=== PATIENT | male | born 1955 | race Caucasian/White ===

== ENCOUNTER → 2016-04-26 | Outpatient (CLI) | payer MEDICARE, MEDICAID ==
[2016-04-26 09:12] LABS: ALANINE AMINOTRANSFERASE 82 U/L (21-72); ALBUMIN 4.5 g/dL (3.5-5.0); ALKALINE PHOSPHATASE 65 U/L (38-126); ANION GAP 11 (5-19); ASPARTATE AMINO TRANSFERASE 68 U/L (17-59); BILIRUBIN,TOTAL 0.6 mg/dL (0.2-1.3); BLOOD UREA NITROGEN 21 mg/dL (7-20); CALCIUM 9.4 mg/dL (8.4-10.2); CARBON DIOXIDE 28 mmol/L (22-30); CHLORIDE 102 mmol/L (98-107); CREATININE RESULT 1.11 mg/dL (0.52-1.25); Direct HDL 54 mg/dL (>40); GLUCOSE 99 mg/dL (75-110); POTASSIUM 4.6 mmol/L (3.6-5.0); SODIUM 141.2 mmol/L (137-145); TOTAL PROTEIN 6.8 g/dL (6.3-8.2); TRIGLYCERIDES 73 mg/dL (<150)
[2016-04-26 09:23] LABS: DIRECT LDL 66 mg/dL (<100)
== END ==
LOC: OD 07:55
PROVIDERS: ATTEND Specialist
DX: E78.4 Other hyperlipidemia (principal); I35.8 Other nonrheumatic aortic valve disorders; I10 Essential (primary) hypertension; I34.0 Nonrheumatic mitral (valve) insufficiency; R00.0 Tachycardia, unspecified; R09.89 Other specified symptoms and signs involving the circulatory and respiratory systems; F20.89 Other schizophrenia; Z79.899 Other long term (current) drug therapy
CPT/HCPCS: 36415; 80053; 80061

== ENCOUNTER → 2017-01-30 | Outpatient (CLI) | payer MEDICARE, MEDICAID ==
[2017-01-30 10:19] LABS: ALANINE AMINOTRANSFERASE 65 U/L (21-72); ALBUMIN 4.4 g/dL (3.5-5.0); ALKALINE PHOSPHATASE 72 U/L (38-126); ANION GAP 14 (5-19); ASPARTATE AMINO TRANSFERASE 41 U/L (17-59); BILIRUBIN,DIRECT 0.3 mg/dL (0.0-0.4); BILIRUBIN,TOTAL 0.6 mg/dL (0.2-1.3); BLOOD UREA NITROGEN 19 mg/dL (7-20); CALCIUM 9.5 mg/dL (8.4-10.2); CARBON DIOXIDE 27 mmol/L (22-30); CHLORIDE 103 mmol/L (98-107); CHOLESTEROL 229.29 mg/dL (0-200); CREATININE RESULT 1.17 mg/dL (0.52-1.25); Direct HDL 45 mg/dL (>40); GLUCOSE 88 mg/dL (75-110); POTASSIUM 4.5 mmol/L (3.6-5.0); SODIUM 143.9 mmol/L (137-145); TOTAL PROTEIN 6.6 g/dL (6.3-8.2); TRIGLYCERIDES 165 mg/dL (<150)
[2017-01-30 10:30] LABS: DIRECT LDL 157 mg/dL (<100)
== END ==
LOC: OD 08:45
PROVIDERS: ATTEND Internal Medicine
DX: E78.4 Other hyperlipidemia (principal); I10 Essential (primary) hypertension; I34.0 Nonrheumatic mitral (valve) insufficiency; R00.0 Tachycardia, unspecified; J35.8 Other chronic diseases of tonsils and adenoids; R09.89 Other specified symptoms and signs involving the circulatory and respiratory systems
CPT/HCPCS: 36415; 80053; 80061

== ENCOUNTER 2017-03-28 11:11 | Inpatient (IN) | payer MEDICARE, MEDICAID ==
[2017-03-28] MEDS ORDERED: IBUPROFEN 600 MG TABLET PO ONE (11:20)
[2017-03-28] MEDS ORDERED: ONDANSETRON HCL INJ/PF 4 MG/2 ML SDV IV ONE (11:30)
--- NOTE | 2017-03-28 11:32 | ER Document Report ---
ED Flu Like - General Chief Complaint: Fever Stated Complaint: FEVER Time Seen by Provider: 03/28/17 11:19 Notes: The patient is a 61-year-old male, past medical history hypertension, chronic gastritis, schizophrenia (lives at [facility]), presents with 2 weeks of myalgias, fevers, dry cough and 2 days of nausea. He denies shortness of breath, chest pain, vomiting, abdominal pain, hematemesis, diarrhea, constipation, urinary symptoms, neck stiffness, headache or hemoptysis. TRAVEL OUTSIDE OF THE [place] IN LAST 30 DAYS: No - Related Data Allergies/Adverse Reactions: bupropion HCl [From Wellbutrin] Allergy (Verified 03/28/17 11:39) Past Medical History - General Information source: Patient, Emergency Med Personnel - Social History Smoking Status: Unknown if Ever Smoked Family History: Reviewed & Not Pertinent - Past Medical History Cardiac Medical History: Reports: Hx Hypercholesterolemia, Hx Hypertension Denies: Hx Coronary Artery Disease, Hx Heart Attack Pulmonary Medical History: Denies: Hx Asthma, Hx Bronchitis, Hx COPD, Hx Pneumonia Neurological Medical History: Denies: Hx Cerebrovascular Accident, Hx Seizures Renal/ Medical History: Reports: Hx Kidney Stones GI Medical History: Reports: Hx Gastroesophageal Reflux Disease Musculoskeltal Medical History: Denies Hx Arthritis Psychiatric Medical History: Reports: Hx Bipolar Disorder, Hx Depression, Hx Schizophrenia Past Surgical History: Reports: Hx Cholecystectomy, Hx Kidney (Renal Surgery) - for stones. Denies: Hx Pacemaker - Immunizations Hx Diphtheria, Pertussis, Tetanus Vaccination: Yes Hx Pneumococcal Vaccination: 03/18/00 Review of Systems - Review of Systems Notes: REVIEW OF SYSTEMS: CONSTITUTIONAL: +fevers, +chills EENT: -eye pain, -difficulty swallowing, -nasal congestion CARDIOVASCULAR: -chest pain, -syncope. RESPIRATORY: +cough, -SOB GASTROINTESTINAL: -abdominal pain, +nausea, -vomiting, -diarrhea GENITOURINARY: -dysuria, -hematuria MUSCULOSKELETAL: -back pain, -neck pain SKIN: -rash or skin lesions. HEMATOLOGIC: -easy bruising or bleeding. LYMPHATIC: -swollen, enlarged glands. NEUROLOGICAL: -altered mental status or loss of consciousness, -headache, - neurologic symptoms PSYCHIATRIC: -anxiety, -depression. ALL OTHER SYSTEMS REVIEWED AND NEGATIVE. Physical Exam - Vital signs Vitals: Resp Pulse Ox 30 H 94 03/28/17 11:30 03/28/17 11:30 - Notes Notes: PHYSICAL EXAMINATION: GENERAL: Well-appearing, well-nourished and in no acute distress. HEAD: Atraumatic, normocephalic. EYES: Pupils equal round and reactive to light, extraocular movements intact, sclera anicteric, conjunctiva are normal. ENT: nares patent, oropharynx clear without exudates. Moist mucous membranes. NECK: Normal range of motion, supple without lymphadenopathy LUNGS: Mild tachypnea. No respiratory distress. Speaking in full sentences. Crackles in RLL. HEART: Tachycardia, regular rhythm. ABDOMEN: Soft, nontender, normoactive bowel sounds. No guarding, no rebound. No masses appreciated. EXTREMITIES: Normal range of motion, no pitting or edema. No cyanosis. NEUROLOGICAL: Cranial nerves grossly intact. Normal speech, normal gait. Normal sensory and motor exams. PSYCH: Normal mood, normal affect. SKIN: Warm, Dry, normal turgor, no rashes or lesions noted. Course - Re-evaluation Re-evalutation: 61-year-old male seen immediately on arrival with her, tachycardia and leukocytosis. His lactate is 4.1. He has a productive cough and crackles left lower lung cruz. Radiology read the CXR as no acute processes, but there does appear to be an infiltrate in his left lower lobe. Clinically, he has a pneumonia and broad-spectrum antibiotics started. Patient was given 30 cc/kg IV fluids, but his blood pressure continued to drop. Patient was verbally consented for a central line and a right IJ triple-lumen catheter was placed under sterile guidance. Levophed was started to help keep his map above 65. Patient's flu is negative and CT abdomen pelvis do not show any acute findings. He is also in acute renal failure, which is most likely related to his septic shock and hypoperfusion. Will continue to monitor his kidney function. Patient 's primary care physician is Dr. Drake and Dr. Wadsworth is admitting his patient's today. 03/28/17 14:[address] Wadsworth and will admit patient as inpatient to ICU for further evaluation and treatment of his septic shock. - Vital Signs Vital signs: Temp Pulse Resp BP Pulse Ox 99 F 22 H 88/47 L 94 03/28/17 11:42 03/28/17 14:01 03/28/17 14:00 03/28/17 14:01 - Laboratory Result Diagrams: 03/28/17 11:30 03/28/17 11:30 Laboratory results interpreted by me: 03/28/17 03/28/17 03/28/17 11:26 11:30 11:30 WBC 28.9 H RBC 4.27 L Hgb 13.2 L Seg Neuts % (Manual) 89 H Band Neutrophils % 10 H Lymphocytes % (Manual) 1 L Monocytes % (Manual) 0 L Abs Neuts (Manual) 28.6 H Abs Lymphs (Manual) 0.3 L Abs Monocytes (Manual) 0.0 L VBG pH Sodium 135.6 L Chloride 97 L Carbon Dioxide 21 L BUN 38 H Creatinine 2.40 H Est GFR ( Amer) 34 L Est GFR (Non-Af Amer) 28 L Glucose 166 H POC Glucose 192 H Lactic Acid 03/28/17 03/28/17 11:30 11:30 WBC RBC Hgb Seg Neuts % (Manual) Band Neutrophils % Lymphocytes % (Manual) Monocytes % (Manual) Abs Neuts (Manual) Abs Lymphs (Manual) Abs Monocytes (Manual) VBG pH 7.46 H Sodium Chloride Carbon Dioxide BUN Creatinine Est GFR ( Amer) Est GFR (Non-Af Amer) Glucose POC Glucose Lactic Acid 4.1 H - Diagnostic Test Radiology reviewed: Image reviewed, Reports reviewed Radiology results interpreted by me: CXR: NAD CT A/P: NAD - EKG Interpretation by Me EKG shows normal: Sinus rhythm, [place], Intervals, QRS Complexes, ST-T Waves Rate: Tachycardia Procedures - Central Line Right Internal jugular Time completed: 14:04 Consent obtained: Yes Central line pre-insertion: Sterile PPE donned, Chloraprep applied, Sterile drapes applied Central line size (Fr.): 16 Central line lumen type: Triple Anesthetic type: 1% Lidocaine mL's of anesthesia: 5 Ultrasound guided: Yes CM at insertion site: 16 Line secured with sutures: Yes Central line post-insertion: Blood return from lumens, Biopatch applied, Sutured , Sterile dressing applied, Position confirmed w/ CXR Number of attempts: 1 Complications: No Critical Care Note - Critical Care Note Total time excluding time spent on procedures (mins): 45 Discharge - Discharge Clinical Impression: Septic shock, CHRISTINE (acute kidney injury) Pneumonia Qualifiers: Pneumonia type: due to unspecified organism Laterality: left Lung location: lower lobe of lung Qualified Code(s): J18.1 - Lobar pneumonia, unspecified organism Condition: Serious Disposition: ADMITTED INPATIENT Admitting Provider: [facility] Admitted: ICU Referrals: WILBUR DRAKE MD [Primary Care Provider] - Follow up as needed
[2017-03-28] MEDS ORDERED: IPRATROPIUM/ALBUTEROL 0.5-2.5 MG/3 ML AMPUL NEB ONE (11:42)
[2017-03-28] MEDS: NORMAL SALINE 1000 ML 1,000 ML IV PRN ×5 (11:51→19:40)
[2017-03-28 11:55] LABS: HEMATOCRIT 39.3 % (37.9-51.0); HEMOGLOBIN 13.2 g/dL (13.5-17.0); MEAN CORPUSCULAR HEMOGLOBIN 30.8 pg (27.0-33.4); MEAN CORPUSCULAR HGB CONC 33.6 g/dL (32.0-36.0); MEAN CORPUSCULAR VOLUME 92 fl (80-97); PLATELET COUNT 182 10^3/uL (150-450); RED BLOOD COUNT 4.27 10^6/uL (4.35-5.55); RED CELL DISTRIBUTION WIDTH 13.8 % (11.5-14.0); WHITE BLOOD COUNT 28.9 10^3/uL (4.0-10.5)
[2017-03-28 11:56] LABS: VENOUS BLOOD BASE EXCESS 1.4 mmol/L; VENOUS BLOOD PCO2 36.4 mmHg (35-63); VENOUS BLOOD PH 7.46 (7.30-7.42)
[2017-03-28 12:09] LABS: ALANINE AMINOTRANSFERASE 52 U/L (21-72); ALBUMIN 3.7 g/dL (3.5-5.0); ALKALINE PHOSPHATASE 63 U/L (38-126); ANION GAP 18 (5-19); ASPARTATE AMINO TRANSFERASE 57 U/L (17-59); BILIRUBIN,DIRECT 0.3 mg/dL (0.0-0.4); BILIRUBIN,TOTAL 0.6 mg/dL (0.2-1.3); BLOOD UREA NITROGEN 38 mg/dL (7-20); CARBON DIOXIDE 21 mmol/L (22-30); CHLORIDE 97 mmol/L (98-107); GLUCOSE 166 mg/dL (75-110); POTASSIUM 4.1 mmol/L (3.6-5.0); SODIUM 135.6 mmol/L (137-145); TOTAL PROTEIN 6.5 g/dL (6.3-8.2)
[2017-03-28] MEDS ORDERED: VANCOMYCIN HCL INJ 1000 MG VIAL IV ONE (12:11)
[2017-03-28] MEDS ORDERED: PIPERACILLIN/TAZOBACTAM 3.375 GM VIAL IV ONE (12:11)
--- NOTE | 2017-03-28 12:11 | RADIOLOGY REPORT (SQ) ---
EXAM DESCRIPTION: CHEST SINGLE VIEW COMPLETED DATE/TIME: 03/28/2017 12:01 pm REASON FOR STUDY: fever, cough COMPARISON: June 2015 EXAM PARAMETERS: NUMBER OF VIEWS: One view. TECHNIQUE: Single frontal radiographic view of the chest acquired. RADIATION DOSE: NA LIMITATIONS: None. FINDINGS: LUNGS AND PLEURA: No opacities, masses or pneumothorax. No pleural effusion. MEDIASTINUM AND HILAR STRUCTURES: No masses. Contour normal. HEART AND VASCULAR STRUCTURES: Heart normal in size. Normal vasculature. BONES: No acute findings. HARDWARE: None in the chest. OTHER: No other significant finding. IMPRESSION: NO ACUTE RADIOGRAPHIC FINDING IN THE CHEST. TECHNICAL DOCUMENTATION: JOB ID: [id number] [employer]- All Rights Reserved
[2017-03-28 12:15] LABS: ABSOLUTE LYMPHOCYTES# (MANUAL) 0.3 10^3/uL (0.5-4.7); ABSOLUTE NEUTROPHILS# (MANUAL) 28.6 10^3/uL (1.7-8.2); BAND NEUTROPHILS % (MANUAL) 10 % (3-5); BASOPHILS % (MANUAL) 0 % (0-2); EOSINOPHILS % (MANUAL) 0 % (0-6); LYMPHOCYTES % (MANUAL) 1 % (13-45); MONOCYTES % (MANUAL) 0 % (3-13); PLATELET COMMENT ADEQUATE; SEGMENTED NEUTROPHILS % (MAN) 89 % (42-78); TOTAL CELLS COUNTED 100; TOXIC GRANULATION 1+; TOXIC VACUOLATION PRESENT
[2017-03-28 12:16] LABS: RBC MORPHOLOGY COMMENT NORMO-CYTIC/CHROMIC
[2017-03-28] MEDS ORDERED: DEXTROSE 5%-WATER 250 ML with NOREPINEPHRINE BITARTRATE 4 MG IV PRN ×2 (13:13)
[2017-03-28 13:33] LABS: A TYPE INFLUENZA AG NEGATIVE (NEGATIVE); B INFLUENZA AG NEGATIVE (NEGATIVE)
--- NOTE | 2017-03-28 13:42 | RADIOLOGY REPORT (SQ) ---
EXAM DESCRIPTION: CT ABD/PELVIS NO ORAL OR IV COMPLETED DATE/TIME: 03/28/2017 1:24 pm REASON FOR STUDY: severe sepsis, N/V, abdominal pain COMPARISON: March 2014 TECHNIQUE: CT scan of the abdomen and pelvis performed without intravenous or oral contrast. Images reviewed with lung, soft tissue, and bone windows. Reconstructed coronal and sagittal MPR images revi ewed. All images stored on PACS. All CT scanners at this facility use dose modulation, iterative reconstruction, and/or weight based d osing when appropriate to reduce radiation dose to as low as reasonably achievable (ALARA). [facility]: Dose Right [facility]: CareDose [facility]: Dose Right [facility]: Teradose 4D [facility]: Smart [employer] RADIATION DOSE: CT Rad equipment meets quality standard of care and radiation dose reduction techniq ues were employed. CTDIvol: 19.3 mGy. DLP: 1168 mGy-cm.mGy. LIMITATIONS: None. FINDINGS: LOWER CHEST: No significant findings. No nodules or infiltrates. NON-CONTRASTED LIVER, SPLEEN, ADRENALS: Evaluation limited by lack of IV contrast. No identified sign ificant masses. Scattered splenic calcifications are again identified PANCREAS: No masses. No peripancreatic inflammatory changes. GALLBLADDER: Status post cholecystectomy RIGHT KIDNEY AND URETER: No suspicious masses. Assessment limited by lack of IV contrast. No signif icant calcifications. No hydronephrosis or hydroureter. LEFT KIDNEY AND URETER: No suspicious masses. Assessment limited by lack of IV contrast. No signifi cant calcifications. No hydronephrosis or hydroureter. AORTA AND RETROPERITONEUM: No aneurysm. No retroperitoneal masses or adenopathy. BOWEL AND PERITONEAL CAVITY: No obvious masses or inflammatory changes. No free fluid. APPENDIX: Normal. PELVIS, BLADDER, AND ABDOMINAL WALL:No abnormal masses. No free fluid. There is some prominence of t he prostate gland with prostatic calcifications and a prostatic impression on the bladder base. BONES: No significant findings. OTHER: No other significant finding. IMPRESSION: NO SIGNIFICANT OR ACUTE PROCESS IN THE ABDOMEN OR PELVIS. COMMENT: Quality ID # [id number]: Final reports with documentation of one or more dose reduction techniques (e.g., Automated exposure control, adjustment of the mA and/or kV according to patient size, use of iterative reconstruction technique) TECHNICAL DOCUMENTATION: JOB ID: [id number]- All Rights Reserved
[2017-03-28] MEDS ORDERED: NOREPINEPHRINE BITARTRATE INJ/PF 4 MG/4 ML SDV IV ONE ×2 (14:18→19:31)
[2017-03-28] MEDS ORDERED: NORMAL SALINE 1000 ML 1,000 ML IV PRN (14:50)
--- NOTE | 2017-03-28 14:55 | RADIOLOGY REPORT (SQ) ---
EXAM DESCRIPTION: CHEST SINGLE VIEW COMPLETED DATE/TIME: 03/28/2017 2:26 pm REASON FOR STUDY: central line placement COMPARISON: AP chest 06/26/2017, 07/04/2015, 01/02/2015 EXAM PARAMETERS: NUMBER OF VIEWS: One view. TECHNIQUE: Single frontal radiographic view of the chest acquired. RADIATION DOSE: NA LIMITATIONS: Portable chest, lordotic positioning, EKG leads over the chest FINDINGS: LUNGS AND PLEURA: No opacities, masses or pneumothorax. No pleural effusion. MEDIASTINUM AND HILAR STRUCTURES: No masses. Contour normal. HEART AND VASCULAR STRUCTURES: Cardiac silhouette size accentuated by lordotic positioning BONES: No acute findings. HARDWARE: Right jugular central line tip superior vena cava. OTHER: No other significant finding. IMPRESSION: Right jugular central line tip superior vena cava. No pneumothorax TECHNICAL DOCUMENTATION: JOB ID: [id number] [email or web address]- All Rights Reserved
--- NOTE | 2017-03-28 15:13 | ER Document Report ---
Sepsis - Sepsis Documentation Sepsis Patient: Yes - Vital Signs Vitals: Temp Pulse Resp BP Pulse Ox 99 F 17 94/56 L 95 03/28/17 11:42 03/28/17 14:55 03/28/17 14:55 03/28/17 14:55 - Cardiovascular Peripheral Pulse Strength: Normal Capillary refill: < 3 seconds Rhythm: Regular Heart Sounds: Normal auscultation - Respiratory Breath Sounds: Crackle - Left Lower Lobe Respiratory Status: No respiratory distress - Skin Skin Color: Normal
[2017-03-28 16:04] LABS: LIPASE 47.5 U/L (23-300); MAGNESIUM 1.7 mg/dL (1.6-2.3); PHOSPHORUS 4.2 mg/dL (2.5-4.5)
[2017-03-28 16:13] LABS: INTERNATIONAL RATION (INR) 1.33; PROTHROMBIN TIME 17.3 SEC (11.4-15.4)
[2017-03-28 16:14] LABS: PARTIAL THROMBOPLASTIN TIME 41.2 SEC (23.5-35.8)
[2017-03-28 16:23] LABS: FREE T4 (FREE THYROXINE) 1.73 ng/dL (0.78-2.19)
[2017-03-28 16:36] LABS: THYROID STIMULATING HORMONE 0.21 uIU/mL (0.47-4.68)
[2017-03-28 16:53] LABS: CREATINE KINASE MB 20.3 ng/mL (<4.55)
[2017-03-28 17:02] LABS: TROPONIN I 0.098 ng/mL
[2017-03-28] MEDS: PIPERACILLIN SODIUM/TAZOBACTAM 3.375 GM in NORMAL SALINE 100 ML IV SCH (18:14)
[2017-03-28 18:31] LABS: APPEARANCE,URINE CLOUDY; BILIRUBIN,URINE NEGATIVE (NEGATIVE); COLOR,URINE AMBER; GLUCOSE, URINE NEGATIVE (NEGATIVE); KETONES,URINE NEGATIVE (NEGATIVE); LEUKOCYTE ESTERASE,URINE NEGATIVE (NEGATIVE); NITRITE,URINE NEGATIVE (NEGATIVE); PROTEIN,URINE 100 mg/dL (NEGATIVE); URINE SPECIFIC GRAVITY 1.018
--- NOTE | 2017-03-28 18:40 | EKG REPORT ---
SEVERITY:- ABNORMAL ECG - SINUS TACHYCARDIA CONSIDER RVH W/ SECONDARY REPOL ABNORMALITY REPOL ABNRM SUGGESTS ISCHEMIA, DIFFUSE LEADS : Confirmed by: Umang Fu MD 28-Mar-2017 18:40:25
[2017-03-28 19:02] LABS: URINE AMPHETAMINES SCREEN NEGATIVE; URINE BARBITURATES SCREEN NEGATIVE; URINE BENZODIAZEPINES SCREEN NEGATIVE; URINE COCAINE SCREEN NEGATIVE; URINE MARIJUANA (THC) SCREEN NEGATIVE; URINE METHADONE SCREEN NEGATIVE; URINE PHENCYCLIDINE SCREEN NEGATIVE
[2017-03-28] MEDS: DEXTROSE 5%-WATER 250 ML with NOREPINEPHRINE BITARTRATE 4 MG IV PRN ×2 (19:35)
[2017-03-28 20:05] LABS: ARTERIAL BLOOD BASE EXCESS -3.5 mmol/L; ARTERIAL BLOOD FIO2 2; ARTERIAL BLOOD H2CO3 0.95 mmol/L (1.05-1.35); ARTERIAL BLOOD O2 SATURATION 95.7 % (94-98); ARTERIAL BLOOD PCO2 31.6 mmHg (35-45); ARTERIAL BLOOD PH 7.42 (7.35-7.45); ARTERIAL BLOOD PO2 76.5 mmHg (80-100)
[2017-03-28] MEDS ORDERED: VANCOMYCIN HCL 0 MG in DEXTROSE 5%-WATER 250 ML IV NR (21:30)
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
[2017-03-28] MEDS: ACETAMINOPHEN 325 MG TABLET PO PRN (21:51)
[2017-03-28 22:25] LABS: CREATINE KINASE MB 28.6 ng/mL (<4.55); TROPONIN I 0.077 ng/mL
[2017-03-28] MEDS: HEPARIN SOD (PORCINE) 5,000 UNIT/ML 1 ML SYRINGE SUBCUT SCH (22:43)
[2017-03-29] MEDS: PIPERACILLIN SODIUM/TAZOBACTAM 3.375 GM in NORMAL SALINE 100 ML IV SCH ×5 (01:01→23:41)
[2017-03-29] MEDS: DEXTROSE 5%-WATER 250 ML with NOREPINEPHRINE BITARTRATE 4 MG IV PRN ×4 (01:03→05:49)
[2017-03-29] MEDS: NORMAL SALINE 1000 ML 1,000 ML IV PRN ×2 (01:19→23:29)
[2017-03-29] MEDS: GUAIFENESIN SYRP 200 MG/10 ML UDC PO PRN ×3 (01:53→18:34)
[2017-03-29 03:34] LABS: HEMATOCRIT 37.2 % (37.9-51.0); HEMOGLOBIN 12.4 g/dL (13.5-17.0); MEAN CORPUSCULAR HEMOGLOBIN 30.6 pg (27.0-33.4); MEAN CORPUSCULAR HGB CONC 33.3 g/dL (32.0-36.0); MEAN CORPUSCULAR VOLUME 92 fl (80-97); PLATELET COUNT 137 10^3/uL (150-450); RED BLOOD COUNT 4.04 10^6/uL (4.35-5.55); RED CELL DISTRIBUTION WIDTH 14.1 % (11.5-14.0); WHITE BLOOD COUNT 27.3 10^3/uL (4.0-10.5)
[2017-03-29 03:52] LABS: ALANINE AMINOTRANSFERASE 69 U/L (21-72); ALBUMIN 3.4 g/dL (3.5-5.0); ALKALINE PHOSPHATASE 59 U/L (38-126); ANION GAP 10 (5-19); ASPARTATE AMINO TRANSFERASE 125 U/L (17-59); BILIRUBIN,DIRECT 0.4 mg/dL (0.0-0.4); BILIRUBIN,TOTAL 0.6 mg/dL (0.2-1.3); BLOOD UREA NITROGEN 39 mg/dL (7-20); CALCIUM 8.3 mg/dL (8.4-10.2); CARBON DIOXIDE 23 mmol/L (22-30); CHLORIDE 104 mmol/L (98-107); CHOLESTEROL 129.53 mg/dL (0-200); GLUCOSE 150 mg/dL (75-110); POTASSIUM 4.1 mmol/L (3.6-5.0); SODIUM 137.4 mmol/L (137-145); TOTAL PROTEIN 6.6 g/dL (6.3-8.2); TRIGLYCERIDES 133 mg/dL (<150)
[2017-03-29 03:53] LABS: ABSOLUTE LYMPHOCYTES# (MANUAL) 1.9 10^3/uL (0.5-4.7); ABSOLUTE MONOCYTES # (MANUAL) 0.5 10^3/uL (0.1-1.4); ABSOLUTE NEUTROPHILS# (MANUAL) 24.8 10^3/uL (1.7-8.2); BAND NEUTROPHILS % (MANUAL) 8 % (3-5); BASOPHILS % (MANUAL) 0 % (0-2); EOSINOPHILS % (MANUAL) 0 % (0-6); LYMPHOCYTES % (MANUAL) 7 % (13-45); MONOCYTES % (MANUAL) 2 % (3-13); SEGMENTED NEUTROPHILS % (MAN) 83 % (42-78); TOTAL CELLS COUNTED 100
[2017-03-29 03:54] LABS: PLATELET COMMENT DECREASED; RBC MORPHOLOGY COMMENT NORMO-CYTIC/CHROMIC; TOXIC GRANULATION 1+; TOXIC VACUOLATION PRESENT
[2017-03-29 04:04] LABS: DIRECT LDL 46 mg/dL (<100); TROPONIN I 0.081 ng/mL
[2017-03-29 04:07] LABS: CREATINE KINASE 2832 U/L (55-170)
[2017-03-29] MEDS: LEVOTHYROXINE SODIUM 0.05 MG TABLET PO SCH (05:28)
[2017-03-29] MEDS: HEPARIN SOD (PORCINE) 5,000 UNIT/ML 1 ML SYRINGE SUBCUT SCH ×3 (05:33→22:10)
[2017-03-29] MEDS: ACETAMINOPHEN 325 MG TABLET PO PRN ×3 (05:57→18:34)
[2017-03-29] MEDS ORDERED: SALIVA SUBSTITUTE COMBO NO 9 PO PRN (07:42)
--- NOTE | 2017-03-29 08:11 | XCELERA REPORT ---
[address] [address] Lower Extremity Venous Evaluation Name: ANNETTE AGUILERA Age: 61 yrs Gender: Male : 1955 Patient Status: Inpatient Patient Location: [place] [id number]^A Study Date: 03/28/2017 06:47 PM Procedure: Color flow and duplex imaging bilaterally of the veins of the lower extremities as well as the Common Femoral veins. Reason For Study: rt leg swelling Ordering Physician: PLACIDO GTZ Performed By: Nubia Hitchcock Right Sided Venous Evaluation Normal vessel filling wall to wall, compression and augmentation as well as Colour flow down to the infrageniculate veins. Left Sided Venous Evaluation The left common femoral vein is fully compressible. Spontaneous and phasic flow is present in the left common femoral vein. Interpretation Summary No duplex evidence of DVT or obstruction in the right lower extremity nor in the left Common Femoral vein. : PLACIDO GTZ > Scar Raymond
[2017-03-29] MEDS: LORAZEPAM 1 MG TABLET PO SCH ×2 (12:21→18:13)
[2017-03-29] MEDS ORDERED: (PENDING PHARMACY ID) (Bupropion Hcl [Wellbutrin Sr 150 Mg Tablet] 150 MG) PO SCH (13:00)
[2017-03-29] MEDS ORDERED: PALIPERIDONE 1.5 MG PO SCH (13:00)
[2017-03-29] MEDS: VANCOMYCIN HCL 1,500 MG in DEXTROSE 5%-WATER 250 ML IV SCH (13:02)
--- NOTE | 2017-03-29 13:04 | ER Document Report ---
Doctor's Note Notes: 03/29/17 13:02 Patient is tachypnea, short of breath, using accessory muscles of respiration, has rales in his lungs, has erythema of the right leg with lymphangitic streaking up to the level of his groin but it does not connect to his genitals. There is blistering on the inside of his right ankle. Chest x-ray at the bedside ordered by Dr. Wadsworth shows what appears to be flash pulmonary edema and this is consistent with his clinical exam, patient was hypoxic and had to be started on oxygen. I discussed this patient with Dr. Wadsworth as nursing was very concerned about this patient and he is still in the emergency department awaiting a bed upstairs, Dr. Wadsworth asks for Lasix, declines to start a nitro drip and agrees with starting BiPAP.
--- NOTE | 2017-03-29 13:20 | RADIOLOGY REPORT (SQ) ---
EXAM DESCRIPTION: CHEST SINGLE VIEW COMPLETED DATE/TIME: 03/29/2017 1:02 pm REASON FOR STUDY: shortness of breath COMPARISON: Chest films 01/02/2015, 07/04/2015, 03/28/2017 EXAM PARAMETERS: NUMBER OF VIEWS: One view. TECHNIQUE: Single frontal radiographic view of the chest acquired. RADIATION DOSE: NA LIMITATIONS: None. FINDINGS: LUNGS AND PLEURA: Low lung volumes. Mass no gross acute infiltrates. No pleural effusion or pneumothorax. MEDIASTINUM AND HILAR STRUCTURES: No masses. Contour normal. HEART AND VASCULAR STRUCTURES: Cardiac silhouette size accentuated by portable technique and low lung volumes. BONES: No acute findings. HARDWARE: Right jugular central line tip superior vena cava OTHER: No other significant finding. IMPRESSION: No acute infiltrates. Expiratory film TECHNICAL DOCUMENTATION: JOB ID: [id number] [employer]- All Rights Reserved
[2017-03-29] MEDS ORDERED: FUROSEMIDE INJ/PF 40 MG/4 ML SDV IV ONE (13:30)
[2017-03-29] MEDS: BUPROPION HCL 100 MG TABLET PO SCH ×2 (15:22→18:13)
--- NOTE | 2017-03-29 22:21 | PDOC PROGRESS REPORT ---
Subjective Progress Note for:: 03/29/17 Subjective:: Patient was admitted yesterday when he presented with septic shock due to severe cellulitis of the right lower extremities associated with rhabdomyolysis. He was vigorously hydrated with fluid and also treated with vasopressor IV norepinephrine. He developed volume overload today with increased blood pressure associated with respiratory distress, was temporarily supported with BiPAP. I saw him in the emergency room where is located the blood pressure is normalized, the IV fluids infusion rate to be decreased to 70 cc/h from 200 cc/h Reason For Visit: SEPSIS,ACUTE KIDNEY INJURY,HYPOTENSION Physical Exam Vital Signs: Temp Pulse Resp BP Pulse Ox 100.7 F H 22 H 113/72 97 03/29/17 18:24 03/29/17 21:30 03/29/17 21:30 03/29/17 21:30 Intake & Output 03/28/17 03/29/17 03/30/17 06:59 06:59 06:59 Output Total 1350 1700 Balance -1350 -1700 Weight 111.13 kg Head exam: PRESENT: atraumatic, normocephalic Eye exam: PRESENT: conjunctiva pink, EOMI, PERRLA Ear exam: PRESENT: normal external ear exam Mouth exam: PRESENT: moist, tongue midline Neck exam: PRESENT: full ROM Respiratory exam: PRESENT: clear to auscultation damion Cardiovascular exam: PRESENT: RRR, +S1, +S2 Vascular exam: PRESENT: normal capillary refill GI/Abdominal exam: PRESENT: normal bowel sounds, soft Rectal exam: PRESENT: deferred Neurological exam: PRESENT: alert. ABSENT: motor sensory deficit Psychiatric exam: PRESENT: appropriate affect, normal mood Skin exam: PRESENT: dry, intact, warm. ABSENT: cyanosis, rash Results Laboratory Results: 03/29/17 03:24 03/29/17 03:24 03/29/17 03/29/17 03:24 03:24 WBC 27.3 H RBC 4.04 L Hgb 12.4 L Hct 37.2 L MCV 92 MCH 30.6 MCHC 33.3 RDW 14.1 H Plt Count 137 L Seg Neutrophils % Not Reportable Lymphocytes % Not Reportable Monocytes % Not Reportable Eosinophils % Not Reportable Basophils % Not Reportable Absolute Neutrophils Not Reportable Absolute Lymphocytes Not Reportable Absolute Monocytes Not Reportable Absolute Eosinophils Not Reportable Absolute Basophils Not Reportable Sodium 137.4 Potassium 4.1 Chloride 104 Carbon Dioxide 23 Anion Gap 10 BUN 39 H Creatinine 2.02 H Est GFR ( Amer) 41 L Est GFR (Non-Af Amer) 34 L Glucose 150 H Calcium 8.3 L Total Bilirubin 0.6 AST 125 H ALT 69 Alkaline Phosphatase 59 Total Protein 6.6 Albumin 3.4 L Triglycerides 133 Cholesterol 129.53 LDL Cholesterol Direct 46 VLDL Cholesterol 27.0 HDL Cholesterol 21 L 03/28/17 03/28/17 03/28/17 15:23 15:23 15:23 Creatine Kinase 1178 H CK-MB (CK-2) 20.30 H Troponin I 0.098 NT-Pro-B Natriuret Pep 1360 H 03/28/17 03/28/17 03/29/17 21:10 21:10 03:24 Creatine Kinase 2052 H CK-MB (CK-2) 28.60 H 25.00 H Troponin I 0.077 0.081 NT-Pro-B Natriuret Pep 03/29/17 03:24 Creatine Kinase 2832 H CK-MB (CK-2) Troponin I NT-Pro-B Natriuret Pep Impressions: Abdomen/Pelvis CT 03/28/17 12:13 IMPRESSION: NO SIGNIFICANT OR ACUTE PROCESS IN THE ABDOMEN OR PELVIS. Chest X-Ray 03/29/17 00:00 IMPRESSION: No acute infiltrates. Expiratory film Assessment & Plan - Diagnosis (1) Septic shock Is this a current diagnosis for this admission?: Yes (2) Cellulitis of right leg Is this a current diagnosis for this admission?: Yes (3) Rhabdomyolysis Qualifiers: Rhabdomyolysis type: traumatic Is this a current diagnosis for this admission?: Yes (4) CHRISTINE (acute kidney injury) Is this a current diagnosis for this admission?: Yes - Plan Summary Plan Summary: Reduce IV infusion rate to 70 cc/h, continue IV antibiotic, DC BiPAP machine
[2017-03-30] MEDS: ACETAMINOPHEN 325 MG TABLET PO PRN ×4 (00:58→21:02)
[2017-03-30 05:20] LABS: HEMATOCRIT 30.6 % (37.9-51.0); HEMOGLOBIN 10.4 g/dL (13.5-17.0); MEAN CORPUSCULAR HEMOGLOBIN 30.8 pg (27.0-33.4); MEAN CORPUSCULAR HGB CONC 33.9 g/dL (32.0-36.0); MEAN CORPUSCULAR VOLUME 91 fl (80-97); PLATELET COUNT 123 10^3/uL (150-450); RED BLOOD COUNT 3.36 10^6/uL (4.35-5.55); RED CELL DISTRIBUTION WIDTH 14.2 % (11.5-14.0); WHITE BLOOD COUNT 18.3 10^3/uL (4.0-10.5)
[2017-03-30 05:49] LABS: ALANINE AMINOTRANSFERASE 78 U/L (21-72); ALBUMIN 2.7 g/dL (3.5-5.0); ALKALINE PHOSPHATASE 56 U/L (38-126); ANION GAP 10 (5-19); ASPARTATE AMINO TRANSFERASE 134 U/L (17-59); BILIRUBIN,DIRECT 0.3 mg/dL (0.0-0.4); BILIRUBIN,TOTAL 0.6 mg/dL (0.2-1.3); BLOOD UREA NITROGEN 31 mg/dL (7-20); CALCIUM 8.5 mg/dL (8.4-10.2); CARBON DIOXIDE 27 mmol/L (22-30); CHLORIDE 102 mmol/L (98-107); GLUCOSE 106 mg/dL (75-110); POTASSIUM 3.8 mmol/L (3.6-5.0); SODIUM 139.2 mmol/L (137-145); TOTAL PROTEIN 5.4 g/dL (6.3-8.2)
[2017-03-30 05:50] LABS: ABSOLUTE LYMPHOCYTES# (MANUAL) 1.5 10^3/uL (0.5-4.7); ABSOLUTE MONOCYTES # (MANUAL) 0.5 10^3/uL (0.1-1.4); ABSOLUTE NEUTROPHILS# (MANUAL) 16.3 10^3/uL (1.7-8.2); BAND NEUTROPHILS % (MANUAL) 3 % (3-5); BASOPHILS % (MANUAL) 0 % (0-2); EOSINOPHILS % (MANUAL) 0 % (0-6); LYMPHOCYTES % (MANUAL) 7 % (13-45); MONOCYTES % (MANUAL) 3 % (3-13); SEGMENTED NEUTROPHILS % (MAN) 86 % (42-78); TOTAL CELLS COUNTED 100
[2017-03-30 05:52] LABS: PLATELET COMMENT DECREASED; RBC MORPHOLOGY COMMENT NORMO-CYTIC/CHROMIC
[2017-03-30 05:53] LABS: PLATELET GIANT PRESENT; PLATELET LARGE PRESENT
[2017-03-30] MEDS: HEPARIN SOD (PORCINE) 5,000 UNIT/ML 1 ML SYRINGE SUBCUT SCH ×3 (06:24→21:00)
[2017-03-30] MEDS: LEVOTHYROXINE SODIUM 0.05 MG TABLET PO SCH (06:36)
[2017-03-30] MEDS: PIPERACILLIN SODIUM/TAZOBACTAM 3.375 GM in NORMAL SALINE 100 ML IV SCH ×4 (06:36→23:43)
[2017-03-30] MEDS: TAMSULOSIN HCL 0.4 MG CAP.SR.24H PO SCH (08:41)
[2017-03-30] MEDS: BUPROPION HCL 100 MG TABLET PO SCH ×3 (11:48→19:51)
[2017-03-30] MEDS: LORAZEPAM 1 MG TABLET PO SCH ×2 (11:49→16:56)
[2017-03-30] MEDS: VANCOMYCIN HCL 1,500 MG in DEXTROSE 5%-WATER 250 ML IV SCH (11:50)
--- NOTE | 2017-03-30 13:40 | PDOC PROGRESS REPORT ---
Subjective Progress Note for:: 03/30/17 Subjective:: Patient was seen by the bedside, he was admitted to be septic shock associated with severe cellulitis of the right leg. She also had acute kidney injury, the kidney function is improving with hydration, there are areas of blisters on the right leg Reason For Visit: SEPSIS,ACUTE KIDNEY INJURY,HYPOTENSION Physical Exam Vital Signs: Temp Pulse Resp BP Pulse Ox 98.3 F 103 H 22 H 127/67 H 96 03/30/17 12:54 03/30/17 12:54 03/30/17 12:54 03/30/17 12:54 03/30/17 12:54 Intake & Output 03/29/17 03/30/17 03/31/17 06:59 06:59 06:59 Intake Total 712 Output Total 1350 1700 Balance -1350 -988 Weight 111.13 kg 111.9 kg General appearance: PRESENT: mild distress Eye exam: PRESENT: PERRLA Ear exam: PRESENT: normal external ear exam Mouth exam: PRESENT: moist, tongue midline Neck exam: PRESENT: full ROM Respiratory exam: PRESENT: clear to auscultation damion Cardiovascular exam: PRESENT: RRR, +S1, +S2 Vascular exam: PRESENT: normal capillary refill GI/Abdominal exam: PRESENT: normal bowel sounds, rigid, soft Rectal exam: PRESENT: deferred Extremities exam: PRESENT: other - There is extensive erythema affecting the right leg areas of blisters in the right ankle Neurological exam: PRESENT: alert Psychiatric exam: PRESENT: appropriate affect, normal mood Skin exam: PRESENT: dry, intact, warm Results Laboratory Results: 03/30/17 04:45 03/30/17 04:45 03/30/17 03/30/17 04:45 04:45 WBC 18.3 H RBC 3.36 L Hgb 10.4 L Hct 30.6 L MCV 91 MCH 30.8 MCHC 33.9 RDW 14.2 H Plt Count 123 L Seg Neutrophils % Not Reportable Lymphocytes % Not Reportable Monocytes % Not Reportable Eosinophils % Not Reportable Basophils % Not Reportable Absolute Neutrophils Not Reportable Absolute Lymphocytes Not Reportable Absolute Monocytes Not Reportable Absolute Eosinophils Not Reportable Absolute Basophils Not Reportable Sodium 139.2 Potassium 3.8 Chloride 102 Carbon Dioxide 27 Anion Gap 10 BUN 31 H Creatinine 1.50 H Est GFR ( Amer) 58 L Est GFR (Non-Af Amer) 48 L Glucose 106 Calcium 8.5 Total Bilirubin 0.6 AST 134 H ALT 78 H Alkaline Phosphatase 56 Total Protein 5.4 L Albumin 2.7 L 03/28/17 18:10 Clean Catch Midstream Urine Culture - Final NO GROWTH 2 DAYS 03/28/17 03/28/17 03/28/17 15:23 15:23 15:23 Creatine Kinase 1178 H CK-MB (CK-2) 20.30 H Troponin I 0.098 NT-Pro-B Natriuret Pep 1360 H 03/28/17 03/28/17 03/29/17 21:10 21:10 03:24 Creatine Kinase 2052 H CK-MB (CK-2) 28.60 H 25.00 H Troponin I 0.077 0.081 NT-Pro-B Natriuret Pep 03/29/17 03:24 Creatine Kinase 2832 H CK-MB (CK-2) Troponin I NT-Pro-B Natriuret Pep Impressions: Abdomen/Pelvis CT 03/28/17 12:13 IMPRESSION: NO SIGNIFICANT OR ACUTE PROCESS IN THE ABDOMEN OR PELVIS. Chest X-Ray 03/29/17 00:00 IMPRESSION: No acute infiltrates. Expiratory film Assessment & Plan - Diagnosis (1) Septic shock Is this a current diagnosis for this admission?: Yes (2) Cellulitis of right leg Is this a current diagnosis for this admission?: Yes (3) Rhabdomyolysis Qualifiers: Rhabdomyolysis type: traumatic Is this a current diagnosis for this admission?: Yes (4) CHRISTINE (acute kidney injury) Is this a current diagnosis for this admission?: Yes - Plan Summary Plan Summary: He will continue intravenous vancomycin, Zosyn, IV fluid
[2017-03-30] MEDS: NORMAL SALINE 1000 ML 1,000 ML IV PRN (17:00)
[2017-03-31] MEDS: HEPARIN SOD (PORCINE) 5,000 UNIT/ML 1 ML SYRINGE SUBCUT SCH ×3 (06:37→21:51)
[2017-03-31] MEDS: LEVOTHYROXINE SODIUM 0.05 MG TABLET PO SCH (06:42)
[2017-03-31] MEDS: PIPERACILLIN SODIUM/TAZOBACTAM 3.375 GM in NORMAL SALINE 100 ML IV SCH ×4 (06:42→23:34)
[2017-03-31] MEDS: GUAIFENESIN SYRP 200 MG/10 ML UDC PO PRN ×4 (06:42→23:14)
[2017-03-31 06:59] LABS: HEMATOCRIT 29.9 % (37.9-51.0); HEMOGLOBIN 10.2 g/dL (13.5-17.0); MEAN CORPUSCULAR HGB CONC 33.9 g/dL (32.0-36.0); MEAN CORPUSCULAR VOLUME 91 fl (80-97); PLATELET COUNT 118 10^3/uL (150-450); RED BLOOD COUNT 3.28 10^6/uL (4.35-5.55); RED CELL DISTRIBUTION WIDTH 14.3 % (11.5-14.0); WHITE BLOOD COUNT 12.6 10^3/uL (4.0-10.5)
[2017-03-31 07:51] LABS: ABSOLUTE LYMPHOCYTES# (MANUAL) 1.1 10^3/uL (0.5-4.7); ABSOLUTE MONOCYTES # (MANUAL) 0.5 10^3/uL (0.1-1.4); BAND NEUTROPHILS % (MANUAL) 2 % (3-5); BASOPHILS % (MANUAL) 0 % (0-2); EOSINOPHILS % (MANUAL) 0 % (0-6); LYMPHOCYTES % (MANUAL) 9 % (13-45); MONOCYTES % (MANUAL) 4 % (3-13); SEGMENTED NEUTROPHILS % (MAN) 85 % (42-78); TOTAL CELLS COUNTED 100
[2017-03-31 07:52] LABS: PLATELET COMMENT DECREASED; RBC MORPHOLOGY COMMENT NORMO-CYTIC/CHROMIC
[2017-03-31] MEDS: ACETAMINOPHEN 325 MG TABLET PO PRN ×3 (08:06→20:14)
[2017-03-31 09:18] LABS: ALANINE AMINOTRANSFERASE 120 U/L (21-72); ALBUMIN 2.6 g/dL (3.5-5.0); ALKALINE PHOSPHATASE 79 U/L (38-126); ASPARTATE AMINO TRANSFERASE 168 U/L (17-59); BILIRUBIN,DIRECT 0.5 mg/dL (0.0-0.4); BILIRUBIN,TOTAL 0.8 mg/dL (0.2-1.3); TOTAL PROTEIN 5.4 g/dL (6.3-8.2)
[2017-03-31] MEDS: BUPROPION HCL 100 MG TABLET PO SCH ×3 (09:22→17:11)
[2017-03-31] MEDS: TAMSULOSIN HCL 0.4 MG CAP.SR.24H PO SCH (09:22)
[2017-03-31] MEDS: NORMAL SALINE 1000 ML 1,000 ML IV PRN (09:23)
[2017-03-31] MEDS: VANCOMYCIN HCL 1,500 MG in DEXTROSE 5%-WATER 250 ML IV SCH ×2 (12:08→21:54)
[2017-03-31] MEDS: LORAZEPAM 1 MG TABLET PO SCH ×2 (12:08→17:11)
[2017-03-31 12:34] LABS: VANCOMYCIN,TROUGH < 5.0 ug/mL (5.0-20.0)
[2017-03-31 16:15] LABS: HEMATOCRIT 30.7 % (37.9-51.0); HEMOGLOBIN 10.4 g/dL (13.5-17.0); MEAN CORPUSCULAR HEMOGLOBIN 30.7 pg (27.0-33.4); MEAN CORPUSCULAR HGB CONC 33.8 g/dL (32.0-36.0); MEAN CORPUSCULAR VOLUME 91 fl (80-97); PLATELET COUNT 118 10^3/uL (150-450); RED BLOOD COUNT 3.38 10^6/uL (4.35-5.55); RED CELL DISTRIBUTION WIDTH 14.2 % (11.5-14.0); WHITE BLOOD COUNT 12.8 10^3/uL (4.0-10.5)
[2017-03-31 16:25] LABS: ALANINE AMINOTRANSFERASE 135 U/L (21-72); ALBUMIN 2.8 g/dL (3.5-5.0); ALKALINE PHOSPHATASE 96 U/L (38-126); ANION GAP 10 (5-19); ASPARTATE AMINO TRANSFERASE 180 U/L (17-59); BILIRUBIN,DIRECT 0.4 mg/dL (0.0-0.4); BILIRUBIN,TOTAL 0.7 mg/dL (0.2-1.3); BLOOD UREA NITROGEN 28 mg/dL (7-20); CALCIUM 8.5 mg/dL (8.4-10.2); CARBON DIOXIDE 25 mmol/L (22-30); CHLORIDE 104 mmol/L (98-107); GLUCOSE 123 mg/dL (75-110); POTASSIUM 3.8 mmol/L (3.6-5.0); SODIUM 138.9 mmol/L (137-145); TOTAL PROTEIN 5.8 g/dL (6.3-8.2)
[2017-03-31 16:33] LABS: ABSOLUTE LYMPHOCYTES# (MANUAL) 0.8 10^3/uL (0.5-4.7); ABSOLUTE MONOCYTES # (MANUAL) 0.3 10^3/uL (0.1-1.4); ABSOLUTE NEUTROPHILS# (MANUAL) 11.8 10^3/uL (1.7-8.2); BAND NEUTROPHILS % (MANUAL) 1 % (3-5); BASOPHILS % (MANUAL) 0 % (0-2); EOSINOPHILS % (MANUAL) 0 % (0-6); LYMPHOCYTES % (MANUAL) 6 % (13-45); MONOCYTES % (MANUAL) 2 % (3-13); SEGMENTED NEUTROPHILS % (MAN) 91 % (42-78); TOTAL CELLS COUNTED 100
[2017-03-31 16:34] LABS: PLATELET COMMENT DECREASED; RBC MORPHOLOGY COMMENT NORMO-CYTIC/CHROMIC
--- NOTE | 2017-03-31 17:26 | PDOC PROGRESS REPORT ---
Subjective Progress Note for:: 03/31/17 Subjective:: Patient was seen by the bedside the cellulitis is improving Reason For Visit: SEPSIS,ACUTE KIDNEY INJURY,HYPOTENSION Physical Exam Vital Signs: Temp Pulse Resp BP Pulse Ox 98.2 F 99 20 165/86 H 93 03/31/17 15:23 03/31/17 15:23 03/31/17 15:23 03/31/17 15:23 03/31/17 15:23 Intake & Output 03/30/17 03/31/17 04/01/17 06:59 06:59 06:59 Intake Total 712 2911 1220 Output Total 1700 700 Balance -988 2211 1220 Weight 111.9 kg 112 kg General appearance: PRESENT: no acute distress Eye exam: PRESENT: PERRLA Respiratory exam: PRESENT: clear to auscultation damion Cardiovascular exam: PRESENT: +S1, +S2 GI/Abdominal exam: PRESENT: soft Extremities exam: PRESENT: other - erythema of the right lower extremity Neurological exam: PRESENT: alert Results Laboratory Results: 03/31/17 15:35 03/31/17 15:35 03/31/17 03/31/17 03/31/17 05:50 05:50 08:05 WBC 12.6 H RBC 3.28 L Hgb 10.2 L Hct 29.9 L MCV 91 MCH 31.0 MCHC 33.9 RDW 14.3 H Plt Count 118 L Seg Neutrophils % Not Reportable Lymphocytes % Not Reportable Monocytes % Not Reportable Eosinophils % Not Reportable Basophils % Not Reportable Absolute Neutrophils Not Reportable Absolute Lymphocytes Not Reportable Absolute Monocytes Not Reportable Absolute Eosinophils Not Reportable Absolute Basophils Not Reportable Sodium Potassium Chloride Carbon Dioxide Anion Gap BUN Creatinine Est GFR ( Amer) Est GFR (Non-Af Amer) Glucose Calcium Total Bilirubin Cancelled 0.8 AST Cancelled 168 H ALT Cancelled 120 H Alkaline Phosphatase Cancelled 79 Total Protein Cancelled 5.4 L Albumin Cancelled 2.6 L 03/31/17 03/31/17 03/31/17 11:40 15:35 15:35 WBC 12.8 H RBC 3.38 L Hgb 10.4 L Hct 30.7 L MCV 91 MCH 30.7 MCHC 33.8 RDW 14.2 H Plt Count 118 L Seg Neutrophils % Not Reportable Lymphocytes % Not Reportable Monocytes % Not Reportable Eosinophils % Not Reportable Basophils % Not Reportable Absolute Neutrophils Not Reportable Absolute Lymphocytes Not Reportable Absolute Monocytes Not Reportable Absolute Eosinophils Not Reportable Absolute Basophils Not Reportable Sodium 138.9 Potassium 3.8 Chloride 104 Carbon Dioxide 25 Anion Gap 10 BUN 28 H Creatinine 1.08 1.08 Est GFR ( Amer) > 60 > 60 Est GFR (Non-Af Amer) > 60 > 60 Glucose 123 H Calcium 8.5 Total Bilirubin 0.7 AST 180 H ALT 135 H Alkaline Phosphatase 96 Total Protein 5.8 L Albumin 2.8 L 03/28/17 03/28/17 03/28/17 15:23 15:23 15:23 Creatine Kinase 1178 H CK-MB (CK-2) 20.30 H Troponin I 0.098 NT-Pro-B Natriuret Pep 1360 H 03/28/17 03/28/17 03/29/17 21:10 21:10 03:24 Creatine Kinase 2052 H CK-MB (CK-2) 28.60 H 25.00 H Troponin I 0.077 0.081 NT-Pro-B Natriuret Pep 03/29/17 03:24 Creatine Kinase 2832 H CK-MB (CK-2) Troponin I NT-Pro-B Natriuret Pep Impressions: Abdomen/Pelvis CT 03/28/17 12:13 IMPRESSION: NO SIGNIFICANT OR ACUTE PROCESS IN THE ABDOMEN OR PELVIS. Chest X-Ray 03/29/17 00:00 IMPRESSION: No acute infiltrates. Expiratory film Assessment & Plan - Diagnosis (1) Septic shock Is this a current diagnosis for this admission?: Yes (2) Cellulitis of right leg Is this a current diagnosis for this admission?: Yes (3) Rhabdomyolysis Qualifiers: Rhabdomyolysis type: traumatic Is this a current diagnosis for this admission?: Yes (4) CHRISTINE (acute kidney injury) Is this a current diagnosis for this admission?: Yes
[2017-03-31] MEDS ORDERED: NORMAL SALINE 1000 ML 1,000 ML IV PRN (17:27)
[2017-04-01] MEDS: GUAIFENESIN SYRP 200 MG/10 ML UDC PO PRN (03:26)
[2017-04-01] MEDS: ACETAMINOPHEN 325 MG TABLET PO PRN ×2 (03:26→16:19)
[2017-04-01 04:40] LABS: ALANINE AMINOTRANSFERASE 152 U/L (21-72); ALBUMIN 2.6 g/dL (3.5-5.0); ALKALINE PHOSPHATASE 101 U/L (38-126); ANION GAP 11 (5-19); ASPARTATE AMINO TRANSFERASE 208 U/L (17-59); BILIRUBIN,DIRECT 0.7 mg/dL (0.0-0.4); BILIRUBIN,TOTAL 1.1 mg/dL (0.2-1.3); BLOOD UREA NITROGEN 27 mg/dL (7-20); CALCIUM 8.4 mg/dL (8.4-10.2); CARBON DIOXIDE 26 mmol/L (22-30); CHLORIDE 105 mmol/L (98-107); GLUCOSE 101 mg/dL (75-110); POTASSIUM 3.9 mmol/L (3.6-5.0); SODIUM 141.9 mmol/L (137-145); TOTAL PROTEIN 5.7 g/dL (6.3-8.2)
[2017-04-01] MEDS: HEPARIN SOD (PORCINE) 5,000 UNIT/ML 1 ML SYRINGE SUBCUT SCH ×3 (05:32→21:26)
[2017-04-01] MEDS: PIPERACILLIN SODIUM/TAZOBACTAM 3.375 GM in NORMAL SALINE 100 ML IV SCH ×4 (05:36→23:12)
[2017-04-01] MEDS: LEVOTHYROXINE SODIUM 0.05 MG TABLET PO SCH (05:36)
[2017-04-01 06:29] LABS: HEMATOCRIT 30.3 % (37.9-51.0); HEMOGLOBIN 10.2 g/dL (13.5-17.0); MEAN CORPUSCULAR HEMOGLOBIN 30.9 pg (27.0-33.4); MEAN CORPUSCULAR HGB CONC 33.6 g/dL (32.0-36.0); MEAN CORPUSCULAR VOLUME 92 fl (80-97); PLATELET COUNT 120 10^3/uL (150-450); RED CELL DISTRIBUTION WIDTH 14.3 % (11.5-14.0); WHITE BLOOD COUNT 11.6 10^3/uL (4.0-10.5)
[2017-04-01 07:04] LABS: ABSOLUTE LYMPHOCYTES# (MANUAL) 0.9 10^3/uL (0.5-4.7); ABSOLUTE MONOCYTES # (MANUAL) 0.5 10^3/uL (0.1-1.4); ABSOLUTE NEUTROPHILS# (MANUAL) 9.7 10^3/uL (1.7-8.2); BASOPHILS % (MANUAL) 0 % (0-2); EOSINOPHILS % (MANUAL) 4 % (0-6); LYMPHOCYTES % (MANUAL) 8 % (13-45); MONOCYTES % (MANUAL) 4 % (3-13); SEGMENTED NEUTROPHILS % (MAN) 84 % (42-78); TOTAL CELLS COUNTED 100
[2017-04-01 07:05] LABS: PLATELET COMMENT DECREASED; RBC MORPHOLOGY COMMENT NORMO-CYTIC/CHROMIC
[2017-04-01 08:31] LABS: ARTERIAL BLOOD BASE EXCESS 2.4 mmol/L; ARTERIAL BLOOD O2 SATURATION 90.1 % (94-98); ARTERIAL BLOOD PCO2 36.7 mmHg (35-45); ARTERIAL BLOOD PH 7.47 (7.35-7.45); ARTERIAL BLOOD TOTAL CO2 27.2 mmol/L (23-27)
[2017-04-01 08:32] LABS: ARTERIAL BLOOD FIO2 2.5 L
--- NOTE | 2017-04-01 10:45 | RADIOLOGY REPORT (SQ) ---
EXAM DESCRIPTION: CTA CHEST COMPLETED DATE/TIME: 04/01/2017 10:34 am REASON FOR STUDY: hypoxemia COMPARISON: None. TECHNIQUE: CT scan of the chest performed using helical scanning technique with dynamic intravenous contrast injection. Images reviewed with lung, soft tissue and bone windows. Reconstructed coronal and sagittal MPR images reviewed. Additional 3 dimensional post-processing performed to develop Maximal Intensity Projection images (DE P). All images stored on PACS. All CT scanners at this facility use dose modulation, iterative reconstruction, and/or weight based d osing when appropriate to reduce radiation dose to as low as reasonably achievable (ALARA). [facility]: Dose Right [facility]: CareDose [facility]: Dose Right [facility]: Teradose 4D [facility]: Workana CONTRAST TYPE AND DOSE: contrast/concentration: Isovue 370.00 mg/ml; Total Contrast Delivered: 77.0 ml; Total Saline Delivered: 82.8 ml Contrast bolus optimized for the pulmonary arteries. Not diagnostic for the aorta. RENAL FUNCTION: GFR > 60. RADIATION DOSE: CT Rad equipment meets quality standard of care and radiation dose reduction techniq ues were employed. CTDIvol: 15.5 - 23.0 mGy. DLP: 573 mGy-cm. . LIMITATIONS: None. FINDINGS: LUNGS AND PLEURA: Diffuse multifocal ground-glass and nodular airspace disease with small to moderate bilateral pleural effusions. No pneumothorax. AORTA AND GREAT VESSELS: No aneurysm. Contrast bolus not optimized for the aorta. HEART: No pericardial effusion. No significant coronary artery calcifications. PULMONARY ARTERIES: No emboli visualized in the main pulmonary arteries or the segmental branches. HILAR AND MEDIASTINAL STRUCTURES: No identified masses or abnormal nodes. HARDWARE: None in the chest. UPPER ABDOMEN: No significant findings. Limited exam. THYROID AND OTHER SOFT TISSUES: No masses. No adenopathy. BONES: No acute or significant finding. 3D MIPS: Confirm above findings. OTHER: No other significant finding. IMPRESSION: NO PULMONARY EMBOLI. MULTIFOCAL AIRSPACE DISEASE WITH SMALL TO MODERATE BILATERAL PLEURAL EFFUSIONS. FAVOR PULMONARY MATTIE A HOWEVER MULTIFOCAL PNEUMONIA AND ARDS COULD HAVE A SIMILAR APPEARANCE. COMMENT: Quality ID # [id number]: Final reports with documentation of one or more dose reduction techniques (e.g., Automated exposure control, adjustment of the mA and/or kV according to patient size, use of iterative reconstruction technique) TECHNICAL DOCUMENTATION: JOB ID: [id number]- All Rights Reserved
[2017-04-01] MEDS: TAMSULOSIN HCL 0.4 MG CAP.SR.24H PO SCH (12:12)
[2017-04-01] MEDS: LORAZEPAM 1 MG TABLET PO SCH ×2 (12:12→16:20)
[2017-04-01] MEDS: VANCOMYCIN HCL 1,500 MG in DEXTROSE 5%-WATER 250 ML IV SCH ×2 (12:12→22:15)
[2017-04-01] MEDS ORDERED: FUROSEMIDE INJ/PF 40 MG/4 ML SDV IV ONE (12:30)
--- NOTE | 2017-04-01 13:57 | Physician Advisory Note ---
Physician Advisor ProgressNote .: Pursuant to the plan for [facility], I have reviewed the medical record for this patient. Physician Advisor Statement: Please document, if you agree: 1A. "rhabdomyolysis was not traumatic - that is information automatically populated incorrectly by the system" - or - B. state what kind of trauma caused the rhabdo (The progress notes state "traumatic type" under rhabdo dx, even tho' the problem list dx input screen does not state that at all.... - this is likely to require query if not clarified. We will be contacting IT about this.) 2. "Ac Respiratory Failure with labored breathing initially, hypoxemia, ..." 3. "septic shock due to " [coders aren't allowed to "assume" it is from cellulitis...] Thanks! CK (BCE note being done by VB today.)
[2017-04-01] MEDS: BUPROPION HCL 100 MG TABLET PO SCH ×2 (15:01→21:26)
[2017-04-01] MEDS: NORMAL SALINE 250 ML with FUROSEMIDE 250 MG IV PRN ×2 (16:24)
--- NOTE | 2017-04-01 16:41 | EKG REPORT ---
SEVERITY:- ABNORMAL ECG - ATRIAL FIBRILLATION, V-RATE 79-149 CONSIDER RVH W/ SECONDARY REPOL ABNORMALITY BORDERLINE INFERIOR Q WAVES REPOL ABNRM SUGGESTS ISCHEMIA, LATERAL LEADS : Confirmed by: Briseida Camp 01-Apr-2017 16:41:24
[2017-04-01] MEDS ORDERED: DILTIAZEM HCL/D5W 125 MG/125 ML RTUINJ IV PRN (18:09)
--- NOTE | 2017-04-01 21:12 | PDOC PROGRESS REPORT ---
Subjective Progress Note for:: 04/01/17 Subjective:: Patient developed acute shortness of breath, ABG on FiO2 2 L, pH 7.47, PCO2 54 PCO2 36. CTA chest was done, negative for pulmonary embolism but showed multifocal airspace disease with moderate pleural effusion suspicious for pulmonary edema, he also developed paroxysmal atrial fibrillation with rapid irregular response. Reason For Visit: SEPSIS,ACUTE KIDNEY INJURY,HYPOTENSION Physical Exam Vital Signs: Temp Pulse Resp BP Pulse Ox 99.8 F 101 H 28 H 109/57 L 97 04/01/17 15:34 04/01/17 19:00 04/01/17 12:16 04/01/17 18:51 04/01/17 15:34 Intake & Output 03/31/17 04/01/17 04/02/17 06:59 06:59 06:59 Intake Total 2911 3761 1124 Output Total 200 982 0805 Balance 2211 6391 -1651 Weight 112 kg 121.1 kg General appearance: PRESENT: severe distress Respiratory exam: PRESENT: rales Cardiovascular exam: PRESENT: +S1, +S2 GI/Abdominal exam: PRESENT: soft Neurological exam: PRESENT: alert Results Laboratory Results: 04/01/17 05:57 04/01/17 04:00 04/01/17 04/01/17 04/01/17 04:00 04:00 05:57 WBC Cancelled 11.6 H RBC Cancelled 3.30 L Hgb Cancelled 10.2 L Hct Cancelled 30.3 L MCV Cancelled 92 MCH Cancelled 30.9 MCHC Cancelled 33.6 RDW Cancelled 14.3 H Plt Count Cancelled 120 L Seg Neutrophils % Cancelled Not Reportable Lymphocytes % Cancelled Not Reportable Monocytes % Cancelled Not Reportable Eosinophils % Cancelled Not Reportable Basophils % Cancelled Not Reportable Absolute Neutrophils Cancelled Not Reportable Absolute Lymphocytes Cancelled Not Reportable Absolute Monocytes Cancelled Not Reportable Absolute Eosinophils Cancelled Not Reportable Absolute Basophils Cancelled Not Reportable Carbonic Acid HCO3/H2CO3 Ratio ABG pH ABG pCO2 ABG pO2 ABG HCO3 ABG O2 Saturation ABG Base Excess FiO2 Sodium 141.9 Potassium 3.9 Chloride 105 Carbon Dioxide 26 Anion Gap 11 BUN 27 H Creatinine 0.97 Est GFR ( Amer) > 60 Est GFR (Non-Af Amer) > 60 Glucose 101 Calcium 8.4 Total Bilirubin 1.1 AST 208 H ALT 152 H Alkaline Phosphatase 101 Total Protein 5.7 L Albumin 2.6 L 04/01/17 08:20 WBC RBC Hgb Hct MCV MCH MCHC RDW Plt Count Seg Neutrophils % Lymphocytes % Monocytes % Eosinophils % Basophils % Absolute Neutrophils Absolute Lymphocytes Absolute Monocytes Absolute Eosinophils Absolute Basophils Carbonic Acid 1.10 HCO3/H2CO3 Ratio 23:1 ABG pH 7.47 H ABG pCO2 36.7 ABG pO2 54.0 L ABG HCO3 26.0 ABG O2 Saturation 90.1 L ABG Base Excess 2.4 FiO2 2.5 L Sodium Potassium Chloride Carbon Dioxide Anion Gap BUN Creatinine Est GFR ( Amer) Est GFR (Non-Af Amer) Glucose Calcium Total Bilirubin AST ALT Alkaline Phosphatase Total Protein Albumin 03/28/17 03/28/17 03/28/17 15:23 15:23 15:23 Creatine Kinase 1178 H CK-MB (CK-2) 20.30 H Troponin I 0.098 NT-Pro-B Natriuret Pep 1360 H 03/28/17 03/28/17 03/29/17 21:10 21:10 03:24 Creatine Kinase 2052 H CK-MB (CK-2) 28.60 H 25.00 H Troponin I 0.077 0.081 NT-Pro-B Natriuret Pep 03/29/17 03:24 Creatine Kinase 2832 H CK-MB (CK-2) Troponin I NT-Pro-B Natriuret Pep Impressions: Abdomen/Pelvis CT 03/28/17 12:13 IMPRESSION: NO SIGNIFICANT OR ACUTE PROCESS IN THE ABDOMEN OR PELVIS. Chest X-Ray 03/29/17 00:00 IMPRESSION: No acute infiltrates. Expiratory film Chest/Abdomen CTA 04/01/17 00:00 IMPRESSION: NO PULMONARY EMBOLI. MULTIFOCAL AIRSPACE DISEASE WITH SMALL TO MODERATE BILATERAL PLEURAL EFFUSIONS. FAVOR PULMONARY EDEMA HOWEVER MULTIFOCAL PNEUMONIA AND ARDS COULD HAVE A SIMILAR APPEARANCE. Assessment & Plan - Diagnosis (1) Septic shock Is this a current diagnosis for this admission?: Yes (2) Cellulitis of right leg Is this a current diagnosis for this admission?: Yes (3) Rhabdomyolysis Qualifiers: Rhabdomyolysis type: traumatic Is this a current diagnosis for this admission?: Yes (4) CHRISTINE (acute kidney injury) Is this a current diagnosis for this admission?: Yes (5) Paroxysmal atrial fibrillation with rapid ventricular response Is this a current diagnosis for this admission?: Yes Plan: Start Cardizem infusion for rate control, 2D echo ordered (6) Pulmonary edema Qualifiers: Chronicity: acute Qualified Code(s): J81.0 - Acute pulmonary edema Is this a current diagnosis for this admission?: Yes Plan: Start Lasix drip, 2D echo ordered (7) Acute hypoxemic respiratory failure Is this a current diagnosis for this admission?: Yes Plan: Patient started on noninvasive positive pressure ventilation with BiPAP
[2017-04-01 22:28] LABS: VANCOMYCIN,TROUGH 10.2 ug/mL (5.0-20.0)
[2017-04-02] MEDS: GUAIFENESIN SYRP 200 MG/10 ML UDC PO PRN (03:32)
[2017-04-02] MEDS: LEVOTHYROXINE SODIUM 0.05 MG TABLET PO SCH (05:14)
[2017-04-02] MEDS: BUPROPION HCL 100 MG TABLET PO SCH ×3 (05:14→21:44)
[2017-04-02] MEDS: PIPERACILLIN SODIUM/TAZOBACTAM 3.375 GM in NORMAL SALINE 100 ML IV SCH ×4 (05:14→23:07)
[2017-04-02] MEDS: HEPARIN SOD (PORCINE) 5,000 UNIT/ML 1 ML SYRINGE SUBCUT SCH ×3 (05:14→21:44)
[2017-04-02 09:34] LABS: ABSOLUTE EOSINOPHILS # (AUTO) 0.3 10^3/uL (0.0-0.6); ABSOLUTE MONOCYTES (AUTO) 0.6 10^3/uL (0.1-1.4); ABSOLUTE NEUT (AUTO) 10.4 10^3/uL (1.7-8.2); BASOPHILS % (AUTO) 0.1 % (0-2); EOSINOPHILS % (AUTO) 2.4 % (0-6); HEMATOCRIT 34.2 % (37.9-51.0); HEMOGLOBIN 11.6 g/dL (13.5-17.0); LYMPHOCYTES % (AUTO) 8.5 % (13-45); MEAN CORPUSCULAR HEMOGLOBIN 30.7 pg (27.0-33.4); MEAN CORPUSCULAR VOLUME 90 fl (80-97); MONOCYTES % (AUTO) 4.8 % (3-13); PLATELET COUNT 234 10^3/uL (150-450); RED BLOOD COUNT 3.78 10^6/uL (4.35-5.55); RED CELL DISTRIBUTION WIDTH 13.6 % (11.5-14.0); SEGMENTED NEUTROPHILS % (AUTO) 84.2 % (42-78); TOTAL CELLS COUNTED % (AUTO) 100 %; WHITE BLOOD COUNT 12.3 10^3/uL (4.0-10.5)
--- NOTE | 2017-04-02 09:43 | EKG REPORT ---
SEVERITY:- NORMAL ECG - SINUS RHYTHM LVH with secondary ST-T WAVE CHANGES : Confirmed by: Briseida Camp 02-Apr-2017 09:42:51
[2017-04-02 09:51] LABS: ALANINE AMINOTRANSFERASE 165 U/L (21-72); ALBUMIN 3.1 g/dL (3.5-5.0); ALKALINE PHOSPHATASE 116 U/L (38-126); ANION GAP 11 (5-19); ASPARTATE AMINO TRANSFERASE 170 U/L (17-59); BILIRUBIN,DIRECT 0.4 mg/dL (0.0-0.4); BLOOD UREA NITROGEN 30 mg/dL (7-20); CALCIUM 8.8 mg/dL (8.4-10.2); CARBON DIOXIDE 37 mmol/L (22-30); CHLORIDE 94 mmol/L (98-107); GLUCOSE 98 mg/dL (75-110); POTASSIUM 3.6 mmol/L (3.6-5.0); SODIUM 141.6 mmol/L (137-145); TOTAL PROTEIN 6.6 g/dL (6.3-8.2)
[2017-04-02] MEDS: TAMSULOSIN HCL 0.4 MG CAP.SR.24H PO SCH (10:08)
[2017-04-02] MEDS: ACETAMINOPHEN 325 MG TABLET PO PRN ×2 (10:08→15:29)
[2017-04-02] MEDS: VANCOMYCIN HCL 2,000 MG in DEXTROSE 5%-WATER 500 ML IV SCH ×2 (10:08→21:44)
[2017-04-02] MEDS: LORAZEPAM 1 MG TABLET PO SCH ×2 (12:55→18:34)
[2017-04-02] MEDS: NORMAL SALINE 250 ML with FUROSEMIDE 250 MG IV PRN ×2 (16:37)
--- NOTE | 2017-04-02 22:12 | PDOC PROGRESS REPORT ---
Subjective Progress Note for:: 04/02/17 Subjective:: Patient had pulmonary edema yesterday, a 2D echo was ordered, yet to be done, Patient is diuresing very well Reason For Visit: SEPSIS,ACUTE KIDNEY INJURY,HYPOTENSION Physical Exam Vital Signs: Temp Pulse Resp BP Pulse Ox 97.5 F 88 20 125/54 L 97 04/02/17 19:20 04/02/17 19:20 04/02/17 19:20 04/02/17 19:20 04/02/17 19:20 Intake & Output 04/01/17 04/02/17 04/03/17 06:59 06:59 06:59 Intake Total 3761 5327 1417 Output Total 400 5975 2100 Balance 6473 -578 -404 Weight 121.1 kg 115.9 kg Head exam: PRESENT: atraumatic, normocephalic Eye exam: PRESENT: conjunctiva pink, EOMI, PERRLA Ear exam: PRESENT: normal external ear exam Mouth exam: PRESENT: moist, tongue midline Neck exam: PRESENT: full ROM Respiratory exam: PRESENT: rales Cardiovascular exam: PRESENT: RRR, +S1, +S2 Vascular exam: PRESENT: normal capillary refill GI/Abdominal exam: PRESENT: normal bowel sounds, soft Extremities exam: PRESENT: other - Cellulitis right leg Neurological exam: PRESENT: alert. ABSENT: motor sensory deficit Psychiatric exam: ABSENT: homicidal ideation, suicidal ideation Skin exam: PRESENT: dry, intact, warm Results Laboratory Results: 04/02/17 09:15 04/02/17 09:15 04/01/17 04/02/17 04/02/17 21:50 09:15 09:15 WBC 12.3 H RBC 3.78 L Hgb 11.6 L Hct 34.2 L MCV 90 MCH 30.7 MCHC 34.0 RDW 13.6 Plt Count 234 Seg Neutrophils % 84.2 H Lymphocytes % 8.5 L Monocytes % 4.8 Eosinophils % 2.4 Basophils % 0.1 Absolute Neutrophils 10.4 H Absolute Lymphocytes 1.0 Absolute Monocytes 0.6 Absolute Eosinophils 0.3 Absolute Basophils 0.0 Sodium 141.6 Potassium 3.6 Chloride 94 L Carbon Dioxide 37 H Anion Gap 11 BUN 30 H Creatinine 1.10 1.22 Est GFR ( Amer) > 60 > 60 Est GFR (Non-Af Amer) > 60 > 60 Glucose 98 Calcium 8.8 Total Bilirubin 1.0 AST 170 H ALT 165 H Alkaline Phosphatase 116 Total Protein 6.6 Albumin 3.1 L 03/28/17 15:23 Blood Blood Culture - Final NO GROWTH IN 5 DAYS 03/28/17 03/28/17 03/28/17 15:23 15:23 15:23 Creatine Kinase 1178 H CK-MB (CK-2) 20.30 H Troponin I 0.098 NT-Pro-B Natriuret Pep 1360 H 03/28/17 03/28/17 03/29/17 21:10 21:10 03:24 Creatine Kinase 2052 H CK-MB (CK-2) 28.60 H 25.00 H Troponin I 0.077 0.081 NT-Pro-B Natriuret Pep 03/29/17 03:24 Creatine Kinase 2832 H CK-MB (CK-2) Troponin I NT-Pro-B Natriuret Pep Impressions: Abdomen/Pelvis CT 03/28/17 12:13 IMPRESSION: NO SIGNIFICANT OR ACUTE PROCESS IN THE ABDOMEN OR PELVIS. Chest X-Ray 03/29/17 00:00 IMPRESSION: No acute infiltrates. Expiratory film Chest/Abdomen CTA 04/01/17 00:00 IMPRESSION: NO PULMONARY EMBOLI. MULTIFOCAL AIRSPACE DISEASE WITH SMALL TO MODERATE BILATERAL PLEURAL EFFUSIONS. FAVOR PULMONARY EDEMA HOWEVER MULTIFOCAL PNEUMONIA AND ARDS COULD HAVE A SIMILAR APPEARANCE. Assessment & Plan - Diagnosis (1) Septic shock Is this a current diagnosis for this admission?: Yes (2) Cellulitis of right leg Is this a current diagnosis for this admission?: Yes (3) Rhabdomyolysis Qualifiers: Rhabdomyolysis type: traumatic Is this a current diagnosis for this admission?: Yes (4) CHRISTINE (acute kidney injury) Is this a current diagnosis for this admission?: Yes (5) Paroxysmal atrial fibrillation with rapid ventricular response Is this a current diagnosis for this admission?: Yes (6) Pulmonary edema Qualifiers: Chronicity: acute Qualified Code(s): J81.0 - Acute pulmonary edema Is this a current diagnosis for this admission?: Yes (7) Acute hypoxemic respiratory failure Is this a current diagnosis for this admission?: Yes
[2017-04-03] MEDS: HEPARIN SOD (PORCINE) 5,000 UNIT/ML 1 ML SYRINGE SUBCUT SCH ×3 (05:16→21:32)
[2017-04-03] MEDS: BUPROPION HCL 100 MG TABLET PO SCH ×3 (05:17→21:29)
[2017-04-03] MEDS: LEVOTHYROXINE SODIUM 0.05 MG TABLET PO SCH (05:17)
[2017-04-03] MEDS: PIPERACILLIN SODIUM/TAZOBACTAM 3.375 GM in NORMAL SALINE 100 ML IV SCH ×3 (05:20→17:39)
[2017-04-03 07:42] LABS: HEPATITIS A AB IGM Negative (Negative); HEPATITIS B CORE AB IGM Negative (Negative); HEPATITS B SURFACE ANTIGEN Negative (Negative)
[2017-04-03 08:42] LABS: HEPATITIS C VIRUS ANTIBODY <0.1 s/co ratio (0.0-0.9)
[2017-04-03] MEDS: TAMSULOSIN HCL 0.4 MG CAP.SR.24H PO SCH (08:45)
[2017-04-03] MEDS: VANCOMYCIN HCL 2,000 MG in DEXTROSE 5%-WATER 500 ML IV SCH ×2 (09:36→21:56)
[2017-04-03] MEDS: ACETAMINOPHEN 325 MG TABLET PO PRN ×2 (10:39→17:48)
[2017-04-03] MEDS: LORAZEPAM 1 MG TABLET PO SCH ×2 (12:57→16:11)
[2017-04-03] MEDS: NORMAL SALINE 250 ML with FUROSEMIDE 250 MG IV PRN ×2 (16:10)
[2017-04-03] MEDS ORDERED: NORMAL SALINE 250 ML with FUROSEMIDE 250 MG IV PRN ×2 (16:11)
--- NOTE | 2017-04-03 16:17 | PDOC PROGRESS REPORT ---
Subjective Progress Note for:: 04/03/17 Subjective:: Patient was seen by the bedside, 2D echo was done, it showed preserved ejection fraction of left ventricle, grade 1 diastolic dysfunction of left ventricle, the edema is most likely from hypoalbuminemia. He has grossly abnormal liver function test, on direct questioning he denied any chronic alcohol abuse, the hepatitis panel was negative for hepatitis Reason For Visit: SEPSIS,ACUTE KIDNEY INJURY,HYPOTENSION Physical Exam Vital Signs: Temp Pulse Resp BP Pulse Ox 97.5 F 78 18 139/74 H 95 04/03/17 12:12 04/03/17 14:00 04/03/17 12:12 04/03/17 12:12 04/03/17 12:12 Intake & Output 04/02/17 04/03/17 04/04/17 06:59 06:59 06:59 Intake Total 5327 2384 Output Total 5916 5225 Balance -229 -9221 Weight 115.9 kg 112.3 kg General appearance: PRESENT: no acute distress Eye exam: PRESENT: PERRLA Respiratory exam: PRESENT: clear to auscultation damion Cardiovascular exam: PRESENT: +S1, +S2 GI/Abdominal exam: PRESENT: soft Extremities exam: PRESENT: pedal edema, other Neurological exam: PRESENT: alert Skin exam: PRESENT: erythema Results Laboratory Results: 04/02/17 09:15 04/02/17 09:15 03/28/17 15:23 Blood Blood Culture - Final NO GROWTH IN 5 DAYS 03/28/17 03/28/17 03/28/17 15:23 15:23 15:23 Creatine Kinase 1178 H CK-MB (CK-2) 20.30 H Troponin I 0.098 NT-Pro-B Natriuret Pep 1360 H 03/28/17 03/28/17 03/29/17 21:10 21:10 03:24 Creatine Kinase 2052 H CK-MB (CK-2) 28.60 H 25.00 H Troponin I 0.077 0.081 NT-Pro-B Natriuret Pep 03/29/17 03:24 Creatine Kinase 2832 H CK-MB (CK-2) Troponin I NT-Pro-B Natriuret Pep Impressions: Abdomen/Pelvis CT 03/28/17 12:13 IMPRESSION: NO SIGNIFICANT OR ACUTE PROCESS IN THE ABDOMEN OR PELVIS. Chest X-Ray 03/29/17 00:00 IMPRESSION: No acute infiltrates. Expiratory film Chest/Abdomen CTA 04/01/17 00:00 IMPRESSION: NO PULMONARY EMBOLI. MULTIFOCAL AIRSPACE DISEASE WITH SMALL TO MODERATE BILATERAL PLEURAL EFFUSIONS. FAVOR PULMONARY EDEMA HOWEVER MULTIFOCAL PNEUMONIA AND ARDS COULD HAVE A SIMILAR APPEARANCE. Assessment & Plan - Diagnosis (1) Septic shock Is this a current diagnosis for this admission?: Yes (2) Cellulitis of right leg Is this a current diagnosis for this admission?: Yes (3) Rhabdomyolysis Qualifiers: Rhabdomyolysis type: traumatic Is this a current diagnosis for this admission?: Yes (4) CHRISTINE (acute kidney injury) Is this a current diagnosis for this admission?: Yes (5) Paroxysmal atrial fibrillation with rapid ventricular response Is this a current diagnosis for this admission?: Yes (6) Pulmonary edema Qualifiers: Chronicity: acute Qualified Code(s): J81.0 - Acute pulmonary edema Is this a current diagnosis for this admission?: Yes (7) Acute hypoxemic respiratory failure Is this a current diagnosis for this admission?: Yes (8) Hypoalbuminemia Is this a current diagnosis for this admission?: Yes (9) Abnormal liver function Is this a current diagnosis for this admission?: Yes - Plan Summary Plan Summary: Reduce furosemide infusion rate
[2017-04-03 16:49] LABS: ALANINE AMINOTRANSFERASE 167 U/L (21-72); ALBUMIN 3.4 g/dL (3.5-5.0); ALKALINE PHOSPHATASE 118 U/L (38-126); ANION GAP 9 (5-19); ASPARTATE AMINO TRANSFERASE 138 U/L (17-59); BILIRUBIN,DIRECT 0.4 mg/dL (0.0-0.4); BILIRUBIN,TOTAL 0.8 mg/dL (0.2-1.3); BLOOD UREA NITROGEN 38 mg/dL (7-20); CARBON DIOXIDE 38 mmol/L (22-30); CHLORIDE 92 mmol/L (98-107); GLUCOSE 97 mg/dL (75-110); POTASSIUM 3.8 mmol/L (3.6-5.0); SODIUM 138.8 mmol/L (137-145); TOTAL PROTEIN 7.6 g/dL (6.3-8.2)
[2017-04-03 18:02] LABS: ABSOLUTE BASOPHILS # (AUTO) 0.1 10^3/uL (0.0-0.2); ABSOLUTE EOSINOPHILS # (AUTO) 0.4 10^3/uL (0.0-0.6); ABSOLUTE LYMPHOCYTES (AUTO) 1.3 10^3/uL (0.5-4.7); ABSOLUTE MONOCYTES (AUTO) 0.4 10^3/uL (0.1-1.4); ABSOLUTE NEUT (AUTO) 9.7 10^3/uL (1.7-8.2); BASOPHILS % (AUTO) 0.7 % (0-2); EOSINOPHILS % (AUTO) 3.6 % (0-6); LYMPHOCYTES % (AUTO) 10.5 % (13-45); MEAN CORPUSCULAR HEMOGLOBIN 30.9 pg (27.0-33.4); MEAN CORPUSCULAR HGB CONC 34.1 g/dL (32.0-36.0); MEAN CORPUSCULAR VOLUME 91 fl (80-97); MONOCYTES % (AUTO) 3.6 % (3-13); PLATELET COUNT 309 10^3/uL (150-450); RED CELL DISTRIBUTION WIDTH 14.1 % (11.5-14.0); SEGMENTED NEUTROPHILS % (AUTO) 81.6 % (42-78); TOTAL CELLS COUNTED % (AUTO) 100 %; WHITE BLOOD COUNT 11.9 10^3/uL (4.0-10.5)
[2017-04-03 18:14] LABS: INTERNATIONAL RATION (INR) 1.01; PARTIAL THROMBOPLASTIN TIME 31.4 SEC (23.5-35.8)
--- NOTE | 2017-04-03 22:23 | RADIOLOGY REPORT (SQ) ---
EXAM DESCRIPTION: U/S ABDOMEN LIMITED W/O DOP COMPLETED DATE/TIME: 04/03/2017 10:05 pm REASON FOR STUDY: liver ,abnormal liver function COMPARISON: CT from 03/28/2017. TECHNIQUE: Dynamic and static grayscale images acquired of the liver and recorded on PACS. Raina romo selected color Doppler and spectral images recorded. Selected velocities recorded. LIMITATIONS: None. FINDINGS: LIVER: Echogenic appearance, likely fatty liver measures just at 18 cm. LIVER VASCULATURE: Normal portal flow. Patent hepatic veins. GALLBLADDER: Surgically absent. ULTRASOUND-DETECTED MONTALVO'S SIGN: Negative. INTRAHEPATIC DUCTS AND COMMON DUCT: No dilated intrahepatic ducts. CBD diameter normal. ASCITES: Trace periportal fluid may be present. OTHER: No other significant finding. IMPRESSION: 1. Fatty liver. Trace ascites suspected. 2. Status post cholecystectomy. TECHNICAL DOCUMENTATION: JOB ID: [id number] [employer]- All Rights Reserved
[2017-04-03 22:41] LABS: VANCOMYCIN,TROUGH 21.2 ug/mL (5.0-20.0)
--- NOTE | 2017-04-03 23:56 | XCELERA REPORT ---
[address] [address] Transthoracic Echocardiogram Report Name: ANNETTE AGUILERA Age: 61 yrs Gender: Male : 1955 Patient Status: Inpatient Patient Location: [address] [place] [address] Study Date: 04/03/2017 10:02 AM Height: 72 in Weight: 266 lb BSA: 2.4 m2 Procedure: A complete two-dimensional transthoracic echocardiogram was performed (2D, M-mode, spectral and color flow Doppler). The study was technically difficult with many images being suboptimal in quality. Reason For Study: afib Ordering Physician: PLACIDO GTZ Performed By: Alice Lundberg Interpretation Summary The study was technically difficult with many images being suboptimal in quality. The left ventricular ejection fraction is preserved. Consider additional methods to assess LVEF such as MUGA scan, CTA heart, cardiac MRI, MAYKEL, etc. if clinically indicated. There is borderline concentric left ventricular hypertrophy. The left ventricle is grossly normal size. Regional wall motion abnormalities cannot be excluded due to limited visualization. Not all wall segments were well visualized. The right ventricle is mildly dilated. The right ventricle appears to be hypertrophied The right ventricular systolic function is normal. The right atrium is mildly dilated. The left atrium is mildly dilated. There is no mitral valve stenosis. There is a trace to mild amount of mitral regurgitation There is no aortic valve stenosis No aortic regurgitation is present. There is a mild amount of tricuspid regurgitation There is moderate to severe pulmonary hypertension by echo Right ventricular systolic pressure is estimated to be elevated at 50- 60mmHg. The aortic root is not well visualized. The inferior vena cava was not well visualized There is no pericardial effusion. MMode/2D Measurements & Calculations RVDd: 4.4 cm LVIDd: 5.0 cm FS: 44.1 % Ao root diam: 3.0 cm IVSd: 1.00 cm LVIDs: 2.8 cm EDV(Teich): 117.2 ml LVPWd: 1.0 cm ESV(Teich): 29.2 ml Ao root area: 7.0 cm2 EF(Teich): 75.1 % LA dimension: 4.1 cm Doppler Measurements & Calculations MV E max danny: MV P1/2t max danny: Ao V2 max: LV V1 max P.3 cm/sec 91.9 cm/sec 228.0 cm/sec 14.9 mmHg MV A max danny: MV P1/2t: 89.5 msec Ao max PG: LV V1 max: 101.8 cm/sec 20.8 mmHg 192.8 cm/sec MV E/A: 0.90 MVA(P1/2t): 2.5 cm2 MV dec slope: 301.0 cm/sec2 MV dec time: 0.30 sec PA V2 max: TR max danny: 114.5 cm/sec 340.7 cm/sec PA max P.2 mmHgTR max P.4 mmHg Left Ventricle The left ventricle is grossly normal size. There is borderline concentric left ventricular hypertrophy. The left ventricular ejection fraction is preserved. Consider additional methods to assess LVEF such as MUGA scan, CTA heart, cardiac MRI, MAYKEL, etc. if clinically indicated. Doppler measurements suggest pseudonormalized left ventricular relaxation, which is associated with grade II/IV or mild to moderate diastolic dysfunction. Regional wall motion abnormalities cannot be excluded due to limited visualization. Not all wall segments were well visualized. Right Ventricle The right ventricle is mildly dilated. The right ventricle appears to be hypertrophied. The right ventricular systolic function is normal. Atria The right atrium is mildly dilated. The left atrium is mildly dilated. Interarterial septum not well visualized and not well dopplered. Cannot comment on ASD/PFO presence. Mitral Valve The mitral valve leaflets are sclerotic, but show no functional abnormalities. There is no mitral valve stenosis. There is a trace to mild amount of mitral regurgitation. Aortic Valve The aortic valve is not well visualized secondary to technical limitations. There is no aortic valve stenosis. No aortic regurgitation is present. Tricuspid Valve The tricuspid valve is not well visualized, but is grossly normal. There is no tricuspid stenosis. There is a mild amount of tricuspid regurgitation. There is moderate to severe pulmonary hypertension by echo. Right ventricular systolic pressure is estimated to be elevated at 50-60mmHg. Pulmonic Valve The pulmonic valve is not well visualized. Great Vessels The aortic root is not well visualized. The inferior vena cava was not well visualized. Effusions There is no pericardial effusion. : PLACIDO GTZ > Briseida Camp
[2017-04-04] MEDS: PIPERACILLIN SODIUM/TAZOBACTAM 3.375 GM in NORMAL SALINE 100 ML IV SCH ×3 (00:41→12:00)
[2017-04-04] MEDS: ACETAMINOPHEN 325 MG TABLET PO PRN ×3 (04:21→21:04)
[2017-04-04] MEDS: HEPARIN SOD (PORCINE) 5,000 UNIT/ML 1 ML SYRINGE SUBCUT SCH ×3 (05:34→21:50)
[2017-04-04] MEDS: LEVOTHYROXINE SODIUM 0.05 MG TABLET PO SCH (05:34)
[2017-04-04] MEDS: BUPROPION HCL 100 MG TABLET PO SCH ×3 (05:40→21:07)
[2017-04-04] MEDS: TAMSULOSIN HCL 0.4 MG CAP.SR.24H PO SCH (08:12)
[2017-04-04] MEDS: VANCOMYCIN HCL 1,250 MG in DEXTROSE 5%-WATER 250 ML IV SCH ×2 (09:41→21:51)
[2017-04-04] MEDS: LORAZEPAM 1 MG TABLET PO SCH ×2 (12:00→16:07)
[2017-04-04] MEDS: DIPHENHYDRAMINE HCL 25 MG CAPSULE PO PRN ×2 (14:57→21:08)
--- NOTE | 2017-04-04 20:45 | PDOC PROGRESS REPORT ---
Subjective Progress Note for:: 04/04/17 Subjective:: He was seen by the bedside, the liver ultrasound suggests fatty liver, he probably have Trimble, he may need a liver biopsy to confirm this diagnosis but it is reasonable to assume it especially in the setting of elevated liver enzymes, hyperalbuminemia with anasarca. He did respond to furosemide infusion, the cellulitis is improving Reason For Visit: SEPSIS,ACUTE KIDNEY INJURY,HYPOTENSION Physical Exam Vital Signs: Temp Pulse Resp BP Pulse Ox 97.9 F 87 18 132/51 H 94 04/04/17 16:52 04/04/17 16:52 04/04/17 16:52 04/04/17 16:52 04/04/17 16:52 Intake & Output 04/03/17 04/04/17 04/05/17 06:59 06:59 06:59 Intake Total 2384 2829 1884 Output Total 5218 4000 1525 Balance -4103 -8102 359 Weight 112.3 kg 108.9 kg General appearance: PRESENT: no acute distress Eye exam: PRESENT: PERRLA Respiratory exam: PRESENT: clear to auscultation damion Cardiovascular exam: PRESENT: +S1, +S2 GI/Abdominal exam: PRESENT: soft Neurological exam: PRESENT: alert, CN II-XII grossly intact Skin exam: PRESENT: erythema Results Laboratory Results: 04/03/17 17:30 04/03/17 21:55 04/03/17 21:55 Creatinine 1.54 H Est GFR ( Amer) 56 L Est GFR (Non-Af Amer) 46 L 03/28/17 03/28/17 03/28/17 15:23 15:23 15:23 Creatine Kinase 1178 H CK-MB (CK-2) 20.30 H Troponin I 0.098 NT-Pro-B Natriuret Pep 1360 H 03/28/17 03/28/17 03/29/17 21:10 21:10 03:24 Creatine Kinase 2052 H CK-MB (CK-2) 28.60 H 25.00 H Troponin I 0.077 0.081 NT-Pro-B Natriuret Pep 03/29/17 03:24 Creatine Kinase 2832 H CK-MB (CK-2) Troponin I NT-Pro-B Natriuret Pep Impressions: Abdomen/Pelvis CT 03/28/17 12:13 IMPRESSION: NO SIGNIFICANT OR ACUTE PROCESS IN THE ABDOMEN OR PELVIS. Chest X-Ray 03/29/17 00:00 IMPRESSION: No acute infiltrates. Expiratory film Chest/Abdomen CTA 04/01/17 00:00 IMPRESSION: NO PULMONARY EMBOLI. MULTIFOCAL AIRSPACE DISEASE WITH SMALL TO MODERATE BILATERAL PLEURAL EFFUSIONS. FAVOR PULMONARY EDEMA HOWEVER MULTIFOCAL PNEUMONIA AND ARDS COULD HAVE A SIMILAR APPEARANCE. Abdomen Ultrasound 04/03/17 00:00 IMPRESSION: 1. Fatty liver. Trace ascites suspected. 2. Status post cholecystectomy. Assessment & Plan - Diagnosis (1) Septic shock Is this a current diagnosis for this admission?: Yes (2) Cellulitis of right leg Is this a current diagnosis for this admission?: Yes (3) Rhabdomyolysis Qualifiers: Rhabdomyolysis type: traumatic Is this a current diagnosis for this admission?: Yes (4) CHRISTINE (acute kidney injury) Is this a current diagnosis for this admission?: Yes (5) Paroxysmal atrial fibrillation with rapid ventricular response Is this a current diagnosis for this admission?: Yes (6) Pulmonary edema Qualifiers: Chronicity: acute Qualified Code(s): J81.0 - Acute pulmonary edema Is this a current diagnosis for this admission?: Yes (7) Acute hypoxemic respiratory failure Is this a current diagnosis for this admission?: Yes (8) Hypoalbuminemia Is this a current diagnosis for this admission?: Yes (9) Abnormal liver function Is this a current diagnosis for this admission?: Yes
[2017-04-05] MEDS: DIPHENHYDRAMINE HCL 25 MG CAPSULE PO PRN ×3 (06:16→19:23)
[2017-04-05] MEDS: BUPROPION HCL 100 MG TABLET PO SCH ×3 (06:17→22:25)
[2017-04-05] MEDS: ACETAMINOPHEN 325 MG TABLET PO PRN ×3 (06:17→19:22)
[2017-04-05] MEDS: LEVOTHYROXINE SODIUM 0.05 MG TABLET PO SCH (06:17)
[2017-04-05] MEDS: HEPARIN SOD (PORCINE) 5,000 UNIT/ML 1 ML SYRINGE SUBCUT SCH ×3 (06:17→22:25)
[2017-04-05] MEDS: TAMSULOSIN HCL 0.4 MG CAP.SR.24H PO SCH (08:46)
[2017-04-05] MEDS: VANCOMYCIN HCL 1,250 MG in DEXTROSE 5%-WATER 250 ML IV SCH (09:46)
--- NOTE | 2017-04-05 20:32 | PDOC PROGRESS REPORT ---
Subjective Progress Note for:: 04/05/17 Subjective:: Patient was seen by the bedside, he developed severe drug rash affecting predominantly possible most likely from cefepime, Reason For Visit: SEPSIS,ACUTE KIDNEY INJURY,HYPOTENSION Physical Exam Vital Signs: Temp Pulse Resp BP Pulse Ox 99.1 F 88 18 166/65 H 97 04/05/17 18:48 04/05/17 18:48 04/05/17 18:48 04/05/17 18:48 04/05/17 18:48 Intake & Output 04/04/17 04/05/17 04/06/17 06:59 06:59 06:59 Intake Total 2829 2188 1446 Output Total 4000 1975 925 Balance -1171 213 521 Weight 108.9 kg 110.8 kg General appearance: PRESENT: no acute distress Eye exam: PRESENT: PERRLA Respiratory exam: PRESENT: clear to auscultation damion Cardiovascular exam: PRESENT: +S1, +S2 GI/Abdominal exam: PRESENT: soft Neurological exam: PRESENT: alert Skin exam: PRESENT: erythema - Severe eczema consistent with drug reaction Results Laboratory Results: 04/03/17 17:30 04/03/17 21:55 03/28/17 03/28/17 03/28/17 15:23 15:23 15:23 Creatine Kinase 1178 H CK-MB (CK-2) 20.30 H Troponin I 0.098 NT-Pro-B Natriuret Pep 1360 H 03/28/17 03/28/17 03/29/17 21:10 21:10 03:24 Creatine Kinase 2052 H CK-MB (CK-2) 28.60 H 25.00 H Troponin I 0.077 0.081 NT-Pro-B Natriuret Pep 03/29/17 03:24 Creatine Kinase 2832 H CK-MB (CK-2) Troponin I NT-Pro-B Natriuret Pep Impressions: Abdomen/Pelvis CT 03/28/17 12:13 IMPRESSION: NO SIGNIFICANT OR ACUTE PROCESS IN THE ABDOMEN OR PELVIS. Chest X-Ray 03/29/17 00:00 IMPRESSION: No acute infiltrates. Expiratory film Chest/Abdomen CTA 04/01/17 00:00 IMPRESSION: NO PULMONARY EMBOLI. MULTIFOCAL AIRSPACE DISEASE WITH SMALL TO MODERATE BILATERAL PLEURAL EFFUSIONS. FAVOR PULMONARY EDEMA HOWEVER MULTIFOCAL PNEUMONIA AND ARDS COULD HAVE A SIMILAR APPEARANCE. Abdomen Ultrasound 04/03/17 00:00 IMPRESSION: 1. Fatty liver. Trace ascites suspected. 2. Status post cholecystectomy. Assessment & Plan - Diagnosis (1) Septic shock Is this a current diagnosis for this admission?: Yes (2) Cellulitis of right leg Is this a current diagnosis for this admission?: Yes (3) Rhabdomyolysis Qualifiers: Rhabdomyolysis type: traumatic Is this a current diagnosis for this admission?: Yes (4) CHRISTINE (acute kidney injury) Is this a current diagnosis for this admission?: Yes (5) Paroxysmal atrial fibrillation with rapid ventricular response Is this a current diagnosis for this admission?: Yes (6) Pulmonary edema Qualifiers: Chronicity: acute Qualified Code(s): J81.0 - Acute pulmonary edema Is this a current diagnosis for this admission?: Yes (7) Acute hypoxemic respiratory failure Is this a current diagnosis for this admission?: Yes (8) Hypoalbuminemia Is this a current diagnosis for this admission?: Yes (9) Abnormal liver function Is this a current diagnosis for this admission?: Yes - Plan Summary Plan Summary: He has drug reaction rash, we will discontinue cefepime, discontinue Lasix infusion, sonogram of the liver suggest fatty liver, may need liver biopsy
[2017-04-05] MEDS ORDERED: CLINDAMYCIN 600 MG/D5W RTU 600 MG/50 ML RTUPB IV SCH (20:45)
[2017-04-05] MEDS: CLINDAMYCIN HCL 150 MG CAPSULE PO SCH (22:24)
[2017-04-06] MEDS: ONDANSETRON HCL INJ/PF 4 MG/2 ML SDV IV PRN ×2 (00:59→10:18)
[2017-04-06] MEDS: DIPHENHYDRAMINE HCL 25 MG CAPSULE PO PRN ×3 (02:18→20:57)
[2017-04-06] MEDS: ACETAMINOPHEN 325 MG TABLET PO PRN ×4 (02:18→20:56)
[2017-04-06] MEDS: BUPROPION HCL 100 MG TABLET PO SCH ×3 (05:12→20:56)
[2017-04-06] MEDS: LEVOTHYROXINE SODIUM 0.05 MG TABLET PO SCH (05:12)
[2017-04-06] MEDS: CLINDAMYCIN HCL 150 MG CAPSULE PO SCH ×3 (05:12→20:56)
[2017-04-06] MEDS: HEPARIN SOD (PORCINE) 5,000 UNIT/ML 1 ML SYRINGE SUBCUT SCH ×3 (05:13→20:57)
[2017-04-06] MEDS: TAMSULOSIN HCL 0.4 MG CAP.SR.24H PO SCH (10:16)
--- NOTE | 2017-04-06 16:03 | PDOC PROGRESS REPORT ---
Subjective Progress Note for:: 04/06/17 Subjective:: Patient denied any chest pain or difficulty with breathing. No fever or chills. No abdominal pain, nausea or vomiting. Tolerating oral feeding. Right leg lesion improving. Reason For Visit: SEPSIS,ACUTE KIDNEY INJURY,HYPOTENSION Physical Exam Vital Signs: Temp Pulse Resp BP Pulse Ox 98.2 F 91 20 174/67 H 94 04/06/17 12:00 04/06/17 12:00 04/06/17 12:00 04/06/17 12:00 04/06/17 12:00 Intake & Output 04/05/17 04/06/17 04/07/17 06:59 06:59 06:59 Intake Total 2188 1766 590 Output Total 1975 1325 350 Balance 213 441 240 Weight 110.8 kg 107.9 kg 107.9 kg General appearance: PRESENT: no acute distress, obese Head exam: PRESENT: atraumatic Mouth exam: PRESENT: moist Respiratory exam: PRESENT: clear to auscultation damion Cardiovascular exam: PRESENT: RRR. ABSENT: diastolic murmur, rubs, systolic murmur Vascular exam: PRESENT: normal capillary refill. ABSENT: pallor GI/Abdominal exam: PRESENT: normal bowel sounds, soft. ABSENT: distended, guarding, mass, organolmegaly, rebound, tenderness Extremities exam: ABSENT: pedal edema Musculoskeletal exam: PRESENT: other - extensive erythema and exfoliation of skin involving right leg Neurological exam: PRESENT: alert, awake, oriented to person, oriented to place , oriented to time, oriented to situation, CN II-XII grossly intact. ABSENT: motor sensory deficit Psychiatric exam: PRESENT: appropriate affect, normal mood. ABSENT: homicidal ideation, suicidal ideation Skin exam: PRESENT: erythema, rash - involving right leg with denuded areas, warm Results Laboratory Results: 04/03/17 17:30 04/06/17 05:50 04/06/17 05:50 Creatinine 1.15 Est GFR ( Amer) > 60 Est GFR (Non-Af Amer) > 60 03/28/17 03/28/17 03/28/17 15:23 15:23 15:23 Creatine Kinase 1178 H CK-MB (CK-2) 20.30 H Troponin I 0.098 NT-Pro-B Natriuret Pep 1360 H 03/28/17 03/28/17 03/29/17 21:10 21:10 03:24 Creatine Kinase 2052 H CK-MB (CK-2) 28.60 H 25.00 H Troponin I 0.077 0.081 NT-Pro-B Natriuret Pep 03/29/17 03:24 Creatine Kinase 2832 H CK-MB (CK-2) Troponin I NT-Pro-B Natriuret Pep Impressions: Abdomen/Pelvis CT 03/28/17 12:13 IMPRESSION: NO SIGNIFICANT OR ACUTE PROCESS IN THE ABDOMEN OR PELVIS. Chest X-Ray 03/29/17 00:00 IMPRESSION: No acute infiltrates. Expiratory film Chest/Abdomen CTA 04/01/17 00:00 IMPRESSION: NO PULMONARY EMBOLI. MULTIFOCAL AIRSPACE DISEASE WITH SMALL TO MODERATE BILATERAL PLEURAL EFFUSIONS. FAVOR PULMONARY EDEMA HOWEVER MULTIFOCAL PNEUMONIA AND ARDS COULD HAVE A SIMILAR APPEARANCE. Abdomen Ultrasound 04/03/17 00:00 IMPRESSION: 1. Fatty liver. Trace ascites suspected. 2. Status post cholecystectomy. Assessment & Plan - Diagnosis (1) Cellulitis of right leg Is this a current diagnosis for this admission?: Yes Plan: See covering attending physician orders. Start application of Silvadene cream topically to right leg lesion. (2) Septic shock Is this a current diagnosis for this admission?: Yes Plan: Improved. Continue IV fluid support and antibiotic coverage. (3) CHRISTINE (acute kidney injury) Is this a current diagnosis for this admission?: Yes Plan: Improved. (4) Rhabdomyolysis Qualifiers: Rhabdomyolysis type: traumatic Is this a current diagnosis for this admission?: Yes Plan: See covering attending physician orders. - Time Time Spent with patient: 25-34 minutes Medications reviewed and adjusted accordingly: Yes Anticipated discharge: Home with Homehealth Within: Other - Inpatient Certification Based on my medical assessment, after consideration of the patient's comorbidities, presenting symptoms, or acuity I expect that the services needed warrant INPATIENT care.: Yes I certify that my determination is in accordance with my understanding of Medicare's requirements for reasonable and necessary INPATIENT services [42 CFR 412.3e].: Yes Medical Necessity: Need Close Monitoring Due to Risk of Patient Decompensation, Need For IV Fluids, Need For Continuous Telemetry Monitoring, Need for IV Antibiotics, Risk of Complication if Not Cared For in Hospital Post Hospital Care: D/C Editorial Project Manager Documentation - Plan Summary Plan Summary: See covering attending physician orders.
[2017-04-06] MEDS ORDERED: SILVER SULFADIAZINE 1% CREAM 50 GM TP SCH (18:00)
[2017-04-07] MEDS: DIPHENHYDRAMINE HCL 25 MG CAPSULE PO PRN ×3 (03:11→19:46)
[2017-04-07] MEDS: ACETAMINOPHEN 325 MG TABLET PO PRN ×4 (03:12→21:55)
[2017-04-07] MEDS: HEPARIN SOD (PORCINE) 5,000 UNIT/ML 1 ML SYRINGE SUBCUT SCH ×3 (05:12→21:54)
[2017-04-07] MEDS: LEVOTHYROXINE SODIUM 0.05 MG TABLET PO SCH (05:12)
[2017-04-07] MEDS: CLINDAMYCIN HCL 150 MG CAPSULE PO SCH ×3 (05:12→21:54)
[2017-04-07] MEDS: BUPROPION HCL 100 MG TABLET PO SCH ×3 (05:12→21:54)
[2017-04-07] MEDS: SILVER SULFADIAZINE 1% CREAM 50 GM TP SCH ×2 (05:13→18:00)
[2017-04-07] MEDS: ONDANSETRON HCL INJ/PF 4 MG/2 ML SDV IV PRN ×2 (08:00→16:42)
[2017-04-07] MEDS: TAMSULOSIN HCL 0.4 MG CAP.SR.24H PO SCH (08:02)
--- NOTE | 2017-04-07 13:09 | PDOC PROGRESS REPORT ---
Subjective Progress Note for:: 04/07/17 Subjective:: No chest pain or difficulty with breathing. No fever or chills. No abdominal pain, nausea or vomiting. Patient reported constipation and requesting for Dulcolax suppository. Tolerating oral feeding. Right leg lesion improving. Reason For Visit: SEPSIS,ACUTE KIDNEY INJURY,HYPOTENSION Physical Exam Vital Signs: Temp Pulse Resp BP Pulse Ox 98.1 F 93 20 164/60 H 97 04/07/17 11:17 04/07/17 11:17 04/07/17 11:17 04/07/17 11:17 04/07/17 11:17 Intake & Output 04/06/17 04/07/17 04/08/17 06:59 06:59 06:59 Intake Total 1766 1797 812 Output Total 1325 1225 300 Balance 441 572 512 Weight 107.9 kg 110 kg Physical Exam: General appearance: PRESENT: no acute distress, obese Head exam: PRESENT: atraumatic Mouth exam: PRESENT: moist Respiratory exam: PRESENT: clear to auscultation damion Cardiovascular exam: PRESENT: RRR. ABSENT: diastolic murmur, rubs, systolic murmur Vascular exam: PRESENT: normal capillary refill. ABSENT: pallor GI/Abdominal exam: PRESENT: normal bowel sounds, soft. ABSENT: distended, guarding, mass, organomegaly, rebound, tenderness Extremities exam: ABSENT: pedal edema Musculoskeletal exam: PRESENT: other - extensive erythema and exfoliation of skin involving right leg Neurological exam: PRESENT: alert, awake, oriented to person, oriented to place , oriented to time, oriented to situation, CN II-XII grossly intact. ABSENT: motor sensory deficit Psychiatric exam: PRESENT: appropriate affect, normal mood. ABSENT: homicidal ideation, suicidal ideation Skin exam: PRESENT: erythema, rash - involving right leg with denuded areas, warm Results Laboratory Results: 04/03/17 17:30 04/06/17 05:50 03/28/17 03/28/17 03/28/17 15:23 15:23 15:23 Creatine Kinase 1178 H CK-MB (CK-2) 20.30 H Troponin I 0.098 NT-Pro-B Natriuret Pep 1360 H 03/28/17 03/28/17 03/29/17 21:10 21:10 03:24 Creatine Kinase 2052 H CK-MB (CK-2) 28.60 H 25.00 H Troponin I 0.077 0.081 NT-Pro-B Natriuret Pep 03/29/17 03:24 Creatine Kinase 2832 H CK-MB (CK-2) Troponin I NT-Pro-B Natriuret Pep Impressions: Abdomen/Pelvis CT 03/28/17 12:13 IMPRESSION: NO SIGNIFICANT OR ACUTE PROCESS IN THE ABDOMEN OR PELVIS. Chest X-Ray 03/29/17 00:00 IMPRESSION: No acute infiltrates. Expiratory film Chest/Abdomen CTA 04/01/17 00:00 IMPRESSION: NO PULMONARY EMBOLI. MULTIFOCAL AIRSPACE DISEASE WITH SMALL TO MODERATE BILATERAL PLEURAL EFFUSIONS. FAVOR PULMONARY EDEMA HOWEVER MULTIFOCAL PNEUMONIA AND ARDS COULD HAVE A SIMILAR APPEARANCE. Abdomen Ultrasound 04/03/17 00:00 IMPRESSION: 1. Fatty liver. Trace ascites suspected. 2. Status post cholecystectomy. Assessment & Plan - Diagnosis (1) Cellulitis of right leg Is this a current diagnosis for this admission?: Yes (2) Septic shock Is this a current diagnosis for this admission?: Yes (3) CHRISTINE (acute kidney injury) Is this a current diagnosis for this admission?: Yes (4) Rhabdomyolysis Qualifiers: Rhabdomyolysis type: traumatic Is this a current diagnosis for this admission?: Yes (5) Constipation Qualifiers: Constipation type: unspecified constipation type Qualified Code(s): K59.00 - Constipation, unspecified Is this a current diagnosis for this admission?: Yes Plan: See attending physician orders. - Time Time Spent with patient: 25-34 minutes Medications reviewed and adjusted accordingly: Yes Anticipated discharge: Other Within: Other - Inpatient Certification Based on my medical assessment, after consideration of the patient's comorbidities, presenting symptoms, or acuity I expect that the services needed warrant INPATIENT care.: Yes I certify that my determination is in accordance with my understanding of Medicare's requirements for reasonable and necessary INPATIENT services [42 CFR 412.3e].: Yes Medical Necessity: Need Close Monitoring Due to Risk of Patient Decompensation, Need For IV Fluids, Need for IV Antibiotics, Risk of Complication if Not Cared For in Hospital Post Hospital Care: D/C Panel Fitter Documentation - Plan Summary Plan Summary: See covering attending physician orders.
[2017-04-07] MEDS ORDERED: LACTULOSE SYRUP 20 GM/30 ML UDCUP PO ONE (13:30)
[2017-04-08] MEDS: ACETAMINOPHEN 325 MG TABLET PO PRN ×3 (03:09→19:55)
[2017-04-08] MEDS: HEPARIN SOD (PORCINE) 5,000 UNIT/ML 1 ML SYRINGE SUBCUT SCH ×3 (05:22→22:02)
[2017-04-08] MEDS: LEVOTHYROXINE SODIUM 0.05 MG TABLET PO SCH (05:22)
[2017-04-08] MEDS: CLINDAMYCIN HCL 150 MG CAPSULE PO SCH ×3 (05:22→22:01)
[2017-04-08] MEDS: SILVER SULFADIAZINE 1% CREAM 50 GM TP SCH ×2 (05:22→17:26)
[2017-04-08] MEDS: BUPROPION HCL 100 MG TABLET PO SCH ×3 (05:22→22:01)
[2017-04-08] MEDS: DIPHENHYDRAMINE HCL 25 MG CAPSULE PO PRN ×2 (05:40→19:54)
[2017-04-08] MEDS: ONDANSETRON HCL INJ/PF 4 MG/2 ML SDV IV PRN (08:19)
[2017-04-08] MEDS: TAMSULOSIN HCL 0.4 MG CAP.SR.24H PO SCH (08:19)
[2017-04-08 14:35] LABS: ABSOLUTE EOSINOPHILS # (AUTO) 0.5 10^3/uL (0.0-0.6); ABSOLUTE LYMPHOCYTES (AUTO) 1.1 10^3/uL (0.5-4.7); ABSOLUTE MONOCYTES (AUTO) 0.4 10^3/uL (0.1-1.4); ABSOLUTE NEUT (AUTO) 5.3 10^3/uL (1.7-8.2); BASOPHILS % (AUTO) 0.4 % (0-2); EOSINOPHILS % (AUTO) 6.8 % (0-6); HEMATOCRIT 34.8 % (37.9-51.0); HEMOGLOBIN 11.6 g/dL (13.5-17.0); LYMPHOCYTES % (AUTO) 15.5 % (13-45); MEAN CORPUSCULAR HEMOGLOBIN 30.3 pg (27.0-33.4); MEAN CORPUSCULAR HGB CONC 33.3 g/dL (32.0-36.0); MEAN CORPUSCULAR VOLUME 91 fl (80-97); MONOCYTES % (AUTO) 5.6 % (3-13); PLATELET COUNT 376 10^3/uL (150-450); RED BLOOD COUNT 3.83 10^6/uL (4.35-5.55); RED CELL DISTRIBUTION WIDTH 13.7 % (11.5-14.0); SEGMENTED NEUTROPHILS % (AUTO) 71.7 % (42-78); TOTAL CELLS COUNTED % (AUTO) 100 %; WHITE BLOOD COUNT 7.3 10^3/uL (4.0-10.5)
[2017-04-08 14:57] LABS: ALANINE AMINOTRANSFERASE 87 U/L (21-72); ALBUMIN 3.3 g/dL (3.5-5.0); ALKALINE PHOSPHATASE 85 U/L (38-126); ANION GAP 7 (5-19); ASPARTATE AMINO TRANSFERASE 44 U/L (17-59); BILIRUBIN,DIRECT 0.2 mg/dL (0.0-0.4); BILIRUBIN,TOTAL 0.5 mg/dL (0.2-1.3); BLOOD UREA NITROGEN 21 mg/dL (7-20); CALCIUM 9.1 mg/dL (8.4-10.2); CARBON DIOXIDE 27 mmol/L (22-30); CHLORIDE 102 mmol/L (98-107); GLUCOSE 120 mg/dL (75-110); POTASSIUM 4.5 mmol/L (3.6-5.0); SODIUM 136.2 mmol/L (137-145); TOTAL PROTEIN 7.7 g/dL (6.3-8.2)
[2017-04-09] MEDS: DIPHENHYDRAMINE HCL 25 MG CAPSULE PO PRN ×2 (02:02→21:32)
[2017-04-09] MEDS: LEVOTHYROXINE SODIUM 0.05 MG TABLET PO SCH (05:07)
[2017-04-09] MEDS: CLINDAMYCIN HCL 150 MG CAPSULE PO SCH ×3 (05:07→21:32)
[2017-04-09] MEDS: BUPROPION HCL 100 MG TABLET PO SCH ×3 (05:08→21:32)
[2017-04-09] MEDS: HEPARIN SOD (PORCINE) 5,000 UNIT/ML 1 ML SYRINGE SUBCUT SCH ×3 (05:08→21:32)
[2017-04-09] MEDS: ACETAMINOPHEN 325 MG TABLET PO PRN ×2 (05:08→20:03)
[2017-04-09] MEDS: SILVER SULFADIAZINE 1% CREAM 50 GM TP SCH ×2 (05:14→17:50)
[2017-04-09] MEDS: TAMSULOSIN HCL 0.4 MG CAP.SR.24H PO SCH (10:10)
--- NOTE | 2017-04-09 17:45 | PDOC PROGRESS REPORT ---
Subjective Progress Note for:: 04/08/17 Subjective:: Patient was seen by the bedside, he has no new complaints Reason For Visit: SEPSIS,ACUTE KIDNEY INJURY,HYPOTENSION Physical Exam Vital Signs: Temp Pulse Resp BP Pulse Ox 98.1 F 92 16 159/54 H 95 04/09/17 15:16 04/09/17 15:16 04/09/17 15:16 04/09/17 15:16 04/09/17 15:16 Intake & Output 04/08/17 04/09/17 04/10/17 06:59 06:59 06:59 Intake Total 2264 883 Output Total 875 1275 Balance 1389 -392 Weight 112.1 kg 108.7 kg Head exam: PRESENT: atraumatic, normocephalic Eye exam: PRESENT: PERRLA. ABSENT: scleral icterus Neck exam: PRESENT: full ROM Respiratory exam: PRESENT: clear to auscultation damion Cardiovascular exam: PRESENT: +S1, +S2 Pulses: PRESENT: normal dorsalis pedis pul, +2 pedal pulses bilateral Vascular exam: PRESENT: normal capillary refill GI/Abdominal exam: PRESENT: normal bowel sounds, soft Rectal exam: PRESENT: deferred Neurological exam: PRESENT: alert Skin exam: PRESENT: dry, intact, warm Results Laboratory Results: 04/08/17 14:02 04/08/17 14:02 03/28/17 03/28/17 03/28/17 15:23 15:23 15:23 Creatine Kinase 1178 H CK-MB (CK-2) 20.30 H Troponin I 0.098 NT-Pro-B Natriuret Pep 1360 H 03/28/17 03/28/17 03/29/17 21:10 21:10 03:24 Creatine Kinase 2052 H CK-MB (CK-2) 28.60 H 25.00 H Troponin I 0.077 0.081 NT-Pro-B Natriuret Pep 03/29/17 03:24 Creatine Kinase 2832 H CK-MB (CK-2) Troponin I NT-Pro-B Natriuret Pep Impressions: Abdomen/Pelvis CT 03/28/17 12:13 IMPRESSION: NO SIGNIFICANT OR ACUTE PROCESS IN THE ABDOMEN OR PELVIS. Chest X-Ray 03/29/17 00:00 IMPRESSION: No acute infiltrates. Expiratory film Chest/Abdomen CTA 04/01/17 00:00 IMPRESSION: NO PULMONARY EMBOLI. MULTIFOCAL AIRSPACE DISEASE WITH SMALL TO MODERATE BILATERAL PLEURAL EFFUSIONS. FAVOR PULMONARY EDEMA HOWEVER MULTIFOCAL PNEUMONIA AND ARDS COULD HAVE A SIMILAR APPEARANCE. Abdomen Ultrasound 04/03/17 00:00 IMPRESSION: 1. Fatty liver. Trace ascites suspected. 2. Status post cholecystectomy. Assessment & Plan - Diagnosis (1) Septic shock Is this a current diagnosis for this admission?: Yes (2) Cellulitis of right leg Is this a current diagnosis for this admission?: Yes (3) Rhabdomyolysis Qualifiers: Rhabdomyolysis type: traumatic Is this a current diagnosis for this admission?: Yes (4) CHRISTINE (acute kidney injury) Is this a current diagnosis for this admission?: Yes (5) Paroxysmal atrial fibrillation with rapid ventricular response Is this a current diagnosis for this admission?: Yes (6) Pulmonary edema Qualifiers: Chronicity: acute Qualified Code(s): J81.0 - Acute pulmonary edema Is this a current diagnosis for this admission?: Yes (7) Acute hypoxemic respiratory failure Is this a current diagnosis for this admission?: Yes (8) Hypoalbuminemia Is this a current diagnosis for this admission?: Yes (9) Abnormal liver function Is this a current diagnosis for this admission?: Yes
--- NOTE | 2017-04-09 20:25 | PDOC PROGRESS REPORT ---
Subjective Progress Note for:: 04/09/17 Subjective:: There is no new complaints today Reason For Visit: SEPSIS,ACUTE KIDNEY INJURY,HYPOTENSION Physical Exam Vital Signs: Temp Pulse Resp BP Pulse Ox 98.1 F 92 16 159/54 H 95 04/09/17 15:16 04/09/17 19:15 04/09/17 15:16 04/09/17 15:16 04/09/17 15:16 Intake & Output 04/08/17 04/09/17 04/10/17 06:59 06:59 06:59 Intake Total 2264 883 300 Output Total 875 1275 750 Balance 1813 -317 -092 Weight 112.1 kg 108.7 kg General appearance: PRESENT: no acute distress Eye exam: PRESENT: PERRLA Respiratory exam: PRESENT: clear to auscultation damion Cardiovascular exam: PRESENT: +S1, +S2 Neurological exam: PRESENT: alert Results Laboratory Results: 04/08/17 14:02 04/08/17 14:02 03/28/17 03/28/17 03/28/17 15:23 15:23 15:23 Creatine Kinase 1178 H CK-MB (CK-2) 20.30 H Troponin I 0.098 NT-Pro-B Natriuret Pep 1360 H 03/28/17 03/28/17 03/29/17 21:10 21:10 03:24 Creatine Kinase 2052 H CK-MB (CK-2) 28.60 H 25.00 H Troponin I 0.077 0.081 NT-Pro-B Natriuret Pep 03/29/17 03:24 Creatine Kinase 2832 H CK-MB (CK-2) Troponin I NT-Pro-B Natriuret Pep Impressions: Abdomen/Pelvis CT 03/28/17 12:13 IMPRESSION: NO SIGNIFICANT OR ACUTE PROCESS IN THE ABDOMEN OR PELVIS. Chest X-Ray 03/29/17 00:00 IMPRESSION: No acute infiltrates. Expiratory film Chest/Abdomen CTA 04/01/17 00:00 IMPRESSION: NO PULMONARY EMBOLI. MULTIFOCAL AIRSPACE DISEASE WITH SMALL TO MODERATE BILATERAL PLEURAL EFFUSIONS. FAVOR PULMONARY EDEMA HOWEVER MULTIFOCAL PNEUMONIA AND ARDS COULD HAVE A SIMILAR APPEARANCE. Abdomen Ultrasound 04/03/17 00:00 IMPRESSION: 1. Fatty liver. Trace ascites suspected. 2. Status post cholecystectomy. Assessment & Plan - Diagnosis (1) Septic shock Is this a current diagnosis for this admission?: Yes (2) Cellulitis of right leg Is this a current diagnosis for this admission?: Yes (3) Rhabdomyolysis Qualifiers: Rhabdomyolysis type: traumatic Is this a current diagnosis for this admission?: Yes (4) CHRISTINE (acute kidney injury) Is this a current diagnosis for this admission?: Yes (5) Paroxysmal atrial fibrillation with rapid ventricular response Is this a current diagnosis for this admission?: Yes (6) Pulmonary edema Qualifiers: Chronicity: acute Qualified Code(s): J81.0 - Acute pulmonary edema Is this a current diagnosis for this admission?: Yes (7) Acute hypoxemic respiratory failure Is this a current diagnosis for this admission?: Yes (8) Hypoalbuminemia Is this a current diagnosis for this admission?: Yes (9) Abnormal liver function Is this a current diagnosis for this admission?: Yes
[2017-04-10] MEDS: CLINDAMYCIN HCL 150 MG CAPSULE PO SCH ×3 (05:48→21:20)
[2017-04-10] MEDS: LEVOTHYROXINE SODIUM 0.05 MG TABLET PO SCH (05:48)
[2017-04-10] MEDS: ACETAMINOPHEN 325 MG TABLET PO PRN ×3 (05:48→21:21)
[2017-04-10] MEDS: BUPROPION HCL 100 MG TABLET PO SCH ×3 (05:48→21:20)
[2017-04-10] MEDS: HEPARIN SOD (PORCINE) 5,000 UNIT/ML 1 ML SYRINGE SUBCUT SCH ×3 (05:54→21:22)
[2017-04-10] MEDS: SILVER SULFADIAZINE 1% CREAM 50 GM TP SCH (06:15)
[2017-04-10] MEDS: ONDANSETRON HCL INJ/PF 4 MG/2 ML SDV IV PRN (08:56)
[2017-04-10] MEDS: TAMSULOSIN HCL 0.4 MG CAP.SR.24H PO SCH (08:56)
--- NOTE | 2017-04-10 10:33 | PDOC PROGRESS REPORT ---
Subjective Progress Note for:: 04/10/17 Subjective:: Patient was admitted for the right leg cellulitis with the septic shockCurrently doing well Patient's denied any chest pain denied any shortness of the breath Patient's denied any leg pain Reason For Visit: SEPSIS,ACUTE KIDNEY INJURY,HYPOTENSION Physical Exam Vital Signs: Temp Pulse Resp BP Pulse Ox 97.5 F 73 17 142/47 H 96 04/10/17 03:27 04/10/17 07:00 04/10/17 03:27 04/10/17 03:27 04/10/17 03:27 Intake & Output 04/09/17 04/10/17 04/11/17 06:59 06:59 06:59 Intake Total 883 600 Output Total 1275 1050 Balance -392 -450 Weight 108.7 kg 108.8 kg General appearance: PRESENT: no acute distress, well-developed, well-nourished Head exam: PRESENT: atraumatic, normocephalic Eye exam: PRESENT: conjunctiva pink, EOMI, PERRLA. ABSENT: scleral icterus Ear exam: PRESENT: normal external ear exam Mouth exam: PRESENT: moist, tongue midline Neck exam: PRESENT: full ROM. ABSENT: carotid bruit, JVD, lymphadenopathy, thyromegaly Respiratory exam: PRESENT: clear to auscultation damion Cardiovascular exam: PRESENT: RRR. ABSENT: diastolic murmur, rubs, systolic murmur Pulses: PRESENT: normal dorsalis pedis pul, +2 pedal pulses bilateral Vascular exam: PRESENT: normal capillary refill GI/Abdominal exam: PRESENT: normal bowel sounds, soft. ABSENT: distended, guarding, mass, organolmegaly, rebound, tenderness Rectal exam: PRESENT: deferred Additional comments: In the right legSome redness in the looks like a first degree schafer Neurological exam: PRESENT: alert, awake, oriented to person, oriented to place , oriented to time, oriented to situation, CN II-XII grossly intact. ABSENT: motor sensory deficit Psychiatric exam: PRESENT: appropriate affect, normal mood. ABSENT: homicidal ideation, suicidal ideation Skin exam: PRESENT: dry, intact, warm. ABSENT: cyanosis, rash Results Laboratory Results: 04/08/17 14:02 04/08/17 14:02 03/28/17 03/28/17 03/28/17 15:23 15:23 15:23 Creatine Kinase 1178 H CK-MB (CK-2) 20.30 H Troponin I 0.098 NT-Pro-B Natriuret Pep 1360 H 03/28/17 03/28/17 03/29/17 21:10 21:10 03:24 Creatine Kinase 2052 H CK-MB (CK-2) 28.60 H 25.00 H Troponin I 0.077 0.081 NT-Pro-B Natriuret Pep 03/29/17 03:24 Creatine Kinase 2832 H CK-MB (CK-2) Troponin I NT-Pro-B Natriuret Pep Impressions: Abdomen/Pelvis CT 03/28/17 12:13 IMPRESSION: NO SIGNIFICANT OR ACUTE PROCESS IN THE ABDOMEN OR PELVIS. Chest X-Ray 03/29/17 00:00 IMPRESSION: No acute infiltrates. Expiratory film Chest/Abdomen CTA 04/01/17 00:00 IMPRESSION: NO PULMONARY EMBOLI. MULTIFOCAL AIRSPACE DISEASE WITH SMALL TO MODERATE BILATERAL PLEURAL EFFUSIONS. FAVOR PULMONARY EDEMA HOWEVER MULTIFOCAL PNEUMONIA AND ARDS COULD HAVE A SIMILAR APPEARANCE. Abdomen Ultrasound 04/03/17 00:00 IMPRESSION: 1. Fatty liver. Trace ascites suspected. 2. Status post cholecystectomy. Assessment & Plan - Diagnosis (1) CHRISTINE (acute kidney injury) Is this a current diagnosis for this admission?: Yes Plan: Currently all resolved (2) Cellulitis of right leg Is this a current diagnosis for this admission?: Yes Plan: Continues to p.o. clindamycin's we will ask the general surgery for further evaluation about any dressing change (3) Paroxysmal atrial fibrillation with rapid ventricular response Is this a current diagnosis for this admission?: Yes Plan: Currently all stable (4) Septic shock Is this a current diagnosis for this admission?: Yes Plan: Currently all resolved - Time Time Spent with patient: 15-24 minutes Medications reviewed and adjusted accordingly: Yes Anticipated discharge: SNF Within: within 24 hours, Other - Inpatient Certification Medical Necessity: Need Close Monitoring Due to Risk of Patient Decompensation Post Hospital Care: D/C Photo [employer] Technician Documentation - Plan Summary Plan Summary: Consider general surgery before the discharge the patient
[2017-04-10] MEDS: DIPHENHYDRAMINE HCL 25 MG CAPSULE PO PRN ×2 (16:19→23:26)
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
[2017-04-10] MEDS ORDERED: LEVOFLOXACIN 500 MG/D5W RTU 500 MG/100 ML RTUPB IV SCH (18:00)
[2017-04-10] MEDS: NEOMY/BACITRAC ZN/POLY OINT 15 GM TP SCH (18:20)
[2017-04-11] MEDS: BUPROPION HCL 100 MG TABLET PO SCH (05:19)
[2017-04-11] MEDS: CLINDAMYCIN HCL 150 MG CAPSULE PO SCH (05:19)
[2017-04-11] MEDS: LEVOTHYROXINE SODIUM 0.05 MG TABLET PO SCH (05:19)
[2017-04-11] MEDS: HEPARIN SOD (PORCINE) 5,000 UNIT/ML 1 ML SYRINGE SUBCUT SCH (05:21)
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
[2017-04-11] MEDS: TAMSULOSIN HCL 0.4 MG CAP.SR.24H PO SCH (08:43)
--- NOTE | 2017-04-11 09:48 | RADIOLOGY REPORT (SQ) ---
EXAM DESCRIPTION: CHEST PA/LAT COMPLETED DATE/TIME: 04/11/2017 7:59 am REASON FOR STUDY: Pneumonia COMPARISON: 03/29/2017. EXAM PARAMETERS: NUMBER OF VIEWS: two views TECHNIQUE: Digital Frontal and Lateral radiographic views of the chest acquired. RADIATION DOSE: NA LIMITATIONS: none FINDINGS: LUNGS AND PLEURA: Improved aeration. No focal infiltrates, masses or pneumothorax. No ple ural effusion. MEDIASTINUM AND HILAR STRUCTURES: No masses or contour abnormalities. HEART AND VASCULAR STRUCTURES: Heart normal size. No evidence for failure. BONES: No acute findings. HARDWARE: Tip of the central line at the level of the upper superior vena cava. OTHER: No other significant finding. IMPRESSION: 1. IMPROVED AERATION. NO FOCAL INFILTRATES. 2. CENTRAL LINE APPEARS TO HAVE BEEN WITHDRAWN BY A FEW CM BUT REMAINS AT THE LEVEL OF THE SUPERIOR V MAURO CAVA. TECHNICAL DOCUMENTATION: JOB ID: [id number] [employer]- All Rights Reserved
[2017-04-11] MEDS: NEOMY/BACITRAC ZN/POLY OINT 15 GM TP SCH (10:21)
[2017-04-11 12:29] VITALS: BP 115/66
== END 2017-04-11 12:29 | DRG 871 ==
LOC: ER 11:11 → EH 14:34 → 3S 03-29 22:37
PROVIDERS: ADMIT Internal Medicine; ATTEND Family Medicine
PROC: 02HV33Z Insertion of Infusion Device into Superior Vena Cava, Percutaneous Approach (ICD-10-PCS; principal; 2017-03-28)
DX: A41.9 Sepsis, unspecified organism (principal); R65.21 Severe sepsis with septic shock; J18.9 Pneumonia, unspecified organism; J96.01 Acute respiratory failure with hypoxia; J81.0 Acute pulmonary edema; N17.9 Acute kidney failure, unspecified; L03.115 Cellulitis of right lower limb; M62.82 Rhabdomyolysis; I48.0 Paroxysmal atrial fibrillation; E78.00 Pure hypercholesterolemia, unspecified; I10 Essential (primary) hypertension; F31.9 Bipolar disorder, unspecified; F20.9 Schizophrenia, unspecified; K21.9 Gastro-esophageal reflux disease without esophagitis; E88.09 Other disorders of plasma-protein metabolism, not elsewhere classified; K59.00 Constipation, unspecified; L25.8 Unspecified contact dermatitis due to other agents; T36.1X5A Adverse effect of cephalosporins and other beta-lactam antibiotics, initial encounter; Y92.230 Patient room in hospital as the place of occurrence of the external cause; Z79.899 Other long term (current) drug therapy
CPT/HCPCS: 36415; 36600; 71045; 71046; 71275; 74176; 76705; 80048; 80053; 80061; 80074; 80076; 80202; 80307; 81001; 82140; 82150; 82550; 82553; 82565; 82803; 82962; 83036; 83605; 83690; 83735; 83874; 83880; 84100; 84439; 84443; 84484; 85025; 85610; 85730; 86701; 87040; 87086; 87804; 93005; 93010; 93306; 93971; 94640; 94660; 96361; 96365; 96375; 99291; C1751; G8978-GP; G8979-GP; J1642; J1644; J1940; J1956; J2405; J2543; J3370; J3490; J7030; J7050; J7060; J7620

== ENCOUNTER 2017-04-15 13:35 | Emergency (ER) | payer MEDICARE, MEDICAID ==
--- NOTE | 2017-04-15 14:40 | ER Document Report ---
ED Medical Screen (RME) - General Chief Complaint: Leg Pain Stated Complaint: RIGHT LEG PAIN Time Seen by Provider: 04/15/17 14:34 Mode of Arrival: Wheelchair Information source: Patient TRAVEL OUTSIDE OF THE [place] IN LAST 30 DAYS: No - HPI Patient complains to provider of: R leg pain Onset: Other - pt with c/o "cellulitis" of his R leg states the person has markedly increased in the past day. Leg getting more red and swollen - Related Data Allergies/Adverse Reactions: fluoxetine [From Prozac] Allergy (Verified 04/15/17 13:39) piperacillin Adverse Reaction (Verified 04/15/17 13:39) Past Medical History - Social History Chew tobacco use (# tins/day): No Frequency of alcohol use: Occasional Drug Abuse: None - Past Medical History Cardiac Medical History: Reports: Hx Hypercholesterolemia, Hx Hypertension Denies: Hx Coronary Artery Disease, Hx Heart Attack Pulmonary Medical History: Denies: Hx Asthma, Hx Bronchitis, Hx COPD, Hx Pneumonia Neurological Medical History: Denies: Hx Cerebrovascular Accident, Hx Seizures Renal/ Medical History: Reports: Hx Kidney Stones. Denies: Hx Peritoneal Dialysis GI Medical History: Reports: Hx Gastroesophageal Reflux Disease Musculoskeltal Medical History: Denies Hx Arthritis Psychiatric Medical History: Reports: Hx Bipolar Disorder, Hx Depression - WITH ANXIETY, Hx Schizoaffective Disorder, Hx Schizophrenia Past Surgical History: Reports: Hx Cholecystectomy, Hx Kidney (Renal Surgery) - for stones. Denies: Hx Pacemaker - Immunizations Hx Diphtheria, Pertussis, Tetanus Vaccination: Yes History of Influenza Vaccine for 12/2016 - 05/2017 Season: Yes Influenza Administration Date for 12/2016 - 05/2017 Season: 12/16/16 Physical Exam - Vital signs Vitals: Temp Pulse Resp BP Pulse Ox 98.3 F 108 H 18 118/68 94 04/15/17 13:50 04/15/17 13:50 04/15/17 13:50 04/15/17 13:50 04/15/17 13:50 Course - Vital Signs Vital signs: Temp Pulse Resp BP Pulse Ox 98.3 F 108 H 18 118/68 94 04/15/17 13:50 04/15/17 13:50 04/15/17 14:25 04/15/17 13:50 04/15/17 13:50
[2017-04-15 15:34] LABS: ABSOLUTE BASOPHILS # (AUTO) 0.1 10^3/uL (0.0-0.2); ABSOLUTE EOSINOPHILS # (AUTO) 0.5 10^3/uL (0.0-0.6); ABSOLUTE LYMPHOCYTES (AUTO) 1.2 10^3/uL (0.5-4.7); ABSOLUTE MONOCYTES (AUTO) 0.4 10^3/uL (0.1-1.4); ABSOLUTE NEUT (AUTO) 4.1 10^3/uL (1.7-8.2); BASOPHILS % (AUTO) 1.1 % (0-2); EOSINOPHILS % (AUTO) 8.5 % (0-6); HEMATOCRIT 34.1 % (37.9-51.0); HEMOGLOBIN 11.5 g/dL (13.5-17.0); LYMPHOCYTES % (AUTO) 18.2 % (13-45); MEAN CORPUSCULAR HEMOGLOBIN 31.2 pg (27.0-33.4); MEAN CORPUSCULAR HGB CONC 33.7 g/dL (32.0-36.0); MEAN CORPUSCULAR VOLUME 92 fl (80-97); PLATELET COUNT 307 10^3/uL (150-450); RED BLOOD COUNT 3.69 10^6/uL (4.35-5.55); RED CELL DISTRIBUTION WIDTH 14.8 % (11.5-14.0); SEGMENTED NEUTROPHILS % (AUTO) 65.2 % (42-78); TOTAL CELLS COUNTED % (AUTO) 100 %; WHITE BLOOD COUNT 6.4 10^3/uL (4.0-10.5)
[2017-04-15 15:51] LABS: ALANINE AMINOTRANSFERASE 51 U/L (21-72); ALBUMIN 3.8 g/dL (3.5-5.0); ALKALINE PHOSPHATASE 87 U/L (38-126); ANION GAP 11 (5-19); ASPARTATE AMINO TRANSFERASE 31 U/L (17-59); BILIRUBIN,DIRECT 0.3 mg/dL (0.0-0.4); BILIRUBIN,TOTAL 0.3 mg/dL (0.2-1.3); BLOOD UREA NITROGEN 19 mg/dL (7-20); CALCIUM 9.4 mg/dL (8.4-10.2); CARBON DIOXIDE 27 mmol/L (22-30); CHLORIDE 105 mmol/L (98-107); GLUCOSE 107 mg/dL (75-110); POTASSIUM 4.9 mmol/L (3.6-5.0); SODIUM 143.1 mmol/L (137-145)
--- NOTE | 2017-04-15 16:05 | ER Document Report ---
ED Extremity Problem, Lower - General Mode of Arrival: Wheelchair Information source: Patient TRAVEL OUTSIDE OF THE [place] IN LAST 30 DAYS: No <JEAN-PIERRE NAYAK - Last Filed: 04/15/17 16:25> <EMILY AGUILAR - Last Filed: 04/17/17 23:05> - General Chief Complaint: Leg Pain Stated Complaint: RIGHT LEG PAIN Time Seen by Provider: 04/15/17 14:34 Notes: Patient is a 61-year-old male with history of Schizophrenia and cellulitis reports to the emergency department from [facility] complaining of right lower leg pain onset today. Patient states that around lunch this afternoon the pain in is right lower leg became unbearable. Patient is also concerned of the swelling and redness of his right leg. Patient denies any fevers. Patient was recently discharged from hospital on 04/11/2027 after being treated for septic shock, cellulitis of right lower leg, pneumonia and rhabdomyolysis. (JEAN-PIERRE NAYAK) - Related Data Allergies/Adverse Reactions: fluoxetine [From Prozac] Allergy (Verified 04/15/17 13:39) piperacillin Adverse Reaction (Verified 04/15/17 13:39) Past Medical History - General Information source: Patient - Social History Smoking Status: Never Smoker Chew tobacco use (# tins/day): No Frequency of alcohol use: Occasional Drug Abuse: None Family History: Reviewed & Not Pertinent Patient has suicidal ideation: No Patient has homicidal ideation: No - Past Medical History Cardiac Medical History: Reports: Hx Hypercholesterolemia, Hx Hypertension Renal/ Medical History: Reports: Hx Kidney Stones GI Medical History: Reports: Hx Gastroesophageal Reflux Disease Psychiatric Medical History: Reports: Hx Bipolar Disorder, Hx Depression - WITH ANXIETY, Hx Schizoaffective Disorder, Hx Schizophrenia Past Surgical History: Reports: Hx Cholecystectomy, Hx Kidney (Renal Surgery) - for stones - Immunizations Hx Diphtheria, Pertussis, Tetanus Vaccination: Yes Hx Pneumococcal Vaccination: 03/18/00 <JEAN-PIERRE NAYAK - Last Filed: 04/15/17 16:25> Review of Systems - Review of Systems Constitutional: No symptoms reported EENT: No symptoms reported Cardiovascular: No symptoms reported Respiratory: No symptoms reported Gastrointestinal: No symptoms reported Genitourinary: No symptoms reported Male Genitourinary: No symptoms reported Musculoskeletal: See HPI Skin: No symptoms reported Hematologic/Lymphatic: No symptoms reported Neurological/Psychological: No symptoms reported -: Yes All other systems reviewed and negative <JEAN-PIERRE NAYAK - Last Filed: 04/15/17 16:25> Physical Exam <JEAN-PIERRE NAYAK - Last Filed: 04/15/17 16:25> <EMILY AGUILAR - Last Filed: 04/17/17 23:05> - Vital signs Vitals: Temp Pulse Resp BP Pulse Ox 98.3 F 108 H 18 118/68 94 04/15/17 13:50 04/15/17 13:50 04/15/17 13:50 04/15/17 13:50 04/15/17 13:50 - Notes Notes: GENERAL: Alert, interacts well. No acute distress. HEAD: Normocephalic, atraumatic. EYES: Pupils equal, round, and reactive to light. Extraocular movements intact. ENT: Oral mucosa moist, tongue midline. NECK: Full range of motion. Supple. Trachea midline. LUNGS: Clear to auscultation bilaterally, no wheezes, rales, or rhonchi. No respiratory distress. HEART: Regular rate and rhythm. No murmurs, gallops, or rubs. ABDOMEN: Soft, non-tender. Non-distended. Bowel sounds present in all 4 quadrants. EXTREMITIES: Moves all 4 extremities spontaneously. 2+ pitting edema and stasis dermatitis on the right lower extremity up to the knee, exfoliation of skin that appears chronic, erythematous with warmth on the medial aspect. NEUROLOGICAL: Alert and oriented x3. Normal speech. PSYCH: Normal affect, normal mood. (NAELJEAN-PIERRE) Course - Laboratory Result Diagrams: 04/15/17 15:15 04/15/17 15:15 <JEAN-PIERRE NAYAK - Last Filed: 04/15/17 16:25> - Laboratory Result Diagrams: 04/15/17 15:15 04/15/17 15:15 <EMILY AGUILAR - Last Filed: 04/17/17 23:05> - Re-evaluation Re-evalutation: 04/15/17 16:09 Patient sent from assisted living for concern of right lower extremity pain. Patient was recently discharged on 11 April for sepsis pneumonia and right lower extremity cellulitis. He was discharged on oral Levaquin and clindamycin per discharge summary notes. It was recommended that a chest x-ray and basic CBC and CMP be repeated in 3 days after discharge. We will repeat these labs and imaging as well as adjunct with bilateral lower extremity duplex per triage order. 04/15/17 16:23 Discussed case with healthcare worker at [facility]. Per the conversation she states that he has been taking the clindamycin and Levaquin that was prescribed to him prior to discharge. They state that he requested to go to the emergency department due to his leg pain. He has not been running any recent fevers or illnesses. I discussed workup is in progress and if no acute findings that he will be discharged back. I did discuss that the wound will need to be closely monitored and if erythema is spreading or not improving in the next 2-3 days he will need to be sent back to the emergency department for further evaluation and consideration of further IV antibiotics. Healthcare worker stated she would discuss with her production shift supervisor to ensure that proper wound follow-up is performed. Awaiting DVT study at this time and CPK. 04/15/17 17:00 Patient's labs within normal limits are not significant trending within his baseline. Chest x-ray shows no acute changes from discharge no evidence of DVT or SVT on Doppler and creatinine kinase his come back down to normal level. Already discussed with nursing staff if patient were to be discharged back that he would need to continue his antibiotics and close wound check and if not improving within the next 2-3 days to be sent back for reevaluation. We will send instructions to have inpatient physician at [facility] prescribed pain medications and recommended elevation of the leg when lying down. (EMILY AGUILAR) - Vital Signs Vital signs: Temp Pulse Resp BP Pulse Ox 98.2 F 84 18 148/62 H 95 04/15/17 18:00 04/15/17 18:00 04/15/17 17:17 04/15/17 18:00 04/15/17 18:00 - Laboratory Laboratory results interpreted by de: 04/15/17 04/15/17 15:15 15:15 RBC 3.69 L Hgb 11.5 L Hct 34.1 L RDW 14.8 H Eosinophils % 8.5 H Creatinine 1.30 H Est GFR (Non-Af Amer) 56 L Discharge <JEAN-PIERRE NAYAK - Last Filed: 04/15/17 16:25> <EMILY AGUILAR - Last Filed: 04/17/17 23:05> - Discharge Clinical Impression: Leg pain, right Cellulitis, leg Qualifiers: Laterality: right Qualified Code(s): L03.115 - Cellulitis of right lower limb Condition: Good Disposition: HOME-ASSISTED LIVING Additional Instructions: For long-term facility: Please continue antibiotics as prescribed from hospital and patient was discharged. Please keep patient slightly elevated at all times when he is lying down. Please discuss patient's leg pain with on-site physician and need for stronger pain management. Patient found to have normal white blood cell count normal creatinine kinase chest x-ray was within normal limits and all labs essentially were within normal limits are trending within patient's baseline. If right lower leg cellulitis is not improving within the next 2-3 days patient needs to be reevaluated by medical provider. Referrals: WILBUR DRAKE MD [Primary Care Provider] - Follow up as needed Scribe Attestation: 04/17/17 23:05 I personally performed the services described documentation, reviewed and edited the documentation which was dictated to describe my presence, and it accurately records my words and actions. (EMILY AGUILAR) Scribe Documentation - Scribe Written by Scribe:: Luis Angel Gonzales, 04/15/2017 16:17 acting as scribe for :: Balta <JEAN-PIERRE NAYAK - Last Filed: 04/15/17 16:25>
[2017-04-15] MEDS ORDERED: NORMAL SALINE 1000 ML 500 ML IV ONE (16:07)
[2017-04-15] MEDS ORDERED: FENTANYL CITRATE INJ/PF 100 MCG/2 ML AMPUL IV ONE (16:08)
--- NOTE | 2017-04-15 16:22 | RADIOLOGY REPORT (SQ) ---
EXAM DESCRIPTION: VENOUS UNILATERAL LOWER COMPLETED DATE/TIME: 04/15/2017 4:15 pm REASON FOR STUDY: r leg pain COMPARISON: None. TECHNIQUE: Dynamic and static crabtree scale and color images acquired of the right leg venous system. S elected spectral images acquired with additional compression and augmentation maneuvers. The contrala teral common femoral vein and saphenofemoral junction were also imaged. Images stored on PACS. LIMITATIONS: None. FINDINGS: COMMON FEMORAL: Normal phasicity, compression and augmentation. No visualized echogenic ma terial on crabtree scale. No defects on color images. FEMORAL: Normal compression and augmentation. No visualized echogenic material on crabtree scale. No defe cts on color images. POPLITEAL: Normal compression, augmentation. No visualized echogenic material on crabtree scale. No defec ts on color images. CALF VESSELS: Normal compression, augmentation. No visualized echogenic material on crabtree scale. No de fects on color images. GSV and SSV: Normal compression, augmentation. No visualized echogenic material on crabtree scale. No def ects on color images. ANY DEEP VENOUS INSUFFICIENCY: Not evaluated. ANY EVIDENCE OF POPLITEAL CYST: No. OTHER: No other significant finding. CONTRALATERAL COMMON FEMORAL VEIN AND SAPHENOFEMORAL JUNCTION: Normal phasicity, compression and augmentation. No visualized echogenic material on crabtree scale. No de fects on color images. IMPRESSION: NO EVIDENCE DVT OR SVT IN THE RIGHT LEG. TECHNICAL DOCUMENTATION: JOB ID: [id number] [employer]- All Rights Reserved
--- NOTE | 2017-04-15 16:24 | RADIOLOGY REPORT (SQ) ---
EXAM DESCRIPTION: CHEST PA/LAT COMPLETED DATE/TIME: 04/15/2017 4:17 pm REASON FOR STUDY: repeat, hx of PNA COMPARISON: 07/04/2015 EXAM PARAMETERS: NUMBER OF VIEWS: two views TECHNIQUE: Digital Frontal and Lateral radiographic views of the chest acquired. RADIATION DOSE: NA LIMITATIONS: none FINDINGS: LUNGS AND PLEURA: No opacities, masses or pneumothorax. No pleural effusion. MEDIASTINUM AND HILAR STRUCTURES: No masses or contour abnormalities. HEART AND VASCULAR STRUCTURES: Heart normal size. No evidence for failure. BONES: No acute findings. HARDWARE: None in the chest. OTHER: No other significant finding. IMPRESSION: NO SIGNIFICANT RADIOGRAPHIC FINDING IN THE CHEST. TECHNICAL DOCUMENTATION: JOB ID: [id number] [employer]- All Rights Reserved
[2017-04-15] MEDS ORDERED: OXYCODONE-ACETAMINOPHEN 5-325 MG TABLET PO ONE (17:18)
[2017-04-15 17:59] VITALS: BP 148/62
== END 2017-04-15 18:06 | disposition home health service (06) ==
LOC: ER 13:35
DX: L03.115 Cellulitis of right lower limb (principal); M79.604 Pain in right leg; F20.9 Schizophrenia, unspecified; M79.89 Other specified soft tissue disorders
CPT/HCPCS: 99284; 36415; 82553; 82550; 85025; 80053; 93971; 71046; A9270

== ENCOUNTER 2017-05-18 16:00 | Emergency (ER) | payer MEDICARE, MEDICAID ==
--- NOTE | 2017-05-18 16:27 | ER Document Report ---
ED Medical Screen (RME) - General TRAVEL OUTSIDE OF THE [place] IN LAST 30 DAYS: No <ISADORA JORGE - Last Filed: 05/18/17 16:26> - General Information source: Patient - HPI Patient complains to provider of: nausea Onset: Other - chronic-had meds for it already Quality of pain: No pain Associated Symptoms: denies: Vomiting Exacerbated by: Denies Relieved by: Denies Similar symptoms previously: Yes Recently seen / treated by doctor: Yes <JORDAN WHITAKER - Last Filed: 05/18/17 18:06> - General Chief Complaint: Nausea Stated Complaint: NAUSEA Time Seen by Provider: 05/18/17 16:25 Notes: Patient says he has been nauseated all week. Not vomiting. Thinks it is due to the cellulitis in his leg. He was diagnosed with cellulitis 2 months ago and was in the hospital here on IV antibiotics for a couple of weeks. He has been out since sometime around the late part of March. He still has some redness of his leg, although he says is getting better. He just was prescribed compression hose which he just started wearing a couple of days ago. No fevers. No history of diabetes. Has hypertension, cholesterol, and anxiety. Resident of a [facility]. (ISADORA JORGE) - Related Data Allergies/Adverse Reactions: fluoxetine [From Prozac] Allergy (Verified 04/15/17 13:39) piperacillin Adverse Reaction (Verified 04/15/17 13:39) Past Medical History - Past Medical History Cardiac Medical History: Reports: Hx Hypercholesterolemia, Hx Hypertension Denies: Hx Coronary Artery Disease, Hx Heart Attack Pulmonary Medical History: Denies: Hx Asthma, Hx Bronchitis, Hx COPD, Hx Pneumonia Neurological Medical History: Denies: Hx Cerebrovascular Accident, Hx Seizures Renal/ Medical History: Reports: Hx Kidney Stones. Denies: Hx Peritoneal Dialysis GI Medical History: Reports: Hx Gastroesophageal Reflux Disease Musculoskeltal Medical History: Denies Hx Arthritis Psychiatric Medical History: Reports: Hx Bipolar Disorder, Hx Depression - WITH ANXIETY, Hx Schizoaffective Disorder, Hx Schizophrenia Past Surgical History: Reports: Hx Cholecystectomy, Hx Kidney (Renal Surgery) - for stones. Denies: Hx Pacemaker - Immunizations Hx Diphtheria, Pertussis, Tetanus Vaccination: Yes History of Influenza Vaccine for 12/2016 - 05/2017 Season: Yes Influenza Administration Date for 12/2016 - 05/2017 Season: 12/16/16 <ISADORA JORGE - Last Filed: 05/18/17 16:26> - Vital signs Vitals: Temp Pulse Resp BP Pulse Ox 98.0 F 98 20 159/77 H 96 05/18/17 16:12 05/18/17 16:12 05/18/17 16:12 05/18/17 16:12 05/18/17 16:12 Course - Laboratory Result Diagrams: 05/18/17 16:36 05/18/17 16:36 <JORDAN WHITAKER E - Last Filed: 05/18/17 18:06> - Vital Signs Vital signs: Temp Pulse Resp BP Pulse Ox 98.0 F 98 20 159/77 H 96 05/18/17 16:12 05/18/17 16:12 05/18/17 16:12 05/18/17 16:12 05/18/17 16:12 - Laboratory Laboratory results interpreted by me: 05/18/17 05/18/17 05/18/17 16:36 16:36 16:36 RBC 4.28 L Hgb 13.2 L RDW 14.7 H Eosinophils % 7.2 H Total Protein 8.3 H Urine Urobilinogen 2.0 H Urine Ascorbic Acid 40 H Doctor's Discharge <ISADORA JORGE - Last Filed: 05/18/17 16:26> <JORDAN WHITAKER E - Last Filed: 05/18/17 18:06> - Discharge Clinical Impression: Nausea Disposition: HOME, SELF-CARE Instructions: Nausea or Vomiting, Nonspecific ([facility]) Additional Instructions: Follow up with your physician tomorrow for further care or return to the ED IMMEDIATELY if symptoms worsen or new concerns occur. If you cannot afford to follow up with your primary care physician a list of low cost clinics have been provided at the end of your discharge papers as well. Referrals: WILBUR DRAKE MD [Primary Care Provider] - Follow up in 3-5 days (Follow-up as scheduled on this coming Saturday)
[2017-05-18 17:01] LABS: ABSOLUTE BASOPHILS # (AUTO) 0.1 10^3/uL (0.0-0.2); ABSOLUTE EOSINOPHILS # (AUTO) 0.4 10^3/uL (0.0-0.6); ABSOLUTE LYMPHOCYTES (AUTO) 1.5 10^3/uL (0.5-4.7); ABSOLUTE MONOCYTES (AUTO) 0.5 10^3/uL (0.1-1.4); ABSOLUTE NEUT (AUTO) 3.5 10^3/uL (1.7-8.2); BASOPHILS % (AUTO) 0.8 % (0-2); EOSINOPHILS % (AUTO) 7.2 % (0-6); HEMATOCRIT 38.9 % (37.9-51.0); HEMOGLOBIN 13.2 g/dL (13.5-17.0); LYMPHOCYTES % (AUTO) 25.3 % (13-45); MEAN CORPUSCULAR HEMOGLOBIN 30.9 pg (27.0-33.4); MEAN CORPUSCULAR VOLUME 91 fl (80-97); MONOCYTES % (AUTO) 8.2 % (3-13); PLATELET COUNT 194 10^3/uL (150-450); RED BLOOD COUNT 4.28 10^6/uL (4.35-5.55); RED CELL DISTRIBUTION WIDTH 14.7 % (11.5-14.0); SEGMENTED NEUTROPHILS % (AUTO) 58.5 % (42-78); TOTAL CELLS COUNTED % (AUTO) 100 %
[2017-05-18 17:13] LABS: APPEARANCE,URINE CLEAR; BILIRUBIN,URINE NEGATIVE (NEGATIVE); COLOR,URINE YELLOW; GLUCOSE, URINE NEGATIVE (NEGATIVE); KETONES,URINE NEGATIVE (NEGATIVE); LEUKOCYTE ESTERASE,URINE NEGATIVE (NEGATIVE); NITRITE,URINE NEGATIVE (NEGATIVE); PROTEIN,URINE NEGATIVE (NEGATIVE); URINE SPECIFIC GRAVITY 1.019
[2017-05-18 17:17] LABS: ALANINE AMINOTRANSFERASE 40 U/L (21-72); ALBUMIN 4.5 g/dL (3.5-5.0); ALKALINE PHOSPHATASE 72 U/L (38-126); ANION GAP 7 (5-19); ASPARTATE AMINO TRANSFERASE 29 U/L (17-59); BILIRUBIN,DIRECT 0.4 mg/dL (0.0-0.4); BILIRUBIN,TOTAL 0.4 mg/dL (0.2-1.3); BLOOD UREA NITROGEN 18 mg/dL (7-20); CALCIUM 9.7 mg/dL (8.4-10.2); CARBON DIOXIDE 25 mmol/L (22-30); CHLORIDE 105 mmol/L (98-107); GLUCOSE 99 mg/dL (75-110); POTASSIUM 4.2 mmol/L (3.6-5.0); SODIUM 137.1 mmol/L (137-145); TOTAL PROTEIN 8.3 g/dL (6.3-8.2)
--- NOTE | 2017-05-18 18:08 | ER Document Report ---
ED General - General Chief Complaint: Nausea Stated Complaint: NAUSEA Time Seen by Provider: 05/18/17 16:25 TRAVEL OUTSIDE OF THE [place] IN LAST 30 DAYS: No - HPI Patient complains to provider of: nausea Onset: Other - chronic-has medications for ir already Quality of pain: No pain Exacerbated by: Denies Relieved by: Denies Similar symptoms previously: Yes Recently seen / treated by doctor: Yes - Related Data Allergies/Adverse Reactions: fluoxetine [From Prozac] Allergy (Verified 04/15/17 13:39) piperacillin Adverse Reaction (Verified 04/15/17 13:39) Past Medical History - General Information source: Patient, [facility] Records - Social History Smoking Status: Never Smoker Drug Abuse: None Lives with: Family Family History: Reviewed & Not Pertinent Patient has suicidal ideation: No Patient has homicidal ideation: No - Past Medical History Cardiac Medical History: Reports: Hx Hypercholesterolemia, Hx Hypertension Denies: Hx Coronary Artery Disease, Hx Heart Attack Pulmonary Medical History: Denies: Hx Asthma, Hx Bronchitis, Hx COPD, Hx Pneumonia Neurological Medical History: Denies: Hx Cerebrovascular Accident, Hx Seizures Renal/ Medical History: Reports: Hx Kidney Stones. Denies: Hx Peritoneal Dialysis GI Medical History: Reports: Hx Gastroesophageal Reflux Disease Musculoskeltal Medical History: Denies Hx Arthritis Skin Medical History: Reports Hx Cellulitis Psychiatric Medical History: Reports: Hx Bipolar Disorder, Hx Depression - WITH ANXIETY, Hx Schizoaffective Disorder, Hx Schizophrenia Past Surgical History: Reports: Hx Cholecystectomy, Hx Kidney (Renal Surgery) - for stones. Denies: Hx Pacemaker - Immunizations Hx Diphtheria, Pertussis, Tetanus Vaccination: Yes Hx Pneumococcal Vaccination: 03/18/00 Physical Exam - Vital signs Vitals: Temp Pulse Resp BP Pulse Ox 98.0 F 98 20 159/77 H 96 05/18/17 16:12 05/18/17 16:12 05/18/17 16:12 05/18/17 16:12 05/18/17 16:12 - Notes Notes: PHYSICAL EXAMINATION: GENERAL: Well-appearing, well-nourished and in no acute distress. HEAD: Atraumatic, normocephalic. EYES: Pupils equal round and reactive to light, extraocular movements intact, sclera anicteric, conjunctiva are normal. ENT: Nares patent, oropharynx clear without exudates. Moist mucous membranes. NECK: Normal range of motion, supple without lymphadenopathy LUNGS: Breath sounds clear to auscultation bilaterally and equal. No wheezes rales or rhonchi. HEART: Regular rate and rhythm without murmurs ABDOMEN: Soft, nontender, nondistended abdomen. No guarding, no rebound. No masses appreciated. Musculoskeletal: Normal range of motion, no pitting or edema. No cyanosis. NEUROLOGICAL: Cranial nerves grossly intact. Normal speech, normal gait. Normal sensory, motor exams PSYCH: Normal mood, normal affect. SKIN: Warm, Dry, normal turgor, no rashes. Patient does have a compression stocking on his right lower extremity. I did remove it. Patient does have skin changes consistent with an old healed infection.There is no signs of cellulitis. Course - Re-evaluation Re-evalutation: 05/18/17 18:08 negative venous doppler 03/2017 - Vital Signs Vital signs: Temp Pulse Resp BP Pulse Ox 98.0 F 98 20 159/77 H 96 05/18/17 16:12 05/18/17 16:12 05/18/17 16:12 05/18/17 16:12 05/18/17 16:12 - Laboratory Result Diagrams: 05/18/17 16:36 05/18/17 16:36 Laboratory results interpreted by me: 05/18/17 05/18/17 05/18/17 16:36 16:36 16:36 RBC 4.28 L Hgb 13.2 L RDW 14.7 H Eosinophils % 7.2 H Total Protein 8.3 H Urine Urobilinogen 2.0 H Urine Ascorbic Acid 40 H Discharge - Discharge Clinical Impression: Nausea Disposition: HOME, SELF-CARE Instructions: Nausea or Vomiting, Nonspecific ([facility]) Additional Instructions: Follow up with your physician tomorrow for further care or return to the ED IMMEDIATELY if symptoms worsen or new concerns occur. If you cannot afford to follow up with your primary care physician a list of low cost clinics have been provided at the end of your discharge papers as well. Referrals: WILBUR DRAKE MD [Primary Care Provider] - Follow up in 3-5 days (Follow-up as scheduled on this saturday)
[2017-05-18] MEDS ORDERED: ONDANSETRON 4 MG TAB.RAPDIS PO ONE (18:45)
[2017-05-18 18:50] VITALS: BP 137/87
== END 2017-05-18 18:50 | disposition home or self-care (01) ==
LOC: ER 16:00
DX: R11.0 Nausea (principal); I10 Essential (primary) hypertension; R23.9 Unspecified skin changes; Z88.8 Allergy status to other drugs, medicaments and biological substances
CPT/HCPCS: 99283; 36415; 85025; 80053; 81001; A9270; S0119

== ENCOUNTER 2017-08-07 14:26 | Emergency (ER) | payer MEDICARE, MEDICAID ==
--- NOTE | 2017-08-07 16:29 | ER Document Report ---
ED General - General Chief Complaint: Congestion Stated Complaint: COUGH,CONGESTION Time Seen by Provider: 08/07/17 16:13 Mode of Arrival: Ambulatory TRAVEL OUTSIDE OF THE [place] IN LAST 30 DAYS: No - HPI Notes: 62-year-old male presents emergency department for evaluation of cough and congestion times a week and a half. Patient reports that he was seen by his primary care provider and was discharged home with antibiotic. Patient reports that he still continues to cough after finishing course of antibiotics. He denies productive cough and hemoptysis. He denies any calf pain or tenderness. He also denies any fever, rash, chest pain, shortness of breath, wheezing, abdominal pain, nausea, vomiting, diarrhea, or dysuria. - Related Data Allergies/Adverse Reactions: fluoxetine [From Prozac] Allergy (Verified 08/07/17 14:28) piperacillin Adverse Reaction (Verified 08/07/17 14:28) Past Medical History - Social History Smoking Status: Never Smoker Family History: Reviewed & Not Pertinent Patient has suicidal ideation: No Patient has homicidal ideation: No - Past Medical History Cardiac Medical History: Reports: Hx Hypercholesterolemia, Hx Hypertension Denies: Hx Coronary Artery Disease, Hx Heart Attack Pulmonary Medical History: Denies: Hx Asthma, Hx Bronchitis, Hx COPD, Hx Pneumonia Neurological Medical History: Denies: Hx Cerebrovascular Accident, Hx Seizures Renal/ Medical History: Reports: Hx Kidney Stones. Denies: Hx Peritoneal Dialysis GI Medical History: Reports: Hx Gastroesophageal Reflux Disease Musculoskeltal Medical History: Denies Hx Arthritis Skin Medical History: Reports Hx Cellulitis Psychiatric Medical History: Reports: Hx Bipolar Disorder, Hx Depression - WITH ANXIETY, Hx Schizoaffective Disorder, Hx Schizophrenia Past Surgical History: Reports: Hx Cholecystectomy, Hx Kidney (Renal Surgery) - for stones. Denies: Hx Pacemaker - Immunizations Hx Diphtheria, Pertussis, Tetanus Vaccination: Yes Hx Pneumococcal Vaccination: 03/18/00 Review of Systems - Review of Systems -: Yes All other systems reviewed and negative Physical Exam - Vital signs Vitals: Temp Pulse Resp BP Pulse Ox 98.8 F 99 22 H 147/74 H 94 08/07/17 14:40 08/07/17 14:40 08/07/17 14:40 08/07/17 14:40 08/07/17 14:40 - Notes Notes: PHYSICAL EXAMINATION: GENERAL: Well-appearing, well-nourished and in no acute distress. HEAD: Atraumatic, normocephalic. EYES: Pupils equal round and reactive to light, extraocular movements intact, sclera anicteric, conjunctiva are normal. ENT: Nares patent, oropharynx clear without exudates. Moist mucous membranes. NECK: Normal range of motion, supple without lymphadenopathy LUNGS: Breath sounds clear to auscultation bilaterally and equal. No wheezes rales or rhonchi. HEART: Regular rate and rhythm without murmurs ABDOMEN: Soft, nontender, nondistended abdomen. No guarding, no rebound. No masses appreciated. Musculoskeletal: Normal range of motion, no pitting or edema. No calf tenderness or unilateral leg swelling. No cyanosis. NEUROLOGICAL: Normal gait, balance, speech, and facial symmetry. PSYCH: Normal mood, normal affect. SKIN: Warm, Dry, normal turgor, no rashes or lesions noted. Course - Re-evaluation Re-evalutation: 08/07/17 16:39 Consistent with upper respiratory infection. No evidence of pneumonia, CHF, PE , or life-threatening illness. Physical exam was unremarkable. Lung sounds are clear bilaterally with no wheezes, rhonchi, or rales. The likelihood of other entities in the differential is insufficient to justify any further testing for them. I discussed care plan at length with patient. Any and all questions were answered. Discharged home with prednisone and albuterol inhaler. Advised patient to follow-up with his primary care provider and take medications as instructed. I also advised him to return immediately to the emergency department for any new, worsening, or concerning symptoms as discussed. - Vital Signs Vital signs: Temp Pulse Resp BP Pulse Ox 98.8 F 99 22 H 147/74 H 94 08/07/17 14:40 08/07/17 14:40 08/07/17 14:40 08/07/17 14:40 08/07/17 14:40 Discharge - Discharge Clinical Impression: Upper respiratory infection Qualifiers: URI type: unspecified viral URI Qualified Code(s): J06.9 - Acute upper respiratory infection, unspecified Condition: Good Instructions: Upper Respiratory Illness ([facility]) Additional Instructions: Please follow-up with your primary care provider and take medications as instructed. Return immediately to the emergency department for any new, worsening, or concerning symptoms as discussed. Prescriptions: Albuterol Sulfate [Proair HFA] 1 - 2 puff IH Q4 PRN #1 inhaler PRN Reason: Prednisone 60 mg PO DAILY #15 tablet Forms: Return to Work Referrals: WILBUR DRAKE MD [Primary Care Provider] - Follow up as needed
[2017-08-07 16:49] VITALS: BP 152/63
== END 2017-08-07 16:45 | disposition home or self-care (01) ==
LOC: ER 14:26
DX: J06.9 Acute upper respiratory infection, unspecified (principal); R05 Cough; R09.81 Nasal congestion; I10 Essential (primary) hypertension
CPT/HCPCS: 99283

== ENCOUNTER 2017-09-13 16:18 | Emergency (ER) | payer MEDICARE, MEDICAID ==
--- NOTE | 2017-09-13 16:40 | ER Document Report ---
ED Medical Screen (RME) - General Chief Complaint: Leg Pain Stated Complaint: LEG PAIN Time Seen by Provider: 09/13/17 16:36 Notes: RAPID MEDICAL EVALUATION DISCLOSURE I have seen this patient as part of a Rapid Medical Evaluation and, if applicable, placed any initially appropriate orders. The patient will be seen and fully evaluated, including a full history and physical exam, by a provider ( in Main ED or Fast Track) when a room becomes available. 62-year-old male here with complaints of right leg pain ongoing for the past 1 week. 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 He has the pain even at rest but it does become somewhat worse with exertion. Has not tried anything for the symptoms. No prior history of DVT. Denies chest pain shortness of breath. EXAM Mild erythema of the right leg Minimal swelling of the right leg TRAVEL OUTSIDE OF THE [place] IN LAST 30 DAYS: No - Related Data Allergies/Adverse Reactions: fluoxetine [From Prozac] Allergy (Verified 09/13/17 16:21) piperacillin Adverse Reaction (Verified 09/13/17 16:21) Past Medical History - Past Medical History Cardiac Medical History: Reports: Hx Hypercholesterolemia, Hx Hypertension Denies: Hx Coronary Artery Disease, Hx Heart Attack Pulmonary Medical History: Denies: Hx Asthma, Hx Bronchitis, Hx COPD, Hx Pneumonia Neurological Medical History: Denies: Hx Cerebrovascular Accident, Hx Seizures Renal/ Medical History: Reports: Hx Kidney Stones. Denies: Hx Peritoneal Dialysis GI Medical History: Reports: Hx Gastroesophageal Reflux Disease Musculoskeltal Medical History: Denies Hx Arthritis Skin Medical History: Reports Hx Cellulitis Psychiatric Medical History: Reports: Hx Bipolar Disorder, Hx Depression - WITH ANXIETY, Hx Schizoaffective Disorder, Hx Schizophrenia Past Surgical History: Reports: Hx Cholecystectomy, Hx Kidney (Renal Surgery) - for stones. Denies: Hx Pacemaker - Immunizations Hx Diphtheria, Pertussis, Tetanus Vaccination: Yes History of Influenza Vaccine for 12/2016 - 05/2017 Season: Yes Influenza Administration Date for 12/2016 - 05/2017 Season: 12/16/16 Physical Exam - Vital signs Vitals: Temp Pulse Resp BP Pulse Ox 97.9 F 89 18 203/75 H 98 09/13/17 16:25 09/13/17 16:25 09/13/17 16:25 09/13/17 16:25 09/13/17 16:25 Course - Vital Signs Vital signs: Temp Pulse Resp BP Pulse Ox 97.9 F 89 18 203/75 H 98 09/13/17 16:25 09/13/17 16:25 09/13/17 16:25 09/13/17 16:25 09/13/17 16:25 Doctor's Discharge - Discharge Referrals: WILBUR DRAKE MD [Primary Care Provider] - Follow up as needed
[2017-09-13 17:02] LABS: ABSOLUTE BASOPHILS # (AUTO) 0.1 10^3/uL (0.0-0.2); ABSOLUTE EOSINOPHILS # (AUTO) 0.4 10^3/uL (0.0-0.6); ABSOLUTE LYMPHOCYTES (AUTO) 1.7 10^3/uL (0.5-4.7); ABSOLUTE MONOCYTES (AUTO) 0.4 10^3/uL (0.1-1.4); ABSOLUTE NEUT (AUTO) 3.2 10^3/uL (1.7-8.2); EOSINOPHILS % (AUTO) 7.1 % (0-6); HEMATOCRIT 41.2 % (37.9-51.0); HEMOGLOBIN 14.2 g/dL (13.5-17.0); LYMPHOCYTES % (AUTO) 29.5 % (13-45); MEAN CORPUSCULAR HEMOGLOBIN 31.1 pg (27.0-33.4); MEAN CORPUSCULAR HGB CONC 34.6 g/dL (32.0-36.0); MEAN CORPUSCULAR VOLUME 90 fl (80-97); MONOCYTES % (AUTO) 6.5 % (3-13); PLATELET COUNT 174 10^3/uL (150-450); RED BLOOD COUNT 4.58 10^6/uL (4.35-5.55); RED CELL DISTRIBUTION WIDTH 14.4 % (11.5-14.0); SEGMENTED NEUTROPHILS % (AUTO) 55.9 % (42-78); TOTAL CELLS COUNTED % (AUTO) 100 %; WHITE BLOOD COUNT 5.7 10^3/uL (4.0-10.5)
[2017-09-13 17:22] LABS: ALANINE AMINOTRANSFERASE 46 U/L (21-72); ALBUMIN 4.8 g/dL (3.5-5.0); ALKALINE PHOSPHATASE 71 U/L (38-126); ANION GAP 13 (5-19); ASPARTATE AMINO TRANSFERASE 39 U/L (17-59); BILIRUBIN,DIRECT 0.3 mg/dL (0.0-0.4); BILIRUBIN,TOTAL 0.4 mg/dL (0.2-1.3); BLOOD UREA NITROGEN 22 mg/dL (7-20); CALCIUM 9.8 mg/dL (8.4-10.2); CARBON DIOXIDE 27 mmol/L (22-30); CHLORIDE 105 mmol/L (98-107); GLUCOSE 127 mg/dL (75-110); POTASSIUM 4.4 mmol/L (3.6-5.0); SODIUM 145.3 mmol/L (137-145); TOTAL PROTEIN 7.9 g/dL (6.3-8.2)
--- NOTE | 2017-09-13 17:38 | ER Document Report ---
ED Extremity Problem, Lower - General Chief Complaint: Leg Pain Stated Complaint: LEG PAIN Time Seen by Provider: 09/13/17 16:36 Mode of Arrival: Ambulatory Information source: Patient TRAVEL OUTSIDE OF THE [place] IN LAST 30 DAYS: No - HPI Patient complains to provider of: Pain, Swelling Notes: Patient is here with complaints of right leg swelling and pain. Patient states that he had cellulitis in this leg in the past. 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 On Saturday evening he woke up with a "charley horse "in his right leg. Since that time he has had continued pain in the right leg. States the pain is in his right upper leg and his lower leg. He also complains some mild swelling in this leg. He denies any traumatic injury. No fever. No numbness, tingling, weakness. He denies any history of DVT or PE. He denies known cancer. He denies any chest pain or shortness of breath. He denies any nausea , vomiting, diarrhea. He denies any other complaints at this time. Pain in his leg seems to be worse when he walks, is better with rest. Is been taking Tylenol for pain control. - Related Data Allergies/Adverse Reactions: fluoxetine [From Prozac] Allergy (Verified 09/13/17 16:21) piperacillin Adverse Reaction (Verified 09/13/17 16:21) Past Medical History - Social History Smoking Status: Unknown if Ever Smoked Family History: Reviewed & Not Pertinent Patient has suicidal ideation: No Patient has homicidal ideation: No - Past Medical History Cardiac Medical History: Reports: Hx Hypercholesterolemia, Hx Hypertension Denies: Hx Coronary Artery Disease, Hx Heart Attack Pulmonary Medical History: Denies: Hx Asthma, Hx Bronchitis, Hx COPD, Hx Pneumonia Neurological Medical History: Denies: Hx Cerebrovascular Accident, Hx Seizures Renal/ Medical History: Reports: Hx Kidney Stones. Denies: Hx Peritoneal Dialysis GI Medical History: Reports: Hx Gastroesophageal Reflux Disease Musculoskeltal Medical History: Denies Hx Arthritis Skin Medical History: Reports Hx Cellulitis Psychiatric Medical History: Reports: Hx Bipolar Disorder, Hx Depression - WITH ANXIETY, Hx Schizoaffective Disorder, Hx Schizophrenia Past Surgical History: Reports: Hx Cholecystectomy, Hx Kidney (Renal Surgery) - for stones, Hx Oral Surgery. Denies: Hx Pacemaker - Immunizations Hx Diphtheria, Pertussis, Tetanus Vaccination: Yes Hx Pneumococcal Vaccination: 03/18/00 Review of Systems - Review of Systems -: Yes All other systems reviewed and negative Physical Exam - Vital signs Vitals: Temp Pulse Resp BP Pulse Ox 97.9 F 89 18 203/75 H 98 09/13/17 16:25 09/13/17 16:25 09/13/17 16:25 09/13/17 16:25 09/13/17 16:25 - Notes Notes: GENERAL: alert, cooperative, nontoxic, no distress. HEAD: normocephalic, atraumatic EYES: conjunctiva pink without discharge, no external redness or swelling. EARS: no external swelling, no external redness NOSE: atraumatic, no external swelling MOUTH/THROAT: mucous membranes moist and pink NECK: soft, supple, full range of motion, no meningismus. CHEST: no distress, lungs clear and equal throughout. No wheezing, rales, rhonchi. CARDIAC: regular rate and rhythm, no murmur, normal capillary refill, normal pulses. BACK: full range of motion, no CVA tenderness. EXTREMITIES: full range of motion of all extremities. Mild swelling noted to the right lower extremity. There is discoloration in the skin, but no obvious redness or signs of cellulitis. No abscess. Normal pulse and sensation. Full range of motion of the right hip and knee. Mild tenderness to the right lateral leg. NEURO: alert and oriented 3, no focal deficits, full range of motion of all extremities. PYSCH: appropriate mood, affect. Patient is cooperative. SKIN: pink, warm, dry, no rash. Course - Re-evaluation Re-evalutation: 09/13/17 18:43 Patient is nontoxic-appearing with stable vitals. The patient is here with complaints of right leg pain. 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 He is noted to have some mild swelling to this area. No significant redness. He does have some skin discoloration from previous cellulitis. He is afebrile and his white count is normal. He has normal pulses and sensation distally. He is noted to have slight renal insufficiency, in reviewing his records, he has had this in the past. Venous Doppler of his right lower extremity is negative for DVT. Patient will be discharged home with a prescription for Ultram. He was instructed to take thousand milligrams of Tylenol every 6 hours as needed for pain. Follow-up with his doctor if he continues to have the pain in the next week, sooner for worsening pain, high fever, numbness, tingling, weakness, any further concerns. This point the pain is most likely related to muscular strain. There is no signs of compartment syndrome, DVT, cellulitis, joint infection. The patient is noted to have elevated blood pressure during today's emergency department visit. The patient was informed of this finding. The patient was instructed that this may be related to pre-hypertension and requires further evaluation with a primary care provider. The patient has no hypertensive symptoms at this time. The patient's emergency department workup and current diagnosis were explained to the patient and or family. Follow-up instructions were provided. Medications if prescribed were discussed. Instructions for when to return to the emergency department including specific worrisome symptoms were discussed with the patient and/or family. - Vital Signs Vital signs: Temp Pulse Resp BP Pulse Ox 97.9 F 89 18 203/75 H 98 09/13/17 16:25 09/13/17 16:25 09/13/17 16:25 09/13/17 16:25 09/13/17 16:25 - Laboratory Result Diagrams: 09/13/17 16:46 09/13/17 16:46 Laboratory results interpreted by me: 09/13/17 09/13/17 16:46 16:46 RDW 14.4 H Eosinophils % 7.1 H Sodium 145.3 H BUN 22 H Creatinine 1.32 H Est GFR (Non-Af Amer) 55 L Glucose 127 H - Diagnostic Test Radiology reviewed: Image reviewed, Reports reviewed - Venous Doppler of the right leg negative Discharge - Discharge Clinical Impression: Renal insufficiency, Right leg pain Condition: Stable Disposition: HOME, SELF-CARE Instructions: Leg Cramps ([facility]), Leg Pain Nonspecific ([facility]) Additional Instructions: Take medications as prescribed. You can take 1000 mg of Tylenol every 6 hours as needed for pain. Apply ice to sore areas. Follow-up with your doctor if not better in the next 5-7 days, follow-up sooner for worsening pain, fever, increased swelling, numbness, tingling, weakness, redness, chest pain or shortness of breath, or for any further concerns. Your blood pressure was elevated during today's visit. Have this rechecked with your doctor. Prescriptions: Tramadol HCl [Ultram 50 mg Tablet] 50 mg PO Q6HP PRN #12 tablet PRN Reason: Forms: Elevated Blood Pressure, Smoking Cessation Education Referrals: WILBUR DRAKE MD [Primary Care Provider] - Follow up as needed
--- NOTE | 2017-09-13 18:23 | RADIOLOGY REPORT (SQ) ---
EXAM DESCRIPTION: VENOUS UNILATERAL LOWER COMPLETED DATE/TIME: 09/13/2017 6:17 pm REASON FOR STUDY: RLE pain; eval dvt COMPARISON: 04/15/2017 TECHNIQUE: Dynamic and static crabtree scale and color images acquired of the right leg venous system. S elected spectral images acquired with additional compression and augmentation maneuvers. The contrala teral common femoral vein and saphenofemoral junction were also imaged. Images stored on PACS. LIMITATIONS: None. FINDINGS: COMMON FEMORAL: Normal phasicity, compression and augmentation. No visualized echogenic ma terial on crabtree scale. No defects on color images. FEMORAL: Normal compression and augmentation. No visualized echogenic material on crabtree scale. No defe cts on color images. POPLITEAL: Normal compression, augmentation. No visualized echogenic material on crabtree scale. No defec ts on color images. CALF VESSELS: Normal compression, augmentation. No visualized echogenic material on crabtree scale. No de fects on color images. GSV and SSV: Normal compression, augmentation. No visualized echogenic material on crabtree scale. No def ects on color images. ANY DEEP VENOUS INSUFFICIENCY: Not evaluated. ANY EVIDENCE OF POPLITEAL CYST: No. OTHER: No other significant finding. CONTRALATERAL COMMON FEMORAL VEIN AND SAPHENOFEMORAL JUNCTION: Normal phasicity, compression and augmentation. No visualized echogenic material on crabtree scale. No de fects on color images. IMPRESSION: NO EVIDENCE DVT OR SVT IN THE RIGHT LEG. TECHNICAL DOCUMENTATION: JOB ID: [id number] [employer]- All Rights Reserved Reading location - IP/workstation name: [email or web address]
[2017-09-13 18:50] VITALS: BP 189/82
== END 2017-09-13 18:51 | disposition home or self-care (01) ==
LOC: ER 16:18
DX: N28.9 Disorder of kidney and ureter, unspecified (principal); M79.604 Pain in right leg; E78.00 Pure hypercholesterolemia, unspecified; I10 Essential (primary) hypertension; Z90.49 Acquired absence of other specified parts of digestive tract; Z87.442 Personal history of urinary calculi
CPT/HCPCS: 36415; 80053; 85025; 93971; 99284

== ENCOUNTER 2017-09-28 17:27 | Emergency (ER) | payer MEDICARE, MEDICAID ==
[2017-09-28] MEDS ORDERED: ASPIRIN 81 MG TABLET, CHEWABLE PO ONE (17:42)
--- NOTE | 2017-09-28 17:48 | ER Document Report ---
ED Medical Screen (RME) - General Chief Complaint: Chest Pain Stated Complaint: CHEST PAIN Time Seen by Provider: 09/28/17 17:44 Notes: RAPID MEDICAL EVALUATION DISCLOSURE I have seen this patient as part of a Rapid Medical Evaluation and, if applicable, placed any initially appropriate orders. The patient will be seen and fully evaluated, including a full history and physical exam, by a provider ( in Main ED or Fast Track) when a room becomes available. 62-year-old male has a left-sided nonradiating intermittent chest pain and shortness of breath for the past 2 days. He has noticed that the pain is worse with walking but not anything else. He has not taken anything for the symptoms. He does not currently have any chest pain. He was sent over from the urgent care today to be evaluated. EXAM CTAB RRR No chest wall TTP TRAVEL OUTSIDE OF THE [place] IN LAST 30 DAYS: No - Related Data Allergies/Adverse Reactions: fluoxetine [From Prozac] Allergy (Verified 09/28/17 17:29) piperacillin Adverse Reaction (Verified 09/28/17 17:29) Past Medical History - Past Medical History Cardiac Medical History: Reports: Hx Hypercholesterolemia, Hx Hypertension Denies: Hx Coronary Artery Disease, Hx Heart Attack Pulmonary Medical History: Denies: Hx Asthma, Hx Bronchitis, Hx COPD, Hx Pneumonia Neurological Medical History: Denies: Hx Cerebrovascular Accident, Hx Seizures Renal/ Medical History: Reports: Hx Kidney Stones. Denies: Hx Peritoneal Dialysis GI Medical History: Reports: Hx Gastroesophageal Reflux Disease Musculoskeltal Medical History: Denies Hx Arthritis Skin Medical History: Reports Hx Cellulitis Psychiatric Medical History: Reports: Hx Bipolar Disorder, Hx Depression - WITH ANXIETY, Hx Schizoaffective Disorder, Hx Schizophrenia Past Surgical History: Reports: Hx Cholecystectomy, Hx Kidney (Renal Surgery) - for stones, Hx Oral Surgery. Denies: Hx Pacemaker - Immunizations Hx Diphtheria, Pertussis, Tetanus Vaccination: Yes History of Influenza Vaccine for 12/2016 - 05/2017 Season: Yes Influenza Administration Date for 12/2016 - 05/2017 Season: 12/16/16 Physical Exam - Vital signs Vitals: Temp Pulse Resp BP Pulse Ox 98.3 F 91 16 160/71 H 97 09/28/17 17:37 09/28/17 17:37 09/28/17 17:37 09/28/17 17:37 09/28/17 17:37 Course - Vital Signs Vital signs: Temp Pulse Resp BP Pulse Ox 98.3 F 91 16 160/71 H 97 09/28/17 17:37 09/28/17 17:37 09/28/17 17:37 09/28/17 17:37 09/28/17 17:37 Doctor's Discharge - Discharge Referrals: WILBUR DRAKE MD [Primary Care Provider] - Follow up as needed
[2017-09-28 18:09] LABS: ABSOLUTE EOSINOPHILS # (AUTO) 0.5 10^3/uL (0.0-0.6); ABSOLUTE LYMPHOCYTES (AUTO) 1.7 10^3/uL (0.5-4.7); ABSOLUTE MONOCYTES (AUTO) 0.5 10^3/uL (0.1-1.4); ABSOLUTE NEUT (AUTO) 4.6 10^3/uL (1.7-8.2); BASOPHILS % (AUTO) 0.7 % (0-2); EOSINOPHILS % (AUTO) 6.4 % (0-6); HEMATOCRIT 41.5 % (37.9-51.0); HEMOGLOBIN 14.3 g/dL (13.5-17.0); LYMPHOCYTES % (AUTO) 22.9 % (13-45); MEAN CORPUSCULAR HGB CONC 34.5 g/dL (32.0-36.0); MEAN CORPUSCULAR VOLUME 90 fl (80-97); MONOCYTES % (AUTO) 6.9 % (3-13); PLATELET COUNT 191 10^3/uL (150-450); RED BLOOD COUNT 4.63 10^6/uL (4.35-5.55); RED CELL DISTRIBUTION WIDTH 14.2 % (11.5-14.0); SEGMENTED NEUTROPHILS % (AUTO) 63.1 % (42-78); TOTAL CELLS COUNTED % (AUTO) 100 %; WHITE BLOOD COUNT 7.4 10^3/uL (4.0-10.5)
[2017-09-28 18:18] LABS: ALANINE AMINOTRANSFERASE 37 U/L (21-72); ALBUMIN 4.7 g/dL (3.5-5.0); ALKALINE PHOSPHATASE 71 U/L (38-126); ANION GAP 14 (5-19); ASPARTATE AMINO TRANSFERASE 33 U/L (17-59); BILIRUBIN,DIRECT 0.3 mg/dL (0.0-0.4); BILIRUBIN,TOTAL 0.6 mg/dL (0.2-1.3); BLOOD UREA NITROGEN 25 mg/dL (7-20); CARBON DIOXIDE 26 mmol/L (22-30); CHLORIDE 106 mmol/L (98-107); GLUCOSE 93 mg/dL (75-110); POTASSIUM 4.4 mmol/L (3.6-5.0); TOTAL PROTEIN 8.1 g/dL (6.3-8.2)
--- NOTE | 2017-09-28 18:27 | RADIOLOGY REPORT (SQ) ---
EXAM DESCRIPTION: CHEST 2 VIEWS COMPLETED DATE/TIME: 09/28/2017 6:14 pm REASON FOR STUDY: CP COMPARISON: None. EXAM PARAMETERS: NUMBER OF VIEWS: two views TECHNIQUE: Digital Frontal and Lateral radiographic views of the chest acquired. RADIATION DOSE: NA LIMITATIONS: none FINDINGS: LUNGS AND PLEURA: No opacities, masses or pneumothorax. No pleural effusion. MEDIASTINUM AND HILAR STRUCTURES: No masses or contour abnormalities. HEART AND VASCULAR STRUCTURES: Heart normal size. No evidence for failure. BONES: No acute findings. HARDWARE: None in the chest. OTHER: No other significant finding. IMPRESSION: NO ACUTE RADIOGRAPHIC FINDING IN THE CHEST. TECHNICAL DOCUMENTATION: JOB ID: [id number] [employer]- All Rights Reserved Reading location - IP/workstation name: [email or web address]
[2017-09-28 18:29] LABS: NT PRO BNP 168 pg/mL (5-900)
[2017-09-28 18:30] LABS: TROPONIN I < 0.012 ng/mL
--- NOTE | 2017-09-28 18:55 | ER Document Report ---
ED General - General Chief Complaint: Chest Pain Stated Complaint: CHEST PAIN Time Seen by Provider: 09/28/17 17:44 Notes: Patient is a 62-year-old male with a past medical history of schizophrenia, hypertension, no prior coronary artery disease who presents with chest pain that has been intermittent over the last 2-3 days. He describes it as an intermittent, stabbing pain in his chest. Denies associated shortness of breath , nausea, vomiting or pain in the jaws, arm or back. He denies a history of similar symptoms in the past. He denies any history of DVT or pulmonary embolus. Nothing improves or worsens his symptoms. He denies any pain currently. States last time he had pain was approximately 8 hours ago. Episodes last for several minutes and then spontaneously resolved. TRAVEL OUTSIDE OF THE [place] IN LAST 30 DAYS: No - Related Data Allergies/Adverse Reactions: fluoxetine [From Prozac] Allergy (Verified 09/28/17 17:48) piperacillin Adverse Reaction (Verified 09/28/17 17:48) Past Medical History - General Information source: Patient - Social History Smoking Status: Never Smoker Chew tobacco use (# tins/day): No Frequency of alcohol use: Occasional Drug Abuse: None Lives with: Family Family History: Reviewed & Not Pertinent Patient has suicidal ideation: No Patient has homicidal ideation: No - Past Medical History Cardiac Medical History: Reports: Hx Hypercholesterolemia, Hx Hypertension Denies: Hx Coronary Artery Disease, Hx Heart Attack Pulmonary Medical History: Denies: Hx Asthma, Hx Bronchitis, Hx COPD, Hx Pneumonia Neurological Medical History: Denies: Hx Cerebrovascular Accident, Hx Seizures Renal/ Medical History: Reports: Hx Kidney Stones. Denies: Hx Peritoneal Dialysis GI Medical History: Reports: Hx Gastroesophageal Reflux Disease Musculoskeletal Medical History: Denies Hx Arthritis Skin Medical History: Reports Hx Cellulitis Psychiatric Medical History: Reports: Hx Bipolar Disorder, Hx Depression - WITH ANXIETY, Hx Schizoaffective Disorder, Hx Schizophrenia Past Surgical History: Reports: Hx Cholecystectomy, Hx Kidney (Renal Surgery) - for stones, Hx Oral Surgery. Denies: Hx Pacemaker - Immunizations Hx Diphtheria, Pertussis, Tetanus Vaccination: Yes Hx Pneumococcal Vaccination: 03/18/00 Review of Systems - Review of Systems Notes: Constitutional: Negative for fever. HENT: Negative for sore throat. Eyes: Negative for visual changes. Cardiovascular: Positive for chest pain. Respiratory: Negative for shortness of breath. Gastrointestinal: Negative for abdominal pain, vomiting or diarrhea. Genitourinary: Negative for dysuria. Musculoskeletal: Negative for back pain. Skin: Negative for rash. Neurological: Negative for headaches, weakness or numbness. 10 point ROS negative except as marked above and in HPI. Physical Exam - Vital signs Vitals: Temp Pulse Resp BP Pulse Ox 98.3 F 91 16 160/71 H 97 09/28/17 17:37 09/28/17 17:37 09/28/17 17:37 09/28/17 17:37 09/28/17 17:37 Interpretation: Hypertensive Notes: PHYSICAL EXAMINATION: GENERAL: Well-appearing, well-nourished and in no acute distress. HEAD: Atraumatic, normocephalic. EYES: Pupils equal round and reactive to light, extraocular movements intact, sclera anicteric, conjunctiva are normal. ENT: nares patent, oropharynx clear without exudates. Moist mucous membranes. NECK: Normal range of motion, supple without lymphadenopathy LUNGS: Breath sounds clear to auscultation bilaterally and equal. No wheezes rales or rhonchi. HEART: Regular rate and rhythm without murmurs ABDOMEN: Soft, nontender, normoactive bowel sounds. No guarding, no rebound. No masses appreciated. EXTREMITIES: Normal range of motion, no pitting or edema. No cyanosis. NEUROLOGICAL: No focal neurological deficits. Moves all extremities spontaneously and on command. PSYCH: Anxious SKIN: Warm, Dry, normal turgor, no rashes or lesions noted. Course - Re-evaluation Re-evalutation: 09/28/17 18:48 Presentation of chest pain in an otherwise well appearing patient. Low clinical suspicion for ACS given clinical history, exam, EKG without ST elevations or depressions although does have T-wave inversions in lateral leads unchanged from a previous EKG in March 2017, and negative initial troponin. HEART score less than or equal to 3. PE also seems unlikely given clinical history, absence of tachycardia or dyspnea. Patient is PERC criteria negative. CXR without evidence of pneumothorax or pneumonia. No widened mediastinum. Aortic dissection also seems unlikely given history, symmetric pulses, CXR, and vitals. Will obtain a repeat delta troponin to make sure that this remains normal and if this is unremarkable patient would like to be discharged home. HEART Score: History0 ECG 1 Age1 Risk Factors1 Troponin0 Total: 3 Chest pain in a patient without evidence of cardiac or other serious etiology on workup today. I discussed with patient that, based on their age, risk factors and emergency department testing today, the likelihood that their symptoms are related to a heart attack is very low (estimated risk of heart attack or over the next 30 days of less than 1%). The patient demonstrates decision making capacity and has verbalized an understanding of these risks to me. Based on this, the patient has chosen to follow-up as an outpatient. Usual chest pain return precautions reviewed. The patient states understanding and agreement with this plan. - Vital Signs Vital signs: Temp Pulse Resp BP Pulse Ox 98.3 F 91 15 145/79 H 97 09/28/17 17:37 09/28/17 17:37 09/28/17 22:01 09/28/17 22:01 09/28/17 22:01 - Laboratory Result Diagrams: 09/28/17 17:52 09/28/17 17:52 Laboratory results interpreted by me: 09/28/17 09/28/17 17:52 17:52 RDW 14.2 H Eosinophils % 6.4 H Sodium 146.0 H BUN 25 H Creatinine 1.33 H Est GFR (Non-Af Amer) 55 L - Diagnostic Test Radiology reviewed: Image reviewed, Reports reviewed Radiology results interpreted by me: 09/28/17 18:51 Chest x-ray: No acute infiltrate or pneumothorax - EKG Interpretation by Me Additional EKG results interpreted by me: 09/28/17 18:55 Sinus rhythm. Rate 90. T-wave inversions in the lateral leads unchanged from a previous EKG. QTC is 421. Discharge - Discharge Clinical Impression: Chest pain Qualifiers: Chest pain type: unspecified Qualified Code(s): R07.9 - Chest pain, unspecified Condition: Good Disposition: HOME, SELF-CARE Additional Instructions: You were seen today for chest pain. The exact cause of your pain is unclear. However, based on your cardiac enzyme testing, chest x-ray, and EKG it does not appear that it is from an immediately life-threatening cause at this time. Although your testing here is normal is critical that you follow-up with your primary care physician for continued evaluation of this chest pain and possible stress testing. I recommended you see your physician within the next 24-48 hours to be evaluated for consideration of a stress test. Please return to emergency department immediately if you have worsening of your chest pain, shortness of breath, vomiting, become unable to exert yourself due to pain or difficulty breathing, you pass out, or have any pain that radiates into your arms, jaw, or back. Please also return if you have any additional symptoms that are concerning to you. Referrals: WILBUR DRAKE MD [Primary Care Provider] - Follow up as needed
--- NOTE | 2017-09-28 21:35 | EKG REPORT ---
SEVERITY:- ABNORMAL ECG - SINUS RHYTHM REPOL ABNRM SUGGESTS ISCHEMIA, DIFFUSE LEADS : Confirmed by: Bethany Mart MD 28-Sep-2017 21:34:42
[2017-09-28 22:16] VITALS: BP 145/79
== END 2017-09-28 22:18 | disposition home or self-care (01) ==
LOC: ER 17:27
DX: R07.9 Chest pain, unspecified (principal); I10 Essential (primary) hypertension; Z88.8 Allergy status to other drugs, medicaments and biological substances
CPT/HCPCS: 93005; 99285; 36415; 85025; 80053; 84484; 83880; 71046; 93010; A9270

== ENCOUNTER → 2017-10-31 | Outpatient (CLI) | payer MEDICARE, MEDICAID ==
[2017-10-31 10:38] LABS: ABSOLUTE BASOPHILS # (AUTO) 0.1 10^3/uL (0.0-0.2); ABSOLUTE EOSINOPHILS # (AUTO) 0.4 10^3/uL (0.0-0.6); ABSOLUTE LYMPHOCYTES (AUTO) 1.2 10^3/uL (0.5-4.7); ABSOLUTE MONOCYTES (AUTO) 0.3 10^3/uL (0.1-1.4); ABSOLUTE NEUT (AUTO) 3.4 10^3/uL (1.7-8.2); EOSINOPHILS % (AUTO) 6.7 % (0-6); HEMATOCRIT 41.6 % (37.9-51.0); HEMOGLOBIN 14.5 g/dL (13.5-17.0); LYMPHOCYTES % (AUTO) 22.7 % (13-45); MEAN CORPUSCULAR HEMOGLOBIN 31.2 pg (27.0-33.4); MEAN CORPUSCULAR HGB CONC 34.9 g/dL (32.0-36.0); MEAN CORPUSCULAR VOLUME 89 fl (80-97); MONOCYTES % (AUTO) 6.4 % (3-13); PLATELET COUNT 181 10^3/uL (150-450); RED BLOOD COUNT 4.65 10^6/uL (4.35-5.55); RED CELL DISTRIBUTION WIDTH 14.7 % (11.5-14.0); SEGMENTED NEUTROPHILS % (AUTO) 63.2 % (42-78); TOTAL CELLS COUNTED % (AUTO) 100 %; WHITE BLOOD COUNT 5.4 10^3/uL (4.0-10.5)
== END ==
LOC: OD 09:05
DX: F20.9 Schizophrenia, unspecified (principal)
CPT/HCPCS: 36415; 85025

== ENCOUNTER 2018-04-24 17:23 | Emergency (ER) | payer MEDICARE, MEDICAID ==
--- NOTE | 2018-04-24 18:16 | RADIOLOGY REPORT (SQ) ---
EXAM DESCRIPTION: WRIST RIGHT 3 VIEWS COMPLETED DATE/TIME: 04/24/2018 6:01 pm REASON FOR STUDY: injury COMPARISON: None. NUMBER OF VIEWS: Three views. TECHNIQUE: AP, lateral, and oblique radiographic images acquired of the right wrist. LIMITATIONS: None. FINDINGS: MINERALIZATION: Normal. BONES: No acute fracture or dislocation. No worrisome bone lesions. Normal alignment. SOFT TISSUES: No soft tissue swelling. No foreign body. OTHER: No other significant finding. IMPRESSION: NEGATIVE STUDY OF THE RIGHT WRIST. NO RADIOGRAPHIC EVIDENCE OF ACUTE INJURY. TECHNICAL DOCUMENTATION: JOB ID: [id number] [employer] All Rights Reserved Reading location - IP/workstation name: [email or web address]
[2018-04-24 21:37] VITALS: BP 171/93
--- NOTE | 2018-04-24 22:27 | ER Document Report ---
HPI - HPI Patient complains to provider of: fall on R wrist swelling Time Seen by Provider: 04/24/18 22:02 Pain Level: 2 Context: 62-year-old male who is a resident of [facility] presents after sitting on a chair in the chair giving out and him falling on his right wrist. He is complaining of swelling and pain on the right lateral aspect of the wrist. Patient denies loss of consciousness or hitting his head. Patient has no other complaints. - MUSCULOSKELETAL Musculoskeletal: REPORTS: Extremity pain - right wrist Past Medical History - Social History Smoking Status: Unknown if Ever Smoked Family History: Reviewed & Not Pertinent Patient has suicidal ideation: No Patient has homicidal ideation: No - Past Medical History Cardiac Medical History: Reports: Hx Hypercholesterolemia, Hx Hypertension Denies: Hx Coronary Artery Disease, Hx Heart Attack Pulmonary Medical History: Denies: Hx Asthma, Hx Bronchitis, Hx COPD, Hx Pneumonia Neurological Medical History: Denies: Hx Cerebrovascular Accident, Hx Seizures Renal/ Medical History: Reports: Hx Kidney Stones. Denies: Hx Peritoneal Dialysis GI Medical History: Reports: Hx Gastroesophageal Reflux Disease Musculoskeletal Medical History: Denies Hx Arthritis Skin Medical History: Reports Hx Cellulitis Psychiatric Medical History: Reports: Hx Bipolar Disorder, Hx Depression - WITH ANXIETY, Hx Schizoaffective Disorder, Hx Schizophrenia Past Surgical History: Reports: Hx Cholecystectomy, Hx Kidney (Renal Surgery) - for stones, Hx Oral Surgery. Denies: Hx Pacemaker - Immunizations Hx Diphtheria, Pertussis, Tetanus Vaccination: Yes Hx Pneumococcal Vaccination: 03/18/00 Vertical Provider Document - CONSTITUTIONAL Notes: PHYSICAL EXAMINATION: Reviewed vital signs and charting by RN GENERAL: Alert, interacts well. No acute distress. HEAD: Normocephalic, atraumatic. EYES: Pupils equal. Extraocular movements intact. LUNGS: Clear to auscultation bilaterally, no wheezes, rales, or rhonchi. No respiratory distress. HEART: Regular rate and rhythm. No murmur ABDOMEN: soft, non-tender. Non-distended. Bowel sounds present in all 4 quadrants. EXTREMITIES: Moves all 4 extremities spontaneously. Edema right dorsal aspect of wrist just proximal to snuffbox, no snuffbox tenderness, No cyanosis. NEUROLOGICAL: Alert. Normal speech. PSYCH: Normal affect, normal mood. SKIN: Warm, dry, normal turgor. No rashes or lesions noted. - INFECTION CONTROL TRAVEL OUTSIDE OF THE [place] IN LAST 30 DAYS: No Course - Re-evaluation Re-evalutation: 04/24/18 22:25 Well-appearing 62-year-old male resident of [facility] presents after a fall. There is some soft tissue swelling of his right wrist. X-ray was negative for fracture dislocation. Plan is to give him an Erasto wrap, Motrin 600 mg p.o. 1 time and he is safe and stable for discharge. I told patient to follow-up with his primary care doc and I will give him a referral for orthopedics if needed. - Vital Signs Vital signs: Temp Pulse Resp BP Pulse Ox 97.7 F 75 19 171/93 H 97 04/24/18 21:35 04/24/18 21:35 04/24/18 21:35 04/24/18 21:35 04/24/18 21:35 Discharge - Discharge Clinical Impression: Right wrist injury Qualifiers: Encounter type: initial encounter Qualified Code(s): S69.91XA - Unspecified injury of right wrist, hand and finger(s), initial encounter Condition: Good Disposition: HOME-ASSISTED LIVING Additional Instructions: You are seen in the emergency department this evening for a fall and a wrist injury. Fortunately, there was no fracture or dislocation and it was soft tiss ue swelling. You can put ice on it, keep an Erasto wrap on it, and you keep it elevated. You can take Motrin 600 mg every 6 hours for pain. Please return to the emergency department if your fingers or thumb starts to turn blue, you cannot feel your fingers, or you have any other concerns. Referrals: YOLA KHAN FNP [NO LOCAL MD] - Follow up as needed
[2018-04-24] MEDS ORDERED: IBUPROFEN 600 MG TABLET PO ONE (22:28)
== END 2018-04-25 01:07 | disposition home health service (06) ==
LOC: ER 17:23
DX: S69.91XA Unspecified injury of right wrist, hand and finger(s), initial encounter (principal); M25.431 Effusion, right wrist; W20.8XXA Other cause of strike by thrown, projected or falling object, initial encounter; Y92.129 Unspecified place in nursing home as the place of occurrence of the external cause; E78.00 Pure hypercholesterolemia, unspecified; I10 Essential (primary) hypertension; Z87.442 Personal history of urinary calculi; Z90.49 Acquired absence of other specified parts of digestive tract
CPT/HCPCS: 99283; 73110; A9270

== ENCOUNTER → 2018-10-31 | Outpatient (CLI) | payer MEDICARE, MEDICAID ==
[2018-10-31 12:38] LABS: HEMATOCRIT 39.1 % (37.9-51.0); HEMOGLOBIN 13.5 g/dL (13.5-17.0); MEAN CORPUSCULAR HEMOGLOBIN 30.9 pg (27.0-33.4); MEAN CORPUSCULAR HGB CONC 34.6 g/dL (32.0-36.0); MEAN CORPUSCULAR VOLUME 89 fl (80-97); PLATELET COUNT 154 10^3/uL (150-450); RED BLOOD COUNT 4.38 10^6/uL (4.35-5.55); RED CELL DISTRIBUTION WIDTH 14.4 % (11.5-14.0); WHITE BLOOD COUNT 5.2 10^3/uL (4.0-10.5)
== END ==
LOC: OD 11:47
DX: F20.9 Schizophrenia, unspecified (principal); Z79.899 Other long term (current) drug therapy
CPT/HCPCS: 36415; 85027

== ENCOUNTER 2019-02-21 17:43 | Emergency (ER) | payer MEDICARE, MEDICAID ==
[2019-02-21 18:17] LABS: ABSOLUTE BASOPHILS # (AUTO) 0.1 10^3/uL (0.0-0.2); ABSOLUTE EOSINOPHILS # (AUTO) 0.6 10^3/uL (0.0-0.6); ABSOLUTE LYMPHOCYTES (AUTO) 1.6 10^3/uL (0.5-4.7); ABSOLUTE MONOCYTES (AUTO) 0.5 10^3/uL (0.1-1.4); ABSOLUTE NEUT (AUTO) 3.9 10^3/uL (1.7-8.2); BASOPHILS % (AUTO) 0.8 % (0-2); EOSINOPHILS % (AUTO) 9.3 % (0-6); HEMATOCRIT 41.7 % (37.9-51.0); HEMOGLOBIN 14.3 g/dL (13.5-17.0); LYMPHOCYTES % (AUTO) 23.7 % (13-45); MEAN CORPUSCULAR HEMOGLOBIN 31.4 pg (27.0-33.4); MEAN CORPUSCULAR HGB CONC 34.3 g/dL (32.0-36.0); MEAN CORPUSCULAR VOLUME 92 fl (80-97); MONOCYTES % (AUTO) 7.2 % (3-13); PLATELET COUNT 183 10^3/uL (150-450); RED BLOOD COUNT 4.55 10^6/uL (4.35-5.55); RED CELL DISTRIBUTION WIDTH 13.7 % (11.5-14.0); TOTAL CELLS COUNTED % (AUTO) 100 %; WHITE BLOOD COUNT 6.6 10^3/uL (4.0-10.5)
[2019-02-21 18:38] LABS: ALBUMIN 4.8 g/dL (3.5-5.0); ALKALINE PHOSPHATASE 76 U/L (38-126); ANION GAP 12 (5-19); ASPARTATE AMINO TRANSFERASE 47 U/L (17-59); BILIRUBIN,DIRECT 0.2 mg/dL (0.0-0.4); BILIRUBIN,TOTAL 0.5 mg/dL (0.2-1.3); BLOOD UREA NITROGEN 24 mg/dL (7-20); CALCIUM 9.6 mg/dL (8.4-10.2); CARBON DIOXIDE 25 mmol/L (22-30); CHLORIDE 105 mmol/L (98-107); CREATINE KINASE 749 U/L (55-170); GLUCOSE 106 mg/dL (75-110); POTASSIUM 4.3 mmol/L (3.6-5.0); TOTAL PROTEIN 7.8 g/dL (6.3-8.2)
--- NOTE | 2019-02-21 18:45 | ER Document Report ---
ED General - General Chief Complaint: Chest Pain Stated Complaint: CHEST PAIN Time Seen by Provider: 02/21/19 18:24 Primary Care Provider: WILBUR DRAKE MD [Primary Care Provider] - Follow up as needed TRAVEL OUTSIDE OF THE [place] IN LAST 30 DAYS: No - HPI Notes: The patient is a 63-year-old male presenting for evaluation of chest pain. This man is schizophrenic. 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 After drinking this he developed a sharp pain in the center of his chest. He called EMS and they gave him one aspirin tablet and a spray of sublingual nitroglycerin. His chest pain was resolved on arrival here. Patient has no known history of coronary disease. He does have a history of hypertension. Patient denies hyperlipidemia. Denies diabetes. No family history of coronary disease. Denies any use of cocaine. Non-smoker. Duration less than 15 minutes. Quality Sharp. Location left parasternal. Radiation none. Precipitating factors none. Relieving factors as noted above. Severity 3/10. None currently. HEART Score: HISTORY 0 ECG 1 AGE 2 RISK FACTORS 1 TROPONIN 0 TOTAL: 3 If HEART score is = 3 AND both tronponin measurments are normal, the 30 day risk of a major adverse cardiac event (all-cause mortality, myocardia infarction or need for coronary revscularization) is < 1% (Sensitivity 100%, NPV 100%). - Related Data Allergies/Adverse Reactions: bupropion [From Wellbutrin] Allergy (Verified 02/21/19 18:02) fluoxetine [From Prozac] Allergy (Verified 02/21/19 18:02) Past Medical History - General Information source: Patient, Emergency Med Personnel - Social History Smoking Status: Never Smoker Chew tobacco use (# tins/day): No Frequency of alcohol use: None Drug Abuse: None Family History: Reviewed & Not Pertinent Patient has suicidal ideation: No Patient has homicidal ideation: No - Past Medical History Cardiac Medical History: Reports: Hx Hypercholesterolemia, Hx Hypertension Denies: Hx Coronary Artery Disease, Hx Heart Attack Pulmonary Medical History: Denies: Hx Asthma, Hx Bronchitis, Hx COPD, Hx Pneumonia Neurological Medical History: Denies: Hx Cerebrovascular Accident, Hx Seizures Renal/ Medical History: Reports: Hx Kidney Stones. Denies: Hx Peritoneal Dialysis GI Medical History: Reports: Hx Gastroesophageal Reflux Disease Musculoskeletal Medical History: Denies Hx Arthritis Skin Medical History: Reports Hx Cellulitis Psychiatric Medical History: Reports: Hx Bipolar Disorder, Hx Depression - WITH ANXIETY, Hx Schizoaffective Disorder, Hx Schizophrenia Past Surgical History: Reports: Hx Cholecystectomy, Hx Kidney (Renal Surgery) - for stones, Hx Oral Surgery. Denies: Hx Pacemaker - Immunizations Hx Diphtheria, Pertussis, Tetanus Vaccination: Yes Hx Pneumococcal Vaccination: 03/18/00 Review of Systems - Review of Systems Notes: Constitutional: Negative for fever. HENT: Negative for sore throat. Eyes: Negative for visual changes. Cardiovascular: As per HPI. Respiratory: Negative for shortness of breath. Gastrointestinal: Negative for abdominal pain, vomiting or diarrhea. Genitourinary: Negative for dysuria. Musculoskeletal: Negative for back pain. Skin: Negative for rash. Neurological: Negative for headaches, weakness or numbness. 10 point ROS negative except as marked above and in HPI. Physical Exam - Vital signs Vitals: BP 144/80 H 02/21/19 17:44 - Notes Notes: GENERAL: Well-developed well-nourished appearing in no acute distress. Patient has a halting speech pattern which he says is baseline. SKIN: Good turgor no rashes. HEAD: Normocephalic atraumatic. EYES: PERRLA. Conjunctivae and sclerae clear. EARS: CANALS AND TMS CLEAR. NOSE: CLEAR. MOUTH: Moist mucosa. Good dentition. No stridor or edema. No drooling. NECK: Supple. No masses or thyromegaly. No adenopathy. Carotids 2+ without bruits. No JVD. BACK: Symmetrical without tenderness. CHEST: Respirations unlabored. Breath sounds clear and symmetrical. HEART: Regular rhythm. No murmur gallop or rub. ABDOMEN: Mild obesity. Soft nontender without masses, organomegaly or rebound. Bowel sounds normally active. No bruits. GENITALIA: Deferred. EXTREMITIES: No edema. No calf tenderness. Cap refill less than 1.5 seconds. Dorsalis pedis and posterior tibial pulses 3+ and symmetrical. NEUROLOGICAL: GCS 15. Alert and oriented x3. Normal gait. Fluent speech. Cranial nerves II through XII intact. Sensorimotor and cerebellar normal. Normal tone. Baseline halting speech pattern. Course - Re-evaluation Re-evalutation: 02/21/19 23:50 Troponins x2 are negative. CK-MB is elevated but is less than 3% of total. EKG shows changes of LVH with no acute ST changes noted compared with prior tracing. Chest x-ray is normal. Patient has had no recurrence of discomfort since arrival here. 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 He is to return here for any new or worsening symptoms. - Vital Signs Vital signs: Temp Pulse Resp BP Pulse Ox 98 F 72 16 119/51 L 96 02/21/19 17:53 02/21/19 17:53 02/21/19 22:01 02/21/19 22:00 02/21/19 22:01 - Laboratory Result Diagrams: 02/21/19 17:31 02/21/19 17:31 Laboratory results interpreted by me: 02/21/19 02/21/19 02/21/19 17:31 17:31 17:31 Eos % (Auto) 9.3 H BUN 24 H Creatinine 1.30 H Est GFR (MDRD) Non-Af 56 L Creatine Kinase 749 H CK-MB (CK-2) 15.80 H 02/21/19 20:30 Eos % (Auto) BUN Creatinine Est GFR (MDRD) Non-Af Creatine Kinase CK-MB (CK-2) 12.70 H - EKG Interpretation by Me Additional EKG results interpreted by me: 02/21/19 18:46 Normal sinus rhythm. Rate 79. LVH with secondary repolarization normal axis. Overall appearance of the tracing is unchanged from prior study of September 28, 2017. Discharge - Discharge Clinical Impression: Chest pain Qualifiers: Chest pain type: unspecified Qualified Code(s): R07.9 - Chest pain, unspecified Condition: Stable Disposition: HOME, SELF-CARE Referrals: WILBUR DRAKE MD [Primary Care Provider] - Follow up as needed SOPHIA ORTEGA MD [ACTIVE STAFF] - Follow up as needed
[2019-02-21 18:53] LABS: TROPONIN I < 0.012 ng/mL
--- NOTE | 2019-02-21 19:46 | RADIOLOGY REPORT (SQ) ---
EXAM DESCRIPTION: CHEST SINGLE VIEW COMPLETED DATE/TIME: 02/21/2019 7:26 pm REASON FOR STUDY: chest pain COMPARISON: 09/28/2017 TECHNIQUE: Single frontal radiographic view of the chest acquired. NUMBER OF VIEWS: One view. LIMITATIONS: None. FINDINGS: LUNGS AND PLEURA: No pneumothorax. No consolidation or pleural effusion. MEDIASTINUM AND HILAR STRUCTURES: Stable. HEART AND VASCULAR STRUCTURES: Stable. BONES: No acute findings. HARDWARE: None in the chest. OTHER: No other significant finding. IMPRESSION: NO ACUTE FINDINGS. TECHNICAL DOCUMENTATION: JOB ID: [id number] 2010 [employer]- All Rights Reserved Reading location - IP/workstation name: [email or web address]
--- NOTE | 2019-02-21 20:01 | EKG REPORT ---
SEVERITY:- ABNORMAL ECG - SINUS RHYTHM CONSIDER RIGHT VENTRICULAR HYPERTROPHY LVH WITH SECONDARY REPOLARIZATION ABNORMALITY : Confirmed by: Bethany Mart MD 21-Feb-2019 20:00:59
[2019-02-21 21:24] LABS: TROPONIN I < 0.012 ng/mL
[2019-02-22 00:46] VITALS: BP 141/72
== END 2019-02-22 00:45 | disposition home or self-care (01) ==
LOC: ER 17:43
DX: R07.9 Chest pain, unspecified (principal); I10 Essential (primary) hypertension
CPT/HCPCS: 36415; 71045; 80053; 82550; 82553; 84484; 85025; 93005; 93010; 99285

== ENCOUNTER → 2019-03-02 | Outpatient (CLI) | payer MEDICARE, MEDICAID ==
[2019-03-02 10:40] LABS: ABSOLUTE EOSINOPHILS # (AUTO) 0.5 10^3/uL (0.0-0.6); ABSOLUTE LYMPHOCYTES (AUTO) 1.2 10^3/uL (0.5-4.7); ABSOLUTE MONOCYTES (AUTO) 0.4 10^3/uL (0.1-1.4); ABSOLUTE NEUT (AUTO) 2.9 10^3/uL (1.7-8.2); BASOPHILS % (AUTO) 0.7 % (0-2); EOSINOPHILS % (AUTO) 10.6 % (0-6); HEMATOCRIT 39.7 % (37.9-51.0); HEMOGLOBIN 13.7 g/dL (13.5-17.0); MEAN CORPUSCULAR HEMOGLOBIN 31.3 pg (27.0-33.4); MEAN CORPUSCULAR HGB CONC 34.5 g/dL (32.0-36.0); MEAN CORPUSCULAR VOLUME 91 fl (80-97); MONOCYTES % (AUTO) 8.6 % (3-13); PLATELET COUNT 153 10^3/uL (150-450); RED BLOOD COUNT 4.37 10^6/uL (4.35-5.55); RED CELL DISTRIBUTION WIDTH 13.7 % (11.5-14.0); SEGMENTED NEUTROPHILS % (AUTO) 56.1 % (42-78); TOTAL CELLS COUNTED % (AUTO) 100 %; WHITE BLOOD COUNT 5.1 10^3/uL (4.0-10.5)
[2019-03-02 11:08] LABS: ALBUMIN 4.3 g/dL (3.5-5.0); ALKALINE PHOSPHATASE 71 U/L (38-126); ANION GAP 12 (5-19); ASPARTATE AMINO TRANSFERASE 45 U/L (17-59); BILIRUBIN,DIRECT 0.3 mg/dL (0.0-0.4); BILIRUBIN,TOTAL 0.5 mg/dL (0.2-1.3); BLOOD UREA NITROGEN 22 mg/dL (7-20); CALCIUM 9.4 mg/dL (8.4-10.2); CARBON DIOXIDE 27 mmol/L (22-30); CHLORIDE 103 mmol/L (98-107); CREATINE KINASE 712 U/L (55-170); GLUCOSE 89 mg/dL (75-110)
== END ==
LOC: OD 09:34
PROVIDERS: ATTEND Physician Assistant
DX: R07.9 Chest pain, unspecified (principal)
CPT/HCPCS: 36415; 80053; 82550; 82553; 84484; 85025

== ENCOUNTER 2019-04-21 14:28 | Emergency (ER) | payer MEDICARE, MEDICAID ==
--- NOTE | 2019-04-21 15:00 | ER Document Report ---
ED Medical Screen (RME) - General Chief Complaint: Leg Swelling Stated Complaint: LEG SWELLING Time Seen by Provider: 04/21/19 14:55 Primary Care Provider: ILENE BIRD PA-C [Primary Care Provider] - Follow up as needed Mode of Arrival: Ambulatory Information source: Patient Notes: 63-year-old male presented to ED for complaint of welling to the right lower le g. States he rode his bike here from [place] he does not have pain in the leg at this time he states he did have cellulitis in February but he also went to [place] on 8-hour trip a week ago today he came back. He is alert oriented respirations regular nonlabored speaking in full sentences. He states he does have a history of high blood pressure and cholesterol he was in the hospital for a week for cellulitis at the end of last year. There is no open sores at this time no draining a week wound at this time. He did state that he has had some seeping of fluid through his leg. He states he lives at [facility] and he told the nurse last night but they were going to try to get him an appointment with the doctor today but they were not able to get him an appointment so he will do his bike over here. I have greeted and performed a rapid initial assessment of this patient. A comprehensive ED assessment and evaluation of the patient, analysis of test results and completion of medical decision making process will be conducted by an additional ED providers. TRAVEL OUTSIDE OF THE [place] IN LAST 30 DAYS: No - Related Data Allergies/Adverse Reactions: bupropion [From Wellbutrin] Allergy (Verified 04/21/19 14:55) fluoxetine [From Prozac] Allergy (Verified 04/21/19 14:55) Past Medical History - Past Medical History Cardiac Medical History: Reports: Hx Hypercholesterolemia, Hx Hypertension Denies: Hx Coronary Artery Disease, Hx Heart Attack Pulmonary Medical History: Denies: Hx Asthma, Hx Bronchitis, Hx COPD, Hx Pneumonia Neurological Medical History: Denies: Hx Cerebrovascular Accident, Hx Seizures Renal/ Medical History: Reports: Hx Kidney Stones. Denies: Hx Peritoneal Dialysis GI Medical History: Reports: Hx Gastroesophageal Reflux Disease Musculoskeltal Medical History: Denies Hx Arthritis Skin Medical History: Reports Hx Cellulitis Psychiatric Medical History: Reports: Hx Bipolar Disorder, Hx Depression - WITH ANXIETY, Hx Schizoaffective Disorder, Hx Schizophrenia Past Surgical History: Reports: Hx Cholecystectomy, Hx Kidney (Renal Surgery) - for stones, Hx Oral Surgery. Denies: Hx Pacemaker - Immunizations Hx Diphtheria, Pertussis, Tetanus Vaccination: Yes Physical Exam - Vital signs Vitals: Temp Pulse Resp BP Pulse Ox 98.0 F 88 20 158/68 H 96 04/21/19 14:52 04/21/19 14:52 04/21/19 14:52 04/21/19 14:52 04/21/19 14:52 Course - Vital Signs Vital signs: Temp Pulse Resp BP Pulse Ox 98.0 F 88 20 158/68 H 96 04/21/19 14:52 04/21/19 14:52 04/21/19 14:52 04/21/19 14:52 04/21/19 14:52 Doctor's Discharge - Discharge Referrals: ILENE BIRD PA-C [Primary Care Provider] - Follow up as needed
[2019-04-21 17:00] LABS: ABSOLUTE EOSINOPHILS # (AUTO) 0.6 10^3/uL (0.0-0.6); ABSOLUTE LYMPHOCYTES (AUTO) 1.4 10^3/uL (0.5-4.7); ABSOLUTE MONOCYTES (AUTO) 0.5 10^3/uL (0.1-1.4); ABSOLUTE NEUT (AUTO) 4.4 10^3/uL (1.7-8.2); BASOPHILS % (AUTO) 0.7 % (0-2); EOSINOPHILS % (AUTO) 8.5 % (0-6); HEMATOCRIT 39.5 % (37.9-51.0); HEMOGLOBIN 13.5 g/dL (13.5-17.0); MEAN CORPUSCULAR HEMOGLOBIN 31.2 pg (27.0-33.4); MEAN CORPUSCULAR HGB CONC 34.1 g/dL (32.0-36.0); MEAN CORPUSCULAR VOLUME 92 fl (80-97); MONOCYTES % (AUTO) 7.8 % (3-13); PLATELET COUNT 160 10^3/uL (150-450); RED BLOOD COUNT 4.31 10^6/uL (4.35-5.55); RED CELL DISTRIBUTION WIDTH 13.6 % (11.5-14.0); TOTAL CELLS COUNTED % (AUTO) 100 %; WHITE BLOOD COUNT 6.9 10^3/uL (4.0-10.5)
[2019-04-21 17:30] LABS: ALBUMIN 4.1 g/dL (3.5-5.0); ALKALINE PHOSPHATASE 68 U/L (38-126); ANION GAP 10 (5-19); ASPARTATE AMINO TRANSFERASE 44 U/L (17-59); BILIRUBIN,DIRECT 0.3 mg/dL (0.0-0.4); BILIRUBIN,TOTAL 0.4 mg/dL (0.2-1.3); BLOOD UREA NITROGEN 19 mg/dL (7-20); CARBON DIOXIDE 27 mmol/L (22-30); CHLORIDE 103 mmol/L (98-107); GLUCOSE 89 mg/dL (75-110); POTASSIUM 4.8 mmol/L (3.6-5.0); TOTAL PROTEIN 6.7 g/dL (6.3-8.2)
[2019-04-21] MEDS ORDERED: CEFTRIAXONE INJ 1000 MG VIAL IM ONE (20:57)
[2019-04-21] MEDS ORDERED: SULFAMETHOXAZOLE/TRIMETHOPRIM 800-160 MG TABLET PO ONE (20:57)
[2019-04-21] MEDS ORDERED: LIDOCAINE 1% INJ-PF (10 MG/ML) 30 ML SDV INJ ONE (20:57)
--- NOTE | 2019-04-21 20:57 | ER Document Report ---
ED Extremity Problem, Lower - General Chief Complaint: Leg Swelling Stated Complaint: LEG SWELLING Time Seen by Provider: 04/21/19 14:55 Primary Care Provider: ILENE BIRD PA-C [Primary Care Provider] - Follow up as needed Mode of Arrival: Ambulatory Notes: Patient is a 63-year-old male that comes emergency department for chief complaint of swelling, redness, and pain to the right lower leg. He states this became noticeable over the past several days. He denies fever/chills, nause a/vomiting, he denies any other complaints. Patient states he has had cellulitis in the same leg in the past, he denies history of blood clot in the past. He did however have an 8-hour trip to [place] about a week ago in addition to this. Patient denies diabetes, he has a past medical history of hyp ertension, hyperlipidemia, bipolar/depression reportedly. He states that he lives at assisted living but they could not get him into see his primary care provider today so he came here instead. TRAVEL OUTSIDE OF THE [place] IN LAST 30 DAYS: No - Related Data Allergies/Adverse Reactions: bupropion [From Wellbutrin] Allergy (Verified 04/21/19 14:55) fluoxetine [From Prozac] Allergy (Verified 04/21/19 14:55) Past Medical History - General Information source: Patient - Social History Smoking Status: Former Smoker Family History: Reviewed & Not Pertinent Patient has suicidal ideation: No Patient has homicidal ideation: No - Past Medical History Cardiac Medical History: Reports: Hx Hypercholesterolemia, Hx Hypertension Denies: Hx Coronary Artery Disease, Hx Heart Attack Pulmonary Medical History: Denies: Hx Asthma, Hx Bronchitis, Hx COPD, Hx Pneumonia Neurological Medical History: Denies: Hx Cerebrovascular Accident, Hx Seizures Renal/ Medical History: Reports: Hx Kidney Stones. Denies: Hx Peritoneal Dialysis GI Medical History: Reports: Hx Gastroesophageal Reflux Disease Musculoskeletal Medical History: Denies Hx Arthritis Skin Medical History: Reports Hx Cellulitis Psychiatric Medical History: Reports: Hx Bipolar Disorder, Hx Depression - WITH ANXIETY, Hx Schizoaffective Disorder, Hx Schizophrenia Past Surgical History: Reports: Hx Cholecystectomy, Hx Kidney (Renal Surgery) - for stones, Hx Oral Surgery. Denies: Hx Pacemaker - Immunizations Hx Diphtheria, Pertussis, Tetanus Vaccination: Yes Hx Pneumococcal Vaccination: 03/18/00 Review of Systems - Review of Systems Constitutional: No symptoms reported EENT: No symptoms reported Cardiovascular: No symptoms reported Respiratory: No symptoms reported Gastrointestinal: No symptoms reported Genitourinary: No symptoms reported Male Genitourinary: No symptoms reported Musculoskeletal: See HPI Skin: See HPI Hematologic/Lymphatic: See HPI Neurological/Psychological: No symptoms reported Physical Exam - Vital signs Vitals: Temp Pulse Resp BP Pulse Ox 98.0 F 88 20 158/68 H 96 04/21/19 14:52 04/21/19 14:52 04/21/19 14:52 04/21/19 14:52 04/21/19 14:52 - Notes Notes: GENERAL: Alert, interacts well. No acute distress. HEAD: Normocephalic, atraumatic. EYES: Pupils equal, round, and reactive to light. Extraocular movements intact. ENT: Oral mucosa moist, tongue midline. Oropharynx unremarkable. Airway patent. LUNGS: Clear to auscultation bilaterally, no wheezes, rales, or rhonchi. No respiratory distress. HEART: Regular rate and rhythm. No murmur ABDOMEN: Soft, non-tender. Non-distended. EXTREMITIES: There is edema and lower extremity swelling especially of the mid and distal right distal tibial area. There is a 3 cm area that is vertical and linear which appears to be a excoriation/scratch, and the bottom of this has a small area of weeping clear fluid. Slightly above this and extensively below this down to the ankle there is erythema and warmth consistent with cellulitis. There is no purulent drainage, induration, fluctuance. The foot exam, knee exam, remaining leg exam is normal. Normal cap refill and sensation, normal distal pulses. BACK: no cervical, thoracic, lumbar midline tenderness. No saddle anesthesia, normal distal neurovascular exam. NEUROLOGICAL: Alert and oriented x3. Normal speech. Cranial nerves II through XII grossly intact. PSYCH: Calm, cooperative, makes good eye contact, responds appropriately SKIN: Warm, dry, normal turgor. No rashes or lesions noted. Course - Re-evaluation Re-evalutation: Doppler report preliminary results are negative for DVT. Patient has not had a fever, tachycardic, hypotension, he is alert and well-appearing on exam. He does have an excoriated area with some minimal clear fluid drainage but no purulent drainage, surrounding this he does have apparent cellulitis. This is over the distal tibial area only, does not extend to the foot or significantly above the excoriated area and there is no streaking noted. Patient is not a diabetic, he has no leukocytosis. We will attempt outpatient therapy first at this time. He does have a history of cellulitis. Giving Rocephin and Bactrim now, placed on Bactrim and Keflex, discussed wound care, elevation, monitoring, close follow-up, and strict return precautions in detail. Patient states understanding and agreement with plan. - Vital Signs Vital signs: Temp Pulse Resp BP Pulse Ox 98.0 F 88 20 158/68 H 96 04/21/19 14:52 04/21/19 14:52 04/21/19 14:52 04/21/19 14:52 04/21/19 14:52 - Laboratory Result Diagrams: 04/21/19 16:20 04/21/19 16:20 Laboratory results interpreted by me: 04/21/19 04/21/19 16:20 16:20 RBC 4.31 L Eos % (Auto) 8.5 H NT-Pro-B Natriuret Pep 343 H Discharge - Discharge Clinical Impression: Cellulitis of right leg Condition: Stable Disposition: HOME, SELF-CARE Additional Instructions: Your lab work-up is reassuring, your ultrasound of the leg does not show a blood clot in your leg. Your exam indicates cellulitis, skin infection. Take the antibiotics as prescribed. Keep a clean antibiotic dressing over the scratched/weeping area, keep area clean with soap and water. Elevate your legs as much as possible especially for the next several days. Follow closely with your primary care provider within the next 2 to 3 days. Come back if you are worse including spreading redness, discolored drainage, fever, vomiting, or any other concerning or worsening symptoms. Prescriptions: Sulfamethoxazole/Trimethoprim [Bactrim Ds Tablet] 1 each PO BID #14 tablet Cephalexin Monohydrate [Keflex 500 mg Capsule] 500 mg PO QID #28 capsule Referrals: WILBUR DRAKE MD [ACTIVE STAFF] - 04/23/19
[2019-04-22 05:15] VITALS: BP 160/69
--- NOTE | 2019-04-22 08:23 | XCELERA REPORT ---
[address] [place] [facility] [address] Lower Extremity Venous Evaluation Procedure: Color flow and duplex imaging of the veins of the right lower extremity as well as the left Common Femoral vein. Right Sided Venous Evaluation Normal vessel filling wall to wall, compression and augmentation as well as Colour flow down to the infrageniculate veins. Left Sided Venous Evaluation The left common femoral vein is fully compressible. Spontaneous and phasic flow is present in the left common femoral vein. Interpretation Summary No duplex evidence of DVT or obstruction in the right lower extremity nor in the left Common Femoral vein. Name: ANNETTE AGUILERA Age: 63 yrs Gender: Male : 1955 Patient Status: Preadmit Patient Location: ER Study Date: 04/21/2019 04:41 PM Reason For Study: Right lower leg swelling Ordering Physician: LUL PRITCHARD Performed By: Mansi Mccall : LUL PRITCHARD > Scar Ryamond
== END 2019-04-22 01:45 | disposition home or self-care (01) ==
LOC: ER 14:28
DX: L03.115 Cellulitis of right lower limb (principal); M79.661 Pain in right lower leg; I10 Essential (primary) hypertension; Z88.8 Allergy status to other drugs, medicaments and biological substances; Z87.891 Personal history of nicotine dependence
CPT/HCPCS: 99283; 96372; 36415; 85025; 80053; 83880; 93971 ×2; J3490; J0696; A9270

== ENCOUNTER → 2019-11-05 | Outpatient (CLI) | payer MEDICARE, MEDICAID ==
--- NOTE | 2019-11-05 09:56 | RADIOLOGY REPORT (SQ) ---
EXAM DESCRIPTION: FOOT RIGHT COMPLETE IMAGES COMPLETED DATE/TIME: 11/05/2019 8:40 am REASON FOR STUDY: L97.512 NON-PRS CHRONIC ULCER OTH PRT RIGHT FOOT W FAT LAYER EXPOSED L97.512 NON- PRS CHRONIC ULCER OTH PRT RIGHT FOOT W FAT LAYER COMPARISON: None. NUMBER OF VIEWS: Three views. TECHNIQUE: AP, lateral and oblique radiographic images acquired of the right foot. LIMITATIONS: Flexion deformities of the tendons and bandaging material overlying the 2nd through 4th digits, partially obscuring underlying osseous detail. FINDINGS: MINERALIZATION: Normal. BONES: Flexion deformities are seen of the toes, limiting evaluation of the phalanges. No acute frac ture or dislocation. No worrisome bone lesions. Incidental note is made of calcaneal enthesopathy a nd diffuse degenerative changes. JOINTS: No effusions. SOFT TISSUES: No soft tissue swelling. No foreign body. OTHER: No other significant finding. IMPRESSION: Limited exam. Bandaging material overlies the 2nd through 4th toes ; no discrete radiog raphic findings of osteomyelitis. No subcutaneous gas is demonstrated. TECHNICAL DOCUMENTATION: JOB ID: [id number] 2010 [employer]- All Rights Reserved Reading location - IP/workstation name: [email or web address]
--- NOTE | 2019-11-05 12:45 | RADIOLOGY REPORT (SQ) ---
EXAM DESCRIPTION: [employer]TD; ARTERIAL LOWER EXTREM BILAT IMAGES COMPLETED DATE/TIME: 11/05/2019 9:51 am REASON FOR STUDY: RT FOOT ULCER L97.512 NON-PRS CHRONIC ULCER OTH PRT RIGHT FOOT W FAT LAYER COMPARISON: None. TECHNIQUE: Dynamic and static crabtree scale and color images acquired of the lower extremity arteries. Additional selected spectral images recorded. ABIs recorded. LIMITATIONS: None. FINDINGS: RIGHT LEG: ABIS: Normal, over 1.0. INFLOW ARTERIES: Normal, no obstruction evident. FEMORAL ARTERIES:Multiphasic waveforms. The proximal profunda demonstrates elevated velocities measur ing up to 159 centimeters/second a. the proximal superficial femoral artery likewise demonstrates ashli vated velocities measured at to 130 centimeters/second. No focal stenosis is demonstrated. POPLITEAL ARTERY:Multiphasic waveforms. Normal, no velocity elevation to suggest focal stenosis. Norm al color Doppler evaluation. No aneurysm. PATENT TIBIOPERONEAL TRUNK AND 3 VESSEL RUNOFF: The posterior tibial and anterior tibial arteries are normal. The peroneal artery is not imaged. Multiphasic waveforms are seen within the dorsalis pedi s. TBI: Not performed. OTHER: No other significant finding. LEFT LEG: ABIS: Normal, over 1.0. INFLOW ARTERIES: Normal, no obstruction evident. FEMORAL ARTERIES:Multiphasic waveforms. Mildly elevated velocities are seen within the proximal profu nda, measuring up to 126 centimeters/second. No focal stenosis is demonstrated. POPLITEAL ARTERY:Multiphasic waveforms. Normal, no velocity elevation to suggest focal stenosis. Norm al color Doppler evaluation. No aneurysm. PATENT TIBIOPERONEAL TRUNK AND 3 VESSEL RUNOFF: The posterior tibial and anterior to we arteries are normal. The peroneal artery is not imaged. Multi phasic waveforms are seen within the dorsalis pedi s. TBI: Not performed. OTHER: No other significant finding. IMPRESSION: Mildly elevated velocities without focal stenosis. Multiphasic waveforms are seen throu ghout. The peroneal arteries are not imaged. COMMENT: [facility] NORMAL: Greater than 1.0 MINIMAL DISEASE: 0.9 to 1.0 CLAUDICATION: 0.5 to 0.9 SEVERE ARTERIAL DISEASE: Less than 0.5 [facility] NORMAL: Greater than 1.0 (1.2 If Heavy Calcifications) NORMAL TO MILD ISCHEMIA: 0.8 to 1.0 MODERATE ISCHEMIA: 0.4 to 0.8 SEVERE ISCHEMIA: Less than 0.4 TECHNICAL DOCUMENTATION: JOB ID: [id number] 2010 [employer]- All Rights Reserved Reading location - IP/workstation name: [email or web address]
--- NOTE | 2019-11-05 12:45 | RADIOLOGY REPORT (SQ) ---
EXAM DESCRIPTION: PHYSIO ARTERIAL LTD; ARTERIAL LOWER EXTREM BILAT IMAGES COMPLETED DATE/TIME: 11/05/2019 9:51 am REASON FOR STUDY: RT FOOT ULCER L97.512 NON-PRS CHRONIC ULCER OTH PRT RIGHT FOOT W FAT LAYER COMPARISON: None. TECHNIQUE: Dynamic and static crabtree scale and color images acquired of the lower extremity arteries. Additional selected spectral images recorded. ABIs recorded. LIMITATIONS: None. FINDINGS: RIGHT LEG: ABIS: Normal, over 1.0. INFLOW ARTERIES: Normal, no obstruction evident. FEMORAL ARTERIES:Multiphasic waveforms. The proximal profunda demonstrates elevated velocities measur ing up to 159 centimeters/second a. the proximal superficial femoral artery likewise demonstrates ashli vated velocities measured at to 130 centimeters/second. No focal stenosis is demonstrated. POPLITEAL ARTERY:Multiphasic waveforms. Normal, no velocity elevation to suggest focal stenosis. Norm al color Doppler evaluation. No aneurysm. PATENT TIBIOPERONEAL TRUNK AND 3 VESSEL RUNOFF: The posterior tibial and anterior tibial arteries are normal. The peroneal artery is not imaged. Multiphasic waveforms are seen within the dorsalis pedi s. TBI: Not performed. OTHER: No other significant finding. LEFT LEG: ABIS: Normal, over 1.0. INFLOW ARTERIES: Normal, no obstruction evident. FEMORAL ARTERIES:Multiphasic waveforms. Mildly elevated velocities are seen within the proximal profu nda, measuring up to 126 centimeters/second. No focal stenosis is demonstrated. POPLITEAL ARTERY:Multiphasic waveforms. Normal, no velocity elevation to suggest focal stenosis. Norm al color Doppler evaluation. No aneurysm. PATENT TIBIOPERONEAL TRUNK AND 3 VESSEL RUNOFF: The posterior tibial and anterior to we arteries are normal. The peroneal artery is not imaged. Multi phasic waveforms are seen within the dorsalis pedi s. TBI: Not performed. OTHER: No other significant finding. IMPRESSION: Mildly elevated velocities without focal stenosis. Multiphasic waveforms are seen throu ghout. The peroneal arteries are not imaged. COMMENT: [facility] NORMAL: Greater than 1.0 MINIMAL DISEASE: 0.9 to 1.0 CLAUDICATION: 0.5 to 0.9 SEVERE ARTERIAL DISEASE: Less than 0.5 [facility] NORMAL: Greater than 1.0 (1.2 If Heavy Calcifications) NORMAL TO MILD ISCHEMIA: 0.8 to 1.0 MODERATE ISCHEMIA: 0.4 to 0.8 SEVERE ISCHEMIA: Less than 0.4 TECHNICAL DOCUMENTATION: JOB ID: [id number] 2010 [employer]- All Rights Reserved Reading location - IP/workstation name: [email or web address]
== END ==
LOC: SP 08:19
PROVIDERS: ATTEND Preventive Medicine Undersea and Hyperbaric Medicine
DX: L97.512 Non-pressure chronic ulcer of other part of right foot with fat layer exposed (principal)
CPT/HCPCS: 93922; 93925

== ENCOUNTER 2020-01-13 07:28 | Inpatient (IN) | payer MEDICARE, MEDICAID ==
[2020-01-13] MEDS ORDERED: VANCOMYCIN HCL INJ 1000 MG VIAL IV ONE (07:37)
[2020-01-13] MEDS ORDERED: NORMAL SALINE 1000 ML 1,000 ML IV ONE ×2 (07:37→08:30)
--- NOTE | 2020-01-13 07:39 | ER Document Report ---
ED General - General Chief Complaint: Fever Stated Complaint: FEVER/WEAKNESS Time Seen by Provider: 01/13/20 07:33 Notes: 64-year-old male schizophrenia mental health issues resident of [facility] presents with fever flulike illness chills right leg redness and swelling and nausea. Gradual onset last night and this morning. Febrile this morning at 6 AM got Tylenol and then EMS temperature was normal. History of cellulitis on the right leg. Denies body aches but has a mild headache. No evidence of positive Covid. TRAVEL OUTSIDE OF THE [place] IN LAST 30 DAYS: No - Related Data Allergies/Adverse Reactions: bupropion [From Wellbutrin] Allergy (Verified 01/13/20 09:27) fluoxetine [From Prozac] Allergy (Verified 01/13/20 09:27) Past Medical History - Social History Smoking Status: Former Smoker Family History: Reviewed & Not Pertinent - Past Medical History Cardiac Medical History: Reports: Hx Hypercholesterolemia, Hx Hypertension Denies: Hx Coronary Artery Disease, Hx Heart Attack Pulmonary Medical History: Denies: Hx Asthma, Hx Bronchitis, Hx COPD, Hx Pneumonia Neurological Medical History: Denies: Hx Cerebrovascular Accident, Hx Seizures Renal/ Medical History: Reports: Hx Kidney Stones. Denies: Hx Peritoneal Dialysis GI Medical History: Reports: Hx Gastroesophageal Reflux Disease Musculoskeletal Medical History: Denies Hx Arthritis Skin Medical History: Reports Hx Cellulitis Psychiatric Medical History: Reports: Hx Bipolar Disorder, Hx Depression - WITH ANXIETY, Hx Schizoaffective Disorder, Hx Schizophrenia Past Surgical History: Reports: Hx Cholecystectomy, Hx Kidney (Renal Surgery) - for stones, Hx Oral Surgery. Denies: Hx Pacemaker - Immunizations Hx Diphtheria, Pertussis, Tetanus Vaccination: Yes Hx Pneumococcal Vaccination: 03/18/00 Review of Systems - Review of Systems Notes: REVIEW OF SYSTEMS GEN: Fever and chills s ENT: Denies sore throat, nasal discharge, ear pain EYES: Denies blurry vision, eye pain, discharge CV: Denies chest pain, palpitations, edema RESP: Denies cough, shortness of breath, wheezing GI: No belly pain positive nausea tosin MSK: Achy, right leg pain SKIN: Denies rash, skin lesions LYMPH: Denies swollen glands/lymph nodes NEURO: Denies headache, focal weakness or numbness, dizziness PSYCH: Denies depression, suicidal or homicidal ideation PHYSICAL EXAMINATION General: No acute distress, well-nourished Head: Atraumatic, normocephalic ENT: Mouth normal, oropharynx moist, no exudates or tonsillar enlargement Eyes: Conjunctiva normal, pupils equal, lids normal Neck: No JVD, supple, no guarding CVS: Normal rate, regular rhythm, no murmurs Resp: No resp distress, equal and normal breath sounds bilaterally GI: Nondistended, soft, no tenderness to palpation, no rebound or guarding Ext: No deformities, no edema, normal range of motion in upper and lower ext Back: No CVA or midline TTP Skin: Shiny erythematous edematous right lower extremity with blanching erythema and tenderness Lymphatic: No lymphadeopathy noted Neuro: Awake, alert. Face symmetric. GCS 15. Physical Exam - Vital signs Vitals: Temp Resp BP Pulse Ox 99.0 F 26 H 122/73 93 01/13/20 07:37 01/13/20 07:37 01/13/20 07:37 01/13/20 07:37 Course - Re-evaluation Re-evalutation: 01/13/20 07:38 Cellulitis plus sepsis, rule out Covid pneumonia UTI etc. Hemodynamically stable at this time 01/13/20 09:46 Patient's white count is not truly elevated but up from his baseline with a left shift without acute kidney injury or other lab abnormalities other than his elevated lactate. Given 2 L of fluid but will avoid 30/kg secondary to history of CHF 01/13/20 09:49 Given Vanco. Discussed for admission with hospitalist - Vital Signs Vital signs: Temp Pulse Resp BP Pulse Ox 99.0 F 25 H 127/66 H 98 01/13/20 08:09 01/13/20 09:01 01/13/20 09:01 01/13/20 09:01 - Laboratory Result Diagrams: 01/13/20 07:42 01/13/20 07:42 Laboratory results interpreted by me: 01/13/20 01/13/20 01/13/20 07:42 07:42 07:42 Plt Count 136 L Seg Neuts % (Manual) 81 H Band Neutrophils % 13 H Lymphocytes % (Manual) 2 L Abs Neuts (Manual) 8.7 H Abs Lymphs (Manual) 0.3 L VBG pH 7.44 H VBG pCO2 33.3 L Sodium 133.6 L BUN 26 H Creatinine 1.36 H Est GFR (MDRD) Non-Af 53 L Glucose 116 H Lactic Acid 01/13/20 07:42 Plt Count Seg Neuts % (Manual) Band Neutrophils % Lymphocytes % (Manual) Abs Neuts (Manual) Abs Lymphs (Manual) VBG pH VBG pCO2 Sodium BUN Creatinine Est GFR (MDRD) Non-Af Glucose Lactic Acid 3.0 H - EKG Interpretation by Ma EKG shows normal: Sinus rhythm Rate: Normal Rhythm: NSR - No ST or T wave changes Normal intervals Discharge - Discharge Clinical Impression: Cellulitis of right leg Condition: Fair Disposition: ADMITTED INPATIENT Admitting Provider: Fiorella (Hospitalist) Unit Admitted: Telemetry
[2020-01-13 08:09] LABS: VENOUS BLOOD BASE EXCESS -1.1 mmol/L; VENOUS BLOOD HCO3 22.2 mmol/L (20-32); VENOUS BLOOD PCO2 33.3 mmHg (35-63); VENOUS BLOOD PH 7.44 (7.30-7.42)
[2020-01-13 08:13] LABS: INTERNATIONAL RATION (INR) 1.19; PROTHROMBIN TIME 15.3 SEC (11.4-15.4)
[2020-01-13 08:16] LABS: HEMOGLOBIN 13.9 g/dL (13.5-17.0); MEAN CORPUSCULAR HEMOGLOBIN 31.4 pg (27.0-33.4); MEAN CORPUSCULAR HGB CONC 34.7 g/dL (32.0-36.0); MEAN CORPUSCULAR VOLUME 91 fl (80-97); PLATELET COUNT 136 10^3/uL (150-450); RED BLOOD COUNT 4.42 10^6/uL (4.35-5.55); WHITE BLOOD COUNT 9.3 10^3/uL (4.0-10.5)
[2020-01-13 08:23] LABS: ALBUMIN 3.8 g/dL (3.5-5.0); ALKALINE PHOSPHATASE 41 U/L (38-126); ANION GAP 13 (5-19); ASPARTATE AMINO TRANSFERASE 45 U/L (17-59); BILIRUBIN,DIRECT 0.2 mg/dL (0.0-0.4); BILIRUBIN,TOTAL 0.8 mg/dL (0.2-1.3); BLOOD UREA NITROGEN 26 mg/dL (7-20); CALCIUM 8.9 mg/dL (8.4-10.2); CARBON DIOXIDE 23 mmol/L (22-30); CHLORIDE 98 mmol/L (98-107); GLUCOSE 116 mg/dL (75-110); POTASSIUM 4.1 mmol/L (3.6-5.0); TOTAL PROTEIN 6.5 g/dL (6.3-8.2)
[2020-01-13 08:34] LABS: ABSOLUTE LYMPHOCYTES# (MANUAL) 0.3 10^3/uL (0.5-4.7); ABSOLUTE MONOCYTES # (MANUAL) 0.3 10^3/uL (0.1-1.4); BASOPHILS % (MANUAL) 0 % (0-2); EOSINOPHILS % (MANUAL) 0 % (0-6); LYMPHOCYTES % (MANUAL) 2 % (13-45); MONOCYTES % (MANUAL) 3 % (3-13); NUCLEATED RED BLOOD CELLS 1 /100 WBC (0); SEGMENTED NEUTROPHILS % (MAN) 81 % (42-78); TOTAL CELLS COUNTED 100
[2020-01-13 08:35] LABS: PLATELET COMMENT DECREASED
[2020-01-13 08:36] LABS: BAND NEUTROPHILS % (MANUAL) 13 % (3-5); RBC MORPHOLOGY COMMENT NORMO-CYTIC/CHROMIC
[2020-01-13] MEDS ORDERED: IPRATROPIUM/ALBUTEROL 0.5-2.5 MG/3 ML AMPUL NEB PRN (10:19)
[2020-01-13 10:20] LABS: PATH REVIEW PATHOLOGIST REVIEWED
[2020-01-13 10:36] LABS: APPEARANCE,URINE CLEAR; BILIRUBIN,URINE NEGATIVE (NEGATIVE); COLOR,URINE YELLOW; GLUCOSE, URINE NEGATIVE (NEGATIVE); KETONES,URINE NEGATIVE (NEGATIVE); LEUKOCYTE ESTERASE,URINE NEGATIVE (NEGATIVE); NITRITE,URINE NEGATIVE (NEGATIVE); PROTEIN,URINE 100 mg/dL (NEGATIVE); URINE SPECIFIC GRAVITY 1.027
[2020-01-13] MEDS: NORMAL SALINE 1000 ML 1,000 ML IV PRN (11:12)
--- NOTE | 2020-01-13 11:32 | RADIOLOGY REPORT (SQ) ---
EXAM DESCRIPTION: CHEST SINGLE VIEW IMAGES COMPLETED DATE/TIME: 01/13/2020 11:07 am REASON FOR STUDY: sepsis COMPARISON: 02/21/2019 EXAM PARAMETERS: NUMBER OF VIEWS: One view. TECHNIQUE: Single frontal radiographic view of the chest acquired. RADIATION DOSE: NA LIMITATIONS: None. FINDINGS: LUNGS AND PLEURA: Numerous nodular opacities in the left perihilar distribution and left b ase. This could represent infectious or inflammatory process. Neoplasm cannot be excluded. No defi nite effusions. MEDIASTINUM AND HILAR STRUCTURES: No masses. Contour normal. HEART AND VASCULAR STRUCTURES: Heart normal in size. Normal vasculature. BONES: No acute findings. HARDWARE: None in the chest. OTHER: No other significant finding. IMPRESSION: Ill-defined nodular opacities in the left perihilar distribution and left base this may represent infectious or inflammatory process. Pulmonary nodules cannot be excluded. Recommend CT of the chest for further evaluation. TECHNICAL DOCUMENTATION: JOB ID: [id number] 2010 [employer]- All Rights Reserved Reading location - IP/workstation name: [email or web address]
[2020-01-13] MEDS: ACETAMINOPHEN 325 MG TABLET PO PRN ×2 (11:58→17:33)
[2020-01-13] MEDS: ENOXAPARIN SODIUM INJ 40 MG/0.4 ML DISP.SYRIN SUBCUT SCH (11:58)
[2020-01-13] MEDS ORDERED: AMPICILLIN SODIUM/SULBACTAM NA 3 GM in NORMAL SALINE 100 ML IV SCH (12:00)
--- NOTE | 2020-01-13 12:44 | EKG REPORT ---
SEVERITY:- ABNORMAL ECG - SINUS RHYTHM RIGHT VENTRICULAR HYPERTROPHY REPOL ABNRM SUGGESTS ISCHEMIA, ANT-LAT LEADS : Confirmed by: Umang Fu MD 13-Jan-2020 12:44:07
[2020-01-13 12:55] LABS: ANION GAP 12 (5-19); BLOOD UREA NITROGEN 26 mg/dL (7-20); CARBON DIOXIDE 24 mmol/L (22-30); CHLORIDE 97 mmol/L (98-107); GLUCOSE 105 mg/dL (75-110)
[2020-01-13] MEDS ORDERED: VANCOMYCIN HCL 0 MG in DEXTROSE 5%-WATER 250 ML IV NR (13:00)
--- NOTE | 2020-01-13 13:14 | PDOC H&P ---
History of Present Illness Admission Date/PCP: 01/13/20 09:07 DIXIE MONTEZ DPM Patient complains of: Fever and chills in the right leg redness History of Present Illness: ANNETTE AGUILERA is a 64 year old male This 64-year-old male with the resident in the [facility] with the significant history of the hypertension hyperlipidemia morbid obesity bipolar di sorder and schizophrenia brought to the emergency department by EMS due to the fever chills and increasing the redness of the right lower extremity Patient have ongoing problem of the right lower extremity seen by the surgery currently also seeing the wound care center ultrasound MRI done in the past with a chronic lymphedema and chronic cellulitis In the emergency department patient's lactic acid was elevated and patient was significantly redness of the right lower extremity consistent with cellulitis Patient's denied any cough no congestions. Denied contact with any Covid restrictions no Covid patient in the [facility] In the emergency department patient's giving IV vancomycin Patient also follow outpatients wound care clinic with ongoing right lower extremities ulcer currently healed patient have a arterial Doppler done couple of months back was all stable Patient's denied any chest pain no short of breath Seen by Dr. Camp beginning of the year with echocardiogram and stress test was all normal In the emergency department. Patient diagnosed sepsis Past Medical History Cardiac Medical History: Reports: Hyperlipidema, Hypertension Denies: Coronary Artery Disease, Myocardial Infarction Pulmonary Medical History: Denies: Asthma, Bronchitis, Chronic Obstructive Pulmonary Disease (COPD), Pneumonia Neurological Medical History: Denies: Seizures GI Medical History: Reports: Gastroesophageal Reflux Disease Musculoskeltal Medical History: Denies: Arthritis Psychiatric Medical History: Reports: Bipolar Disorder, Depression - WITH ANXIETY, General Anxiety Disorder, Schizoaffective Disorder Hematology: Denies: Anemia Past Surgical History Past Surgical History: Reports: Cholecystectomy Denies: Pacemaker Social History Information Source: Patient Smoking Status: Former Smoker Frequency of Alcohol Use: None Hx Recreational Drug Use: No Hx Prescription Drug Abuse: No Family History Family History: Reviewed & Not Pertinent Parental Family History Reviewed: Yes Children Family History Reviewed: Yes Sibling(s) Family History Reviewed.: Yes Medication/Allergy Home Medications: Acetaminophen [Tylenol 325 mg Tablet] 650 mg PO Q4HP PRN 03/28/17 Bupropion HCl [Wellbutrin Sr 150 mg Tablet] 150 mg PO BID 03/28/17 Clotrimazole 1 applic TOP DAILY 03/28/17 Guaifenesin/D-Methorphan Hb [Robitussin Dm S-F Cough Syrup] 10 ml PO Q4HP PRN 03/28/17 Levothyroxine Sodium [Synthroid] 50 mcg PO QAM 03/28/17 Lorazepam [Ativan 1 mg Tablet] 1 mg PO BID@1200,1700 03/28/17 Multivitamin [Tab-A-Amalia] 1 tab PO DAILY 03/28/17 Grant-3/Dha/Epa/Fish Oil [Fish Oil 1,000 mg Softgel] 2 cap PO BID 03/28/17 Omeprazole 40 mg PO DAILY 03/28/17 Ondansetron HCl [Zofran 4 mg Tablet] 4 mg PO Q8HP PRN 03/28/17 Paliperidone [Invega] 1.5 mg PO QAM 03/28/17 Polyethylene Glycol 3350 [Miralax Powder 17 gm/Packet] 17 gm PO DAILYP PRN 03/28/17 Saliva Substitute Combo No.9 [Biotene] 15 ml PO 5XDP PRN 03/28/17 Tamsulosin HCl [Flomax 0.4 mg Cap.sr] 0.4 mg PO DAILY@0900 03/28/17 Clindamycin HCl [Cleocin 150 mg Capsule] 300 mg PO Q8 #30 capsule 04/11/17 Levofloxacin [Levaquin 500 mg Tablet] 500 mg PO DAILY #10 tablet 04/11/17 Neomy Sulf/Bacitrac Zn/Poly [Neosporin Ointment 15 gm] 1 applic TP TID 10 Days #30 tube 04/11/17 Albuterol Sulfate [Proair HFA] 1 - 2 puff IH Q4 PRN #1 inhaler 08/07/17 Prednisone 60 mg PO DAILY #15 tablet 08/07/17 Tramadol HCl [Ultram 50 mg Tablet] 50 mg PO Q6HP PRN #12 tablet 09/13/17 Cephalexin Monohydrate [Keflex 500 mg Capsule] 500 mg PO QID #28 capsule 04/21/19 Sulfamethoxazole/Trimethoprim [Bactrim Ds Tablet] 1 each PO BID #14 tablet 04/21/19 Sulfamethoxazole/Trimethoprim [Bactrim Ds Tablet] 2 each PO BID #28 tablet 01/13/20 Allergies/Adverse Reactions: bupropion [From Wellbutrin] Allergy (Verified 01/13/20 09:27) fluoxetine [From Prozac] Allergy (Verified 01/13/20 09:27) Review of Systems Constitutional: PRESENT: chills, fever(s). ABSENT: headache(s), weight gain, weight loss Eyes: ABSENT: visual disturbances Ears: ABSENT: hearing changes Cardiovascular: ABSENT: chest pain, dyspnea on exertion, edema, orthropnea, palpitations Respiratory: ABSENT: cough, hemoptysis Gastrointestinal: ABSENT: abdominal pain, constipation, diarrhea, hematemesis, hematochezia, nausea, vomiting Genitourinary: ABSENT: dysuria, hematuria Musculoskeletal: ABSENT: joint swelling Integumentary: ABSENT: rash, wounds Neurological: ABSENT: abnormal gait, abnormal speech, confusion, dizziness, focal weakness, syncope Psychiatric: ABSENT: anxiety, depression, homidical ideation, suicidal ideation Endocrine: ABSENT: cold intolerance, heat intolerance, menstrual abnormalities, polydipsia, polyuria Hematologic/Lymphatic: ABSENT: easy bleeding, easy bruising, lymphadenopathy Physical Exam Vital Signs: Temp Pulse Resp BP Pulse Ox 97.9 F 28 H 165/80 H 95 01/13/20 11:11 01/13/20 12:01 01/13/20 12:01 01/13/20 12:01 Intake & Output 01/12/20 01/13/20 01/14/20 06:59 06:59 06:59 Intake Total 1999 Balance 1999 Weight 90.718 kg General appearance: PRESENT: no acute distress, well-developed, well-nourished Head exam: PRESENT: atraumatic, normocephalic Eye exam: PRESENT: conjunctiva pink, EOMI, PERRLA. ABSENT: scleral icterus Ear exam: PRESENT: normal external ear exam Mouth exam: PRESENT: moist, tongue midline Neck exam: PRESENT: full ROM. ABSENT: carotid bruit, JVD, lymphadenopathy, thyromegaly Respiratory exam: PRESENT: clear to auscultation damion Cardiovascular exam: PRESENT: RRR. ABSENT: diastolic murmur, rubs, systolic murmur Vascular exam: PRESENT: normal capillary refill GI/Abdominal exam: PRESENT: normal bowel sounds, soft. ABSENT: distended, guarding, mass, organolmegaly, rebound, tenderness Rectal exam: PRESENT: deferred Extremities exam: PRESENT: pedal edema Additional comments: Right lower extremity warm to touch and redness Neurological exam: PRESENT: alert, awake, oriented to person, oriented to place, oriented to time, oriented to situation, CN II-XII grossly intact. ABSENT: motor sensory deficit Psychiatric exam: PRESENT: appropriate affect, normal mood. ABSENT: homicidal ideation, suicidal ideation Skin exam: PRESENT: dry, intact, warm. ABSENT: cyanosis, rash Results Laboratory Results: 01/13/20 07:42 01/13/20 12:20 01/13/20 01/13/20 01/13/20 07:42 07:42 07:42 WBC 9.3 RBC 4.42 Hgb 13.9 Hct 40.0 MCV 91 MCH 31.4 MCHC 34.7 RDW 14.0 Plt Count 136 L Seg Neutrophils % Not Reportable VBG pH 7.44 H VBG pCO2 33.3 L VBG HCO3 22.2 VBG Base Excess -1.1 Sodium 133.6 L Potassium 4.1 Chloride 98 Carbon Dioxide 23 Anion Gap 13 BUN 26 H Creatinine 1.36 H Est GFR ( Amer) > 60 Glucose 116 H Lactic Acid Calcium 8.9 Total Bilirubin 0.8 AST 45 Alkaline Phosphatase 41 Total Protein 6.5 Albumin 3.8 Urine Color Urine Appearance Urine pH Ur Specific [place] Urine Protein Urine Glucose (UA) Urine Ketones Urine Blood Urine Nitrite Ur Leukocyte Esterase Urine WBC (Auto) Urine RBC (Auto) 01/13/20 01/13/20 01/13/20 07:42 09:40 09:49 WBC RBC Hgb Hct MCV MCH MCHC RDW Plt Count Seg Neutrophils % VBG pH VBG pCO2 VBG HCO3 VBG Base Excess Sodium Potassium Chloride Carbon Dioxide Anion Gap BUN Creatinine Est GFR ( Amer) Glucose Lactic Acid 3.0 H 3.6 H Calcium Total Bilirubin AST Alkaline Phosphatase Total Protein Albumin Urine Color YELLOW Urine Appearance CLEAR Urine pH 6.0 Ur Specific [place] 1.027 Urine Protein 100 H Urine Glucose (UA) NEGATIVE Urine Ketones NEGATIVE Urine Blood NEGATIVE Urine Nitrite NEGATIVE Ur Leukocyte Esterase NEGATIVE Urine WBC (Auto) 1 Urine RBC (Auto) 0 01/13/20 12:20 WBC RBC Hgb Hct MCV MCH MCHC RDW Plt Count Seg Neutrophils % VBG pH VBG pCO2 VBG HCO3 VBG Base Excess Sodium 132.7 L Potassium 4.0 Chloride 97 L Carbon Dioxide 24 Anion Gap 12 BUN 26 H Creatinine 1.26 H Est GFR ( Amer) > 60 Glucose 105 Lactic Acid Calcium 8.0 L Total Bilirubin AST Alkaline Phosphatase Total Protein Albumin Urine Color Urine Appearance Urine pH Ur Specific [place] Urine Protein Urine Glucose (UA) Urine Ketones Urine Blood Urine Nitrite Ur Leukocyte Esterase Urine WBC (Auto) Urine RBC (Auto) Impressions: Chest X-Ray 01/13/20 00:00 IMPRESSION: Ill-defined nodular opacities in the left perihilar distribution and left base this may represent infectious or inflammatory process. Pulmonary nodules cannot be excluded. Recommend CT of the chest for further evaluation. Assessment & Plan - Diagnosis (1) Sepsis Qualifiers: Sepsis type: sepsis due to unspecified organism Is this a current diagnosis for this admission?: Yes Plan: We will start the patient on broad-spectrum antibiotic IV fluid Blood culture urine culture Most likely from cellulitis We will get the CT of the chest abdomen chest x-ray. (2) Cellulitis of right leg Is this a current diagnosis for this admission?: Yes Plan: Start on IV antibiotic We will get the venous ultrasound (3) Bipolar disorder Qualifiers: Active/Remission status: currently active Psychotic features: without psychotic features Is this a current diagnosis for this admission?: Yes Plan: Continues with Home medications (4) Hypertension Qualifiers: Hypertension type: essential hypertension Qualified Code(s): I10 - Essential (primary) hypertension Is this a current diagnosis for this admission?: Yes Plan: Continues to current medications (5) Schizophrenia Qualifiers: Schizophrenia type: unspecified Qualified Code(s): F20.9 - Schizophrenia, unspecified Is this a current diagnosis for this admission?: Yes Plan: Patient's follow outpatient psych - Time Time Spent: 50 to 70 Minutes Medications reviewed and adjusted accordingly: Yes Anticipated Discharge Disposition: Assisted Living with Home Health Services Anticipated Discharge Timeframe: within 72 hours - Inpatient Certification Based on my medical assessment, after consideration of the patient's comorbidities, presenting symptoms, or acuity I expect that the services needed warrant INPATIENT care.: Yes I certify that my determination is in accordance with my understanding of Medicare's requirements for reasonable and necessary INPATIENT services [42 CFR 412.3e].: Yes Medical Necessity: Significant Comorbidiites Make Outpatient Treatment Too Risky, Need Close Monitoring Due to Risk of Patient Decompensation, Need For IV Fluids, Need for IV Antibiotics 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
[2020-01-13] MEDS ORDERED: POLYETHYLENE GLYCOL 3350 POWDER 17 GM/1 PACKET PO PRN (13:42)
[2020-01-13] MEDS ORDERED: (PENDING PHARMACY ID) (Ondansetron Hcl [Zofran 4 Mg Tablet] 4 MG) PO PRN (13:42)
[2020-01-13] MEDS ORDERED: ALBUTEROL SULFATE HFA (90 MCG/PUFF) 8 GM MDI (1 MDI/ER DISP) IH PRN (13:42)
[2020-01-13] MEDS ORDERED: GUAIFENESIN/D-METHORPHAN (200-20 MG) SYRUP 10 ML PO PRN (13:42)
--- NOTE | 2020-01-13 13:51 | RADIOLOGY REPORT (SQ) ---
EXAM DESCRIPTION: CT CHEST WITHOUT IMAGES COMPLETED DATE/TIME: 01/13/2020 1:07 pm REASON FOR STUDY: pulmonary nodule COMPARISON: Chest x-ray dated earlier the same day, prior CT chest dated 04/01/2017 TECHNIQUE: CT scan performed of the chest without intravenous contrast. Images reviewed with lung, soft tissue and bone windows. Reconstructed coronal and sagittal MPR images reviewed. All images st ored on PACS. All CT scanners at this facility use dose modulation, iterative reconstruction, and/or weight based d osing when appropriate to reduce radiation dose to as low as reasonably achievable (ALARA). [facility]: Dose Right [facility]: CareDose [facility]: Dose Right [facility]: Teradose 4D [facility]: Tabl Media RADIATION DOSE: CT Rad equipment meets quality standard of care and radiation dose reduction techniq ues were employed. CTDIvol: 21.0 mGy. DLP: 759 mGy-cm. mGy. LIMITATIONS: Respiratory motion. FINDINGS: LUNGS AND PLEURA: There is a calcified granuloma in the left base accounting for conventio nal radiographic findings. Minimal pleural thickening and basilar atelectasis. No suspicious pulmon shannon nodules. No consolidation. HILAR AND MEDIASTINAL STRUCTURES: Calcified mediastinal and left hilar nodes. HEART AND VASCULAR STRUCTURES: No aneurysm. No pericardial effusion. UPPER ABDOMEN: No significant findings. Limited exam. THYROID AND OTHER SOFT TISSUES: No masses. No adenopathy. BONES: No significant finding. HARDWARE: None in the chest. OTHER: No other significant findings. IMPRESSION: Calcified granuloma in the left base. Minimal bibasilar pleural thickening and basilar atelectasis. No suspicious pulmonary nodules. Calcified mediastinal and left hilar nodes. TECHNICAL DOCUMENTATION: JOB ID: [id number] Quality ID # [id number]: Final reports with documentation of one or more dose reduction techniques (e.g., Au tomated exposure control, adjustment of the mA and/or kV according to patient size, use of iterative reconstruction technique) 2010 [employer] All Rights Reserved Reading location - IP/workstation name: [email or web address]
--- NOTE | 2020-01-13 14:55 | RADIOLOGY REPORT (SQ) ---
EXAM DESCRIPTION: VENOUS UNILATERAL LOWER IMAGES COMPLETED DATE/TIME: 01/13/2020 2:47 pm REASON FOR STUDY: rt leg pain/swelling COMPARISON: 04/21/2019 TECHNIQUE: Dynamic and static crabtree scale and color images acquired of the right leg venous system. S elected spectral images acquired with additional compression and augmentation maneuvers. The contrala teral common femoral vein and saphenofemoral junction were also imaged. Images stored on PACS. LIMITATIONS: None. FINDINGS: COMMON FEMORAL: Normal phasicity, compression and augmentation. No visualized echogenic ma terial on crabtree scale. No defects on color images. FEMORAL: Normal compression and augmentation. No visualized echogenic material on crabtree scale. No defe cts on color images. POPLITEAL: Normal compression, augmentation. No visualized echogenic material on crabtree scale. No defec ts on color images. CALF VESSELS: Normal compression, augmentation. No visualized echogenic material on crabtree scale. No de fects on color images. GSV and SSV: Normal compression, augmentation. No visualized echogenic material on crabtree scale. No def ects on color images. ANY DEEP VENOUS INSUFFICIENCY: Not evaluated. ANY EVIDENCE OF POPLITEAL CYST: No. OTHER: No other significant finding. CONTRALATERAL COMMON FEMORAL VEIN AND SAPHENOFEMORAL JUNCTION: Normal phasicity, compression and augmentation. No visualized echogenic material on crabtree scale. No de fects on color images. IMPRESSION: NO EVIDENCE DVT OR SVT IN THE RIGHT LEG. TECHNICAL DOCUMENTATION: JOB ID: [id number] 2010 [employer]- All Rights Reserved Reading location - IP/workstation name: [email or web address]
[2020-01-13] MEDS ORDERED: PALIPERIDONE 1.5 MG PO SCH (15:00)
[2020-01-13] MEDS ORDERED: (PENDING PHARMACY ID) (Bupropion Hcl [Wellbutrin Sr 150 Mg Tablet] 150 MG) PO SCH ×2 (15:00→18:00)
[2020-01-13] MEDS ORDERED: ALBUTEROL SULFATE HFA (90 MCG/PUFF) 8 GM MDI IH PRN (16:00)
[2020-01-13] MEDS: LACTOBACILLUS ACIDOPHILUS 250 MG TAB PO SCH (17:29)
[2020-01-13] MEDS: LORAZEPAM 1 MG TABLET PO SCH (17:29)
[2020-01-13] MEDS: ONDANSETRON 4 MG TAB.RAPDIS PO PRN (17:32)
[2020-01-13] MEDS: VANCOMYCIN HCL 1,000 MG in DEXTROSE 5%-WATER 250 ML IV SCH (21:01)
[2020-01-13] MEDS: BUPROPION HCL 100 MG TABLET PO SCH (21:15)
[2020-01-13] MEDS: GABAPENTIN 300 MG CAPSULE PO SCH (21:15)
[2020-01-13] MEDS: MELATONIN 5 MG TABLET PO SCH (21:15)
[2020-01-13] MEDS: LISINOPRIL 10 MG TABLET PO SCH (21:15)
[2020-01-13] MEDS: FAMOTIDINE 20 MG TABLET PO SCH (21:15)
[2020-01-13] MEDS ORDERED: CEFEPIME 2 GM/D5W RTU 2 GM/50 ML RTUPB IV SCH (22:00)
[2020-01-13] MEDS: CEFEPIME HCL 2 GM in DEXTROSE 5%-WATER 50 ML IV SCH (22:59)
[2020-01-14] MEDS: NORMAL SALINE 1000 ML 1,000 ML IV PRN (00:46)
[2020-01-14 05:20] LABS: HEMATOCRIT 38.5 % (37.9-51.0); HEMOGLOBIN 13.6 g/dL (13.5-17.0); MEAN CORPUSCULAR HEMOGLOBIN 31.8 pg (27.0-33.4); MEAN CORPUSCULAR HGB CONC 35.3 g/dL (32.0-36.0); MEAN CORPUSCULAR VOLUME 90 fl (80-97); PLATELET COUNT 100 10^3/uL (150-450); RED BLOOD COUNT 4.27 10^6/uL (4.35-5.55); RED CELL DISTRIBUTION WIDTH 14.5 % (11.5-14.0); WHITE BLOOD COUNT 12.2 10^3/uL (4.0-10.5)
[2020-01-14 05:57] LABS: ABSOLUTE LYMPHOCYTES# (MANUAL) 0.2 10^3/uL (0.5-4.7); ABSOLUTE MONOCYTES # (MANUAL) 0.1 10^3/uL (0.1-1.4); BAND NEUTROPHILS % (MANUAL) 10 % (3-5); BASOPHILS % (MANUAL) 0 % (0-2); EOSINOPHILS % (MANUAL) 0 % (0-6); LYMPHOCYTES % (MANUAL) 2 % (13-45); MONOCYTES % (MANUAL) 1 % (3-13); PLATELET COMMENT DECREASED; RBC MORPHOLOGY COMMENT NORMO-CYTIC/CHROMIC; SEGMENTED NEUTROPHILS % (MAN) 87 % (42-78); TOTAL CELLS COUNTED 100; TOXIC VACUOLATION PRESENT
[2020-01-14] MEDS: BUPROPION HCL 100 MG TABLET PO SCH ×3 (06:26→21:34)
[2020-01-14] MEDS: PANTOPRAZOLE SODIUM 40 MG TABLET.DR PO SCH (06:27)
[2020-01-14] MEDS ORDERED: LEVOTHYROXINE SODIUM 0.05 MG TABLET PO SCH (08:00)
[2020-01-14] MEDS ORDERED: PALIPERIDONE 1.5 MG PO SCH (08:00)
[2020-01-14] MEDS: DIVALPROEX SODIUM 125 MG CAP.SPRINK PO SCH (08:28)
[2020-01-14] MEDS: TAMSULOSIN HCL 0.4 MG CAP.SR.24H PO SCH (08:29)
[2020-01-14] MEDS: ONDANSETRON 4 MG TAB.RAPDIS PO PRN ×2 (08:29→17:15)
[2020-01-14] MEDS: ACETAMINOPHEN 325 MG TABLET PO PRN ×2 (08:30→17:15)
[2020-01-14] MEDS: VANCOMYCIN HCL 1,000 MG in DEXTROSE 5%-WATER 250 ML IV SCH ×2 (08:31→19:49)
--- NOTE | 2020-01-14 09:29 | PDOC PROGRESS REPORT ---
Subjective Progress Note for:: 01/14/20 Subjective:: Patient is currently doing fair except patients require some oxygen Patient's denied any chest pain Significant sleep apnea but not using the CPAP even the home Patient still have a quite a bit redness and swelling in the right lower extremity Patient's venous Doppler is negative Reason For Visit: CELLULITIS, FEVER Physical Exam Vital Signs: Temp Pulse Resp BP Pulse Ox 99.8 F 101 H 18 173/69 H 90 L 01/14/20 07:27 01/14/20 07:27 01/14/20 07:27 01/14/20 07:27 01/14/20 07:27 Intake & Output 01/13/20 01/14/20 01/15/20 06:59 06:59 06:59 Intake Total 4290 Output Total 301 Balance 3989 Weight 124.3 kg General appearance: PRESENT: no acute distress, well-developed, well-nourished Head exam: PRESENT: atraumatic, normocephalic Eye exam: PRESENT: conjunctiva pink, EOMI, PERRLA. ABSENT: scleral icterus Ear exam: PRESENT: normal external ear exam Mouth exam: PRESENT: moist, tongue midline Neck exam: PRESENT: full ROM. ABSENT: carotid bruit, JVD, lymphadenopathy, thyromegaly Respiratory exam: PRESENT: decreased breath sounds Cardiovascular exam: PRESENT: RRR. ABSENT: diastolic murmur, rubs, systolic murmur Vascular exam: PRESENT: normal capillary refill GI/Abdominal exam: PRESENT: normal bowel sounds, soft. ABSENT: distended, guarding, mass, organolmegaly, rebound, tenderness Rectal exam: PRESENT: deferred Additional comments: Right lower extremity significant redness and swelling is present Neurological exam: PRESENT: alert, awake, oriented to person, oriented to place, oriented to time, oriented to situation, CN II-XII grossly intact. ABSENT: motor sensory deficit Psychiatric exam: PRESENT: appropriate affect, normal mood. ABSENT: homicidal ideation, suicidal ideation Skin exam: PRESENT: dry, intact, warm. ABSENT: cyanosis, rash Results Laboratory Results: 01/14/20 04:58 01/13/20 12:20 01/13/20 01/13/20 01/13/20 09:40 09:49 12:20 WBC RBC Hgb Hct MCV MCH MCHC RDW Plt Count Seg Neutrophils % Sodium 132.7 L Potassium 4.0 Chloride 97 L Carbon Dioxide 24 Anion Gap 12 BUN 26 H Creatinine 1.26 H Est GFR ( Amer) > 60 Glucose 105 Lactic Acid 3.6 H Calcium 8.0 L TSH Urine Color YELLOW Urine Appearance CLEAR Urine pH 6.0 Ur Specific [place] 1.027 Urine Protein 100 H Urine Glucose (UA) NEGATIVE Urine Ketones NEGATIVE Urine Blood NEGATIVE Urine Nitrite NEGATIVE Ur Leukocyte Esterase NEGATIVE Urine WBC (Auto) 1 Urine RBC (Auto) 0 01/13/20 01/13/20 01/14/20 13:54 13:54 04:58 WBC 12.2 H RBC 4.27 L Hgb 13.6 Hct 38.5 MCV 90 MCH 31.8 MCHC 35.3 RDW 14.5 H Plt Count 100 L Seg Neutrophils % Not Reportable Sodium Potassium Chloride Carbon Dioxide Anion Gap BUN Creatinine Est GFR ( Amer) Glucose Lactic Acid 2.0 Calcium TSH 0.27 L Urine Color Urine Appearance Urine pH Ur Specific [place] Urine Protein Urine Glucose (UA) Urine Ketones Urine Blood Urine Nitrite Ur Leukocyte Esterase Urine WBC (Auto) Urine RBC (Auto) 01/13/20 07:42 Blood Blood Culture (PCR) - Final Streptococcus Species Impressions: Chest CT 01/13/20 00:00 IMPRESSION: Calcified granuloma in the left base. Minimal bibasilar pleural thickening and basilar atelectasis. No suspicious pulmonary nodules. Calcified mediastinal and left hilar nodes. Chest X-Ray 01/13/20 00:00 IMPRESSION: Ill-defined nodular opacities in the left perihilar distribution and left base this may represent infectious or inflammatory process. Pulmonary nodules cannot be excluded. Recommend CT of the chest for further evaluation. Venous Doppler Study 01/13/20 00:00 IMPRESSION: NO EVIDENCE DVT OR SVT IN THE RIGHT LEG. Assessment & Plan - Diagnosis (1) Sepsis Qualifiers: Sepsis type: sepsis due to unspecified organism Is this a current diagnosis for this admission?: Yes Plan: Continues the IV antibiotics will check the Chem-7 and lactic acid today (2) Cellulitis of right leg Is this a current diagnosis for this admission?: Yes Plan: Continues the IV antibiotic (3) Bipolar disorder Qualifiers: Active/Remission status: currently active Psychotic features: without psychotic features Is this a current diagnosis for this admission?: Yes (4) Hypertension Qualifiers: Hypertension type: essential hypertension Qualified Code(s): I10 - Essential (primary) hypertension Is this a current diagnosis for this admission?: Yes (5) Schizophrenia Qualifiers: Schizophrenia type: unspecified Qualified Code(s): F20.9 - Schizophrenia, unspecified Is this a current diagnosis for this admission?: Yes (6) Sleep apnea Qualifiers: Sleep apnea type: unspecified type Qualified Code(s): G47.30 - Sleep apnea, unspecified Is this a current diagnosis for this admission?: Yes Plan: Put the patient on a CPAP get the ABG (7) Diastolic heart failure Qualifiers: Heart failure chronicity: chronic Qualified Code(s): I50.32 - Chronic diastolic (congestive) heart failure Is this a current diagnosis for this admission?: Yes Plan: Patient seen by Dr. Camp as outpatient have echo and a stress test was done in March according to the record was all stable we consult Dr. Camp for patient still short of breath - Time Time Spent with patient: 25-34 minutes Level of Care: IMCU Medications reviewed and adjusted accordingly: Yes Anticipated discharge: Other Anticipated DC Timeframe: Other - Plan Summary Plan Summary: Patient's looks like more of a septic due to the cellulitis but will get the Covid test with some respiratory symptoms with ongoing pandemic given the CT of the chest was negative yesterday for any acute finding We will get the ABG Chem-7
[2020-01-14] MEDS ORDERED: FUROSEMIDE INJ/PF 20 MG/2 ML SDV IV ONE (10:00)
--- NOTE | 2020-01-14 10:01 | PDOC CONSULTATION ---
Consultation Consult Date: 01/14/20 Attending physician:: WILBUR DRAKE Provider Consulted: LAURA BRADLEY Consult reason:: Dyspnea History of Present Illness Admission Date/PCP: 01/13/20 09:07 DIXIE MONTEZ DPM Patient complains of: Right lower extremity swelling and dyspnea History of Present Illness: ANNETTE AGUILERA is a 64 year old male resident of the [facility] with the significant history of the hypertension, hyperlipidemia, morbid obesity bipolar disorder and schizophrenia brought to the emergency department by EMS due to the fever chills and increasing the redness of the right lower extremity Patient have ongoing problem of the right lower extremity seen by the surgery currently also seeing the wound care center ultrasound MRI done in the past with a chronic lymphedema and chronic cellulitis. In the emergency department patient's lactic acid was elevated and patient was significantly redness of the right lower extremity consistent with cellulitis Patient's denied any cough no congestions. Denied contact with any Covid restrictions no Covid patient in the light house In the emergency department patient's giving IV vancomycin Patient also follow outpatients wound care clinic with ongoing right lower extremities ulcer currently healed patient have a arterial Doppler done couple of months back was all stable Patient's denied any chest pain or short of breath, however was noted to be short of breath on minimal exertion and sometimes short of breath on rest. Past Medical History Cardiac Medical History: Reports: Hyperlipidema, Hypertension Denies: Coronary Artery Disease, Myocardial Infarction Pulmonary Medical History: Reports: Sleep Apnea Denies: Asthma, Bronchitis, Chronic Obstructive Pulmonary Disease (COPD), Pneumonia Neurological Medical History: Denies: Seizures GI Medical History: Reports: Gastroesophageal Reflux Disease Musculoskeltal Medical History: Denies: Arthritis Psychiatric Medical History: Reports: Bipolar Disorder, Depression, General Anxiety Disorder, Schizoaffective Disorder Hematology: Denies: Anemia Past Surgical History Past Surgical History: Reports: Cholecystectomy, Other - Wound care Denies: Pacemaker Social History Information Source: Patient Smoking Status: Never Smoker Electronic Cigarette use?: No Frequency of Alcohol Use: None Hx Recreational Drug Use: No Drugs: None Hx Prescription Drug Abuse: No Family History Family History: Reviewed & Not Pertinent Parental Family History Reviewed: Yes Children Family History Reviewed: Yes Sibling(s) Family History Reviewed.: Yes Medication/Allergy Home Medications: Acetaminophen [Tylenol 325 mg Tablet] 650 mg PO Q4HP PRN 03/28/17 Bupropion HCl [Wellbutrin Sr 150 mg Tablet] 150 mg PO BID 03/28/17 Guaifenesin/D-Methorphan Hb [Robitussin Dm S-F Cough Syrup] 10 ml PO Q4HP PRN 03/28/17 Levothyroxine Sodium [Synthroid] 50 mcg PO QAM 03/28/17 Lorazepam [Ativan 1 mg Tablet] 0.5 mg PO BID@1200,1700 03/28/17 Multivitamin [Tab-A-Amalia] 1 tab PO DAILY 03/28/17 Omeprazole 40 mg PO DAILY 03/28/17 Ondansetron HCl [Zofran 4 mg Tablet] 4 mg PO Q8HP PRN 03/28/17 Paliperidone [Invega] 1.5 mg PO QAM 03/28/17 Polyethylene Glycol 3350 [Miralax Powder 17 gm/Packet] 17 gm PO DAILYP PRN 03/28/17 Tamsulosin HCl [Flomax 0.4 mg Cap.sr] 0.4 mg PO DAILY@0900 03/28/17 Albuterol Sulfate [Proair HFA] 2 puff IH Q4HP PRN 01/13/20 Aspirin [Ecotrin 81 mg EC Tablet] 81 mg PO DAILY 01/13/20 Benazepril/Hydrochlorothiazide [Benazepril-Hctz 20-25 mg Tab] 1 tab PO DAILY 01/13/20 Divalproex Sodium [Depakote Sprinkle 125 Mg Capsule] 125 mg PO QAM 01/13/20 Gabapentin [Neurontin 300 mg Capsule] 300 mg PO Q12 01/13/20 Melatonin [Melatonin 5 mg Tablet] 5 mg PO QHS 01/13/20 Meloxicam [Mobic] 15 mg PO DAILY 01/13/20 Venlafaxine HCl ER [Effexor Xr 75 mg Cap.sr] 75 mg PO DAILY 01/13/20 Allergies/Adverse Reactions: bupropion [From Wellbutrin] Allergy (Verified 01/13/20 09:27) fluoxetine [From Prozac] Allergy (Verified 01/13/20 09:27) Review of Systems Constitutional: PRESENT: chills, fever(s). ABSENT: headache(s), weight gain, weight loss Eyes: ABSENT: visual disturbances Ears: ABSENT: hearing changes Cardiovascular: PRESENT: dyspnea on exertion, edema. ABSENT: chest pain, orth ropnea, palpitations Respiratory: ABSENT: cough, hemoptysis Gastrointestinal: ABSENT: abdominal pain, constipation, diarrhea, hematemesis, hematochezia, nausea, vomiting Genitourinary: ABSENT: dysuria, hematuria Musculoskeletal: ABSENT: joint swelling Integumentary: ABSENT: rash, wounds Neurological: ABSENT: abnormal gait, abnormal speech, confusion, dizziness, focal weakness, syncope Psychiatric: PRESENT: as per HPI, anxiety, depression, other - Schizoaffective disorder. ABSENT: homidical ideation, suicidal ideation Endocrine: PRESENT: other - Hypothyroidism. ABSENT: cold intolerance, heat intolerance, polydipsia, polyuria Hematologic/Lymphatic: ABSENT: easy bleeding, easy bruising Physical Exam Vital Signs: Temp Pulse Resp BP Pulse Ox 99.8 F 101 H 18 173/69 H 90 L 01/14/20 07:27 01/14/20 07:27 01/14/20 07:27 01/14/20 07:27 01/14/20 07:27 Intake & Output 01/13/20 01/14/20 01/15/20 06:59 06:59 06:59 Intake Total 4290 Output Total 301 Balance 3989 Weight 124.3 kg General appearance: PRESENT: no acute distress, well-developed, well-nourished Head exam: PRESENT: atraumatic, normocephalic Eye exam: PRESENT: conjunctiva pink, EOMI, PERRLA. ABSENT: scleral icterus Ear exam: PRESENT: normal external ear exam Mouth exam: PRESENT: moist, tongue midline Neck exam: PRESENT: JVD. ABSENT: carotid bruit, lymphadenopathy, thyromegaly Respiratory exam: PRESENT: clear to auscultation damion. ABSENT: rales, rhonchi, wheezes Cardiovascular exam: PRESENT: RRR, +S1, +S2, systolic murmur - 1/6 aortic and mitral area. ABSENT: diastolic murmur, gallop, rubs Pulses: PRESENT: normal dorsalis pedis pul Vascular exam: PRESENT: normal capillary refill GI/Abdominal exam: PRESENT: normal bowel sounds, soft. ABSENT: distended, guarding, mass, organolmegaly, rebound, tenderness Rectal exam: PRESENT: deferred Extremities exam: PRESENT: full ROM, +2 edema - Right lower extremity with findings of cellulitis. ABSENT: calf tenderness, clubbing, pedal edema Neurological exam: PRESENT: alert, awake, oriented to person, oriented to place, oriented to time, oriented to situation, CN II-XII grossly intact. ABSENT: motor sensory deficit Psychiatric exam: PRESENT: appropriate affect, normal mood. ABSENT: homicidal ideation, suicidal ideation Skin exam: PRESENT: dry, intact, warm. ABSENT: cyanosis, rash Results Laboratory Results: 01/14/20 04:58 01/13/20 12:20 01/13/20 01/13/20 01/13/20 09:40 09:49 12:20 WBC RBC Hgb Hct MCV MCH MCHC RDW Plt Count Seg Neutrophils % Sodium 132.7 L Potassium 4.0 Chloride 97 L Carbon Dioxide 24 Anion Gap 12 BUN 26 H Creatinine 1.26 H Est GFR ( Amer) > 60 Glucose 105 Lactic Acid 3.6 H Calcium 8.0 L TSH Urine Color YELLOW Urine Appearance CLEAR Urine pH 6.0 Ur Specific [place] 1.027 Urine Protein 100 H Urine Glucose (UA) NEGATIVE Urine Ketones NEGATIVE Urine Blood NEGATIVE Urine Nitrite NEGATIVE Ur Leukocyte Esterase NEGATIVE Urine WBC (Auto) 1 Urine RBC (Auto) 0 01/13/20 01/13/20 01/14/20 13:54 13:54 04:58 WBC 12.2 H RBC 4.27 L Hgb 13.6 Hct 38.5 MCV 90 MCH 31.8 MCHC 35.3 RDW 14.5 H Plt Count 100 L Seg Neutrophils % Not Reportable Sodium Potassium Chloride Carbon Dioxide Anion Gap BUN Creatinine Est GFR ( Amer) Glucose Lactic Acid 2.0 Calcium TSH 0.27 L Urine Color Urine Appearance Urine pH Ur Specific [place] Urine Protein Urine Glucose (UA) Urine Ketones Urine Blood Urine Nitrite Ur Leukocyte Esterase Urine WBC (Auto) Urine RBC (Auto) 01/13/20 07:42 Blood Blood Culture (PCR) - Final Streptococcus Species EKG Comments: Sinus rhythm, LVH with secondary ST-T wave changes Impressions: Chest CT 01/13/20 00:00 IMPRESSION: Calcified granuloma in the left base. Minimal bibasilar pleural thickening and basilar atelectasis. No suspicious pulmonary nodules. Calcified mediastinal and left hilar nodes. Chest X-Ray 01/13/20 00:00 IMPRESSION: Ill-defined nodular opacities in the left perihilar distribution and left base this may represent infectious or inflammatory process. Pulmonary nodules cannot be excluded. Recommend CT of the chest for further evaluation. Venous Doppler Study 01/13/20 00:00 IMPRESSION: NO EVIDENCE DVT OR SVT IN THE RIGHT LEG. Assessment & Plan - Diagnosis (1) Diastolic heart failure Qualifiers: Heart failure chronicity: acute on chronic Qualified Code(s): I50.33 - Acute on chronic diastolic (congestive) heart failure Is this a current diagnosis for this admission?: Yes (2) Cellulitis of right leg Is this a current diagnosis for this admission?: Yes (3) Sleep apnea Qualifiers: Sleep apnea type: unspecified type Qualified Code(s): G47.30 - Sleep apnea, unspecified Is this a current diagnosis for this admission?: Yes (4) Hypertension Qualifiers: Hypertension type: essential hypertension Qualified Code(s): I10 - Essential (primary) hypertension Is this a current diagnosis for this admission?: Yes (5) Schizophrenia Qualifiers: Schizophrenia type: unspecified Qualified Code(s): F20.9 - Schizophrenia, unspecified Is this a current diagnosis for this admission?: Yes - Notes Notes: Patient was admitted with fever and chills and is noted to have cellulitis of the right lower extremity. Patient is noted to have dyspnea. He has elevated JVP. Patient is noted to have CHF. Most likely related to acute on chronic diastolic dysfunction. However will obtain a 2D echo. Patient today received Lasix 20 mg IV. Will recommend Lasix 40 mg p.o. daily from tomorrow. Further plans after 2D echocardiogram. Patient has been recommended to start back on CPAP therapy. This can be addressed as an outpatient as well. Continue with salt and fluid restriction, good control of blood pressure etc.
[2020-01-14] MEDS: MULTIVITAMIN TABLET PO SCH (10:07)
[2020-01-14] MEDS: GABAPENTIN 300 MG CAPSULE PO SCH ×2 (10:07→21:32)
[2020-01-14] MEDS: DOCUSATE SODIUM 100 MG CAPSULE PO SCH (10:07)
[2020-01-14] MEDS: LISINOPRIL 10 MG TABLET PO SCH ×2 (10:08→21:34)
[2020-01-14] MEDS: ASPIRIN 81 MG TABLET, ENT COATED PO SCH (10:08)
[2020-01-14] MEDS: FAMOTIDINE 20 MG TABLET PO SCH ×2 (10:08→21:34)
[2020-01-14] MEDS: VENLAFAXINE HCL 75 MG CAP.SR.24H PO SCH (10:08)
[2020-01-14] MEDS: LACTOBACILLUS ACIDOPHILUS 250 MG TAB PO SCH ×2 (10:08→17:15)
[2020-01-14] MEDS: CEFEPIME HCL 2 GM in DEXTROSE 5%-WATER 50 ML IV SCH ×2 (10:09→21:39)
[2020-01-14] MEDS: ENOXAPARIN SODIUM INJ 40 MG/0.4 ML DISP.SYRIN SUBCUT SCH (10:12)
--- NOTE | 2020-01-14 10:20 | RADIOLOGY REPORT (SQ) ---
EXAM DESCRIPTION: CHEST SINGLE VIEW IMAGES COMPLETED DATE/TIME: 01/14/2020 10:04 am REASON FOR STUDY: sob COMPARISON: CT chest 01/13/2020 Chest films 01/13/2020, 02/21/2019 EXAM PARAMETERS: NUMBER OF VIEWS: One view. TECHNIQUE: Single frontal radiographic view of the chest acquired. RADIATION DOSE: NA LIMITATIONS: Low lung volumes FINDINGS: LUNGS AND PLEURA: Low lung volumes. Pulmonary vascular congestion with Vishnu lines are p resent worrisome for fluid overload. This could be accentuated by expiratory technique. No lobar consolidation. No gross pleural effusion or pneumothorax. MEDIASTINUM AND HILAR STRUCTURES: No masses. Contour normal. HEART AND VASCULAR STRUCTURES: Stable mild cardiomegaly BONES: No acute findings. HARDWARE: None in the chest. OTHER: No other significant finding. IMPRESSION: Low lung volumes, portable film. Visnhu lines are present, question mild interstitial e migue. TECHNICAL DOCUMENTATION: JOB ID: [id number] 2010 [employer]- All Rights Reserved Reading location - IP/workstation name: [email or web address]
[2020-01-14 10:43] LABS: ANION GAP 10 (5-19); BLOOD UREA NITROGEN 21 mg/dL (7-20); CALCIUM 7.8 mg/dL (8.4-10.2); CARBON DIOXIDE 21 mmol/L (22-30); CHLORIDE 96 mmol/L (98-107); GLUCOSE 177 mg/dL (75-110); POTASSIUM 3.8 mmol/L (3.6-5.0)
[2020-01-14 10:53] LABS: ARTERIAL BLOOD BASE EXCESS -3.5 mmol/L; ARTERIAL BLOOD H2CO3 1.01 mmol/L (1.05-1.35); ARTERIAL BLOOD HCO3 20.5 mmol/L (20-24); ARTERIAL BLOOD O2 SATURATION 77.9 % (94-98); ARTERIAL BLOOD PCO2 33.6 mmHg (35-45); ARTERIAL BLOOD PO2 41.6 mmHg (80-100); ARTERIAL BLOOD TOTAL CO2 21.6 mmol/L (23-27)
[2020-01-14 10:57] LABS: ARTERIAL BLOOD FIO2 1.5L
[2020-01-14] MEDS: LORAZEPAM 1 MG TABLET PO SCH ×2 (12:11→17:15)
--- NOTE | 2020-01-14 13:04 | PDOC CONSULTATION ---
Consultation Consult Date: 01/14/20 Attending physician:: ANTONIO RAMIREZ Provider Consulted: SHAY FUNEZ Consult reason:: Congestive heart failure/acute hypoxic respiratory failure/sepsis History of Present Illness Admission Date/PCP: 01/13/20 09:07 DIXIE MONTEZ DPM History of Present Illness: ANNETTE AGUILERA is a 64 year old male presenting with increasing leg pain noted to have a large cellulitis will subsequently admitted started on Vanco and cefepime as I was noted he had increased respiratory rate on subsequent blood gas as well as a pulse oximetry confirmed hypoxemia physical examination revealed JVD and crackles cardiology. He was subsequently given Lasix to improve somewhat smoking exposed to passive smoke as a child or adolescent he has no pets no recent travel he denies angina-like chest pain sleeps on 2 pillows no PND no nocturnal cough carries a diagnosis of obstructive sleep apnea and has some compliance with CPAP Past Medical History Cardiac Medical History: Reports: Congestive Heart Failure, Hyperlipidema, Hypertension Denies: Coronary Artery Disease, Myocardial Infarction Pulmonary Medical History: Reports: Sleep Apnea Denies: Asthma, Bronchitis, Chronic Obstructive Pulmonary Disease (COPD), Pneumonia Neurological Medical History: Denies: Seizures GI Medical History: Reports: Gastroesophageal Reflux Disease Denies: Crohn's Disease, Ulcerative Colitis Musculoskeltal Medical History: Denies: Arthritis Skin Medical History: Denies: Eczema Psychiatric Medical History: Reports: Bipolar Disorder, Depression, General Anxiety Disorder, Schizoaffective Disorder Traumatic Medical History: Denies: Pneumothorax Hematology: Denies: Anemia, Sickle Cell Disease Past Surgical History Past Surgical History: Reports: Cholecystectomy, Other - Wound care Denies: Pacemaker Social History Information Source: [facility] Records Lives with: [facility] Smoking Status: Never Smoker Frequency of Alcohol Use: None Hx Recreational Drug Use: No Drugs: None Hx Prescription Drug Abuse: No Do you have pets?: No Have you had any respiratory illnesses as a child?: No Have you been exposed to any sick contacts recently?: No Have you had any recent respiratory illnesses?: No Have you travelled outside of [place] in the past 12 months?: No Family History Family History: None, Hypertension Parental Family History Reviewed: Yes Children Family History Reviewed: Yes Sibling(s) Family History Reviewed.: Yes Medication/Allergy Home Medications: Acetaminophen [Tylenol 325 mg Tablet] 650 mg PO Q4HP PRN 03/28/17 Bupropion HCl [Wellbutrin Sr 150 mg Tablet] 150 mg PO BID 03/28/17 Guaifenesin/D-Methorphan Hb [Robitussin Dm S-F Cough Syrup] 10 ml PO Q4HP PRN 03/28/17 Levothyroxine Sodium [Synthroid] 50 mcg PO QAM 03/28/17 Lorazepam [Ativan 1 mg Tablet] 0.5 mg PO BID@1200,1700 03/28/17 Multivitamin [Tab-A-Amalia] 1 tab PO DAILY 03/28/17 Omeprazole 40 mg PO DAILY 03/28/17 Ondansetron HCl [Zofran 4 mg Tablet] 4 mg PO Q8HP PRN 03/28/17 Paliperidone [Invega] 1.5 mg PO QAM 03/28/17 Polyethylene Glycol 3350 [Miralax Powder 17 gm/Packet] 17 gm PO DAILYP PRN 03/28/17 Tamsulosin HCl [Flomax 0.4 mg Cap.sr] 0.4 mg PO DAILY@0900 03/28/17 Albuterol Sulfate [Proair HFA] 2 puff IH Q4HP PRN 01/13/20 Aspirin [Ecotrin 81 mg EC Tablet] 81 mg PO DAILY 01/13/20 Benazepril/Hydrochlorothiazide [Benazepril-Hctz 20-25 mg Tab] 1 tab PO DAILY 01/13/20 Divalproex Sodium [Depakote Sprinkle 125 Mg Capsule] 125 mg PO QAM 01/13/20 Gabapentin [Neurontin 300 mg Capsule] 300 mg PO Q12 01/13/20 Melatonin [Melatonin 5 mg Tablet] 5 mg PO QHS 01/13/20 Meloxicam [Mobic] 15 mg PO DAILY 01/13/20 Venlafaxine HCl ER [Effexor Xr 75 mg Cap.sr] 75 mg PO DAILY 01/13/20 Allergies/Adverse Reactions: bupropion [From Wellbutrin] Allergy (Verified 01/13/20 09:27) fluoxetine [From Prozac] Allergy (Verified 01/13/20 09:27) Review of Systems All systems: reviewed and no additional remarkable complaints except as stated Physical Exam Vital Signs: Temp Pulse Resp BP Pulse Ox 99.8 F 101 H 18 173/69 H 90 L 01/14/20 07:27 01/14/20 07:27 01/14/20 07:27 01/14/20 07:27 01/14/20 07:27 Intake & Output 01/13/20 01/14/20 01/15/20 06:59 06:59 06:59 Intake Total 4290 Output Total 301 Balance 3989 Weight 124.3 kg General appearance: PRESENT: no acute distress, disheveled, morbidly obese, well-developed, well-nourished Head exam: PRESENT: atraumatic, normocephalic Eye exam: PRESENT: conjunctiva pale, EOMI. ABSENT: nystagmus, periorbital swelling, scleral icterus Mouth exam: PRESENT: dry mucosa, neck supple, tongue midline Neck exam: PRESENT: JVD. ABSENT: meningismus, tracheal deviation, tracheostomy Respiratory exam: PRESENT: decreased breath sounds, prolonged expiratory phas, rales, rhonchi, symmetrical, unlabored. ABSENT: retraction, stridor, tachypnea Cardiovascular exam: PRESENT: RRR, +S1, +S2, tachycardia Pulses: PRESENT: normal radial pulses GI/Abdominal exam: PRESENT: soft. ABSENT: distended, guarding, mass, organolmegaly, tenderness Extremities exam: ABSENT: calf tenderness, clubbing, joint swelling Musculoskeletal exam: ABSENT: deformity, dislocation Neurological exam: PRESENT: altered Skin exam: PRESENT: dry, warm Results Laboratory Results: 01/14/20 04:58 01/13/20 01/13/20 01/13/20 12:20 13:54 13:54 WBC RBC Hgb Hct MCV MCH MCHC RDW Plt Count Seg Neutrophils % Sodium 132.7 L Potassium 4.0 Chloride 97 L Carbon Dioxide 24 Anion Gap 12 BUN 26 H Creatinine 1.26 H Est GFR ( Amer) > 60 Glucose 105 Lactic Acid 2.0 Calcium 8.0 L TSH 0.27 L 01/14/20 04:58 WBC 12.2 H RBC 4.27 L Hgb 13.6 Hct 38.5 MCV 90 MCH 31.8 MCHC 35.3 RDW 14.5 H Plt Count 100 L Seg Neutrophils % Not Reportable Sodium Potassium Chloride Carbon Dioxide Anion Gap BUN Creatinine Est GFR ( Amer) Glucose Lactic Acid Calcium TSH 01/13/20 07:42 Blood Blood Culture (PCR) - Final Streptococcus Species Impressions: Chest CT 01/13/20 00:00 IMPRESSION: Calcified granuloma in the left base. Minimal bibasilar pleural thickening and basilar atelectasis. No suspicious pulmonary nodules. Calcified mediastinal and left hilar nodes. Venous Doppler Study 01/13/20 00:00 IMPRESSION: NO EVIDENCE DVT OR SVT IN THE RIGHT LEG. Chest X-Ray 01/14/20 00:00 IMPRESSION: Low lung volumes, portable film. Vishnu lines are present, question mild interstitial edema. Assessment & Plan - Diagnosis (1) Cellulitis of right leg Is this a current diagnosis for this admission?: Yes Plan: Generic Name Dose Route Start Last Admin Trade Name Freq PRN Reason Stop Dose Admin Cefepime HCl 2 gm/ Dextrose 50 mls @ 100 mls/hr 01/13/20 22:00 01/14/20 10:09 IV 01/20/20 21:59 100 mls/hr Q12 ALONDRA WBC increasing agree with adding vanomycin pending cultures (2) Diastolic heart failure Qualifiers: Heart failure chronicity: acute on chronic Qualified Code(s): I50.33 - Acute on chronic diastolic (congestive) heart failure Is this a current diagnosis for this admission?: Yes Plan: diuresis and NIPPV (3) Sepsis Qualifiers: Sepsis type: sepsis due to unspecified organism Is this a current diagnosis for this admission?: Yes Plan: cellulitis (4) Sleep apnea Qualifiers: Sleep apnea type: unspecified type Qualified Code(s): G47.30 - Sleep apnea, unspecified Is this a current diagnosis for this admission?: Yes Plan: NIPPV (5) Acute hypoxemic respiratory failure Is this a current diagnosis for this admission?: Yes Plan: due to chf NIPPV (6) Bipolar disorder Qualifiers: Active/Remission status: currently active Psychotic features: without psychotic features Is this a current diagnosis for this admission?: Yes Plan: Generic Name Dose Route Start Last Admin Trade Name Freq PRN Reason Stop Dose Admin Patient Own Medication 1.5 mg 01/13/20 15:00 Paliperidone [Invega] PO 02/12/20 14:59 .QAM ALONDRA (7) Pulmonary edema Qualifiers: Chronicity: acute Qualified Code(s): J81.0 - Acute pulmonary edema Is this a current diagnosis for this admission?: Yes Plan: NIPPV and diuretic (8) Schizophrenia Qualifiers: Schizophrenia type: unspecified Qualified Code(s): F20.9 - Schizophrenia, unspecified Is this a current diagnosis for this admission?: Yes Plan: Generic Name Dose Route Start Last Admin Trade Name Freq PRN Reason Stop Dose Admin Venlafaxine HCl 75 mg 01/14/20 10:00 01/14/20 10:08 Effexor Xr 75 Mg Cap.Sr PO 02/13/20 09:59 75 mg DAILY ALONDRA Gabapentin 300 mg 01/13/20 22:00 01/14/20 10:07 Neurontin 300 Mg Capsule PO 02/12/20 21:59 300 mg Q12 ALONDRA (9) Obesity hypoventilation syndrome Is this a current diagnosis for this admission?: Yes Plan: Yet another for NIPPV - Time Time Spent with patient: 55 minutes
[2020-01-14] MEDS: MELATONIN 5 MG TABLET PO SCH (21:34)
[2020-01-15] MEDS: BUPROPION HCL 100 MG TABLET PO SCH ×3 (06:15→21:18)
[2020-01-15] MEDS: PANTOPRAZOLE SODIUM 40 MG TABLET.DR PO SCH (06:15)
[2020-01-15] MEDS: ACETAMINOPHEN 325 MG TABLET PO PRN ×2 (06:21→14:00)
[2020-01-15] MEDS ORDERED: PHARMACY COMMUNICATION ORDER MC ONE (07:30)
[2020-01-15 08:27] LABS: MEAN CORPUSCULAR HEMOGLOBIN 31.9 pg (27.0-33.4); MEAN CORPUSCULAR HGB CONC 35.5 g/dL (32.0-36.0); MEAN CORPUSCULAR VOLUME 90 fl (80-97); RED BLOOD COUNT 3.56 10^6/uL (4.35-5.55); RED CELL DISTRIBUTION WIDTH 14.5 % (11.5-14.0); WHITE BLOOD COUNT 7.7 10^3/uL (4.0-10.5)
[2020-01-15] MEDS: VANCOMYCIN HCL 1,000 MG in DEXTROSE 5%-WATER 250 ML IV SCH ×3 (08:28→21:27)
[2020-01-15] MEDS: DIVALPROEX SODIUM 125 MG CAP.SPRINK PO SCH (08:28)
[2020-01-15] MEDS: TAMSULOSIN HCL 0.4 MG CAP.SR.24H PO SCH (08:28)
[2020-01-15 08:39] LABS: ANION GAP 9 (5-19); BLOOD UREA NITROGEN 23 mg/dL (7-20); CARBON DIOXIDE 24 mmol/L (22-30); CHLORIDE 98 mmol/L (98-107); GLUCOSE 126 mg/dL (75-110); POTASSIUM 3.9 mmol/L (3.6-5.0)
[2020-01-15 08:44] LABS: VANCOMYCIN,TROUGH 5.6 ug/mL (5.0-20.0)
--- NOTE | 2020-01-15 09:53 | PDOC PROGRESS REPORT ---
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 daily Reason For Visit: CELLULITIS, FEVER Physical Exam Vital Signs: Temp Pulse Resp BP Pulse Ox 100.5 F H 98 21 H 120/57 L 99 01/15/20 04:00 01/15/20 04:00 01/15/20 04:25 01/15/20 04:00 01/15/20 04:25 Intake & Output 01/14/20 01/15/20 01/16/20 06:59 06:59 06:59 Intake Total 4290 1870 Output Total 301 300 Balance 3989 1570 Weight 124.3 kg 124.3 kg General appearance: PRESENT: no acute distress, well-developed, well-nourished Head exam: PRESENT: atraumatic, normocephalic Eye exam: PRESENT: conjunctiva pink, EOMI, PERRLA. ABSENT: scleral icterus Ear exam: PRESENT: normal external ear exam Mouth exam: PRESENT: moist, tongue midline Neck exam: PRESENT: full ROM. ABSENT: carotid bruit, JVD, lymphadenopathy, thyromegaly Respiratory exam: PRESENT: clear to auscultation damion Cardiovascular exam: PRESENT: RRR. ABSENT: diastolic murmur, rubs, systolic murmur Vascular exam: PRESENT: normal capillary refill GI/Abdominal exam: PRESENT: normal bowel sounds, soft. ABSENT: distended, guarding, mass, organolmegaly, rebound, tenderness Rectal exam: PRESENT: deferred Extremities exam: PRESENT: pedal edema Additional comments: Right leg redness is still present Neurological exam: PRESENT: alert, awake, oriented to person, oriented to place, oriented to time, oriented to situation, CN II-XII grossly intact. ABSENT: motor sensory deficit Psychiatric exam: PRESENT: appropriate affect, normal mood. ABSENT: homicidal ideation, suicidal ideation Skin exam: PRESENT: dry, intact, warm. ABSENT: cyanosis, rash Results Laboratory Results: 01/15/20 07:30 01/14/20 01/14/20 01/14/20 10:10 10:10 10:30 Seg Neutrophils % Carbonic Acid 1.01 L HCO3/H2CO3 Ratio 20:1 ABG pH 7.40 ABG pCO2 33.6 L ABG pO2 41.6 L ABG HCO3 20.5 ABG O2 Saturation 77.9 L ABG Base Excess -3.5 FiO2 1.5L Sodium 127.3 L Potassium 3.8 Chloride 96 L Carbon Dioxide 21 L Anion Gap 10 BUN 21 H Creatinine 1.11 Est GFR ( Amer) > 60 Glucose 177 H Serum Osmolality 274 L Lactic Acid Calcium 7.8 L 01/14/20 01/15/20 01/15/20 11:05 07:30 07:30 Seg Neutrophils % Not Reportable Carbonic Acid HCO3/H2CO3 Ratio ABG pH ABG pCO2 ABG pO2 ABG HCO3 ABG O2 Saturation ABG Base Excess FiO2 Sodium 131.2 L Potassium 3.9 Chloride 98 Carbon Dioxide 24 Anion Gap 9 BUN 23 H Creatinine 1.03 Est GFR ( Amer) > 60 Glucose 126 H Serum Osmolality Lactic Acid 2.8 H Calcium 8.0 L 01/13/20 07:42 Blood Blood Culture (PCR) - Final Streptococcus Species Impressions: Chest CT 01/13/20 00:00 IMPRESSION: Calcified granuloma in the left base. Minimal bibasilar pleural thickening and basilar atelectasis. No suspicious pulmonary nodules. Calcified mediastinal and left hilar nodes. Venous Doppler Study 01/13/20 00:00 IMPRESSION: NO EVIDENCE DVT OR SVT IN THE RIGHT LEG. Chest X-Ray 01/14/20 00:00 IMPRESSION: Low lung volumes, portable film. Vishnu lines are present, question mild interstitial edema. Assessment & Plan - Diagnosis (1) Sepsis Qualifiers: Sepsis type: sepsis due to unspecified organism Is this a current diagnosis for this admission?: Yes (2) Cellulitis of right leg Is this a current diagnosis for this admission?: Yes (3) Bipolar disorder Qualifiers: Active/Remission status: currently active Psychotic features: without psychotic features Is this a current diagnosis for this admission?: Yes (4) Hypertension Qualifiers: Hypertension type: essential hypertension Qualified Code(s): I10 - Essent ial (primary) hypertension Is this a current diagnosis for this admission?: Yes (5) Schizophrenia Qualifiers: Schizophrenia type: unspecified Qualified Code(s): F20.9 - Schizophrenia, unspecified Is this a current diagnosis for this admission?: Yes (6) Sleep apnea Qualifiers: Sleep apnea type: unspecified type Qualified Code(s): G47.30 - Sleep apnea, unspecified Is this a current diagnosis for this admission?: Yes (7) Diastolic heart failure Qualifiers: Heart failure chronicity: acute on chronic Qualified Code(s): I50.33 - Acute on chronic diastolic (congestive) heart failure Is this a current diagnosis for this admission?: Yes - Time Time Spent with patient: 15-24 minutes Level of Care: IMCU Medications reviewed and adjusted accordingly: Yes Anticipated discharge: Other Anticipated DC Timeframe: within 72 hours - Plan Summary Plan Summary: Continues the IV antibiotics continues to monitor the vancomycin trough level and Chem-7 patient is currently doing better we will asked the surgery to further evaluate about the ongoing chronic right lower extremity swelling patient seen by Dr. Julianne Raymond past several times Discussed with the Dr. Sandoval
[2020-01-15] MEDS: GABAPENTIN 300 MG CAPSULE PO SCH ×2 (10:02→21:18)
[2020-01-15] MEDS: LACTOBACILLUS ACIDOPHILUS 250 MG TAB PO SCH ×2 (10:02→17:48)
[2020-01-15] MEDS: ASPIRIN 81 MG TABLET, ENT COATED PO SCH (10:02)
[2020-01-15] MEDS: FAMOTIDINE 20 MG TABLET PO SCH ×2 (10:02→21:18)
[2020-01-15] MEDS: MULTIVITAMIN TABLET PO SCH (10:02)
[2020-01-15] MEDS: ENOXAPARIN SODIUM INJ 40 MG/0.4 ML DISP.SYRIN SUBCUT SCH (10:02)
[2020-01-15] MEDS: VENLAFAXINE HCL 75 MG CAP.SR.24H PO SCH (10:03)
[2020-01-15] MEDS: FUROSEMIDE 40 MG TABLET PO SCH (10:03)
[2020-01-15] MEDS: DOCUSATE SODIUM 100 MG CAPSULE PO SCH (10:03)
[2020-01-15] MEDS: LISINOPRIL 10 MG TABLET PO SCH ×2 (10:03→21:18)
[2020-01-15] MEDS: CEFEPIME HCL 2 GM in DEXTROSE 5%-WATER 50 ML IV SCH ×2 (10:04→23:24)
[2020-01-15 11:00] LABS: HEMOGLOBIN 11.4 g/dL (13.5-17.0)
[2020-01-15 11:12] LABS: ABSOLUTE LYMPHOCYTES# (MANUAL) 0.3 10^3/uL (0.5-4.7); ABSOLUTE MONOCYTES # (MANUAL) 0.2 10^3/uL (0.1-1.4); ANISOCYTOSIS SLIGHT; BAND NEUTROPHILS % (MANUAL) 4 % (3-5); BASOPHILS % (MANUAL) 0 % (0-2); EOSINOPHILS % (MANUAL) 0 % (0-6); LYMPHOCYTES % (MANUAL) 4 % (13-45); MONOCYTES % (MANUAL) 3 % (3-13); PLATELET COMMENT DECREASED; SEGMENTED NEUTROPHILS % (MAN) 89 % (42-78); TOTAL CELLS COUNTED 100
[2020-01-15 11:15] LABS: PLATELET COUNT 90 10^3/uL (150-450)
[2020-01-15] MEDS: LORAZEPAM 1 MG TABLET PO SCH ×2 (13:54→17:48)
[2020-01-15] MEDS: ONDANSETRON 4 MG TAB.RAPDIS PO PRN (14:00)
[2020-01-15] MEDS: MELATONIN 5 MG TABLET PO SCH (21:18)
--- NOTE | 2020-01-15 22:58 | PDOC CONSULTATION ---
Consultation Consult Date: 01/15/20 Provider Consulted: SURGICAL SURGICALIST MD Consult reason:: Right lower extremity swelling and erythema History of Present Illness Admission Date/PCP: 01/13/20 09:07 DIXIE MONTEZ DPM History of Present Illness: ANNETTE AGUILERA is a 64 year old male seen in consultation at the request of Dr. Sexton. The patient carries a diagnosis of lymphedema of the right leg, and reports to wearing a compression stocking at home. He reports for the last several days, he has noted increased erythema and pain of the right lower extremity. He also reports fevers and chills. He denies any recent trauma, obvious bug bites or scratches. He does have pain in the right lower extremity. He rates it 5 out of 10. He denies chest pain, shortness of breath, dizziness, blurry vision, abdominal pain, nausea, vomiting. He does report a headache this morning. Pain medicines make his symptoms better. Palpation and movement make his pain worse. Past Medical History Cardiac Medical History: Reports: Congestive Heart Failure, Hyperlipidema, Hypertension Denies: Coronary Artery Disease, Myocardial Infarction Pulmonary Medical History: Reports: Sleep Apnea Denies: Asthma, Bronchitis, Chronic Obstructive Pulmonary Disease (COPD), Pneumonia Neurological Medical History: Denies: Seizures GI Medical History: Reports: Gastroesophageal Reflux Disease Denies: Crohn's Disease, Ulcerative Colitis Musculoskeltal Medical History: Denies: Arthritis Skin Medical History: Denies: Eczema Psychiatric Medical History: Reports: Bipolar Disorder, Depression, General Anxiety Disorder, Schizoaffective Disorder Traumatic Medical History: Denies: Pneumothorax Hematology: Denies: Anemia, Sickle Cell Disease Past Surgical History Past Surgical History: Reports: Cholecystectomy, Other - Wound care Denies: Pacemaker Social History Lives with: [facility] Smoking Status: Never Smoker Electronic Cigarette use?: No Frequency of Alcohol Use: None Hx Recreational Drug Use: No Drugs: None Hx Prescription Drug Abuse: No Family History Family History: None, Hypertension Parental Family History Reviewed: Yes Children Family History Reviewed: Yes Sibling(s) Family History Reviewed.: Yes Medication/Allergy Home Medications: Acetaminophen [Tylenol 325 mg Tablet] 650 mg PO Q4HP PRN 03/28/17 Bupropion HCl [Wellbutrin Sr 150 mg Tablet] 150 mg PO BID 03/28/17 Guaifenesin/D-Methorphan Hb [Robitussin Dm S-F Cough Syrup] 10 ml PO Q4HP PRN 03/28/17 Levothyroxine Sodium [Synthroid] 50 mcg PO QAM 03/28/17 Lorazepam [Ativan 1 mg Tablet] 0.5 mg PO BID@1200,1700 03/28/17 Multivitamin [Tab-A-Amalia] 1 tab PO DAILY 03/28/17 Omeprazole 40 mg PO DAILY 03/28/17 Ondansetron HCl [Zofran 4 mg Tablet] 4 mg PO Q8HP PRN 03/28/17 Paliperidone [Invega] 1.5 mg PO QAM 03/28/17 Polyethylene Glycol 3350 [Miralax Powder 17 gm/Packet] 17 gm PO DAILYP PRN 03/18 04/04 Tamsulosin HCl [Flomax 0.4 mg Cap.sr] 0.4 mg PO DAILY@0900 03/28/17 Albuterol Sulfate [Proair HFA] 2 puff IH Q4HP PRN 01/13/20 Aspirin [Ecotrin 81 mg EC Tablet] 81 mg PO DAILY 01/13/20 Benazepril/Hydrochlorothiazide [Benazepril-Hctz 20-25 mg Tab] 1 tab PO DAILY 01/13/20 Divalproex Sodium [Depakote Sprinkle 125 Mg Capsule] 125 mg PO QAM 01/13/20 Gabapentin [Neurontin 300 mg Capsule] 300 mg PO Q12 01/13/20 Melatonin [Melatonin 5 mg Tablet] 5 mg PO QHS 01/13/20 Meloxicam [Mobic] 15 mg PO DAILY 01/13/20 Venlafaxine HCl ER [Effexor Xr 75 mg Cap.sr] 75 mg PO DAILY 01/13/20 Allergies/Adverse Reactions: fluoxetine [From Prozac] Allergy (Verified 01/13/20 09:27) Review of Systems Constitutional: PRESENT: chills, fever(s), headache(s). ABSENT: anorexia, weakness Eyes: ABSENT: visual disturbances Ears: ABSENT: hearing changes Nose, Mouth, and Throat: ABSENT: sore throat Cardiovascular: ABSENT: chest pain Respiratory: ABSENT: cough Gastrointestinal: ABSENT: abdominal pain, bloating Genitourinary: ABSENT: dysuria Musculoskeletal: ABSENT: back pain Neurological: ABSENT: convulsions, dizziness Psychiatric: ABSENT: anxiety, depression Endocrine: ABSENT: cold intolerance, heat intolerance Hematologic/Lymphatic: ABSENT: easy bleeding, easy bruising Physical Exam Vital Signs: Temp Pulse Resp BP Pulse Ox 97.8 F 98 18 116/51 L 94 01/15/20 10:00 01/15/20 14:00 01/15/20 08:40 01/15/20 08:40 01/15/20 08:40 Intake & Output 01/14/20 01/15/20 01/16/20 06:59 06:59 06:59 Intake Total 4290 1870 250 Output Total 301 300 Balance 3989 1570 250 Weight 124.3 kg 124.3 kg General appearance: PRESENT: no acute distress, cooperative Head exam: PRESENT: atraumatic, normocephalic Eye exam: PRESENT: EOMI, PERRLA. ABSENT: scleral icterus Mouth exam: PRESENT: moist, neck supple Neck exam: ABSENT: meningismus, tenderness, thyromegaly, tracheal deviation Respiratory exam: PRESENT: unlabored. ABSENT: tachypnea Cardiovascular exam: ABSENT: tachycardia Vascular exam: PRESENT: normal capillary refill GI/Abdominal exam: PRESENT: soft. ABSENT: distended, tenderness Rectal exam: PRESENT: deferred Extremities exam: PRESENT: +2 edema - Right lower extremity, other - Patchy erythema of the right lower extremity. No obvious fluid collections or abscesses present. Musculoskeletal exam: ABSENT: deformity Neurological exam: PRESENT: alert, awake, oriented to person, oriented to place, oriented to time, oriented to situation, CN II-XII grossly intact Psychiatric exam: ABSENT: agitated, anxious, depressed Focused psych exam: ABSENT: delusional Skin exam: PRESENT: erythema - See extremity exam. ABSENT: cyanosis, jaundice Results Laboratory Results: 01/15/20 07:30 01/15/20 07:30 01/15/20 01/15/20 07:30 07:30 WBC 7.7 RBC 3.56 L Hgb 11.4 L D Hct 32.0 L MCV 90 MCH 31.9 MCHC 35.5 RDW 14.5 H Plt Count 90 L Seg Neutrophils % Not Reportable Sodium 131.2 L Potassium 3.9 Chloride 98 Carbon Dioxide 24 Anion Gap 9 BUN 23 H Creatinine 1.03 Est GFR ( Amer) > 60 Glucose 126 H Calcium 8.0 L 01/13/20 09:49 Clean Catch Midstream Urine Culture - Final NO GROWTH 2 DAYS 01/13/20 07:42 Blood Blood Culture (PCR) - Final Streptococcus Species Impressions: Chest CT 01/13/20 00:00 IMPRESSION: Calcified granuloma in the left base. Minimal bibasilar pleural thickening and basilar atelectasis. No suspicious pulmonary nodules. Calcified mediastinal and left hilar nodes. Venous Doppler Study 01/13/20 00:00 IMPRESSION: NO EVIDENCE DVT OR SVT IN THE RIGHT LEG. Chest X-Ray 01/14/20 00:00 IMPRESSION: Low lung volumes, portable film. Vishnu lines are present, question mild interstitial edema. Assessment & Plan - Diagnosis (1) Chronic edema Is this a current diagnosis for this admission?: Yes (2) Cellulitis of right leg Is this a current diagnosis for this admission?: Yes - Plan Summary Plan Summary: 64-year-old male with edema and superimposed cellulitis of the right lower extremity. Per his report, the edema is chronic and he wears a compression stocking at home. On examination, there is some tenderness and patchy erythema, but I do not see any obvious fluid collections or abscesses. He has no evidence of DVT. Continue with antibiotics. Place compression stocking. Elevate leg with foam wedge. No surgical intervention is required at this time. Surgery will see the patient again as needed. If his condition worsens, please renotify.
--- NOTE | 2020-01-15 23:38 | XCELERA REPORT ---
[address] [address] Transthoracic Echocardiogram Report Name: ANNETTE AGUILERA Age: 64 yrs Gender: Male : 1955 Patient Status: Inpatient Patient Location: [address] [place], [place] [address] Study Date: 01/14/2020 11:21 AM Height: 72 in Weight: 274 lb BSA: 2.4 m2 Procedure: A complete two-dimensional transthoracic echocardiogram was performed (2D, M-mode, spectral and color flow Doppler). The study was technically adequate with some images being suboptimal in quality. Reason For Study: CHF Ordering Physician: BRISEIDA BRADLEY Performed By: Alice Lundberg Interpretation Summary LEFT VENTRICLE: LV Systolic function: LVEF is felt to be within normal limits. Best estimate is approximately LVEF is 60 to 65%. LV Diastolic Function: Grade II diastolic dysfunction noted. Wall motion: No definite regional wall motion abnormalities are noted. Left ventricular chamber size: is within normal limit. Left ventricular wall thickness: is increased indicative of Mild LVH. RIGHT VENTRICLE: RV systolic function: is felt to be within normal limit. Right Ventricle Size: mildly dilated. LEFT ATRIUM size: is mildly dilated. RIGHT ATRIUM size: mildly dilated. INTER ATRIAL SEPTUM: No definite atrial septal defect noted however a small PFO could be missed. AORTIC ROOT: seems to be within normal limits. ASCENDING AORTA: is not well visualized. INFERIOR VENA CAVA: dilated with decrease respiratory variation. VALVES: MITRAL VALVE: Leaflets are mildly thickened. Mobility seems to be within normal limits. Mitral Regurgitation: trace to mild mitral regurgitation is noted. Mitral Stenosis: No mitral stenosis noted. Mitral valve prolapse: none noted. AORTIC VALVE: seems to be trileaflet with mild thickening but adequate excursion. Aortic stenosis: No aortic stenosis noted. Aortic regurgitation: No aortic incompetence noted. TRICUSPID VALVE: mobility and structures within normal limit. Tricuspid stenosis: no tricuspid stenosis noted. Tricuspid regurgitation: mild tricuspid regurgitation noted. Estimated RVSP: approximately 45 to 50 mmHg consistent with moderate pulmonary hypertension. PULMONARY VALVE: was not well visualized but no significant abnormalities suspected. Pulmonary stenosis: no pulmonary stenosis noted. Pulmonary regurgitation: no significant pulmonary regurgitation noted. MASSES AND THROMBUS: No definite intracardiac thrombus or masses are noted. PERICARDIUM: No pericardial effusion was noted. IMPRESSION: 1. Normal LVEF. 2. Mild LVH noted. 3. Grade II [mild] Diastolic Dysfunction noted. 4. Trace to mild mitral and mild tricuspid regurgitation noted. 5. LA is mildly dilated. RA and RV mildly dilated. 6. Moderate pulmonary hypertension noted with estimated RVSP at approximately 45 to 50 mmHg. MMode/2D Measurements & Calculations RVDd: 2.8 cm LVIDd: 5.7 cm FS: 44.1 % Ao root diam: 3.1 cm IVSd: 1.2 cm LVIDs: 3.2 cm EDV(Teich): 158.7 ml Ao root area: 7.6 cm2 LVPWd: 1.2 cm ESV(Teich): 40.2 ml LA dimension: 4.2 cm EF(Teich): 74.6 % Doppler Measurements & Calculations MV E max danny: MV P1/2t max danny: Ao V2 max: LV V1 max P.5 cm/sec 114.0 cm/sec 210.6 cm/sec 11.0 mmHg MV A max danny: MV P1/2t: 55.9 msec Ao max PG: LV V1 max: 88.8 cm/sec MVA(P1/2t): 3.9 cm2 17.7 mmHg 165.6 cm/sec MV E/A: 1.3 MV dec slope: 597.1 cm/sec2 MV dec time: 0.18 sec PA V2 max: TR max danny: MV P1/2t-pr_phl: 95.3 cm/sec 313.2 cm/sec 55.9 msec PA max P.6 mmHgTR max P.2 mmHg : BRISEIDA BRADLEY Shyamal
[2020-01-16] MEDS: NORMAL SALINE 1000 ML 1,000 ML IV PRN ×2 (04:17→17:21)
[2020-01-16] MEDS: PANTOPRAZOLE SODIUM 40 MG TABLET.DR PO SCH (05:21)
[2020-01-16] MEDS: BUPROPION HCL 100 MG TABLET PO SCH ×3 (05:21→21:27)
[2020-01-16] MEDS: VANCOMYCIN HCL 1,000 MG in DEXTROSE 5%-WATER 250 ML IV SCH ×2 (05:21→14:26)
[2020-01-16 06:30] LABS: ANION GAP 9 (5-19); BLOOD UREA NITROGEN 24 mg/dL (7-20); CALCIUM 8.1 mg/dL (8.4-10.2); CARBON DIOXIDE 26 mmol/L (22-30); CHLORIDE 96 mmol/L (98-107); GLUCOSE 108 mg/dL (75-110)
[2020-01-16 08:13] LABS: HEMATOCRIT 32.5 % (37.9-51.0); HEMOGLOBIN 11.5 g/dL (13.5-17.0); MEAN CORPUSCULAR HEMOGLOBIN 31.9 pg (27.0-33.4); MEAN CORPUSCULAR HGB CONC 35.4 g/dL (32.0-36.0); MEAN CORPUSCULAR VOLUME 90 fl (80-97); PLATELET COUNT 113 10^3/uL (150-450); RED BLOOD COUNT 3.61 10^6/uL (4.35-5.55); RED CELL DISTRIBUTION WIDTH 14.7 % (11.5-14.0); WHITE BLOOD COUNT 9.4 10^3/uL (4.0-10.5)
[2020-01-16 08:46] LABS: ABSOLUTE LYMPHOCYTES# (MANUAL) 0.5 10^3/uL (0.5-4.7); ABSOLUTE MONOCYTES # (MANUAL) 0.2 10^3/uL (0.1-1.4); BAND NEUTROPHILS % (MANUAL) 2 % (3-5); BASOPHILS % (MANUAL) 0 % (0-2); EOSINOPHILS % (MANUAL) 0 % (0-6); LYMPHOCYTES % (MANUAL) 5 % (13-45); MONOCYTES % (MANUAL) 2 % (3-13); SEGMENTED NEUTROPHILS % (MAN) 91 % (42-78); TOTAL CELLS COUNTED 100
[2020-01-16 08:48] LABS: ANISOCYTOSIS SLIGHT; OVALOCYTES 1+; PLATELET COMMENT DECREASED
[2020-01-16] MEDS: ACETAMINOPHEN 325 MG TABLET PO PRN (10:11)
[2020-01-16] MEDS: GABAPENTIN 300 MG CAPSULE PO SCH ×2 (10:11→21:27)
[2020-01-16] MEDS: ONDANSETRON 4 MG TAB.RAPDIS PO PRN (10:11)
[2020-01-16] MEDS: LACTOBACILLUS ACIDOPHILUS 250 MG TAB PO SCH ×2 (10:11→17:21)
[2020-01-16] MEDS: DOCUSATE SODIUM 100 MG CAPSULE PO SCH (10:11)
[2020-01-16] MEDS: DIVALPROEX SODIUM 125 MG CAP.SPRINK PO SCH (10:11)
[2020-01-16] MEDS: LISINOPRIL 10 MG TABLET PO SCH ×2 (10:11→21:27)
[2020-01-16] MEDS: TAMSULOSIN HCL 0.4 MG CAP.SR.24H PO SCH (10:12)
[2020-01-16] MEDS: FAMOTIDINE 20 MG TABLET PO SCH ×2 (10:12→21:27)
[2020-01-16] MEDS: ASPIRIN 81 MG TABLET, ENT COATED PO SCH (10:12)
[2020-01-16] MEDS: VENLAFAXINE HCL 75 MG CAP.SR.24H PO SCH (10:12)
[2020-01-16] MEDS: CEFEPIME HCL 2 GM in DEXTROSE 5%-WATER 50 ML IV SCH (10:12)
[2020-01-16] MEDS: MULTIVITAMIN TABLET PO SCH (10:12)
[2020-01-16] MEDS: FUROSEMIDE 40 MG TABLET PO SCH (10:12)
[2020-01-16] MEDS: ENOXAPARIN SODIUM INJ 40 MG/0.4 ML DISP.SYRIN SUBCUT SCH (10:12)
[2020-01-16] MEDS: LORAZEPAM 1 MG TABLET PO SCH ×2 (12:26→17:21)
[2020-01-16 14:19] LABS: VANCOMYCIN,TROUGH 10.1 ug/mL (5.0-20.0)
--- NOTE | 2020-01-16 14:27 | PDOC PROGRESS REPORT ---
Subjective Progress Note for:: 01/16/20 Subjective:: Patient seen by the bedside, he has severe cellulitis of the right lower extremity extending from the foot to the groin, presently on vancomycin and cefepime, blood culture grew Streptococcus dysgalactia, the drug of choice is penicillin G Reason For Visit: CELLULITIS, FEVER Physical Exam Vital Signs: Temp Pulse Resp BP Pulse Ox 97.6 F 105 H 20 145/82 H 96 01/16/20 12:57 01/16/20 12:57 01/16/20 12:57 01/16/20 12:57 01/16/20 12:57 Intake & Output 01/15/20 01/16/20 01/17/20 06:59 06:59 05:59 Intake Total 1870 1250 338 Output Total 300 150 875 Balance 1570 1100 -537 Weight 124.3 kg 124 kg General appearance: PRESENT: no acute distress Eye exam: PRESENT: PERRLA Respiratory exam: PRESENT: clear to auscultation damion Cardiovascular exam: PRESENT: +S1, +S2 GI/Abdominal exam: PRESENT: soft Extremities exam: PRESENT: other - Erythema, swelling of the right leg Neurological exam: PRESENT: alert Skin exam: PRESENT: erythema, warm Results Laboratory Results: 01/16/20 07:47 01/16/20 05:11 01/16/20 01/16/20 01/16/20 05:11 05:11 07:47 WBC Cancelled 9.4 RBC Cancelled 3.61 L Hgb Cancelled 11.5 L Hct Cancelled 32.5 L MCV Cancelled 90 MCH Cancelled 31.9 MCHC Cancelled 35.4 RDW Cancelled 14.7 H Plt Count Cancelled 113 L Seg Neutrophils % Cancelled Not Reportable Sodium 131.4 L Potassium 4.0 Chloride 96 L Carbon Dioxide 26 Anion Gap 9 BUN 24 H Creatinine 1.00 Est GFR ( Amer) > 60 Glucose 108 Calcium 8.1 L 01/13/20 07:42 Blood Blood Culture (PCR) - Final Streptococcus Species 01/13/20 07:42 Blood Blood Culture - Final Strep Dysgalactiae Grp 01/13/20 09:49 Clean Catch Midstream Urine Culture - Final NO GROWTH 2 DAYS Impressions: Chest CT 01/13/20 00:00 IMPRESSION: Calcified granuloma in the left base. Minimal bibasilar pleural thickening and basilar atelectasis. No suspicious pulmonary nodules. Calcified mediastinal and left hilar nodes. Venous Doppler Study 01/13/20 00:00 IMPRESSION: NO EVIDENCE DVT OR SVT IN THE RIGHT LEG. Chest X-Ray 01/14/20 00:00 IMPRESSION: Low lung volumes, portable film. Vishnu lines are present, question mild interstitial edema. Assessment & Plan - Diagnosis (1) Sepsis due to Streptococcus species Qualifiers: Sepsis acute organ dysfunction status: unspecified Qualified Code(s): A40.9 - Streptococcal sepsis, unspecified Is this a current diagnosis for this admission?: Yes Plan: The blood culture grew Streptococcus dysgalactia, drug of choice is penicillin G, discontinue vancomycin discontinue cefepime (2) Cellulitis of right leg Is this a current diagnosis for this admission?: Yes Plan: He has severe cellulitis of the right leg very extensive from the foot to the groin erythema presently on cefepime and vancomycin blood culture grew Streptococcus dysgalactia, drug of choice is penicillin G - Time Time Spent with patient: 25-34 minutes Level of Care: IMCU Medications reviewed and adjusted accordingly: Yes Anticipated discharge: Home Anticipated DC Timeframe: within 24 hours, within 72 hours
[2020-01-16] MEDS: PENICILLIN G POTASSIUM 5,000,000 UNIT in DEXTROSE 5%-WATER 100 ML IV SCH ×3 (17:21→23:58)
[2020-01-16] MEDS: MELATONIN 5 MG TABLET PO SCH (21:27)
[2020-01-17] MEDS: PENICILLIN G POTASSIUM 5,000,000 UNIT in DEXTROSE 5%-WATER 100 ML IV SCH ×6 (03:07→23:30)
[2020-01-17] MEDS: NORMAL SALINE 1000 ML 1,000 ML IV PRN ×2 (04:58→16:47)
[2020-01-17] MEDS: BUPROPION HCL 100 MG TABLET PO SCH ×3 (04:59→21:02)
[2020-01-17] MEDS: PANTOPRAZOLE SODIUM 40 MG TABLET.DR PO SCH (04:59)
[2020-01-17 06:33] LABS: GLUCOSE 117 mg/dL (75-110)
[2020-01-17 07:14] LABS: BLOOD UREA NITROGEN 28 mg/dL (7-20); CALCIUM 8.1 mg/dL (8.4-10.2); CARBON DIOXIDE 29 mmol/L (22-30); POTASSIUM 3.4 mmol/L (3.6-5.0)
[2020-01-17 07:16] LABS: ANION GAP 8 (5-19); CHLORIDE 98 mmol/L (98-107)
[2020-01-17] MEDS: DIVALPROEX SODIUM 125 MG CAP.SPRINK PO SCH (07:36)
[2020-01-17] MEDS: ACETAMINOPHEN 325 MG TABLET PO PRN (07:43)
[2020-01-17] MEDS: DOCUSATE SODIUM 100 MG CAPSULE PO SCH (09:03)
[2020-01-17] MEDS: TAMSULOSIN HCL 0.4 MG CAP.SR.24H PO SCH (09:03)
[2020-01-17] MEDS: LACTOBACILLUS ACIDOPHILUS 250 MG TAB PO SCH ×2 (09:03→17:03)
[2020-01-17] MEDS: LISINOPRIL 10 MG TABLET PO SCH ×2 (09:03→21:02)
[2020-01-17] MEDS: FAMOTIDINE 20 MG TABLET PO SCH ×2 (09:03→21:02)
[2020-01-17] MEDS: FUROSEMIDE 40 MG TABLET PO SCH (09:04)
[2020-01-17] MEDS: VENLAFAXINE HCL 75 MG CAP.SR.24H PO SCH (09:04)
[2020-01-17] MEDS: ASPIRIN 81 MG TABLET, ENT COATED PO SCH (09:04)
[2020-01-17] MEDS: MULTIVITAMIN TABLET PO SCH (09:04)
[2020-01-17] MEDS: GABAPENTIN 300 MG CAPSULE PO SCH ×2 (09:04→21:02)
[2020-01-17] MEDS: ENOXAPARIN SODIUM INJ 40 MG/0.4 ML DISP.SYRIN SUBCUT SCH (09:27)
[2020-01-17] MEDS: LORAZEPAM 1 MG TABLET PO SCH ×2 (11:25→16:58)
--- NOTE | 2020-01-17 13:19 | PDOC PROGRESS REPORT ---
Subjective Progress Note for:: 01/17/20 Subjective:: Patient seen by the bedside, he has severe cellulitis of the right lower extremity extending from the foot to the groin, presently on vancomycin and cefepime, blood culture grew Streptococcus dysgalactia, the drug of choice is penicillin G 01/17/2020 The antibiotic was changed yesterday to penicillin G, the drug of choice, patient has Streptococcus dysgalactia in the blood, this bacteria is known to cause severe cellulitis, the cellulitis not worse this morning Reason For Visit: CELLULITIS, FEVER Physical Exam Vital Signs: Temp Pulse Resp BP Pulse Ox 98.2 F 106 H 18 131/69 H 90 L 01/17/20 09:37 01/17/20 09:37 01/17/20 09:37 01/17/20 09:37 01/17/20 09:37 Intake & Output 01/16/20 01/17/20 01/18/20 07:59 06:59 06:59 Intake Total 350 Output Total Balance 350 Weight General appearance: PRESENT: no acute distress Eye exam: PRESENT: PERRLA Respiratory exam: PRESENT: clear to auscultation damion Cardiovascular exam: PRESENT: +S1, +S2 GI/Abdominal exam: PRESENT: soft Extremities exam: PRESENT: other Neurological exam: PRESENT: alert, CN II-XII grossly intact Results Laboratory Results: 01/16/20 07:47 01/17/20 04:53 01/17/20 04:53 Sodium 135.4 L Potassium 3.4 L Chloride 98 Carbon Dioxide 29 Anion Gap 8 BUN 28 H Creatinine 1.07 Est GFR ( Amer) > 60 Glucose 117 H Calcium 8.1 L Impressions: Chest CT 01/13/20 00:00 IMPRESSION: Calcified granuloma in the left base. Minimal bibasilar pleural thickening and basilar atelectasis. No suspicious pulmonary nodules. Calcified mediastinal and left hilar nodes. Venous Doppler Study 01/13/20 00:00 IMPRESSION: NO EVIDENCE DVT OR SVT IN THE RIGHT LEG. Chest X-Ray 01/14/20 00:00 IMPRESSION: Low lung volumes, portable film. Vishnu lines are present, question mild interstitial edema. Assessment & Plan - Diagnosis (1) Sepsis due to Streptococcus species Qualifiers: Sepsis acute organ dysfunction status: unspecified Qualified Code(s): A40.9 - Streptococcal sepsis, unspecified Is this a current diagnosis for this admission?: Yes Plan: The blood culture grew Streptococcus dysgalactia, drug of choice is penicillin G, Patient started on penicillin G yesterday (2) Cellulitis of right leg Is this a current diagnosis for this admission?: Yes Plan: He has severe cellulitis of the right leg very extensive from the foot to the groin erythema blood culture grew Streptococcus dysgalactia, drug of choice is penicillin G - Time Time Spent with patient: 25-34 minutes Level of Care: IMCU Medications reviewed and adjusted accordingly: Yes Anticipated discharge: SNF Anticipated DC Timeframe: within 72 hours
[2020-01-17] MEDS: MELATONIN 5 MG TABLET PO SCH (21:02)
[2020-01-18] MEDS: NORMAL SALINE 1000 ML 1,000 ML IV PRN (03:12)
[2020-01-18] MEDS: PENICILLIN G POTASSIUM 5,000,000 UNIT in DEXTROSE 5%-WATER 100 ML IV SCH ×5 (03:13→20:21)
[2020-01-18] MEDS: PANTOPRAZOLE SODIUM 40 MG TABLET.DR PO SCH (05:23)
[2020-01-18] MEDS: BUPROPION HCL 100 MG TABLET PO SCH ×3 (05:23→21:39)
[2020-01-18 06:31] LABS: HEMATOCRIT 32.9 % (37.9-51.0); HEMOGLOBIN 11.3 g/dL (13.5-17.0); MEAN CORPUSCULAR HEMOGLOBIN 31.4 pg (27.0-33.4); MEAN CORPUSCULAR HGB CONC 34.3 g/dL (32.0-36.0); MEAN CORPUSCULAR VOLUME 92 fl (80-97); RED BLOOD COUNT 3.59 10^6/uL (4.35-5.55); RED CELL DISTRIBUTION WIDTH 14.8 % (11.5-14.0)
[2020-01-18 06:51] LABS: ANION GAP 7 (5-19); BLOOD UREA NITROGEN 25 mg/dL (7-20); CALCIUM 8.1 mg/dL (8.4-10.2); CARBON DIOXIDE 29 mmol/L (22-30); CHLORIDE 99 mmol/L (98-107); GLUCOSE 109 mg/dL (75-110)
[2020-01-18 07:01] LABS: ABSOLUTE LYMPHOCYTES# (MANUAL) 0.7 10^3/uL (0.5-4.7); ABSOLUTE MONOCYTES # (MANUAL) 0.3 10^3/uL (0.1-1.4); BASOPHILS % (MANUAL) 0 % (0-2); EOSINOPHILS % (MANUAL) 2 % (0-6); LYMPHOCYTES % (MANUAL) 9 % (13-45); MONOCYTES % (MANUAL) 4 % (3-13); SEGMENTED NEUTROPHILS % (MAN) 85 % (42-78); TOTAL CELLS COUNTED 100
[2020-01-18 07:04] LABS: POLYCHROMASIA 1+
[2020-01-18 07:05] LABS: PLATELET CLUMPS PRESENT; PLATELET COMMENT ADEQUATE; PLATELET COUNT 150 10^3/uL (150-450)
[2020-01-18] MEDS ORDERED: BENZOCAINE/MENTHOL SORE THROAT LOZENGE BUCCAL PRN (08:14)
--- NOTE | 2020-01-18 11:23 | PDOC PROGRESS REPORT ---
Subjective Progress Note for:: 01/18/20 Subjective:: Patient is currently doing fair The week and patient was changed to the penicillin because of the blood culture Since still have a significant redness in the right lower extremity seen by the general surgery suggest the compression stocking and IV antibiotic No fever no chills Reason For Visit: CELLULITIS, FEVER Physical Exam Vital Signs: Temp Pulse Resp BP Pulse Ox 98.4 F 98 19 153/76 H 92 01/18/20 03:39 01/18/20 03:39 01/18/20 04:20 01/18/20 03:39 01/18/20 10:04 Intake & Output 01/17/20 01/18/20 01/19/20 06:59 06:59 06:59 Intake Total 3467 Output Total 1400 Balance 2066 Weight 122.3 kg General appearance: PRESENT: no acute distress, well-developed, well-nourished Head exam: PRESENT: atraumatic, normocephalic Eye exam: PRESENT: conjunctiva pink, EOMI, PERRLA. ABSENT: scleral icterus Ear exam: PRESENT: normal external ear exam Mouth exam: PRESENT: moist, tongue midline Neck exam: PRESENT: full ROM. ABSENT: carotid bruit, JVD, lymphadenopathy, thyromegaly Respiratory exam: PRESENT: clear to auscultation damion Cardiovascular exam: PRESENT: RRR. ABSENT: diastolic murmur, rubs, systolic murmur Pulses: PRESENT: normal dorsalis pedis pul, +2 pedal pulses bilateral Vascular exam: PRESENT: normal capillary refill GI/Abdominal exam: PRESENT: normal bowel sounds, soft. ABSENT: distended, guarding, mass, organolmegaly, rebound, tenderness Rectal exam: PRESENT: deferred Additional comments: Right lower extremity persistent edema and redness is present Neurological exam: PRESENT: alert, awake, oriented to person, oriented to place, oriented to time, oriented to situation, CN II-XII grossly intact. ABSENT: motor sensory deficit Psychiatric exam: PRESENT: appropriate affect, normal mood. ABSENT: homicidal ideation, suicidal ideation Skin exam: PRESENT: dry, intact, warm. ABSENT: cyanosis, rash Results Laboratory Results: 01/18/20 06:15 01/18/20 06:15 01/18/20 01/18/20 06:15 06:15 WBC 8.0 RBC 3.59 L Hgb 11.3 L Hct 32.9 L MCV 92 MCH 31.4 MCHC 34.3 RDW 14.8 H Plt Count 150 Seg Neutrophils % Not Reportable Sodium 135.3 L Potassium 4.0 Chloride 99 Carbon Dioxide 29 Anion Gap 7 BUN 25 H Creatinine 0.92 Est GFR ( Amer) > 60 Glucose 109 Calcium 8.1 L 01/13/20 09:40 Blood Blood Culture - Final NO GROWTH IN 5 DAYS Impressions: Chest CT 01/13/20 00:00 IMPRESSION: Calcified granuloma in the left base. Minimal bibasilar pleural thickening and basilar atelectasis. No suspicious pulmonary nodules. Calcified mediastinal and left hilar nodes. Venous Doppler Study 01/13/20 00:00 IMPRESSION: NO EVIDENCE DVT OR SVT IN THE RIGHT LEG. Chest X-Ray 01/14/20 00:00 IMPRESSION: Low lung volumes, portable film. Vishnu lines are present, question mild interstitial edema. Assessment & Plan - Diagnosis (1) Sepsis Qualifiers: Sepsis type: sepsis due to unspecified organism Is this a current diagnosis for this admission?: Yes (2) Cellulitis of right leg Is this a current diagnosis for this admission?: Yes (3) Bipolar disorder Qualifiers: Active/Remission status: currently active Psychotic features: without psychotic features Is this a current diagnosis for this admission?: Yes (4) Hypertension Qualifiers: Hypertension type: essential hypertension Qualified Code(s): I10 - Essential (primary) hypertension Is this a current diagnosis for this admission?: Yes (5) Schizophrenia Qualifiers: Schizophrenia type: unspecified Qualified Code(s): F20.9 - Schizophrenia, unspecified Is this a current diagnosis for this admission?: Yes (6) Sleep apnea Qualifiers: Sleep apnea type: unspecified type Qualified Code(s): G47.30 - Sleep apnea, unspecified Is this a current diagnosis for this admission?: Yes (7) Diastolic heart failure Qualifiers: Heart failure chronicity: acute on chronic Qualified Code(s): I50.33 - Acute on chronic diastolic (congestive) heart failure Is this a current diagnosis for this admission?: Yes - Time Time Spent with patient: 15-24 minutes Level of Care: IMCU Medications reviewed and adjusted accordingly: Yes Anticipated discharge: Other Anticipated DC Timeframe: Other - Plan Summary Plan Summary: We will repeat the CBC Chem-7 continues to current IV antibiotic
[2020-01-18] MEDS: ZINC OXIDE 20% OINTMENT 28.35 GM TP SCH ×2 (11:47→19:10)
[2020-01-18] MEDS: LACTOBACILLUS ACIDOPHILUS 250 MG TAB PO SCH ×2 (11:52→19:04)
[2020-01-18] MEDS: ASPIRIN 81 MG TABLET, ENT COATED PO SCH (11:52)
[2020-01-18] MEDS: LORAZEPAM 1 MG TABLET PO SCH ×2 (11:52→19:05)
[2020-01-18] MEDS: GABAPENTIN 300 MG CAPSULE PO SCH ×2 (11:52→21:39)
[2020-01-18] MEDS: DIVALPROEX SODIUM 125 MG CAP.SPRINK PO SCH (11:52)
[2020-01-18] MEDS: FAMOTIDINE 20 MG TABLET PO SCH ×2 (11:52→21:38)
[2020-01-18] MEDS: LISINOPRIL 10 MG TABLET PO SCH ×2 (11:52→21:39)
[2020-01-18] MEDS: VENLAFAXINE HCL 75 MG CAP.SR.24H PO SCH (11:52)
[2020-01-18] MEDS: MULTIVITAMIN TABLET PO SCH (11:52)
[2020-01-18] MEDS: TAMSULOSIN HCL 0.4 MG CAP.SR.24H PO SCH (11:52)
[2020-01-18] MEDS: FUROSEMIDE 40 MG TABLET PO SCH (11:52)
[2020-01-18] MEDS: DOCUSATE SODIUM 100 MG CAPSULE PO SCH (11:53)
[2020-01-18] MEDS: ENOXAPARIN SODIUM INJ 40 MG/0.4 ML DISP.SYRIN SUBCUT SCH (11:53)
[2020-01-18] MEDS: MELATONIN 5 MG TABLET PO SCH (21:38)
[2020-01-19] MEDS: PENICILLIN G POTASSIUM 5,000,000 UNIT in DEXTROSE 5%-WATER 100 ML IV SCH ×3 (00:58→08:05)
[2020-01-19 05:43] LABS: HEMATOCRIT 30.9 % (37.9-51.0); HEMOGLOBIN 10.7 g/dL (13.5-17.0); MEAN CORPUSCULAR HEMOGLOBIN 31.6 pg (27.0-33.4); MEAN CORPUSCULAR HGB CONC 34.7 g/dL (32.0-36.0); MEAN CORPUSCULAR VOLUME 91 fl (80-97); PLATELET COUNT 192 10^3/uL (150-450); RED CELL DISTRIBUTION WIDTH 14.9 % (11.5-14.0); WHITE BLOOD COUNT 7.7 10^3/uL (4.0-10.5)
[2020-01-19 05:55] LABS: ANION GAP 6 (5-19); BLOOD UREA NITROGEN 23 mg/dL (7-20); CARBON DIOXIDE 29 mmol/L (22-30); CHLORIDE 99 mmol/L (98-107); GLUCOSE 110 mg/dL (75-110); POTASSIUM 3.8 mmol/L (3.6-5.0)
[2020-01-19 06:17] LABS: ABSOLUTE LYMPHOCYTES# (MANUAL) 1.2 10^3/uL (0.5-4.7); ABSOLUTE MONOCYTES # (MANUAL) 0.8 10^3/uL (0.1-1.4); BASOPHILS % (MANUAL) 1 % (0-2); EOSINOPHILS % (MANUAL) 5 % (0-6); LYMPHOCYTES % (MANUAL) 16 % (13-45); MONOCYTES % (MANUAL) 11 % (3-13); SEGMENTED NEUTROPHILS % (MAN) 67 % (42-78); TOTAL CELLS COUNTED 100
[2020-01-19 06:19] LABS: ANISOCYTOSIS SLIGHT; HELMET CELLS SLIGHT; OVALOCYTES SLIGHT; POIKILOCYTOSIS SLIGHT; POLYCHROMASIA 1+; TOXIC GRANULATION 1+; TOXIC VACUOLATION PRESENT
[2020-01-19 06:20] LABS: PLATELET COMMENT ADEQUATE
[2020-01-19] MEDS: BUPROPION HCL 100 MG TABLET PO SCH ×3 (07:04→22:51)
[2020-01-19] MEDS: PANTOPRAZOLE SODIUM 40 MG TABLET.DR PO SCH (07:04)
[2020-01-19] MEDS: TAMSULOSIN HCL 0.4 MG CAP.SR.24H PO SCH (08:05)
[2020-01-19] MEDS: DIVALPROEX SODIUM 125 MG CAP.SPRINK PO SCH (08:05)
--- NOTE | 2020-01-19 08:52 | PDOC PROGRESS REPORT ---
Subjective Progress Note for:: 01/19/20 Subjective:: Patient is currently doing fair And any chest pain no short of breath Patient pain in the leg is still very good control Patient seen by the general surgery today suggest the continues the antibiotic elevate the legs once the redness is better put a stocking Reason For Visit: CELLULITIS, FEVER Physical Exam Vital Signs: Temp Pulse Resp BP Pulse Ox 98.2 F 88 18 150/80 H 98 01/19/20 08:39 01/19/20 08:39 01/19/20 08:39 01/19/20 08:39 01/19/20 08:39 Intake & Output 01/18/20 01/19/20 01/20/20 06:59 06:59 06:59 Intake Total 3467 1140 Output Total 1400 1350 Balance 2066 Weight 122.3 kg 122.7 kg General appearance: PRESENT: no acute distress, well-developed, well-nourished Head exam: PRESENT: atraumatic, normocephalic Eye exam: PRESENT: conjunctiva pink, EOMI, PERRLA. ABSENT: scleral icterus Ear exam: PRESENT: normal external ear exam Mouth exam: PRESENT: moist, tongue midline Neck exam: PRESENT: full ROM. ABSENT: carotid bruit, JVD, lymphadenopathy, thyromegaly Respiratory exam: PRESENT: clear to auscultation damion Cardiovascular exam: PRESENT: RRR. ABSENT: diastolic murmur, rubs, systolic murmur Pulses: PRESENT: normal dorsalis pedis pul, +2 pedal pulses bilateral Vascular exam: PRESENT: normal capillary refill GI/Abdominal exam: PRESENT: normal bowel sounds, soft. ABSENT: distended, guarding, mass, organolmegaly, rebound, tenderness Rectal exam: PRESENT: deferred Extremities exam: PRESENT: pedal edema Additional comments: Right lower extremity redness is still present Neurological exam: PRESENT: alert, awake, oriented to person, oriented to place, oriented to time, oriented to situation, CN II-XII grossly intact. ABSENT: motor sensory deficit Psychiatric exam: PRESENT: appropriate affect, normal mood. ABSENT: homicidal ideation, suicidal ideation Skin exam: PRESENT: dry, intact, warm. ABSENT: cyanosis, rash Results Laboratory Results: 01/19/20 04:40 01/19/20 04:40 01/19/20 01/19/20 04:40 04:40 WBC 7.7 RBC 3.40 L Hgb 10.7 L Hct 30.9 L MCV 91 MCH 31.6 MCHC 34.7 RDW 14.9 H Plt Count 192 Seg Neutrophils % Not Reportable Sodium 134.3 L Potassium 3.8 Chloride 99 Carbon Dioxide 29 Anion Gap 6 BUN 23 H Creatinine 0.98 Est GFR ( Amer) > 60 Glucose 110 Calcium 8.0 L 01/13/20 09:40 Blood Blood Culture - Final NO GROWTH IN 5 DAYS Impressions: Chest CT 01/13/20 00:00 IMPRESSION: Calcified granuloma in the left base. Minimal bibasilar pleural thickening and basilar atelectasis. No suspicious pulmonary nodules. Calcified mediastinal and left hilar nodes. Venous Doppler Study 01/13/20 00:00 IMPRESSION: NO EVIDENCE DVT OR SVT IN THE RIGHT LEG. Chest X-Ray 01/14/20 00:00 IMPRESSION: Low lung volumes, portable film. Vishnu lines are present, question mild interstitial edema. Assessment & Plan - Diagnosis (1) Sepsis Qualifiers: Sepsis type: sepsis due to unspecified organism Is this a current diagnosis for this admission?: Yes (2) Cellulitis of right leg Is this a current diagnosis for this admission?: Yes Plan: Still ongoing redness we will change the penicillin to the Unasyn (3) Bipolar disorder Qualifiers: Active/Remission status: currently active Psychotic features: without psychotic features Is this a current diagnosis for this admission?: Yes (4) Hypertension Qualifiers: Hypertension type: essential hypertension Qualified Code(s): I10 - Essential (primary) hypertension Is this a current diagnosis for this admission?: Yes (5) Schizophrenia Qualifiers: Schizophrenia type: unspecified Qualified Code(s): F20.9 - Schizophrenia, unspecified Is this a current diagnosis for this admission?: Yes (6) Sleep apnea Qualifiers: Sleep apnea type: unspecified type Qualified Code(s): G47.30 - Sleep apnea, unspecified Is this a current diagnosis for this admission?: Yes (7) Diastolic heart failure Qualifiers: Heart failure chronicity: acute on chronic Qualified Code(s): I50.33 - Acute on chronic diastolic (congestive) heart failure Is this a current diagnosis for this admission?: Yes - Time Time Spent with patient: 15-24 minutes Level of Care: IMCU Medications reviewed and adjusted accordingly: Yes Anticipated discharge: Other Anticipated DC Timeframe: within 72 hours - Plan Summary Plan Summary: Continues the above IV antibiotic
[2020-01-19] MEDS: FUROSEMIDE 40 MG TABLET PO SCH (09:12)
[2020-01-19] MEDS: LISINOPRIL 10 MG TABLET PO SCH ×2 (09:12→22:51)
[2020-01-19] MEDS: ENOXAPARIN SODIUM INJ 40 MG/0.4 ML DISP.SYRIN SUBCUT SCH (09:12)
[2020-01-19] MEDS: VENLAFAXINE HCL 75 MG CAP.SR.24H PO SCH (09:13)
[2020-01-19] MEDS: DOCUSATE SODIUM 100 MG CAPSULE PO SCH (09:13)
[2020-01-19] MEDS: FAMOTIDINE 20 MG TABLET PO SCH ×2 (09:13→22:51)
[2020-01-19] MEDS: LACTOBACILLUS ACIDOPHILUS 250 MG TAB PO SCH ×2 (09:13→17:00)
[2020-01-19] MEDS: ASPIRIN 81 MG TABLET, ENT COATED PO SCH (09:13)
[2020-01-19] MEDS: GABAPENTIN 300 MG CAPSULE PO SCH ×2 (09:13→22:51)
[2020-01-19] MEDS: MULTIVITAMIN TABLET PO SCH (09:13)
[2020-01-19] MEDS: ZINC OXIDE 20% OINTMENT 28.35 GM TP SCH ×2 (09:14→17:00)
[2020-01-19] MEDS: AMPICILLIN SODIUM/SULBACTAM NA 3 GM in NORMAL SALINE 100 ML IV SCH ×3 (11:14→23:00)
[2020-01-19] MEDS: LORAZEPAM 1 MG TABLET PO SCH ×2 (11:14→16:54)
[2020-01-19] MEDS: MELATONIN 5 MG TABLET PO SCH (22:51)
[2020-01-20 06:01] LABS: HEMATOCRIT 32.6 % (37.9-51.0); HEMOGLOBIN 11.2 g/dL (13.5-17.0); MEAN CORPUSCULAR HEMOGLOBIN 31.4 pg (27.0-33.4); MEAN CORPUSCULAR HGB CONC 34.4 g/dL (32.0-36.0); MEAN CORPUSCULAR VOLUME 91 fl (80-97); PLATELET COUNT 262 10^3/uL (150-450); RED BLOOD COUNT 3.57 10^6/uL (4.35-5.55); WHITE BLOOD COUNT 8.4 10^3/uL (4.0-10.5)
[2020-01-20] MEDS: PANTOPRAZOLE SODIUM 40 MG TABLET.DR PO SCH (06:06)
[2020-01-20] MEDS: AMPICILLIN SODIUM/SULBACTAM NA 3 GM in NORMAL SALINE 100 ML IV SCH ×3 (06:06→17:02)
[2020-01-20] MEDS: BUPROPION HCL 100 MG TABLET PO SCH ×3 (06:06→22:14)
[2020-01-20 06:19] LABS: ANION GAP 8 (5-19); BLOOD UREA NITROGEN 20 mg/dL (7-20); CALCIUM 8.5 mg/dL (8.4-10.2); CARBON DIOXIDE 30 mmol/L (22-30); CHLORIDE 98 mmol/L (98-107); GLUCOSE 98 mg/dL (75-110); POTASSIUM 4.6 mmol/L (3.6-5.0)
[2020-01-20 06:23] LABS: ABSOLUTE LYMPHOCYTES# (MANUAL) 1.3 10^3/uL (0.5-4.7); ABSOLUTE MONOCYTES # (MANUAL) 0.5 10^3/uL (0.1-1.4); ANISOCYTOSIS 1+; BAND NEUTROPHILS % (MANUAL) 3 % (3-5); BASOPHILS % (MANUAL) 0 % (0-2); EOSINOPHILS % (MANUAL) 4 % (0-6); LYMPHOCYTES % (MANUAL) 14 % (13-45); MONOCYTES % (MANUAL) 6 % (3-13); PLATELET COMMENT ADEQUATE; SEGMENTED NEUTROPHILS % (MAN) 72 % (42-78); TOTAL CELLS COUNTED 100
[2020-01-20] MEDS: TAMSULOSIN HCL 0.4 MG CAP.SR.24H PO SCH (08:34)
[2020-01-20] MEDS: DIVALPROEX SODIUM 125 MG CAP.SPRINK PO SCH (08:34)
--- NOTE | 2020-01-20 08:51 | PDOC PROGRESS REPORT ---
Subjective Progress Note for:: 01/20/20 Subjective:: Patient is feeling better Denied any chest pain no short of breath Leg swelling getting better and the redness is also getting better Reason For Visit: CELLULITIS, FEVER Physical Exam Vital Signs: Temp Pulse Resp BP Pulse Ox 98.2 F 80 18 150/69 H 96 01/20/20 08:25 01/20/20 08:25 01/20/20 08:25 01/20/20 08:25 01/20/20 08:25 Intake & Output 01/19/20 01/20/20 01/21/20 06:59 06:59 06:59 Intake Total 1140 1460 Output Total 1350 3025 Balance -210 -1565 Weight 122.7 kg 119.2 kg General appearance: PRESENT: no acute distress, well-developed, well-nourished Head exam: PRESENT: atraumatic, normocephalic Eye exam: PRESENT: conjunctiva pink, EOMI, PERRLA. ABSENT: scleral icterus Ear exam: PRESENT: normal external ear exam Mouth exam: PRESENT: moist, tongue midline Neck exam: PRESENT: full ROM. ABSENT: carotid bruit, JVD, lymphadenopathy, thyromegaly Respiratory exam: PRESENT: clear to auscultation damion Cardiovascular exam: PRESENT: RRR. ABSENT: diastolic murmur, rubs, systolic murmur Pulses: PRESENT: normal dorsalis pedis pul, +2 pedal pulses bilateral Vascular exam: PRESENT: normal capillary refill GI/Abdominal exam: PRESENT: normal bowel sounds, soft. ABSENT: distended, guarding, mass, organolmegaly, rebound, tenderness Rectal exam: PRESENT: deferred Extremities exam: PRESENT: pedal edema Additional comments: Right lower extremity redness is present improving compared to yesterday swelling is still present Neurological exam: PRESENT: alert, awake, oriented to person, oriented to place, oriented to time, oriented to situation, CN II-XII grossly intact. ABSENT: motor sensory deficit Psychiatric exam: PRESENT: appropriate affect, normal mood. ABSENT: homicidal ideation, suicidal ideation Skin exam: PRESENT: dry, intact, warm. ABSENT: cyanosis, rash Results Laboratory Results: 01/20/20 05:22 01/20/20 05:22 01/20/20 01/20/20 05:22 05:22 WBC 8.4 RBC 3.57 L Hgb 11.2 L Hct 32.6 L MCV 91 MCH 31.4 MCHC 34.4 RDW 15.0 H Plt Count 262 Seg Neutrophils % Not Reportable Sodium 135.9 L Potassium 4.6 Chloride 98 Carbon Dioxide 30 Anion Gap 8 BUN 20 Creatinine 0.97 Est GFR ( Amer) > 60 Glucose 98 Calcium 8.5 Impressions: Chest CT 01/13/20 00:00 IMPRESSION: Calcified granuloma in the left base. Minimal bibasilar pleural thickening and basilar atelectasis. No suspicious pulmonary nodules. Calcified mediastinal and left hilar nodes. Venous Doppler Study 01/13/20 00:00 IMPRESSION: NO EVIDENCE DVT OR SVT IN THE RIGHT LEG. Chest X-Ray 01/14/20 00:00 IMPRESSION: Low lung volumes, portable film. Vishnu lines are present, question mild interstitial edema. Assessment & Plan - Diagnosis (1) Sepsis Qualifiers: Sepsis type: sepsis due to unspecified organism Is this a current diagnosis for this admission?: Yes (2) Cellulitis of right leg Is this a current diagnosis for this admission?: Yes (3) Bipolar disorder Qualifiers: Active/Remission status: currently active Psychotic features: without psychotic features Is this a current diagnosis for this admission?: Yes (4) Hypertension Qualifiers: Hypertension type: essential hypertension Qualified Code(s): I10 - Essential (primary) hypertension Is this a current diagnosis for this admission?: Yes (5) Schizophrenia Qualifiers: Schizophrenia type: unspecified Qualified Code(s): F20.9 - Schizophrenia, unspecified Is this a current diagnosis for this admission?: Yes (6) Sleep apnea Qualifiers: Sleep apnea type: unspecified type Qualified Code(s): G47.30 - Sleep apnea, unspecified Is this a current diagnosis for this admission?: Yes (7) Diastolic heart failure Qualifiers: Heart failure chronicity: acute on chronic Qualified Code(s): I50.33 - Acute on chronic diastolic (congestive) heart failure Is this a current diagnosis for this admission?: Yes - Time Time Spent with patient: 15-24 minutes Level of Care: IMCU Medications reviewed and adjusted accordingly: Yes Anticipated discharge: Other Anticipated DC Timeframe: Other - Plan Summary Plan Summary: Continues IV antibiotics continues the physical therapy
[2020-01-20] MEDS: GABAPENTIN 300 MG CAPSULE PO SCH ×2 (09:11→22:13)
[2020-01-20] MEDS: FAMOTIDINE 20 MG TABLET PO SCH ×2 (09:12→22:14)
[2020-01-20] MEDS: MULTIVITAMIN TABLET PO SCH (09:12)
[2020-01-20] MEDS: ENOXAPARIN SODIUM INJ 40 MG/0.4 ML DISP.SYRIN SUBCUT SCH (09:12)
[2020-01-20] MEDS: ASPIRIN 81 MG TABLET, ENT COATED PO SCH (09:12)
[2020-01-20] MEDS: LACTOBACILLUS ACIDOPHILUS 250 MG TAB PO SCH ×2 (09:12→17:03)
[2020-01-20] MEDS: DOCUSATE SODIUM 100 MG CAPSULE PO SCH (09:12)
[2020-01-20] MEDS: FUROSEMIDE 40 MG TABLET PO SCH (09:12)
[2020-01-20] MEDS: LISINOPRIL 10 MG TABLET PO SCH ×2 (09:12→22:14)
[2020-01-20] MEDS: VENLAFAXINE HCL 75 MG CAP.SR.24H PO SCH (09:12)
[2020-01-20] MEDS: ZINC OXIDE 20% OINTMENT 28.35 GM TP SCH ×2 (09:21→17:03)
--- NOTE | 2020-01-20 11:15 | PDOC PROGRESS REPORT ---
Subjective Progress Note for:: 01/20/20 Subjective:: Patient was seen on January 14. He was given the echocardiogram results. Patient claims to be doing well. He denied any chest pain but still has some shortness of breath. He still continues to have pedal edema. JVP was noted to be elevated. Patient was placed on diuretics. He is responding. Patient advised to wear his CPAP device at night. Reason For Visit: CELLULITIS, FEVER Physical Exam Vital Signs: Temp Pulse Resp BP Pulse Ox 98.2 F 80 18 150/69 H 96 01/20/20 08:25 01/20/20 08:25 01/20/20 08:25 01/20/20 08:25 01/20/20 08:25 Intake & Output 01/19/20 01/20/20 01/21/20 06:59 06:59 06:59 Intake Total 1140 1460 Output Total 1350 3025 Balance -210 -1565 Weight 122.7 kg 119.2 kg Exam: General appearance: PRESENT: no acute distress, well-developed, well-nourished Head exam: PRESENT: atraumatic, normocephalic Eye exam: PRESENT: conjunctiva pink, EOMI, PERRLA. ABSENT: scleral icterus Ear exam: PRESENT: normal external ear exam Mouth exam: PRESENT: moist, tongue midline Neck exam: PRESENT: JVD. ABSENT: carotid bruit, lymphadenopathy, thyromegaly Respiratory exam: PRESENT: clear to auscultation damion. ABSENT: rales, rhonchi, wheezes Cardiovascular exam: PRESENT: RRR, +S1, +S2, systolic murmur - 1/6 aortic and mitral area. ABSENT: diastolic murmur, gallop, rubs Pulses: PRESENT: normal dorsalis pedis pul Vascular exam: PRESENT: normal capillary refill GI/Abdominal exam: PRESENT: normal bowel sounds, soft. ABSENT: distended, guarding, mass, organolmegaly, rebound, tenderness Rectal exam: PRESENT: deferred Extremities exam: PRESENT: full ROM, +2 edema - Right lower extremity with findings of cellulitis seems worse. ABSENT: calf tenderness, clubbing. Neurological exam: PRESENT: alert, awake, oriented to person, oriented to place, oriented to time, oriented to situation, CN II-XII grossly intact. ABSENT: motor sensory deficit Psychiatric exam: PRESENT: appropriate affect, normal mood. ABSENT: homicidal ideation, suicidal ideation Skin exam: PRESENT: dry, intact, warm. ABSENT: cyanosis, rash Results Laboratory Results: 01/20/20 05:22 01/20/20 05:22 01/20/20 01/20/20 05:22 05:22 WBC 8.4 RBC 3.57 L Hgb 11.2 L Hct 32.6 L MCV 91 MCH 31.4 MCHC 34.4 RDW 15.0 H Plt Count 262 Seg Neutrophils % Not Reportable Sodium 135.9 L Potassium 4.6 Chloride 98 Carbon Dioxide 30 Anion Gap 8 BUN 20 Creatinine 0.97 Est GFR ( Amer) > 60 Glucose 98 Calcium 8.5 EKG Comments: Telemetry strip shows patient maintaining sinus rhythm. Impressions: Chest CT 01/13/20 00:00 IMPRESSION: Calcified granuloma in the left base. Minimal bibasilar pleural thickening and basilar atelectasis. No suspicious pulmonary nodules. Calcified mediastinal and left hilar nodes. Venous Doppler Study 01/13/20 00:00 IMPRESSION: NO EVIDENCE DVT OR SVT IN THE RIGHT LEG. Chest X-Ray 01/14/20 00:00 IMPRESSION: Low lung volumes, portable film. Vishnu lines are present, question mild interstitial edema. Assessment & Plan - Diagnosis (1) Diastolic heart failure Qualifiers: Heart failure chronicity: acute on chronic Qualified Code(s): I50.33 - Acute on chronic diastolic (congestive) heart failure Is this a current diagnosis for this admission?: Yes (2) Cellulitis of right leg Is this a current diagnosis for this admission?: Yes (3) Sleep apnea Qualifiers: Sleep apnea type: unspecified type Qualified Code(s): G47.30 - Sleep apnea, unspecified Is this a current diagnosis for this admission?: Yes (4) Hypertension Qualifiers: Hypertension type: essential hypertension Qualified Code(s): I10 - Essential (primary) hypertension Is this a current diagnosis for this admission?: Yes (5) Schizophrenia Qualifiers: Schizophrenia type: unspecified Qualified Code(s): F20.9 - Schizophrenia, unspecified Is this a current diagnosis for this admission?: Yes - Notes Notes: Patient generally stable. Continue diuretics. Continue aggressive treatment of cellulitis. Continue positive airway pressure therapy during sleep and at night. Elevate legs. - Time Time with patient: 15-25 minutes Medications reviewed and adjusted accordingly: Yes
[2020-01-20] MEDS: LORAZEPAM 1 MG TABLET PO SCH ×2 (11:22→17:03)
--- NOTE | 2020-01-20 18:34 | PDOC PROGRESS REPORT ---
Subjective Progress Note for:: 01/15/20 Subjective:: Patient was seen on January 14. He was given the echocardiogram results. Patient claims to be doing well. He denied any chest pain but still has some shortness of breath. He still continues to have pedal edema. JVP was noted to be elevated. Patient was placed on diuretics. He is responding. Reason For Visit: CELLULITIS, FEVER Physical Exam Vital Signs: Temp Pulse Resp BP Pulse Ox 97.9 F 98 20 155/59 H 97 01/19/20 16:00 01/19/20 16:00 01/19/20 16:00 01/19/20 16:00 01/19/20 16:00 Intake & Output 01/18/20 01/19/20 01/20/20 06:59 06:59 06:59 Intake Total 3467 1140 1260 Output Total 1400 1350 1900 Balance 2067 -210 -640 Weight 122.3 kg 122.7 kg Exam: General appearance: PRESENT: no acute distress, well-developed, well-nourished Head exam: PRESENT: atraumatic, normocephalic Eye exam: PRESENT: conjunctiva pink, EOMI, PERRLA. ABSENT: scleral icterus Ear exam: PRESENT: normal external ear exam Mouth exam: PRESENT: moist, tongue midline Neck exam: PRESENT: JVD. ABSENT: carotid bruit, lymphadenopathy, thyromegaly Respiratory exam: PRESENT: clear to auscultation damion. ABSENT: rales, rhonchi, wheezes Cardiovascular exam: PRESENT: RRR, +S1, +S2, systolic murmur - 1/6 aortic and mitral area. ABSENT: diastolic murmur, gallop, rubs Pulses: PRESENT: normal dorsalis pedis pul Vascular exam: PRESENT: normal capillary refill GI/Abdominal exam: PRESENT: normal bowel sounds, soft. ABSENT: distended, guarding, mass, organolmegaly, rebound, tenderness Rectal exam: PRESENT: deferred Extremities exam: PRESENT: full ROM, +2 edema - Right lower extremity with findings of cellulitis seems worse. ABSENT: calf tenderness, clubbing. Neurological exam: PRESENT: alert, awake, oriented to person, oriented to place, oriented to time, oriented to situation, CN II-XII grossly intact. ABSENT: motor sensory deficit Psychiatric exam: PRESENT: appropriate affect, normal mood. ABSENT: homicidal ideation, suicidal ideation Skin exam: PRESENT: dry, intact, warm. ABSENT: cyanosis, rash Results Laboratory Results: 01/19/20 04:40 01/19/20 04:40 01/19/20 01/19/20 04:40 04:40 WBC 7.7 RBC 3.40 L Hgb 10.7 L Hct 30.9 L MCV 91 MCH 31.6 MCHC 34.7 RDW 14.9 H Plt Count 192 Seg Neutrophils % Not Reportable Sodium 134.3 L Potassium 3.8 Chloride 99 Carbon Dioxide 29 Anion Gap 6 BUN 23 H Creatinine 0.98 Est GFR ( Amer) > 60 Glucose 110 Calcium 8.0 L Impressions: Chest CT 01/13/20 00:00 IMPRESSION: Calcified granuloma in the left base. Minimal bibasilar pleural thickening and basilar atelectasis. No suspicious pulmonary nodules. Calcified mediastinal and left hilar nodes. Venous Doppler Study 01/13/20 00:00 IMPRESSION: NO EVIDENCE DVT OR SVT IN THE RIGHT LEG. Chest X-Ray 01/14/20 00:00 IMPRESSION: Low lung volumes, portable film. Vishnu lines are present, question mild interstitial edema. Assessment & Plan - Diagnosis (1) Diastolic heart failure Qualifiers: Heart failure chronicity: acute on chronic Qualified Code(s): I50.33 - A cute on chronic diastolic (congestive) heart failure Is this a current diagnosis for this admission?: Yes (2) Cellulitis of right leg Is this a current diagnosis for this admission?: Yes (3) Sleep apnea Qualifiers: Sleep apnea type: unspecified type Qualified Code(s): G47.30 - Sleep apnea, unspecified Is this a current diagnosis for this admission?: Yes (4) Hypertension Qualifiers: Hypertension type: essential hypertension Qualified Code(s): I10 - Esse ntial (primary) hypertension Is this a current diagnosis for this admission?: Yes (5) Schizophrenia Qualifiers: Schizophrenia type: unspecified Qualified Code(s): F20.9 - Schizophrenia, unspecified Is this a current diagnosis for this admission?: Yes - Notes Notes: Cellulitis seems somewhat worse but otherwise patient is stable. Continue current management plans with baseline diuretic therapy. Patient encouraged to apply it nightly positive air pressure therapy. We will continue to follow.
[2020-01-20] MEDS: ACETAMINOPHEN 325 MG TABLET PO PRN (22:13)
[2020-01-20] MEDS: MELATONIN 5 MG TABLET PO SCH (22:13)
[2020-01-21] MEDS: AMPICILLIN SODIUM/SULBACTAM NA 3 GM in NORMAL SALINE 100 ML IV SCH ×5 (00:25→23:49)
[2020-01-21 06:07] LABS: ANION GAP 9 (5-19); BLOOD UREA NITROGEN 21 mg/dL (7-20); CALCIUM 8.2 mg/dL (8.4-10.2); CARBON DIOXIDE 28 mmol/L (22-30); CHLORIDE 99 mmol/L (98-107); GLUCOSE 97 mg/dL (75-110); POTASSIUM 4.7 mmol/L (3.6-5.0)
[2020-01-21] MEDS: BUPROPION HCL 100 MG TABLET PO SCH ×3 (06:18→21:17)
[2020-01-21] MEDS: PANTOPRAZOLE SODIUM 40 MG TABLET.DR PO SCH (06:18)
[2020-01-21] MEDS: ENOXAPARIN SODIUM INJ 40 MG/0.4 ML DISP.SYRIN SUBCUT SCH (09:19)
[2020-01-21] MEDS: GABAPENTIN 300 MG CAPSULE PO SCH ×2 (09:20→21:17)
[2020-01-21] MEDS: DIVALPROEX SODIUM 125 MG CAP.SPRINK PO SCH (09:20)
[2020-01-21] MEDS: LACTOBACILLUS ACIDOPHILUS 250 MG TAB PO SCH ×2 (09:20→17:32)
[2020-01-21] MEDS: DOCUSATE SODIUM 100 MG CAPSULE PO SCH (09:20)
[2020-01-21] MEDS: ASPIRIN 81 MG TABLET, ENT COATED PO SCH (09:20)
[2020-01-21] MEDS: FAMOTIDINE 20 MG TABLET PO SCH ×2 (09:20→21:17)
[2020-01-21] MEDS: TAMSULOSIN HCL 0.4 MG CAP.SR.24H PO SCH (09:20)
[2020-01-21] MEDS: LISINOPRIL 10 MG TABLET PO SCH ×2 (09:20→21:17)
[2020-01-21] MEDS: VENLAFAXINE HCL 75 MG CAP.SR.24H PO SCH (09:20)
[2020-01-21] MEDS: MULTIVITAMIN TABLET PO SCH (09:20)
[2020-01-21] MEDS: FUROSEMIDE 40 MG TABLET PO SCH (09:20)
[2020-01-21] MEDS: ZINC OXIDE 20% OINTMENT 28.35 GM TP SCH ×2 (09:21→17:33)
--- NOTE | 2020-01-21 10:07 | PDOC PROGRESS REPORT ---
Subjective Progress Note for:: 01/21/20 Subjective:: Patient claims to be doing well. He denied any chest pain but still has some shortness of breath. He is noted to be improving. He is using nightly Pap therapy, which is BiPAP. Patient still has leg swelling of his right lower extremity along with cellulitis. He is noted to have some mouth sores. He is overall much improved. Reason For Visit: CELLULITIS, FEVER Physical Exam Vital Signs: Temp Pulse Resp BP Pulse Ox 97.6 F 75 16 156/70 H 93 01/21/20 08:44 01/21/20 08:02 01/21/20 08:02 01/21/20 08:02 01/21/20 08:02 Intake & Output 01/20/20 01/21/20 01/22/20 06:59 06:59 06:59 Intake Total 1460 1711 Output Total 3025 5150 Balance -1568 -7583 Weight 119.2 kg 116.2 kg Exam: GENERAL: well-nourished and in no acute distress. Alert and oriented x3 HEAD: Atraumatic, normocephalic. EYES: INGRID, sclera anicteric, conjunctiva are normal. ENT: Moist mucous membranes. No oral ulcerations or bleeding gums noted. No obvious ear, nose or throat abnormalities noted. NECK: supple without lymphadenopathy. Trachea is central. No cervical or axillary lymphadenopathy noted. Carotids are 2+, JVD WNL LUNGS: Breath sounds clear bilaterally. No wheezes rales or rhonchi noted. No significant dullness noted on percussion. CHEST: Palpation of the chest wall shows no significant chest wall tenderness. HEART: [place] [employer], No PSH, 1/6 LAUREN aortic area, 1/6 melendez systolic murmur mitral area, no rubs, no gallops. ABDOMEN: Soft, no significant tenderness appreciated, normoactive bowel sounds. No guarding, no rebound. No rigidity noted . No masses appreciated. EXTREMITIES: Pedal pulses are 1-2+, no calf tenderness noted. No clubbing or cyanosis. 1+ left lower extremity, 2+ right lower extremity with findings of cellulitis. NEUROLOGICAL: Focused neurological exam showed no significant neurologic de ficit. Normal speech, no focal weakness appreciated. PSYCH: Normal mood, normal affect. Judgment and insight within normal limits. SKIN: No significant ecchymosis, skin is noted to be warm. MUSCULOSKELETAL EXAM: No significant acute joint swelling noted. Results Laboratory Results: 01/20/20 05:22 01/21/20 05:15 01/21/20 05:15 Sodium 135.6 L Potassium 4.7 Chloride 99 Carbon Dioxide 28 Anion Gap 9 BUN 21 H Creatinine 1.00 Est GFR ( Amer) > 60 Glucose 97 Calcium 8.2 L 01/19/20 10:40 Blood Blood Culture (PCR) - Final EKG Comments: Telemetry strip shows sinus rhythm. Impressions: Chest CT 01/13/20 00:00 IMPRESSION: Calcified granuloma in the left base. Minimal bibasilar pleural thickening and basilar atelectasis. No suspicious pulmonary nodules. Calcified mediastinal and left hilar nodes. Venous Doppler Study 01/13/20 00:00 IMPRESSION: NO EVIDENCE DVT OR SVT IN THE RIGHT LEG. Chest X-Ray 01/14/20 00:00 IMPRESSION: Low lung volumes, portable film. Vishnu lines are present, question mild interstitial edema. Assessment & Plan - Diagnosis (1) Diastolic heart failure Qualifiers: Heart failure chronicity: acute on chronic Qualified Code(s): I50.33 - Acute on chronic diastolic (congestive) heart failure Is this a current diagnosis for this admission?: Yes (2) Cellulitis of right leg Is this a current diagnosis for this admission?: Yes (3) Sleep apnea Qualifiers: Sleep apnea type: unspecified type Qualified Code(s): G47.30 - Sleep apnea, unspecified Is this a current diagnosis for this admission?: Yes (4) Hypertension Qualifiers: Hypertension type: essential hypertension Qualified Code(s): I10 - Essential (primary) hypertension Is this a current diagnosis for this admission?: Yes (5) Schizophrenia Qualifiers: Schizophrenia type: unspecified Qualified Code(s): F20.9 - Schizophrenia, unspecified Is this a current diagnosis for this admission?: Yes - Notes Notes: Patient is generally improved. We will draw baseline BNP level. Currently seems compensated is as regards CHF. Continue with positive pressure ventilation. Patient seems to have significant obesity hypoventilation syndrome. Continue therapy for cellulitis. Patient generally stable. We will see patient on as needed basis. Recommend outpatient appointment once discharged. - Time Time with patient: 15-25 minutes
[2020-01-21] MEDS: NYSTATIN 500000 UNIT/5 ML UDCUP PO SCH ×2 (12:42→17:32)
[2020-01-21] MEDS: VALACYCLOVIR HCL 500 MG TABLET PO SCH ×2 (12:42→21:17)
[2020-01-21] MEDS: LORAZEPAM 1 MG TABLET PO SCH ×2 (12:42→17:32)
--- NOTE | 2020-01-21 12:44 | PDOC PROGRESS REPORT ---
Subjective Progress Note for:: 01/21/20 Reason For Visit: CELLULITIS, FEVER Patient is complaining some of mouth sore small blisters Denied any fever no chest pain no short of breath Patient's leg swelling is better the redness is also better Physical Exam Vital Signs: Temp Pulse Resp BP Pulse Ox 97.6 F 75 16 156/70 H 93 01/21/20 08:44 01/21/20 08:02 01/21/20 08:02 01/21/20 08:02 01/21/20 08:02 Intake & Output 01/20/20 01/21/20 01/22/20 06:59 06:59 06:59 Intake Total 1460 1711 Output Total 3025 5660 Balance -4019 -5409 Weight 119.2 kg 116.2 kg 116.2 kg General appearance: PRESENT: no acute distress, well-developed, well-nourished Head exam: PRESENT: atraumatic, normocephalic Eye exam: PRESENT: conjunctiva pink, EOMI, PERRLA. ABSENT: scleral icterus Ear exam: PRESENT: normal external ear exam Mouth exam: PRESENT: moist, tongue midline Neck exam: PRESENT: full ROM. ABSENT: carotid bruit, JVD, lymphadenopathy, thyromegaly Respiratory exam: PRESENT: clear to auscultation damion Cardiovascular exam: PRESENT: RRR. ABSENT: diastolic murmur, rubs, systolic murmur Vascular exam: PRESENT: normal capillary refill GI/Abdominal exam: PRESENT: normal bowel sounds, soft. ABSENT: distended, guarding, mass, organolmegaly, rebound, tenderness Rectal exam: PRESENT: deferred Additional comments: Right lower extremity redness is present much improved swelling is still there Neurological exam: PRESENT: alert, awake, oriented to person, oriented to place, oriented to time, oriented to situation, CN II-XII grossly intact. ABSENT: motor sensory deficit Psychiatric exam: PRESENT: appropriate affect, normal mood. ABSENT: homicidal ideation, suicidal ideation Skin exam: PRESENT: dry, intact, warm. ABSENT: cyanosis, rash Results Laboratory Results: 01/20/20 05:22 01/21/20 05:15 01/21/20 05:15 Sodium 135.6 L Potassium 4.7 Chloride 99 Carbon Dioxide 28 Anion Gap 9 BUN 21 H Creatinine 1.00 Est GFR ( Amer) > 60 Glucose 97 Calcium 8.2 L 01/19/20 10:40 Blood Blood Culture (PCR) - Final 01/21/20 05:15 NT-Pro-B Natriuret Pep 458 H Impressions: Chest CT 01/13/20 00:00 IMPRESSION: Calcified granuloma in the left base. Minimal bibasilar pleural thickening and basilar atelectasis. No suspicious pulmonary nodules. Calcified mediastinal and left hilar nodes. Venous Doppler Study 01/13/20 00:00 IMPRESSION: NO EVIDENCE DVT OR SVT IN THE RIGHT LEG. Chest X-Ray 01/14/20 00:00 IMPRESSION: Low lung volumes, portable film. Vishnu lines are present, question mild interstitial edema. Assessment & Plan - Diagnosis (1) Sepsis Qualifiers: Sepsis type: sepsis due to unspecified organism Is this a current diagnosis for this admission?: Yes (2) Cellulitis of right leg Is this a current diagnosis for this admission?: Yes (3) Bipolar disorder Qualifiers: Active/Remission status: currently active Psychotic features: without psychotic features Is this a current diagnosis for this admission?: Yes (4) Hypertension Qualifiers: Hypertension type: essential hypertension Qualified Code(s): I10 - Essential (primary) hypertension Is this a current diagnosis for this admission?: Yes (5) Schizophrenia Qualifiers: Schizophrenia type: unspecified Qualified Code(s): F20.9 - Schizophrenia, unspecified Is this a current diagnosis for this admission?: Yes (6) Sleep apnea Qualifiers: Sleep apnea type: unspecified type Qualified Code(s): G47.30 - Sleep apnea, unspecified Is this a current diagnosis for this admission?: Yes (7) Diastolic heart failure Qualifiers: Heart failure chronicity: acute on chronic Qualified Code(s): I50.33 - Acute on chronic diastolic (congestive) heart failure Is this a current diagnosis for this admission?: Yes - Time Time Spent with patient: 15-24 minutes Level of Care: IMCU Medications reviewed and adjusted accordingly: Yes Anticipated discharge: Other Anticipated DC Timeframe: Other - Plan Summary Plan Summary: Continues IV antibiotic start the patient on no nystatin
[2020-01-21] MEDS: MELATONIN 5 MG TABLET PO SCH (21:17)
[2020-01-22] MEDS: NYSTATIN 500000 UNIT/5 ML UDCUP PO SCH ×4 (01:03→17:10)
[2020-01-22] MEDS: AMPICILLIN SODIUM/SULBACTAM NA 3 GM in NORMAL SALINE 100 ML IV SCH (05:33)
[2020-01-22] MEDS: BUPROPION HCL 100 MG TABLET PO SCH ×3 (05:34→22:20)
[2020-01-22] MEDS: PANTOPRAZOLE SODIUM 40 MG TABLET.DR PO SCH (05:34)
[2020-01-22 06:01] LABS: ABSOLUTE EOSINOPHILS # (AUTO) 0.2 10^3/uL (0.0-0.6); ABSOLUTE LYMPHOCYTES (AUTO) 1.1 10^3/uL (0.5-4.7); ABSOLUTE MONOCYTES (AUTO) 0.6 10^3/uL (0.1-1.4); ABSOLUTE NEUT (AUTO) 6.1 10^3/uL (1.7-8.2); BASOPHILS % (AUTO) 0.5 % (0-2); EOSINOPHILS % (AUTO) 2.8 % (0-6); HEMATOCRIT 34.7 % (37.9-51.0); LYMPHOCYTES % (AUTO) 13.6 % (13-45); MEAN CORPUSCULAR HEMOGLOBIN 31.4 pg (27.0-33.4); MEAN CORPUSCULAR HGB CONC 34.6 g/dL (32.0-36.0); MEAN CORPUSCULAR VOLUME 91 fl (80-97); PLATELET COUNT 316 10^3/uL (150-450); RED BLOOD COUNT 3.82 10^6/uL (4.35-5.55); RED CELL DISTRIBUTION WIDTH 14.6 % (11.5-14.0); SEGMENTED NEUTROPHILS % (AUTO) 75.1 % (42-78); TOTAL CELLS COUNTED % (AUTO) 100 %; WHITE BLOOD COUNT 8.1 10^3/uL (4.0-10.5)
[2020-01-22 06:18] LABS: ANION GAP 9 (5-19); BLOOD UREA NITROGEN 22 mg/dL (7-20); CALCIUM 8.7 mg/dL (8.4-10.2); CARBON DIOXIDE 26 mmol/L (22-30); CHLORIDE 101 mmol/L (98-107); GLUCOSE 101 mg/dL (75-110)
[2020-01-22] MEDS: TAMSULOSIN HCL 0.4 MG CAP.SR.24H PO SCH (08:33)
[2020-01-22] MEDS: DIVALPROEX SODIUM 125 MG CAP.SPRINK PO SCH (08:33)
--- NOTE | 2020-01-22 09:11 | PDOC PROGRESS REPORT ---
Subjective Progress Note for:: 01/22/20 Subjective:: Patient is currently doing well She is denied any chest pain no short of breath Patient's leg swelling and the redness is much better NoFever no chills Reason For Visit: CELLULITIS, FEVER Physical Exam Vital Signs: Temp Pulse Resp BP Pulse Ox 98.2 F 77 14 125/49 L 97 01/22/20 07:28 01/22/20 07:00 01/22/20 03:17 01/22/20 03:17 01/22/20 03:17 Intake & Output 01/21/20 01/22/20 01/23/20 06:59 06:59 06:59 Intake Total 1711 1459 Output Total 3523 5613 Balance -9178 -5196 Weight 116.2 kg 114.3 kg General appearance: PRESENT: no acute distress, well-developed, well-nourished Head exam: PRESENT: atraumatic, normocephalic Eye exam: PRESENT: conjunctiva pink, EOMI, PERRLA. ABSENT: scleral icterus Ear exam: PRESENT: normal external ear exam Mouth exam: PRESENT: moist, tongue midline Neck exam: PRESENT: full ROM. ABSENT: carotid bruit, JVD, lymphadenopathy, thyromegaly Respiratory exam: PRESENT: clear to auscultation damion Cardiovascular exam: PRESENT: RRR. ABSENT: diastolic murmur, rubs, systolic murmur Pulses: PRESENT: normal dorsalis pedis pul, +2 pedal pulses bilateral Vascular exam: PRESENT: normal capillary refill GI/Abdominal exam: PRESENT: normal bowel sounds, soft. ABSENT: distended, guarding, mass, organolmegaly, rebound, tenderness Rectal exam: PRESENT: deferred Additional comments: Right lower extremity swelling is much improved and redness is also much improved Musculoskeletal exam: PRESENT: ambulatory Neurological exam: PRESENT: alert, awake, oriented to person, oriented to place, oriented to time, oriented to situation, CN II-XII grossly intact. ABSENT: motor sensory deficit Psychiatric exam: PRESENT: appropriate affect, normal mood. ABSENT: homicidal ideation, suicidal ideation Skin exam: PRESENT: dry, intact, warm. ABSENT: cyanosis, rash Results Laboratory Results: 01/22/20 05:30 01/22/20 05:30 01/22/20 01/22/20 05:30 05:30 WBC 8.1 RBC 3.82 L Hgb 12.0 L Hct 34.7 L MCV 91 MCH 31.4 MCHC 34.6 RDW 14.6 H Plt Count 316 Seg Neutrophils % 75.1 Sodium 136.4 L Potassium 5.0 Chloride 101 Carbon Dioxide 26 Anion Gap 9 BUN 22 H Creatinine 1.07 Est GFR ( Amer) > 60 Glucose 101 Calcium 8.7 01/19/20 10:40 Blood Blood Culture (PCR) - Final 01/19/20 10:40 Blood Blood Culture - Final Corynebacterium Species 01/21/20 05:15 NT-Pro-B Natriuret Pep 458 H Impressions: Chest CT 01/13/20 00:00 IMPRESSION: Calcified granuloma in the left base. Minimal bibasilar pleural thickening and basilar atelectasis. No suspicious pulmonary nodules. Calcified mediastinal and left hilar nodes. Venous Doppler Study 01/13/20 00:00 IMPRESSION: NO EVIDENCE DVT OR SVT IN THE RIGHT LEG. Chest X-Ray 01/14/20 00:00 IMPRESSION: Low lung volumes, portable film. Vishnu lines are present, question mild interstitial edema. Assessment & Plan - Diagnosis (1) Sepsis Qualifiers: Sepsis type: sepsis due to unspecified organism Is this a current diagnosis for this admission?: Yes (2) Cellulitis of right leg Is this a current diagnosis for this admission?: Yes (3) Bipolar disorder Qualifiers: Active/Remission status: currently active Psychotic features: without psychotic features Is this a current diagnosis for this admission?: Yes (4) Hypertension Qualifiers: Hypertension type: essential hypertension Qualified Code(s): I10 - Essential (primary) hypertension Is this a current diagnosis for this admission?: Yes (5) Schizophrenia Qualifiers: Schizophrenia type: unspecified Qualified Code(s): F20.9 - Schizophrenia, unspecified Is this a current diagnosis for this admission?: Yes (6) Sleep apnea Qualifiers: Sleep apnea type: unspecified type Qualified Code(s): G47.30 - Sleep apnea, unspecified Is this a current diagnosis for this admission?: Yes (7) Diastolic heart failure Qualifiers: Heart failure chronicity: acute on chronic Qualified Code(s): I50.33 - Acute on chronic diastolic (congestive) heart failure Is this a current diagnosis for this admission?: Yes - Time Time Spent with patient: 15-24 minutes Level of Care: IMCU Medications reviewed and adjusted accordingly: Yes Anticipated discharge: Other Anticipated DC Timeframe: Other - Plan Summary Plan Summary: Continues to current medications we will change IV to the p.o. antibiotic and if he remains stable hopefully discharge back to the assisted living facilities
[2020-01-22] MEDS: FAMOTIDINE 20 MG TABLET PO SCH ×2 (10:13→22:20)
[2020-01-22] MEDS: MULTIVITAMIN TABLET PO SCH (10:13)
[2020-01-22] MEDS: LISINOPRIL 10 MG TABLET PO SCH ×2 (10:13→22:19)
[2020-01-22] MEDS: ASPIRIN 81 MG TABLET, ENT COATED PO SCH (10:13)
[2020-01-22] MEDS: VENLAFAXINE HCL 75 MG CAP.SR.24H PO SCH (10:13)
[2020-01-22] MEDS: ENOXAPARIN SODIUM INJ 40 MG/0.4 ML DISP.SYRIN SUBCUT SCH (10:14)
[2020-01-22] MEDS: FUROSEMIDE 40 MG TABLET PO SCH (10:15)
[2020-01-22] MEDS: DOCUSATE SODIUM 100 MG CAPSULE PO SCH (10:15)
[2020-01-22] MEDS: LACTOBACILLUS ACIDOPHILUS 250 MG TAB PO SCH ×2 (10:15→17:10)
[2020-01-22] MEDS: GABAPENTIN 300 MG CAPSULE PO SCH ×2 (10:15→22:20)
[2020-01-22] MEDS: SILVER SULFADIAZINE 1% CREAM 400 GM TP SCH ×4 (10:16→22:20)
[2020-01-22] MEDS: AMOXICILLIN TR/POT CLAVULANATE 875-125 MG TAB PO SCH ×2 (10:17→22:19)
[2020-01-22] MEDS: VALACYCLOVIR HCL 500 MG TABLET PO SCH ×2 (10:17→22:20)
[2020-01-22] MEDS: ZINC OXIDE 20% OINTMENT 28.35 GM TP SCH ×2 (10:29→17:11)
[2020-01-22] MEDS: LORAZEPAM 1 MG TABLET PO SCH ×2 (12:39→17:11)
[2020-01-22] MEDS: MELATONIN 5 MG TABLET PO SCH (22:20)
[2020-01-23] MEDS: NYSTATIN 500000 UNIT/5 ML UDCUP PO SCH ×5 (01:15→23:08)
[2020-01-23] MEDS: PANTOPRAZOLE SODIUM 40 MG TABLET.DR PO SCH (05:54)
[2020-01-23] MEDS: BUPROPION HCL 100 MG TABLET PO SCH ×3 (05:54→21:04)
[2020-01-23 06:07] LABS: ANION GAP 6 (5-19); BLOOD UREA NITROGEN 22 mg/dL (7-20); CALCIUM 8.8 mg/dL (8.4-10.2); CARBON DIOXIDE 27 mmol/L (22-30); CHLORIDE 100 mmol/L (98-107); GLUCOSE 99 mg/dL (75-110); POTASSIUM 5.3 mmol/L (3.6-5.0)
[2020-01-23] MEDS: TAMSULOSIN HCL 0.4 MG CAP.SR.24H PO SCH (08:43)
[2020-01-23] MEDS: DIVALPROEX SODIUM 125 MG CAP.SPRINK PO SCH (08:44)
--- NOTE | 2020-01-23 09:42 | PDOC PROGRESS REPORT ---
Subjective Progress Note for:: 01/23/20 Subjective:: Patient is currently doing well Denied any fever no chest pain no short of breath Reason For Visit: CELLULITIS, FEVER Physical Exam Vital Signs: Temp Pulse Resp BP Pulse Ox 97.3 F 86 20 133/51 H 95 01/23/20 08:58 01/23/20 08:26 01/23/20 08:26 01/23/20 08:26 01/23/20 08:26 Intake & Output 01/22/20 01/23/20 01/24/20 06:59 06:59 06:59 Intake Total 1459 684 Output Total 3824 6080 Balance -8596 -3101 Weight 114.3 kg 111.2 kg General appearance: PRESENT: no acute distress, well-developed, well-nourished Head exam: PRESENT: atraumatic, normocephalic Eye exam: PRESENT: conjunctiva pink, EOMI, PERRLA. ABSENT: scleral icterus Ear exam: PRESENT: normal external ear exam Mouth exam: PRESENT: moist, tongue midline Neck exam: PRESENT: full ROM. ABSENT: carotid bruit, JVD, lymphadenopathy, thyromegaly Respiratory exam: PRESENT: clear to auscultation damion Cardiovascular exam: PRESENT: RRR. ABSENT: diastolic murmur, rubs, systolic murmur Pulses: PRESENT: normal dorsalis pedis pul, +2 pedal pulses bilateral Vascular exam: PRESENT: normal capillary refill GI/Abdominal exam: PRESENT: normal bowel sounds, soft. ABSENT: distended, guarding, mass, organolmegaly, rebound, tenderness Rectal exam: PRESENT: deferred Neurological exam: PRESENT: alert, awake, oriented to person, oriented to place, oriented to time, oriented to situation, CN II-XII grossly intact. ABSENT: motor sensory deficit Psychiatric exam: PRESENT: appropriate affect, normal mood. ABSENT: homicidal ideation, suicidal ideation Skin exam: PRESENT: dry, intact, warm. ABSENT: cyanosis, rash Results Laboratory Results: 01/22/20 05:30 01/23/20 05:17 01/23/20 05:17 Sodium 133.4 L Potassium 5.3 H Chloride 100 Carbon Dioxide 27 Anion Gap 6 BUN 22 H Creatinine 1.20 Est GFR ( Amer) > 60 Glucose 99 Calcium 8.8 01/21/20 05:15 NT-Pro-B Natriuret Pep 458 H Impressions: Chest CT 01/13/20 00:00 IMPRESSION: Calcified granuloma in the left base. Minimal bibasilar pleural thickening and basilar atelectasis. No suspicious pulmonary nodules. Calcified mediastinal and left hilar nodes. Venous Doppler Study 01/13/20 00:00 IMPRESSION: NO EVIDENCE DVT OR SVT IN THE RIGHT LEG. Chest X-Ray 01/14/20 00:00 IMPRESSION: Low lung volumes, portable film. Vishnu lines are present, question mild interstitial edema. Assessment & Plan - Diagnosis (1) Sepsis Qualifiers: Sepsis type: sepsis due to unspecified organism Is this a current diagnosis for this admission?: Yes (2) Cellulitis of right leg Is this a current diagnosis for this admission?: Yes (3) Bipolar disorder Qualifiers: Active/Remission status: currently active Psychotic features: without psychotic features Is this a current diagnosis for this admission?: Yes (4) Hypertension Qualifiers: Hypertension type: essential hypertension Qualified Code(s): I10 - Essential (primary) hypertension Is this a current diagnosis for this admission?: Yes (5) Schizophrenia Qualifiers: Schizophrenia type: unspecified Qualified Code(s): F20.9 - Schizophrenia, unspecified Is this a current diagnosis for this admission?: Yes (6) Sleep apnea Qualifiers: Sleep apnea type: unspecified type Qualified Code(s): G47.30 - Sleep apnea, unspecified Is this a current diagnosis for this admission?: Yes (7) Diastolic heart failure Qualifiers: Heart failure chronicity: acute on chronic Qualified Code(s): I50.33 - Acute on chronic diastolic (congestive) heart failure Is this a current diagnosis for this admission?: Yes - Time Time Spent with patient: 15-24 minutes Level of Care: IMCU Medications reviewed and adjusted accordingly: Yes Anticipated discharge: Other Anticipated DC Timeframe: Other - Plan Summary Plan Summary: Continues to current medications
[2020-01-23] MEDS: FUROSEMIDE 40 MG TABLET PO SCH (10:57)
[2020-01-23] MEDS: FAMOTIDINE 20 MG TABLET PO SCH ×2 (10:57→21:04)
[2020-01-23] MEDS: GABAPENTIN 300 MG CAPSULE PO SCH ×2 (10:57→21:03)
[2020-01-23] MEDS: MULTIVITAMIN TABLET PO SCH (10:57)
[2020-01-23] MEDS: VENLAFAXINE HCL 75 MG CAP.SR.24H PO SCH (10:57)
[2020-01-23] MEDS: ASPIRIN 81 MG TABLET, ENT COATED PO SCH (10:58)
[2020-01-23] MEDS: LISINOPRIL 10 MG TABLET PO SCH ×2 (10:58→21:04)
[2020-01-23] MEDS: LACTOBACILLUS ACIDOPHILUS 250 MG TAB PO SCH ×2 (10:58→17:40)
[2020-01-23] MEDS: AMOXICILLIN TR/POT CLAVULANATE 875-125 MG TAB PO SCH ×2 (10:58→21:03)
[2020-01-23] MEDS: VALACYCLOVIR HCL 500 MG TABLET PO SCH ×2 (10:58→21:06)
[2020-01-23] MEDS: SILVER SULFADIAZINE 1% CREAM 400 GM TP SCH ×4 (10:59→21:06)
[2020-01-23] MEDS: DOCUSATE SODIUM 100 MG CAPSULE PO SCH (10:59)
[2020-01-23] MEDS: ENOXAPARIN SODIUM INJ 40 MG/0.4 ML DISP.SYRIN SUBCUT SCH (10:59)
[2020-01-23] MEDS: ZINC OXIDE 20% OINTMENT 28.35 GM TP SCH ×2 (11:00→17:41)
[2020-01-23] MEDS: LORAZEPAM 1 MG TABLET PO SCH ×2 (11:06→17:40)
[2020-01-23] MEDS: MELATONIN 5 MG TABLET PO SCH (21:04)
[2020-01-23] MEDS: ACETAMINOPHEN 325 MG TABLET PO PRN (21:04)
[2020-01-24] MEDS: BUPROPION HCL 100 MG TABLET PO SCH ×3 (06:11→21:14)
[2020-01-24] MEDS: PANTOPRAZOLE SODIUM 40 MG TABLET.DR PO SCH (06:11)
[2020-01-24] MEDS: NYSTATIN 500000 UNIT/5 ML UDCUP PO SCH ×3 (06:11→17:29)
[2020-01-24 06:30] LABS: ANION GAP 8 (5-19); BLOOD UREA NITROGEN 23 mg/dL (7-20); CALCIUM 8.8 mg/dL (8.4-10.2); CARBON DIOXIDE 24 mmol/L (22-30); CHLORIDE 102 mmol/L (98-107); GLUCOSE 102 mg/dL (75-110); POTASSIUM 4.9 mmol/L (3.6-5.0)
--- NOTE | 2020-01-24 10:04 | PDOC PROGRESS REPORT ---
Subjective Progress Note for:: 01/24/20 Subjective:: Patient is currently doing well Denied any fever no chest pain no short of breath Reason For Visit: CELLULITIS, FEVER Physical Exam Vital Signs: Temp Pulse Resp BP Pulse Ox 97.5 F 81 18 127/52 H 93 01/24/20 09:00 01/24/20 08:16 01/24/20 08:16 01/24/20 08:16 01/24/20 08:16 Intake & Output 01/23/20 01/24/20 01/25/20 06:59 06:59 06:59 Intake Total 684 1620 Output Total 2450 1900 Balance -1766 -280 Weight 111.2 kg 111 kg General appearance: PRESENT: no acute distress, well-developed, well-nourished Head exam: PRESENT: atraumatic, normocephalic Eye exam: PRESENT: conjunctiva pink, EOMI, PERRLA. ABSENT: scleral icterus Ear exam: PRESENT: normal external ear exam Mouth exam: PRESENT: moist, tongue midline Neck exam: PRESENT: full ROM. ABSENT: carotid bruit, JVD, lymphadenopathy, thyromegaly Respiratory exam: PRESENT: clear to auscultation damion Cardiovascular exam: PRESENT: RRR. ABSENT: diastolic murmur, rubs, systolic murmur Vascular exam: PRESENT: normal capillary refill GI/Abdominal exam: PRESENT: normal bowel sounds, soft. ABSENT: distended, guarding, mass, organolmegaly, rebound, tenderness Rectal exam: PRESENT: deferred Neurological exam: PRESENT: alert, awake, oriented to person, oriented to place, oriented to time, oriented to situation, CN II-XII grossly intact. ABSENT: motor sensory deficit Psychiatric exam: PRESENT: appropriate affect, normal mood. ABSENT: homicidal ideation, suicidal ideation Skin exam: PRESENT: dry, intact, warm. ABSENT: cyanosis, rash Results Laboratory Results: 01/22/20 05:30 01/24/20 05:28 01/24/20 05:28 Sodium 134.4 L Potassium 4.9 Chloride 102 Carbon Dioxide 24 Anion Gap 8 BUN 23 H Creatinine 1.14 Est GFR ( Amer) > 60 Glucose 102 Calcium 8.8 01/21/20 05:15 NT-Pro-B Natriuret Pep 458 H Impressions: Chest CT 01/13/20 00:00 IMPRESSION: Calcified granuloma in the left base. Minimal bibasilar pleural thickening and basilar atelectasis. No suspicious pulmonary nodules. Calcified mediastinal and left hilar nodes. Venous Doppler Study 01/13/20 00:00 IMPRESSION: NO EVIDENCE DVT OR SVT IN THE RIGHT LEG. Chest X-Ray 01/14/20 00:00 IMPRESSION: Low lung volumes, portable film. Vishnu lines are present, question mild interstitial edema. Assessment & Plan - Diagnosis (1) Sepsis Qualifiers: Sepsis type: sepsis due to unspecified organism Is this a current diagnosis for this admission?: Yes (2) Cellulitis of right leg Is this a current diagnosis for this admission?: Yes (3) Bipolar disorder Qualifiers: Active/Remission status: currently active Psychotic features: without psychotic features Is this a current diagnosis for this admission?: Yes (4) Hypertension Qualifiers: Hypertension type: essential hypertension Qualified Code(s): I10 - Essential (primary) hypertension Is this a current diagnosis for this admission?: Yes (5) Schizophrenia Qualifiers: Schizophrenia type: unspecified Qualified Code(s): F20.9 - Schizophrenia, unspecified Is this a current diagnosis for this admission?: Yes (6) Sleep apnea Qualifiers: Sleep apnea type: unspecified type Qualified Code(s): G47.30 - Sleep apnea, unspecified Is this a current diagnosis for this admission?: Yes (7) Diastolic heart failure Qualifiers: Heart failure chronicity: acute on chronic Qualified Code(s): I50.33 - Acute on chronic diastolic (congestive) heart failure Is this a current diagnosis for this admission?: Yes - Time Time Spent with patient: 15-24 minutes Level of Care: IMCU Medications reviewed and adjusted accordingly: Yes Anticipated discharge: Other Anticipated DC Timeframe: Other - Plan Summary Plan Summary: Continues to current medications
[2020-01-24] MEDS: ACETAMINOPHEN 325 MG TABLET PO PRN (10:23)
[2020-01-24] MEDS: ENOXAPARIN SODIUM INJ 40 MG/0.4 ML DISP.SYRIN SUBCUT SCH (10:23)
[2020-01-24] MEDS: LACTOBACILLUS ACIDOPHILUS 250 MG TAB PO SCH ×2 (10:23→17:30)
[2020-01-24] MEDS: TAMSULOSIN HCL 0.4 MG CAP.SR.24H PO SCH (10:24)
[2020-01-24] MEDS: GABAPENTIN 300 MG CAPSULE PO SCH ×2 (10:24→21:14)
[2020-01-24] MEDS: ASPIRIN 81 MG TABLET, ENT COATED PO SCH (10:24)
[2020-01-24] MEDS: FAMOTIDINE 20 MG TABLET PO SCH ×2 (10:24→21:14)
[2020-01-24] MEDS: LISINOPRIL 10 MG TABLET PO SCH ×2 (10:24→21:14)
[2020-01-24] MEDS: MULTIVITAMIN TABLET PO SCH (10:24)
[2020-01-24] MEDS: FUROSEMIDE 40 MG TABLET PO SCH (10:24)
[2020-01-24] MEDS: DOCUSATE SODIUM 100 MG CAPSULE PO SCH (10:24)
[2020-01-24] MEDS: DIVALPROEX SODIUM 125 MG CAP.SPRINK PO SCH (10:24)
[2020-01-24] MEDS: AMOXICILLIN TR/POT CLAVULANATE 875-125 MG TAB PO SCH ×2 (10:25→21:15)
[2020-01-24] MEDS: SILVER SULFADIAZINE 1% CREAM 400 GM TP SCH (10:25)
[2020-01-24] MEDS: VALACYCLOVIR HCL 500 MG TABLET PO SCH ×2 (10:25→21:15)
[2020-01-24] MEDS: ZINC OXIDE 20% OINTMENT 28.35 GM TP SCH ×2 (11:37→17:28)
[2020-01-24] MEDS: LORAZEPAM 1 MG TABLET PO SCH ×2 (11:46→17:30)
[2020-01-24] MEDS: VENLAFAXINE HCL 75 MG CAP.SR.24H PO SCH (11:46)
[2020-01-24] MEDS: CLOBETASOL PROPIONATE 0.05% OINTMENT 15 GM TP SCH (17:30)
[2020-01-24] MEDS: MELATONIN 5 MG TABLET PO SCH (21:14)
[2020-01-25] MEDS: NYSTATIN 500000 UNIT/5 ML UDCUP PO SCH ×3 (01:32→12:19)
[2020-01-25] MEDS: PANTOPRAZOLE SODIUM 40 MG TABLET.DR PO SCH (06:47)
[2020-01-25] MEDS: BUPROPION HCL 100 MG TABLET PO SCH ×2 (06:47→14:38)
[2020-01-25] MEDS: DIVALPROEX SODIUM 125 MG CAP.SPRINK PO SCH (08:44)
[2020-01-25] MEDS: TAMSULOSIN HCL 0.4 MG CAP.SR.24H PO SCH (08:44)
[2020-01-25] MEDS: LACTOBACILLUS ACIDOPHILUS 250 MG TAB PO SCH (10:15)
[2020-01-25] MEDS: ONDANSETRON 4 MG TAB.RAPDIS PO PRN (10:15)
[2020-01-25] MEDS: GABAPENTIN 300 MG CAPSULE PO SCH (10:15)
[2020-01-25] MEDS: ASPIRIN 81 MG TABLET, ENT COATED PO SCH (10:15)
[2020-01-25] MEDS: ENOXAPARIN SODIUM INJ 40 MG/0.4 ML DISP.SYRIN SUBCUT SCH (10:15)
[2020-01-25] MEDS: MULTIVITAMIN TABLET PO SCH (10:16)
[2020-01-25] MEDS: DOCUSATE SODIUM 100 MG CAPSULE PO SCH (10:16)
[2020-01-25] MEDS: FUROSEMIDE 40 MG TABLET PO SCH (10:16)
[2020-01-25] MEDS: AMOXICILLIN TR/POT CLAVULANATE 875-125 MG TAB PO SCH (10:16)
[2020-01-25] MEDS: LISINOPRIL 10 MG TABLET PO SCH (10:16)
[2020-01-25] MEDS: FAMOTIDINE 20 MG TABLET PO SCH (10:16)
[2020-01-25] MEDS: VENLAFAXINE HCL 75 MG CAP.SR.24H PO SCH (10:17)
[2020-01-25] MEDS: VALACYCLOVIR HCL 500 MG TABLET PO SCH (10:17)
[2020-01-25] MEDS: ZINC OXIDE 20% OINTMENT 28.35 GM TP SCH (10:19)
[2020-01-25] MEDS: CLOBETASOL PROPIONATE 0.05% OINTMENT 15 GM TP SCH (10:19)
[2020-01-25 12:10] VITALS: BP 134/64
[2020-01-25] MEDS: LORAZEPAM 1 MG TABLET PO SCH (12:20)
--- NOTE | 2020-01-25 12:39 | PDOC DISCHARGE SUMMARY ---
Impression - Admit/DC Date/PCP Admission Date/Primary Care Provider: 01/13/20 09:07 DIXIE MONTEZ DPM Discharge Date: 01/25/20 - Discharge Diagnosis (1) Sepsis Is this a current diagnosis for this admission?: Yes (2) Cellulitis of right leg Is this a current diagnosis for this admission?: Yes (3) Bipolar disorder Is this a current diagnosis for this admission?: Yes (4) Hypertension Is this a current diagnosis for this admission?: Yes (5) Schizophrenia Is this a current diagnosis for this admission?: Yes (6) Sleep apnea Is this a current diagnosis for this admission?: Yes (7) Diastolic heart failure Is this a current diagnosis for this admission?: Yes - Additional Information Discharge Diet: Cardiac Discharge Activity: Activity As Tolerated, Balance Activity w/Rest, Weigh Daily Referrals: WOUND CARE [Outside] (spke with [facility] needs to contact for follow up with wound care) DIXIE MONTEZ DPM [Primary Care Provider] - Follow up as needed WILBUR DRAKE MD [ACTIVE STAFF] - 01/28/20 2:45 pm Prescriptions: Lactobacillus Acidophilus [Bacid 250 mg Tablet] 250 mg PO BID #14 tab Doxycycline Hyclate 100 mg PO BID #20 tablet. Furosemide [Lasix 40 mg Tablet] 40 mg PO DAILY #30 tablet Lisinopril [Prinivil 10 mg Tablet] 10 mg PO Q12 #60 tablet Home Medications: Acetaminophen [Tylenol 325 mg Tablet] 650 mg PO Q4HP PRN 03/28/17 Bupropion HCl [Wellbutrin Sr 150 mg Tablet] 150 mg PO BID 03/28/17 Guaifenesin/D-Methorphan Hb [Robitussin Dm S-F Cough Syrup] 10 ml PO Q4HP PRN 03/28/17 Levothyroxine Sodium [Synthroid] 50 mcg PO QAM 03/28/17 Lorazepam [Ativan 1 mg Tablet] 0.5 mg PO BID@1200,1700 03/28/17 Multivitamin [Tab-A-Amalia] 1 tab PO DAILY 03/28/17 Omeprazole 40 mg PO DAILY 03/28/17 Ondansetron HCl [Zofran 4 mg Tablet] 4 mg PO Q8HP PRN 03/28/17 Paliperidone [Invega] 1.5 mg PO QAM 03/28/17 Polyethylene Glycol 3350 [Miralax Powder 17 gm/Packet] 17 gm PO DAILYP PRN 03/28/17 Tamsulosin HCl [Flomax 0.4 mg Cap.sr] 0.4 mg PO DAILY@0900 03/28/17 Albuterol Sulfate [Proair HFA] 2 puff IH Q4HP PRN 01/13/20 Aspirin [Ecotrin 81 mg EC Tablet] 81 mg PO DAILY 01/13/20 Divalproex Sodium [Depakote Sprinkle 125 mg Capsule] 125 mg PO QAM 01/13/20 Gabapentin [Neurontin 300 mg Capsule] 300 mg PO Q12 01/13/20 Melatonin [Melatonin 5 mg Tablet] 5 mg PO QHS 01/13/20 Venlafaxine HCl ER [Effexor Xr 75 mg Cap.sr] 75 mg PO DAILY 01/13/20 Doxycycline Hyclate 100 mg PO BID #20 tablet. 01/25/20 Furosemide [Lasix 40 mg Tablet] 40 mg PO DAILY #30 tablet 01/25/20 Lactobacillus Acidophilus [Bacid 250 mg Tablet] 250 mg PO BID #14 tab 01/25/20 Lisinopril [Prinivil 10 mg Tablet] 10 mg PO Q12 #60 tablet 01/25/20 History of Present Illiness History of Present Illness: ANNETTE AGUILERA is a 64 year old male This 64-year-old male with the resident in the [facility] with the significant history of the hypertension hyperlipidemia morbid obesity bipolar disorder and schizophrenia brought to the emergency department by EMS due to the fever chills and increasing the redness of the right lower extremity Patient have ongoing problem of the right lower extremity seen by the surgery currently also seeing the wound care center ultrasound MRI done in the past with a chronic lymphedema and chronic cellulitis In the emergency department patient's lactic acid was elevated and patient was significantly redness of the right lower extremity consistent with cellulitis Patient's denied any cough no congestions. Denied contact with any Covid restrictions no Covid patient in the [facility] In the emergency department patient's giving IV vancomycin Patient also follow outpatients wound care clinic with ongoing right lower extremities ulcer currently healed patient have a arterial Doppler done couple of months back was all stable Patient's denied any chest pain no short of breath Seen by Dr. Camp beginning of the year with echocardiogram and stress test was all normal In the emergency department. Patient diagnosed sepsis Hospital Course Hospital Course: Is a 64-year-old male presenting the emergency departments with a complaining of right lower extremity swelling and a sepsis Is diagnosed with a right lower extremity cellulitis with a history of the chronic lymphedema extensive work-[facility] done by the [place] [facility] Underwent for the ultrasound were negative for any DVT treat with IV antibiotic seen by the general surgery patient switched to the p.o. antibiotic Patient also have a shortness of the breath underwent for the CT scan was all stable seen by the pulmonary and cardiology suggest the continues the Lasix 40 mg p.o. daily Patient's at this point is afebrile white count is all normal discussed with the surgery is suggest to continue the Silvadene cream continues the p.o. antibiotic Discussed with the cardiology continues the Lasix 40 mg p.o. daily we will discontinues the hydrochlorothiazide Follow in office 1 week Physical Exam Vital Signs: Temp Pulse Resp BP Pulse Ox 97.7 F 74 19 134/64 H 99 01/25/20 11:14 01/25/20 11:14 01/25/20 11:14 01/25/20 11:14 01/25/20 11:14 Intake & Output 01/24/20 01/25/20 01/26/20 06:59 06:59 06:59 Intake Total 1620 1550 Output Total 1900 2050 Balance -280 -500 Weight 111 kg 108.6 kg General appearance: PRESENT: no acute distress, well-developed, well-nourished Head exam: PRESENT: atraumatic, normocephalic Eye exam: PRESENT: conjunctiva pink, EOMI, PERRLA. ABSENT: scleral icterus Ear exam: PRESENT: normal external ear exam Mouth exam: PRESENT: moist, tongue midline Neck exam: ABSENT: carotid bruit, JVD, lymphadenopathy, thyromegaly Respiratory exam: PRESENT: clear to auscultation damion. ABSENT: rales, rhonchi, wheezes Cardiovascular exam: PRESENT: RRR. ABSENT: diastolic murmur, rubs, systolic murmur Pulses: PRESENT: normal dorsalis pedis pul Vascular exam: PRESENT: normal capillary refill GI/Abdominal exam: PRESENT: normal bowel sounds, soft. ABSENT: distended, guarding, mass, organolmegaly, rebound, tenderness Rectal exam: PRESENT: deferred Extremities exam: PRESENT: full ROM. ABSENT: calf tenderness, clubbing, pedal edema Neurological exam: PRESENT: alert, awake, oriented to person, oriented to place, oriented to time, oriented to situation, CN II-XII grossly intact. ABSENT: motor sensory deficit Psychiatric exam: PRESENT: appropriate affect, normal mood. ABSENT: homicidal ideation, suicidal ideation Skin exam: PRESENT: dry, intact, warm. ABSENT: cyanosis, rash Additional comments: In the right lower extremity some mild redness is present Results Laboratory Results: WBC 8.1 10^3/uL (4.0-10.5) 01/22/20 05:30 RBC 3.82 10^6/uL (4.35-5.55) L 01/22/20 05:30 Hgb 12.0 g/dL (13.5-17.0) L 01/22/20 05:30 Hct 34.7 % (37.9-51.0) L 01/22/20 05:30 MCV 91 fl (80-97) 01/22/20 05:30 MCH 31.4 pg (27.0-33.4) 01/22/20 05:30 MCHC 34.6 g/dL (32.0-36.0) 01/22/20 05:30 RDW 14.6 % (11.5-14.0) H 01/22/20 05:30 Plt Count 316 10^3/uL (150-450) 01/22/20 05:30 Lymph % (Auto) 13.6 % (13-45) 01/22/20 05:30 [place] % (Auto) 8.0 % (3-13) 01/22/20 05:30 Eos % (Auto) 2.8 % (0-6) 01/22/20 05:30 Baso % (Auto) 0.5 % (0-2) 01/22/20 05:30 Absolute Neuts (auto) 6.1 10^3/uL (1.7-8.2) 01/22/20 05:30 Absolute Lymphs (auto) 1.1 10^3/uL (0.5-4.7) 01/22/20 05:30 Absolute Monos (auto) 0.6 10^3/uL (0.1-1.4) 01/22/20 05:30 Absolute Eos (auto) 0.2 10^3/uL (0.0-0.6) 01/22/20 05:30 Absolute Basos (auto) 0.0 10^3/uL (0.0-0.2) 01/22/20 05:30 Total Counted 100 01/20/20 05:22 Seg Neutrophils % 75.1 % (42-78) 01/22/20 05:30 Seg Neuts % (Manual) 72 % (42-78) 01/20/20 05:22 Band Neutrophils % 3 % (3-5) 01/20/20 05:22 Lymphocytes % (Manual) 14 % (13-45) 01/20/20 05:22 Atypical Lymphs % 1 % (0) 01/20/20 05:22 Monocytes % (Manual) 6 % (3-13) 01/20/20 05:22 Eosinophils % (Manual) 4 % (0-6) 01/20/20 05:22 Basophils % (Manual) 0 % (0-2) 01/20/20 05:22 Abs Neuts (Manual) 6.3 10^3/uL (1.7-8.2) 01/20/20 05:22 Abs Lymphs (Manual) 1.3 10^3/uL (0.5-4.7) 01/20/20 05:22 Abs Monocytes (Manual) 0.5 10^3/uL (0.1-1.4) 01/20/20 05:22 Absolute Eos (Manual) 0.3 10^3/uL (0.0-0.6) 01/20/20 05:22 Abs Basophils (Manual) 0.0 10^3/uL (0.0-0.2) 01/20/20 05:22 Nucleated RBCs 1 /100 WBC (0) 01/13/20 07:42 Toxic Granulation 1+ 01/19/20 04:40 Toxic Vacuolation PRESENT 01/19/20 04:40 Platelet Estimate Cancelled 01/16/20 05:11 Clumped Platelets PRESENT 01/18/20 06:15 Platelet Comment ADEQUATE 01/20/20 05:22 Polychromasia 1+ 01/19/20 04:40 Poikilocytosis SLIGHT 01/19/20 04:40 Anisocytosis 1+ 01/20/20 05:22 Macrocytosis SLIGHT 01/15/20 07:30 Ovalocytes SLIGHT 01/19/20 04:40 Helmet Cells SLIGHT 01/19/20 04:40 RBC Morph Comment NORMO-CYTIC/CHROMIC 01/14/20 04:58 PT 15.3 SEC (11.4-15.4) 01/13/20 07:42 INR 1.19 01/13/20 07:42 Carbonic Acid 1.01 mmol/L (1.05-1.35) L 01/14/20 10:30 HCO3/H2CO3 Ratio 20:1 01/14/20 10:30 ABG pH 7.40 (7.35-7.45) 01/14/20 10:30 ABG pCO2 33.6 mmHg (35-45) L 01/14/20 10:30 ABG pO2 41.6 mmHg (80-100) L 01/14/20 10:30 ABG HCO3 20.5 mmol/L (20-24) 01/14/20 10:30 ABG Total CO2 21.6 mmol/L (23-27) L 01/14/20 10:30 ABG O2 Saturation 77.9 % (94-98) L 01/14/20 10:30 ABG Base Excess -3.5 mmol/L 01/14/20 10:30 VBG pH 7.44 (7.30-7.42) H 01/13/20 07:42 VBG pCO2 33.3 mmHg (35-63) L 01/13/20 07:42 VBG HCO3 22.2 mmol/L (20-32) 01/13/20 07:42 VBG Base Excess -1.1 mmol/L 01/13/20 07:42 FiO2 1.5L 01/14/20 10:30 Sodium 134.4 mmol/L (137-145) L 01/24/20 05:28 Potassium 4.9 mmol/L (3.6-5.0) 01/24/20 05:28 Chloride 102 mmol/L (98-107) 01/24/20 05:28 Carbon Dioxide 24 mmol/L (22-30) 01/24/20 05:28 Anion Gap 8 (5-19) 01/24/20 05:28 BUN 23 mg/dL (7-20) H 01/24/20 05:28 Creatinine 1.14 mg/dL (0.52-1.25) 01/24/20 05:28 Est GFR ( Amer) > 60 (>60) 01/24/20 05:28 Est GFR (MDRD) Non-Af > 60 (>60) 01/24/20 05:28 Glucose 102 mg/dL (75-110) 01/24/20 05:28 POC Glucose 100 mg/dL (70-110) 01/16/20 17:27 Serum Osmolality 274 mOsm/kg (275-301) L 01/14/20 10:10 Lactic Acid 2.8 mmol/L (0.7-2.1) H 01/14/20 11:05 Calcium 8.8 mg/dL (8.4-10.2) 01/24/20 05:28 Total Bilirubin 0.8 mg/dL (0.2-1.3) 01/13/20 07:42 Direct Bilirubin 0.2 mg/dL (0.0-0.4) 01/13/20 07:42 Neonat Total Bilirubin Not Reportable 01/13/20 07:42 Neonat Direct Bilirubin Not Reportable 01/13/20 07:42 Neonat Indirect Bili Not Reportable 01/13/20 07:42 AST 45 U/L (17-59) 01/13/20 07:42 ALT 41 U/L (<50) 01/13/20 07:42 Alkaline Phosphatase 41 U/L (38-126) 01/13/20 07:42 NT-Pro-B Natriuret Pep 458 pg/mL (<125) H 01/21/20 05:15 Total Protein 6.5 g/dL (6.3-8.2) 01/13/20 07:42 Albumin 3.8 g/dL (3.5-5.0) 01/13/20 07:42 TSH 0.27 uIU/mL (0.47-4.68) L 01/13/20 13:54 Urine Color YELLOW 01/13/20 09:49 Urine Appearance CLEAR 01/13/20 09:49 Urine pH 6.0 (5.0-9.0) 01/13/20 09:49 Ur Specific [employer] 1.027 01/13/20 09:49 Urine Protein 100 mg/dL (NEGATIVE) H 01/13/20 09:49 Urine Glucose (UA) NEGATIVE mg/dL (NEGATIVE) 01/13/20 09:49 Urine Ketones NEGATIVE mg/dL (NEGATIVE) 01/13/20 09:49 Urine Blood NEGATIVE (NEGATIVE) 01/13/20 09:49 Urine Nitrite NEGATIVE (NEGATIVE) 01/13/20 09:49 Urine Bilirubin NEGATIVE (NEGATIVE) 01/13/20 09:49 Urine Urobilinogen 4.0 mg/dL (<2.0) H 01/13/20 09:49 Ur Leukocyte Esterase NEGATIVE (NEGATIVE) 01/13/20 09:49 Urine WBC (Auto) 1 /HPF 01/13/20 09:49 Urine RBC (Auto) 0 /HPF 01/13/20 09:49 Squamous Epi Cells Auto <1 /HPF 01/13/20 09:49 Urine Mucus (Auto) RARE /LPF 01/13/20 09:49 Urine Sodium 18 mmol/L (30-90) L 01/14/20 21:00 Urine Ascorbic Acid NEGATIVE (NEGATIVE) 01/13/20 09:49 Time Trough Drawn 1327 01/16/20 13:27 Vancomycin Trough 10.1 ug/mL (5.0-20.0) 01/16/20 13:27 Valproic Acid 10.2 ug/mL (50.0-120.0) L 01/14/20 10:10 COVID-19 Source See comment 01/14/20 11:10 COVID-19 (WILLIAM) Not Detected (Not Detect) 01/14/20 11:10 Slides for Path Review Cancelled 01/16/20 05:11 01/21/20 05:15 NT-Pro-B Natriuret Pep 458 H Impressions: Chest CT 01/13/20 00:00 IMPRESSION: Calcified granuloma in the left base. Minimal bibasilar pleural thickening and basilar atelectasis. No suspicious pulmonary nodules. Calcified mediastinal and left hilar nodes. Chest X-Ray 01/13/20 00:00 IMPRESSION: Ill-defined nodular opacities in the left perihilar distribution and left base this may represent infectious or inflammatory process. Pulmonary nodules cannot be excluded. Recommend CT of the chest for further evaluation. Venous Doppler Study 01/13/20 00:00 IMPRESSION: NO EVIDENCE DVT OR SVT IN THE RIGHT LEG. Chest X-Ray 01/14/20 00:00 IMPRESSION: Low lung volumes, portable film. Vishnu lines are present, question mild interstitial edema. Plan Time Spent: Greater than 30 Minutes - Continues the p.o. antibiotics and continues the Silvadene creamMoisturizing cream Stroke Is this a Stroke Patient?: No Acute Heart Failure Is this a Heart Failure Patient?: No
== END 2020-01-25 17:15 | disposition home or self-care (01) | DRG 871 ==
LOC: ER 07:28 → EH 09:07 → 3W 13:16 → 3S 01-23 22:45
PROVIDERS: ADMIT Hospitalist; ATTEND Family Medicine
PROC: 5A09557 Assistance with Respiratory Ventilation, Greater than 96 Consecutive Hours, Continuous Positive Airway Pressure (ICD-10-PCS; principal; 2020-01-14)
DX: A40.8 Other streptococcal sepsis (principal); I50.33 Acute on chronic diastolic (congestive) heart failure; L03.115 Cellulitis of right lower limb; E66.2 Morbid (severe) obesity with alveolar hypoventilation; I11.0 Hypertensive heart disease with heart failure; F20.9 Schizophrenia, unspecified; E78.5 Hyperlipidemia, unspecified; I89.0 Lymphedema, not elsewhere classified; Z20.828 Contact with and (suspected) exposure to other viral communicable diseases; F41.1 Generalized anxiety disorder; Z68.34 Body mass index [BMI] 34.0-34.9, adult; Z88.8 Allergy status to other drugs, medicaments and biological substances; Z87.891 Personal history of nicotine dependence; Z90.49 Acquired absence of other specified parts of digestive tract; Z87.442 Personal history of urinary calculi
CPT/HCPCS: 36415; 71045; 71250; 80048; 80053; 80164; 80202; 81001; 82803; 82962; 83605; 83880; 83930; 84300; 84443; 85025; 85610; 87040; 87077; 87086; 87150; 87635; 93005; 93010; 93306; 93971; 94660; 96365; 99285; C9803; J0295; J0692; J1650; J1940; J2540; J3370; J3490; J7030; J7050; J7060; S0119